=== PATIENT | female | born 1960 | race Caucasian/White ===

== ENCOUNTER 2018-01-19 10:12 | Outpatient (CLI) | payer MEDICAID | END 2018-01-19 10:13 | disposition home or self-care (01) | LOC: RT.S 10:12 | PROVIDERS: ATTEND Nurse Practitioner Family | DX: I10 Essential (primary) hypertension (principal) | CPT/HCPCS: 93005 ==

== ENCOUNTER 2018-01-29 09:15 | Outpatient (CLI) | payer MEDICAID ==
[2018-01-29 18:37] LABS: ALBUMIN 4.4 g/dL (3.2-5.5); ALBUMIN/GLOBULIN RATIO 1.3 (1.0-2.2); ALKALINE PHOSPHATASE 53 IU/L (42-121); ALT ALANINE AMINOTRANSFERASE 13 IU/L (10-60); AST ASPARTATE AMINOTRANSFERASE 21 IU/L (10-42); BILIRUBIN,TOTAL 0.9 mg/dL (0.2-1.0); BUN - BLOOD UREA NITROGEN 26 mg/dL (6-20); CALCIUM 9.9 mg/dL (8.5-10.3); CARBON DIOXIDE - CO2 30 mmol/L (21-32); CHLORIDE 97 mmol/L (101-111); CHOL/HDL RATIO 3.1 (<4.4); CHOLESTEROL 247 mg/dL; CREATININE 0.9 mg/dL (0.4-1.0); GFR - MDRD 64 (>89); GLUCOSE 95 mg/dL (70-100); HDL CHOLESTEROL 79 mg/dL; LDL CHOLESTEROL,CALCULATED 134 mg/dL; LDL/HDL RATIO 1.7 (<4.4); SODIUM 137 mmol/L (135-145); TOTAL PROTEIN 7.7 g/dL (6.7-8.2); VLDL CHOLESTEROL 34 mg/dL
[2018-01-29 19:58] LABS: HB2 TOTAL 14.5 g/dL; HEMOGLOBIN A1C 0.51 g/dL; HEMOGLOBIN A1C % 5.4 % (4.6-6.2)
== END 2018-01-29 09:16 | disposition home or self-care (01) ==
LOC: LAB.S 09:15
PROVIDERS: ATTEND Nurse Practitioner Family
DX: I10 Essential (primary) hypertension (principal); R73.9 Hyperglycemia, unspecified
CPT/HCPCS: 36415; 80053; 80061; 83036; 83721

== ENCOUNTER 2018-02-02 14:49 | Outpatient (CLI) | payer MEDICAID ==
--- NOTE | 2018-02-06 15:12 | Mammography Report ---
DIGITAL SCREENING MAMMOGRAM: 02/02/2018 CLINICAL INDICATION: A 57-year-old for baseline, history of late childbearing. TECHNIQUE: Routine CC and MLO projections were obtained of the breasts. FINDINGS: The breasts demonstrate heterogeneously dense fibroglandular parenchyma bilaterally. Coarse, typically benign calcifications are present. In the right inner central breast, there is a possible obscured nodule. Further evaluation with spot compression views and possible ultrasound is recommended. No mammographically suspicious findings are identified in the left breast. IMPRESSION: INCOMPLETE EXAMINATION. RECOMMENDATION: Additional evaluation of the right breast as above. BI-RADS CATEGORY 0 - INCOMPLETE. STANDARD QUALIFYING STATEMENTS: 1. This examination was reviewed with the aid of Computer-Aided Detection (CAD). 2. A negative or benign imaging report should not delay biopsy if clinically suspicious findings are present. Consider surgical consultation if warranted. More than 5% of cancers are not identified by imaging. 3. Dense breasts may obscure an underlying neoplasm. TD: 02/06/2018 15:01
== END 2018-02-02 14:50 | disposition home or self-care (01) ==
LOC: DI.S 14:49
PROVIDERS: ATTEND Nurse Practitioner Family
DX: Z12.31 Encounter for screening mammogram for malignant neoplasm of breast (principal)
CPT/HCPCS: 77067

== ENCOUNTER 2018-02-26 14:03 | Outpatient (CLI) | payer MEDICAID ==
--- NOTE | 2018-02-26 17:19 | Ultrasound Report ---
RIGHT BREAST ULTRASOUND: 02/26/2018 CLINICAL INDICATION: Abnormal screening, persistent nodule on diagnostic. TECHNIQUE: Real-time scanning was performed with commercial pest control representative static images obtained. FINDINGS: Ultrasound of the right inner breast was performed. At the 2 o'clock position, 4 cm from the nipple, there is a 1.3 x 1.4 x 0.6 cm mixed hypoechoic and anechoic nodule, without internal vascularity. The margins appear mostly circumscribed. This may represent a complicated cyst or complex solid and cystic nodule. As such, fine needle aspiration is recommended, with biopsy of any remaining solid component. IMPRESSION: EITHER A COMPLICATED CYST OR A COMPLEX SOLID AND CYSTIC NODULE CORRELATING WITH THE MAMMOGRAPHIC ABNORMALITY. FINE NEEDLE ASPIRATION AND BIOPSY OF ANY RESIDUAL SOLID LESION IS RECOMMENDED. BIRADS category 4 suspicious abnormality. Results and recommendations discussed with the patient at the time of the examination, and called to the office of EVA Martinez on 02/26/2018 at 1540 hours. Biopsy/FNA is scheduled for 03/09/2018 at 12:30 p.m. TD: 02/26/2018 15:47
--- NOTE | 2018-02-26 17:22 | Mammography Report ---
DIGITAL DIAGNOSTIC RIGHT MAMMOGRAM: 02/26/2018 CLINICAL INDICATION: Possible nodule on baseline examination. TECHNIQUE: Right true lateral and spot compression views. COMPARISON: 02/02/2018 FINDINGS: The right breast again demonstrates heterogeneously dense fibroglandular parenchyma. A partially circumscribed nodule persists in the inner central right breast. No associated calcifications are seen. Please also refer to right breast ultrasound of the same day. IMPRESSION: EITHER A COMPLICATED CYST OR A COMPLEX SOLID AND CYSTIC NODULE IN THE MEDIAL RIGHT BREAST, ACCOUNTING FOR THE MAMMOGRAPHIC ABNORMALITY. RECOMMENDATION: Ultrasound-guided fine needle aspiration, with biopsy of any remaining solid lesion. BIRADS category 4 suspicious abnormality. Results and recommendations discussed with the patient at the time of the examination, and called to the office of Leticia Beckman PA-C on 02/26/2018. Biopsy is scheduled for 03/09/2018 at 12:30 p.m. STANDARD QUALIFYING STATEMENTS 1. This examination was reviewed with the aid of Computed-Aided Detection (CAD). 2. A negative or benign imaging report should not delay biopsy if clinically suspicious findings are present. Consider surgical consultation if warranted. More than 5% of cancers are not identified by imaging. 3. Dense breasts may obscure an underlying neoplasm. TD: 02/26/2018 15:49
== END 2018-02-26 14:04 | disposition home or self-care (01) ==
LOC: DI 14:03
PROVIDERS: ATTEND Nurse Practitioner Family
DX: R92.8 Other abnormal and inconclusive findings on diagnostic imaging of breast (principal)
CPT/HCPCS: 76642

== ENCOUNTER 2018-03-09 12:20 | Outpatient (CLI) | payer MEDICAID ==
[2018-03-09] MEDS: BUPIVACAINE 0.5%-EPI 1:200000 PF 10 ML VIAL SUBQ ONE (16:55)
[2018-03-09] MEDS: BUFFERED LIDOCAINE 10 ML SYRINGE IU ONE (16:57)
--- NOTE | 2018-03-12 08:52 | Ultrasound Report ---
Procedure Date: 03/09/2018 Accession Number: [id number] / [id number] Procedure: US - Biopsy Breast Core CPT Code: FULL RESULT: EXAM: Biopsy Breast Core DATE: 03/09/2018 3:48 PM CLINICAL HISTORY: 1.3 x 1.4 x 0.6 cm mixed echogenicity nodule right breast 2:00 position 4 cm from the nipple for aspiration versus core biopsy. COMPARISON: Mammogram and ultrasound 02/26/2018 FINDINGS: Initial ultrasound by the technologist with saved static images reviewed confirms the presence of a hypoechoic nodule at the 2:00 position 4 cm from the nipple. After discussion of the potential risks and complications with the patient, informed consent is obtained. Using ultrasound guidance the nodule is located and marked. The patient is prepped and draped in the standard fashion and local anesthesia achieved using both 1% lidocaine and Marcaine. An initial aspiration is attempted using a 20-gauge needle. No fluid is obtained. Core biopsy is then performed using a 14-gauge achieve needle. 6 passes are made with confirmation of appropriate needle position by ultrasound. A clip is then placed at the biopsy site under ultrasound. Unfortunately, mammography was not available postprocedure to confirm clip placement. The patient is scheduled as an outpatient for a unilateral right mammogram to confirm clip placement. IMPRESSION: Successful ultrasound-guided right breast core biopsy. Final recommendation pending pathology review.
== END 2018-03-09 12:21 | disposition home or self-care (01) ==
LOC: DI 12:20
PROVIDERS: ATTEND Nurse Practitioner Family
DX: D24.1 Benign neoplasm of right breast (principal)
CPT/HCPCS: 19083

== ENCOUNTER 2018-03-13 15:08 | Outpatient (CLI) | payer MEDICAID ==
--- NOTE | 2018-03-13 15:28 | Mammography Report ---
Procedure Date: 03/13/2018 Accession Number: [id number] / [id number] Procedure: WING - Diagnostic Dig RT CPT Code: FULL RESULT: EXAM: Diagnostic Dig RT DATE: 03/13/2018 3:24 PM CLINICAL HISTORY: Postbiopsy, check clip placement TECHNIQUE: Right CC and ML views COMPARISON: 02/26/2018, 02/02/2018 FINDINGS: The breasts demonstrate heterogeneously dense fibroglandular parenchyma bilaterally. Biopsy marker is centered within the nodule in the right inner breast. Coarse and punctate, typically benign calcifications are present. IMPRESSION: Benign findings RECOMMENDATION: Recommend routine annual Screening mammography unless otherwise clinically indicated, given the pathology results of benign fibroadenoma. BIRADS CATEGORY 2: Benign findings STANDARD QUALIFYING STATEMENTS: 1. This examination was reviewed with the aid of Computer-Aided Detection (CAD). 2. A negative or benign imaging report should not delay biopsy if clinically suspicious findings are present. Consider surgical consultation if warrented. More than 5% of cancers are not identified by imaging. 3. Dense breasts may obscure an underlying neoplasm.
== END 2018-03-13 15:09 | disposition home or self-care (01) ==
LOC: DI 15:08
PROVIDERS: ATTEND Nurse Practitioner Family
DX: R92.8 Other abnormal and inconclusive findings on diagnostic imaging of breast (principal)

== ENCOUNTER 2019-04-24 08:42 | Outpatient (CLI) | payer MEDICAID ==
[2019-04-24 11:00] LABS: HB2 TOTAL 14.3 g/dL; HEMOGLOBIN A1C 0.52 g/dL; HEMOGLOBIN A1C % 5.5 % (4.6-6.2)
[2019-04-24 17:30] LABS: ALBUMIN 4.3 g/dL (3.2-5.5); ALBUMIN/GLOBULIN RATIO 1.2 (1.0-2.2); ALKALINE PHOSPHATASE 63 IU/L (42-121); ALT ALANINE AMINOTRANSFERASE 54 IU/L (10-60); AST ASPARTATE AMINOTRANSFERASE 63 IU/L (10-42); BILIRUBIN,TOTAL 0.8 mg/dL (0.2-1.0); BUN - BLOOD UREA NITROGEN 18 mg/dL (6-20); CALCIUM 9.3 mg/dL (8.5-10.3); CARBON DIOXIDE - CO2 29 mmol/L (21-32); CHLORIDE 94 mmol/L (101-111); CHOL/HDL RATIO 3.9 (<4.4); CHOLESTEROL 289 mg/dL; GFR - MDRD 57 (>89); GLUCOSE 97 mg/dL (70-100); HDL CHOLESTEROL 75 mg/dL; LDL CHOLESTEROL,CALCULATED 163 mg/dL; LDL/HDL RATIO 2.2 (<4.4); SODIUM 136 mmol/L (135-145); TOTAL PROTEIN 7.8 g/dL (6.7-8.2); VLDL CHOLESTEROL 51 mg/dL
== END 2019-04-24 08:43 | disposition home or self-care (01) ==
LOC: LAB.S 08:42
PROVIDERS: ATTEND Internal Medicine
DX: E78.5 Hyperlipidemia, unspecified (principal); R73.02 Impaired glucose tolerance (oral)
CPT/HCPCS: 36415; 80053; 80061; 83036; 83721

== ENCOUNTER 2020-07-10 12:17 | Inpatient (IN) | payer MEDICAID ==
[2020-07-10] MEDS ORDERED: IPRATROPIUM/ALBUTEROL 3 ML NEB INH STA (12:49)
[2020-07-10] MEDS ORDERED: methylPREDNISolone SUCCINATE 125 MG/2 ML VIAL IVP STA (12:49)
--- NOTE | 2020-07-10 13:05 | ED Physician Documentation ---
PD HPI DYSPNEA - Stated complaint Stated Complaint: SOA - Chief complaint Chief Complaint: Resp - History obtained from History obtained from: Patient, Family - History of Present Illness Timing - onset: How many weeks ago (1) Timing - duration: Weeks (1) Timing - details: Gradual onset, Waxing and waning Pain level max: 0 Pain level now: 0 Inciting event(s): No: URI Improved by: Rest Associated symptoms: Wheezing. No: Fever, Cough, Hemoptysis, Palpitations, Diaphoresis, Bilateral edema Recently seen: Not recently seen - Additional information Additional information: 60-year-old female presents to the emergency department stating that she has had dyspnea intermittently for the past week. She states it became worsened today when she was in the shower. Does not have any chest pain. No nausea or vomiting fever. No cough. No chills. Patient does smoke at home. Does not use inhalers. No recent surgery. No immobilization. No calf swelling. No history of blood clots. No history of acute coronary syndrome. Review of Systems Ten Systems: 10 systems reviewed and negative Constitutional: denies: Fever, Chills Throat: denies: Sore throat Cardiac: denies: Chest pain / pressure GI: denies: Vomiting, Diarrhea : denies: Dysuria Skin: denies: Rash Musculoskeletal: denies: Neck pain, Back pain Neurologic: denies: Headache PD PAST MEDICAL HISTORY - Past Medical History Cardiovascular: Hypertension Respiratory: None Endocrine/Autoimmune: None GI: None : None Psych: None Musculoskeletal: None Derm: None - Past Surgical History Past Surgical History: Yes - Present Medications Home Medications: Ambulatory Orders Medication Instructions Recorded Confirmed Atenolol/Chlorthalidone 1 each PO DAILY 04/18/16 04/19/16 [Atenolol-Chlorthalidone 100-25] - Allergies Allergies/Adverse Reactions: Allergies Allergy/AdvReac Type Severity Reaction Status Date / Time No Known Drug Allergies Allergy Verified 08/19/14 20:58 - Social History Does the pt smoke?: Yes Smoking Status: Current every day smoker Does the pt drink ETOH?: Yes ETOH Use: Liquor Does the pt have substance abuse?: No - Immunizations Immunizations are current?: Yes Immunizations: TDAP >10years/unknown PD ED PE NORMAL - Vitals Vital signs reviewed: Yes - General General: Alert and oriented X 3, No acute distress - HEENT HEENT: Moist mucous membranes - Neck Neck: Supple, no meningeal sign - Cardiac Cardiac: RRR - Respiratory Respiratory: No respiratory distress, Other (Diminished breath sounds bilaterally with fine expiratory wheezing throughout) - Abdomen Abdomen: Soft, Non tender, Non distended - Derm Derm: Warm and dry - Extremities Extremities: No edema, No calf tenderness / cord - Neuro Neuro: Alert and oriented X 3 Results - Vitals Vitals: Vital Signs - 24 hr 07/10/20 07/10/20 07/10/20 12:23 12:41 13:19 Temperature 36.7 C Heart Rate 79 79 72 Respiratory 21 19 20 Rate Blood Pressure 151/80 H 149/91 H O2 Saturation 89 L 93 07/10/20 07/10/20 07/10/20 13:36 14:06 14:23 Temperature Heart Rate 82 77 77 Respiratory 20 16 19 Rate Blood Pressure 145/91 H 137/110 H 149/96 H O2 Saturation 97 93 94 07/10/20 07/10/20 07/10/20 15:00 15:30 15:55 Temperature 36.8 C Heart Rate 80 86 89 Respiratory 19 20 26 H Rate Blood Pressure 154/106 H 134/89 H O2 Saturation 94 96 07/10/20 16:50 Temperature Heart Rate 67 Respiratory 16 Rate Blood Pressure 130/83 H O2 Saturation 99 Oxygen O2 Source Nasal cannula - EKG (time done) 1231 Rate: Rate (enter#) (80) Rhythm: NSR [place]: Normal Intervals: Normal [place] QRS: Normal Ischemia: Non specific changes - Labs Labs: Laboratory Tests 07/10/20 07/10/20 07/10/20 13:05 13:30 13:30 WBC 9.0 RBC 4.58 Hgb 15.5 Hct 44.9 MCV 98.0 MCH 33.8 H MCHC 34.5 RDW 12.0 Plt Count 296 MPV 10.4 Neut # (Auto) 6.8 H Lymph # (Auto) 1.0 L [place] # (Auto) 0.7 Eos # (Auto) 0.4 Baso # (Auto) 0.1 Absolute Nucleated RBC 0.00 Nucleated RBC % 0.0 D-Dimer Sodium 127 L Potassium 3.4 L Chloride 85 L Carbon Dioxide 27 Anion Gap 15.0 H BUN 18 Creatinine 1.1 H Estimated GFR (MDRD) 50 L Glucose 137 H Calcium 10.2 Total Bilirubin 0.9 AST 39 ALT 44 Alkaline Phosphatase 68 Troponin I High Sens 6.4 Total Protein 8.3 H Albumin 4.7 Globulin 3.6 Albumin/Globulin Ratio 1.3 Lipase 26 07/10/20 13:30 WBC RBC Hgb Hct MCV MCH MCHC RDW Plt Count MPV Neut # (Auto) Lymph # (Auto) [place] # (Auto) Eos # (Auto) Baso # (Auto) Absolute Nucleated RBC Nucleated RBC % D-Dimer 217.7 Sodium Potassium Chloride Carbon Dioxide Anion Gap BUN Creatinine Estimated GFR (MDRD) Glucose Calcium Total Bilirubin AST ALT Alkaline Phosphatase Troponin I High Sens Total Protein Albumin Globulin Albumin/Globulin Ratio Lipase - Rads (name of study) Chest x-ray Radiology: Prelim report reviewed, EMP read contemporaneously, See rad report (No acute process demonstrated. ) CT PA Radiology: Prelim report reviewed, EMP read contemporaneously, See rad report (no PE, no acute abnormality.) PD MEDICAL DECISION MAKING - ED course Complexity details: reviewed results, re-evaluated patient, considered differential, d/w patient, d/w foreign law consultant ED course: Unclear etiology of the patient's symptoms. She is well-appearing, nontoxic. Afebrile. She become significantly hypoxic, down to the 70s with minimal exertion. She does feel slightly better after multiple breathing treatments. She was also given Solu-Medrol. Likely that this is COPD given her long smoking history. No evidence of acute coronary syndrome, PE. We will admit the patient for further care as she still remains hypoxic with any movement. Discussed the case with Dr. De La Fuente, hospitalist who accepts This document was made in part using voice recognition software. While efforts are made to proofread this document, sound alike and grammatical errors may occur. Departure - Departure Disposition: [facility] DC/Xfer Clinical Impression: Hypoxia Dyspnea Qualifiers: Dyspnea type: unspecified Qualified Code(s): R06.00 - Dyspnea, unspecified Condition: Stable Discharge Date/Time: 07/10/20 17:50
--- NOTE | 2020-07-10 13:17 | XRAY Report ---
PROCEDURE: Chest 1 View X-Ray INDICATIONS: Dyspnea TECHNIQUE: One view of the chest was acquired. COMPARISON: None FINDINGS: Surgical changes and devices: None. Lungs and pleura: No pleural effusions or pneumothorax. Lungs are clear. Mediastinum: Mediastinal contours appear normal. Heart size is normal. Bones and chest wall: No suspicious bony lesions. Overlying soft tissues appear unremarkable. IMPRESSION: No acute process demonstrated. Reviewed by: Jose Barksdale MD on 07/10/2020 1:15 PM PDT Approved by: Jose Barksdale MD on 07/10/2020 1:15 PM PDT Station ID: [id number]
[2020-07-10 13:18] LABS: BASOPHILS # (AUTO) 0.1 10^3/uL (0.0-0.1); EOSINOPHILS # (AUTO) 0.4 10^3/uL (0.0-0.7); EOSINOPHILS % (AUTO) 4.1 %; HGB - HEMOGLOBIN 15.5 g/dL (12.0-16.0); LYMPHOCYTES % (AUTO) 11.1 %; MEAN CORPUSCULAR HEMOGLOBIN 33.8 pg (27.0-31.0); MEAN CORPUSCULAR HGB CONC 34.5 g/dL (32.0-36.0); MEAN PLATELET VOLUME 10.4 fL (7.9-10.8); MONOCYTES # (AUTO) 0.7 10^3/uL (0.0-1.0); MONOCYTES % (AUTO) 8.1 %; NEUTROPHILS # (AUTO) 6.8 10^3/uL (1.5-6.6); NEUTROPHILS % (AUTO) 75.1 %; PLT - PLATELET COUNT 296 10^3/uL (130-450); RED BLOOD COUNT 4.58 10^6/uL (4.20-5.40)
[2020-07-10 13:57] LABS: ALBUMIN 4.7 g/dL (3.2-5.5); ALBUMIN/GLOBULIN RATIO 1.3 (1.0-2.2); BILIRUBIN,TOTAL 0.9 mg/dL (0.2-1.0); CALCIUM 10.2 mg/dL (8.5-10.3); CREATININE 1.1 mg/dL (0.4-1.0); TOTAL PROTEIN 8.3 g/dL (6.7-8.2)
[2020-07-10] MEDS ORDERED: SODIUM CHLORIDE 0.9% 1,000 ML IV STA (14:06)
[2020-07-10] MEDS ORDERED: IOVERSOL 320 100 ML VIAL IVP ONE ×2 (14:44→15:49)
[2020-07-10] MEDS ORDERED: LORazepam 2 MG/ML VIAL IVP STA (14:48)
[2020-07-10] MEDS ORDERED: ALBUTEROL 1 PUFF INH STA (14:48)
--- NOTE | 2020-07-10 16:03 | CT Report ---
PROCEDURE: ANGIO CHEST W/WO INDICATIONS: dyspnea, possible PE CONTRAST: IV CONTRAST: Optiray 320 ml: 100 PO CONTRAST: *NO PO CONTRAST TECHNIQUE: After the administration of intravenous contrast, 2 mm thick sections acquired from the pulmonary api elian to the posterior costophrenic angles. 3-dimensional maximum intensity projection (MIP) coronal a nd sagittal reformats were then acquired through the thorax. For radiation dose reduction, the follow ing was used: automated exposure control, adjustment of mA and/or kV according to patient size. COMPARISON: Chest x-ray 07/10/2020 FINDINGS: Image quality: Motion is present throughout the examination, limiting areas of fine detail evaluation . Pulmonary arteries: Pulmonary arteries are normal in size, and demonstrate no intraluminal filling d efects to suggest central pulmonary embolism. Lungs and pleura: Lungs are clear. No pleural effusions or pneumothorax. Central and peripheral ai rways are patent. Mediastinum: Heart size is normal, without pericardial effusion. No mediastinal or hilar adenopathy . Thoracic aorta is normal in caliber and enhancement. Esophagus is normal in caliber, without hiat al hernia. Bones and chest wall: No suspicious bony lesions. Ribs and thoracic spine appear intact throughout. The thyroid is normal. No axillary or supraclavicular adenopathy. Abdomen: Visualized upper abdominal solid organs appear normal in the early arterial phase of enhanc ement. IMPRESSION: 1. No pulmonary embolism. 2. Lungs are clear. Reviewed by: Orquidea Duran MD on 07/10/2020 4:01 PM PDT Approved by: Orquidea Duran MD on 07/10/2020 4:01 PM PDT Station ID: [id number]
--- NOTE | 2020-07-10 17:10 | HISTORY & PHYSICAL EXAMINATION ---
Chief Complaint - Chief Complaint Chief Complaint: dyspnea History of Present Illness - Admitted From Admitted From:: ER - History Obtained From Records Reviewed: [facility] History obtained from: pt Exam Limitations: no - History of Present Illness HPI Comment/Other: This is a 60-year-old female with Past medical history significant for hypertension, currently cigarette smoker, who presents to the emergency department Complain shortness of breathing and cough. she state that she has been dyspnea intermittently for the past week. She states it became worsened and Almost passed out on today when she had in the shower. Her friend bring her to ER. she denies chest pain, fever, chill, nausea or vomiting or abdominal pain. Patient report she is still smoking at home. She denies use inhalers. In the physical examination, patient show bilaterally expiration with severe wheezy. Chest x-ray and CTA of the chest show unremarkable. Routine laboratory test which show patient had sodium 127, potassium 3.4, creatinine 1.1, Anion gap 15, troponin 6.7. Nurse report pt's Oxygen saturation on exertion will quickly dropped to the 70-80% then quickly come back 80-90% sat on the rest. patient was admitted for COPD exacerbation now. Discussed the care goal with patient, patient requests full code History - Past Medical History Cardiovascular: reports: Hypertension Respiratory: reports: None Endocrine/Autoimmune: reports: None GI: reports: None : reports: None Psych: reports: None Musculoskeletal: reports: None Derm: reports: None MRSA Hx?: No - Family & Social History Family History: Mother: , Father: Family History Comment/Other: Patient report her father of COPD at age 65 with heavy smoker, her mother from uterine cancer at age 78. 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 - Home Medications Home Medications: Ambulatory Orders Medication Instructions Recorded Confirmed Atenolol/Chlorthalidone 1 each PO DAILY 04/18/16 04/19/16 [Atenolol-Chlorthalidone 100-25] - Allergies Allergies/Adverse Reactions: Allergies Allergy/AdvReac Type Severity Reaction Status Date / Time No Known Drug Allergies Allergy Verified 08/19/14 20:58 Review of Systems - Constitutional Constitutional: denies: Fatigue, Fever, Chills, Malaise, Weakness, Poor appetite - Eyes Eyes: denies: Pain, Blurred vision, Field loss, Vision loss - Ears, Nose & Throat Ears, Nose & Throat: denies: Ear pain, Nosebleeds, Nasal congestion, Bleeding gums - Cardiovascular Cariovascular: reports: Exertional dyspnea, Decr. exercise tolerance. denies: Irregular heart rate, Palpitations, Chest pain, Lightheadedness, Syncope - Respiratory Respiratory: reports: Cough, Wheezing, Orthopnea, SOB with exertion. denies: Sputum production, Snoring, Hemoptysis - Gastrointestinal Gastrointestinal: denies: Abdominal pain, Diarrhea, Black stools, Bloody stools, Nausea, Vomiting - Genitourinary Genitourinary: denies: Dysuria, Urgency, Incontinence - Musculoskeletal Musculoskeletal: denies: Limited range of motion, Joint swelling - Integumentary Integumentary: denies: Rash, Lesions - Neurological Neurological: denies: General weakness, Focal weakness, Headache, Dizziness, Numbness, Memory problems, Pre-existing deficit, Abnormal gait, Seizures, Incoordination, Slurred speech - Psychiatric Psychiatric: denies: Depression, Suicidal, Delusions, Hallucinations - Endocrine Endocrine: denies: Polyuria, Polyphagia - Hematologic/Lymphatic Hematologic/Lymphatic: denies: Anemia, Lymphadenopathy, Recurrent infections Exam - Vital Signs Vital Signs: Vital Signs x48h Temp Pulse Resp BP Pulse Ox 07/10/20 16:50 67 16 130/83 H 99 07/10/20 15:55 36.8 C 89 26 H 134/89 H 96 07/10/20 15:30 86 20 07/10/20 15:00 80 19 154/106 H 94 07/10/20 14:23 77 19 149/96 H 94 07/10/20 14:06 77 16 137/110 H 93 07/10/20 13:36 82 20 145/91 H 97 07/10/20 13:19 72 20 07/10/20 12:41 79 19 149/91 H 93 07/10/20 12:23 36.7 C 79 21 151/80 H 89 L - Physical Exam General Appearance: positive: Alert, Mild distress. negative: Lethargic Eyes Bilateral: positive: Normal inspection, PERRL, No lid inflammation ENT: positive: ENT inspection nml, No signs of dehydration. negative: Purulent nasal drainage Neck: positive: Nml inspection, Thyroid nml, Trachea midline. negative: Thyromegaly, Stiff neck, Tracheal deviation Respiratory: positive: Chest non-tender, Wheezes. negative: No respiratory distress, Breath sounds nml, Rales, Rhonchi Cardiovascular: positive: Regular rate & rhythm. negative: No murmur, Tachycardia, Bradycardia, Systolic murmur, Diastolic murmur Peripheral Pulses: positive: 2+ Abdomen: positive: Non-tender, Nml bowel sounds, No distention. negative: Tenderness, Guarding, Rebound Back: positive: Nml inspection Skin: positive: Color nml, No rash, Warm, Dry. negative: Cyanosis, Diaphoresis, Pallor Extremities: positive: Non-tender, Full ROM, Nml appearance. negative: Calf tenderness Neurologic/Psychiatric: positive: Oriented x3, Motor nml, Sensation nml, Mood/affect nml. negative: Weakness, Sensory loss, Facial droop, Slurred/abnml speech, Depressed mood/affect Sepsis Event Note (H) - Evaluation Current Stage of Sepsis: Ruled out Conclusion/Plan - Problem List (1) COPD exacerbation Conclusion/Plan: Patient is current Cigarette smoke, Severe bilaterally expiration wheezy in physical exam, Shortness of breathing on exertion, Oxygen sat dropped quickly on exertion. CTA of the chest and the chest x-ray was unremarkable. COVID-19 is pending solu-metrol IV, albuterol MDI because of Covid 19 pending, singular, Supplement of oxygen as needed. 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 (3) HTN (hypertension) Conclusion/Plan: Patient blood pressure is stable now, we will resume home medication after confirmed (4) Current smoker Conclusion/Plan: Patient is currently smoker, she ask nicotine patch, advised patient quitted smoking, she agreed - Lab Results Fish Bones: 07/10/20 13:05 07/10/20 13:30 Core Measures - Anticipated LOS I expect patient to be DC'd or transferred within 96 hours.: Yes - DVT/VTE - Prophylaxis VTE/DVT Device ordered at admit?: Yes VTE/DVT Prophylaxis med ordered at admit?: Yes - Stroke - Rehab Assessment Rehab services assessment to be ordered?: Yes - AMI - Statin at Admit Aspirin Prescribed on Admit: Yes
[2020-07-10] MEDS ORDERED: ONDANSETRON 4 MG/2 ML VIAL IVP PRN (17:13)
[2020-07-10] MEDS ORDERED: SODIUM CHLORIDE 0.9% 1,000 ML IV SCH (18:00)
[2020-07-10] MEDS: SODIUM CHLORIDE 0.9% 1,000 ML IV SCH (18:30)
[2020-07-10] MEDS: NICOTINE 14 MG PATCH TOP SCH (18:30)
[2020-07-10] MEDS: ALBUTEROL 1 PUFF INH PRN (21:43)
[2020-07-10] MEDS: methylPREDNISolone SUCCINATE 125 MG/2 ML VIAL IVP SCH (21:53)
[2020-07-10] MEDS: FAMOTIDINE 20 MG TABLET PO SCH (21:53)
[2020-07-10] MEDS: MONTELUKAST 10 MG TABLET PO SCH (21:53)
[2020-07-11] MEDS: ACETAMINOPHEN 325 MG TABLET PO PRN ×2 (00:08→06:35)
[2020-07-11] MEDS: SODIUM CHLORIDE FLUSH 0.9% 10 ML SYRINGE IVP SCH ×3 (02:02→17:07)
[2020-07-11] MEDS: ALBUTEROL 1 PUFF INH PRN ×3 (02:25→22:12)
[2020-07-11 05:38] LABS: BASOPHILS % (AUTO) 0.1 %; HGB - HEMOGLOBIN 13.3 g/dL (12.0-16.0); LYMPHOCYTES # (AUTO) 0.4 10^3/uL (1.5-3.5); LYMPHOCYTES % (AUTO) 4.7 %; MEAN CORPUSCULAR HEMOGLOBIN 34.6 pg (27.0-31.0); MEAN CORPUSCULAR HGB CONC 35.2 g/dL (32.0-36.0); MEAN CORPUSCULAR VOLUME 98.4 fL (81.0-99.0); MEAN PLATELET VOLUME 9.9 fL (7.9-10.8); MONOCYTES # (AUTO) 0.1 10^3/uL (0.0-1.0); MONOCYTES % (AUTO) 1.6 %; NEUTROPHILS # (AUTO) 6.9 10^3/uL (1.5-6.6); NEUTROPHILS % (AUTO) 92.8 %; PLT - PLATELET COUNT 241 10^3/uL (130-450); RED BLOOD COUNT 3.84 10^6/uL (4.20-5.40); RED CELL DISTRIBUTION WIDTH 11.6 % (12.0-15.0); WHITE BLOOD COUNT 7.4 x10^3/uL (4.8-10.8)
[2020-07-11 05:58] LABS: CALCIUM 8.8 mg/dL (8.5-10.3); MAGNESIUM 1.4 mg/dL (1.7-2.8); PHOSPHORUS 2.2 mg/dL (2.5-4.6)
[2020-07-11] MEDS: SODIUM CHLORIDE 0.9% 1,000 ML IV SCH (06:18)
[2020-07-11] MEDS: BENZOCAINE/MENTHOL LOZENGE MM PRN ×2 (06:20→21:56)
[2020-07-11] MEDS: methylPREDNISolone SUCCINATE 125 MG/2 ML VIAL IVP SCH ×3 (06:21→21:55)
[2020-07-11] MEDS ORDERED: MAGNESIUM SULFATE 2 GRAM 2 GM/50 ML BAG IV SCH (07:30)
[2020-07-11] MEDS: POTASSIUM CHLORIDE 20 MEQ TABLET PO SCH ×3 (07:56→17:23)
[2020-07-11] MEDS ORDERED: POTASSIUM PHOSPHATE 15 MMOL in SODIUM CHLORIDE 0.9% 250 ML IV SCH (08:30)
[2020-07-11] MEDS: NICOTINE 14 MG PATCH TOP SCH (09:42)
[2020-07-11] MEDS: ENOXAPARIN 40 MG/0.4 ML SYRINGE SUBQ SCH (09:42)
[2020-07-11] MEDS: FAMOTIDINE 20 MG TABLET PO SCH ×2 (10:05→21:57)
--- NOTE | 2020-07-11 13:42 | PROVIDER PROGRESS NOTE ---
Assessment/Plan - Problem List (1) COPD exacerbation Assessment/Plan: She has never been Dx as having COPD. Chest x-ray was normal and CTA showed no pulmonary embolism. The clinical impression is that she has a COPD exacerbation therefore She feels slightly better, but still has a hacking cough and brown, pink-tinged sputum production. She has been started on IV Solu-Medrol, montelukast, and MDI inhalers. We are awaiting Covid test before RT can start nebulizers. She continues to be in respiratory isolation therefore. Continue supplemental oxygen as needed, wean down if possible, keeping sat > 88% . Will add Mucinex. Will obtain a sputum cx, if not yet done. Will give a course of Zithromax for bronchitis which likely caused this exacerbation. (2) Orthopnea Assessment/Plan: Echo has been ordered, to R/O CHF, but today is Monday and we do not have Echo till Monday. She also reports having had all Covid symptoms in August 2019: Cough, fatigue, fever, Anorexia,was in bed for 15 days. Will obtain Covid antibody test. (3) Hyponatremia Assessment/Plan: This is most likely hypovolemic hyponatremia, given the low blood pressure in a patient who normally has hypertension and the fact she is low and other elect rolytes as well. We discussed how she might be dehydrating herself, she is not on diuretics for blood pressure control. She does admit to drinking 2 vodka tonics per night and knows that alcohol causes diuresis. She was started on IV saline at admission. She knows to hydrate better and is drinking out of a jug of water here. Follow sodium in BMP daily. Obtain urine sodium level to assess for a SIADH. Also she did not have a UA at admission, will order U/A. (4) Hypokalemia Assessment/Plan: Suspect poor intake causing this, Since she is not on a diuretic. Replace. Follow labs daily. (5) Hypomagnesemia Assessment/Plan: Suspect poor intake causing this, Since she is not on a diuretic. Replace. Follow labs daily. (6) Hypophosphatemia Assessment/Plan: Suspect poor intake causing this. Replace. Follow labs daily. (7) Current smoker Assessment/Plan: Nicotine patch topically daily has been ordered (8) History of hypertension Assessment/Plan: Patient was on atenolol, losartan and amlodipine at home. Here her blood pressure is "soft" at 103 systolic. This is another indication that she is dehydrated. Will not resume these meds until she is hypertensive. - Current Meds Current Meds: Current Medications Generic Name Dose Route Start Last Admin Trade Name Freq PRN Reason Stop Dose Admin Acetaminophen 650 mg 07/10/20 17:13 07/11/20 06:35 Tylenol PO 650 mg Q4HR PRN Administration Pain 1 to 4 Albuterol 2 puffs 07/10/20 17:19 07/11/20 02:25 Mdi: Albuterol INH 2 puffs Q4H PRN Administration Shortness of Air/Wheezing Enoxaparin Sodium 40 mg 07/11/20 09:00 07/11/20 09:42 Lovenox SUBQ 40 mg DAILY ALLISON Administration Famotidine 20 mg 07/10/20 21:00 07/11/20 10:05 Pepcid PO 20 mg BID ALLISON Administration Sodium Chloride 1,000 mls @ 83.3 mls/hr 07/10/20 18:25 07/11/20 06:18 Normal Saline 0.9% IV 07/11/20 18:25 83.333 mls/hr .Q12H1M ALLISON Administration Methylprednisolone Sodium Succinate 80 mg 07/10/20 22:00 07/11/20 06:21 Solu-Medrol (125mg Vial) IVP 80 mg TID ALLISON Administration Montelukast Sodium 10 mg 07/10/20 21:00 07/10/20 21:53 Singulair PO 10 mg QPM ALLISON Administration Nicotine 1 patch 07/10/20 17:48 07/11/20 09:42 Nicoderm TOP 1 patch DAILY ALLISON Administration Potassium Chloride 40 meq 07/11/20 08:00 07/11/20 12:06 K-Dur PO 07/11/20 17:01 40 meq TIDWM ALLISON Administration Sodium Chloride 10 ml 07/11/20 01:00 07/11/20 09:43 Normal Saline Flush 0.9% IVP 10 ml 0100,0900,1700 ALLISON Administration Throat Lozenges 1 lozenge 07/11/20 02:05 07/11/20 06:20 Cepacol MM 1 lozenge Q2HR PRN Administration Throat pain - Lab Result Fish Bone Diagrams: 07/11/20 05:25 07/11/20 13:32 - Additional Planning My Orders: My Active Orders 07/11/20 13:32 POTASSIUM [CHEM] Timed Subjective - Subjective Patient Reports: Feeling Better, Cough (Cough was so bad several days ago that she had "cough syncope"), Shortness of Breath Objective Vital Signs: Vital Signs - 24 hr 07/10/20 07/10/20 07/10/20 14:06 14:23 15:00 Temperature Heart Rate 77 77 80 Heart Rate [ Radial] Respiratory 16 19 19 Rate Blood Pressure 137/110 H 149/96 H 154/106 H Blood Pressure [Left Brachial artery] O2 Saturation 93 94 94 07/10/20 07/10/20 07/10/20 15:30 15:55 16:50 Temperature 36.8 C Heart Rate 86 89 67 Heart Rate [ Radial] Respiratory 20 26 H 16 Rate Blood Pressure 134/89 H 130/83 H Blood Pressure [Left Brachial artery] O2 Saturation 96 99 07/10/20 07/10/20 07/10/20 17:26 18:13 21:00 Temperature 37 C 36.9 C Heart Rate 78 Heart Rate [ 84 73 Radial] Respiratory 20 18 18 Rate Blood Pressure 129/87 H Blood Pressure 122/100 H 113/79 [Left Brachial artery] O2 Saturation 96 93 92 07/10/20 07/11/20 07/11/20 21:42 00:00 02:25 Temperature 36.5 C Heart Rate 73 77 Heart Rate [ 72 Radial] Respiratory 18 18 18 Rate Blood Pressure Blood Pressure 115/79 [Left Brachial artery] O2 Saturation 97 07/11/20 07/11/20 07/11/20 05:00 08:05 09:00 Temperature 36.6 C 36.5 C Heart Rate 76 Heart Rate [ 70 76 Radial] Respiratory 16 16 16 Rate Blood Pressure Blood Pressure 127/85 H 127/83 H [Left Brachial artery] O2 Saturation 96 97 07/11/20 12:00 Temperature 36.9 C Heart Rate Heart Rate [ 75 Radial] Respiratory 16 Rate Blood Pressure Blood Pressure 103/77 [Left Brachial artery] O2 Saturation 97 Oxygen O2 Source Nasal cannula I&O (Last 24 Hrs): Intake and Output Totals x24h 07/09/20 07/10/20 07/11/20 23:59 23:59 23:59 Intake Total 1000 2010.000 Output Total 975 500 Balance 25 1510.000 General: Alert, Oriented x3 HEENT: Mucous membr. moist/pink Neck: Supple, No JVD Neuro: Alert, Non Focal Cardiovascular: Regular rate, No murmurs Respiratory: No respiratory distress, Wheezes (Scant wheezes, prolonged expiratory phase present) Abdomen: Soft Extremities: No edema - Results Results: Laboratory Results WBC 7.4 x10^3/uL (4.8-10.8) 07/11/20 05:25 RBC 3.84 10^6/uL (4.20-5.40) L 07/11/20 05:25 Hgb 13.3 g/dL (12.0-16.0) 07/11/20 05:25 Hct 37.8 % (37.0-47.0) 07/11/20 05:25 MCV 98.4 fL (81.0-99.0) 07/11/20 05:25 MCH 34.6 pg (27.0-31.0) H 07/11/20 05:25 MCHC 35.2 g/dL (32.0-36.0) 07/11/20 05:25 RDW 11.6 % (12.0-15.0) L 07/11/20 05:25 Plt Count 241 10^3/uL (130-450) 07/11/20 05:25 MPV 9.9 fL (7.9-10.8) 07/11/20 05:25 Neut # (Auto) 6.9 10^3/uL (1.5-6.6) H 07/11/20 05:25 Lymph # (Auto) 0.4 10^3/uL (1.5-3.5) L 07/11/20 05:25 [place] # (Auto) 0.1 10^3/uL (0.0-1.0) 07/11/20 05:25 Eos # (Auto) 0.0 10^3/uL (0.0-0.7) 07/11/20 05:25 Baso # (Auto) 0.0 10^3/uL (0.0-0.1) 07/11/20 05:25 Absolute Nucleated RBC 0.00 x10^3/uL 07/11/20 05:25 Nucleated RBC % 0.0 /100WBC 07/11/20 05:25 D-Dimer 217.7 ng/mL (200.0-255.0) 07/10/20 13:30 Sodium 131 mmol/L (135-145) L 07/11/20 05:25 Potassium 2.9 mmol/L (3.5-5.0) L 07/11/20 05:25 Chloride 97 mmol/L (101-111) L 07/11/20 05:25 Carbon Dioxide 22 mmol/L (21-32) 07/11/20 05:25 Anion Gap 12.0 (6-13) 07/11/20 05:25 BUN 18 mg/dL (6-20) 07/11/20 05:25 Creatinine 1.0 mg/dL (0.4-1.0) 07/11/20 05:25 Estimated GFR (MDRD) 56 (>89) L 07/11/20 05:25 Glucose 168 mg/dL (70-100) H 07/11/20 05:25 Calcium 8.8 mg/dL (8.5-10.3) 07/11/20 05:25 Phosphorus 2.2 mg/dL (2.5-4.6) L 07/11/20 05:25 Magnesium 1.4 mg/dL (1.7-2.8) L 07/11/20 05:25 Total Bilirubin 0.9 mg/dL (0.2-1.0) 07/10/20 13:30 AST 39 IU/L (10-42) 07/10/20 13:30 ALT 44 IU/L (10-60) 07/10/20 13:30 Alkaline Phosphatase 68 IU/L (42-121) 07/10/20 13:30 Troponin I High Sens 6.4 ng/L (2.3-14.8) 07/10/20 13:30 Total Protein 8.3 g/dL (6.7-8.2) H 07/10/20 13:30 Albumin 4.7 g/dL (3.2-5.5) 07/10/20 13:30 Globulin 3.6 g/dL (2.1-4.2) 07/10/20 13:30 Albumin/Globulin Ratio 1.3 (1.0-2.2) 07/10/20 13:30 Lipase 26 U/L (22-51) 07/10/20 13:30 - Procedures Procedures: Procedures INSPECTION OF LOWER INTESTINAL TRACT, ENDO (04/19/16) Sepsis Event Note (H) - Evaluation Current Stage of Sepsis: Ruled out
[2020-07-11] MEDS: MORPHINE 2 MG/ML CARPUJECT IVP PRN ×2 (14:47→21:57)
--- NOTE | 2020-07-11 15:45 | PHARMACY PROGRESS NOTE ---
- Best Possible Medication History Admit Date and Time: 07/10/20 1713 Processed by: Pharmacy Medication History completed: Yes Patient Interview: Completed Secondary Source(s): Physician records, Pharmacy records, Insurance records (PATIENT UNABLE TO BE INTERVIEWED BY PHARMACY. PATIENT INTERVIEWED BY RN. ) As the person ultimately responsible for medication therapy, providers are able to order a medication from an existing home medication list in [facility] via the "Reconcile Routine" prior to Confirmation of that medication by office support clerk. Such practice is discouraged except when the physician, in their clinical judgment, deems that a medical need exists for a medication without regard to previous use.
[2020-07-11] MEDS ORDERED: AZITHROMYCIN 250 MG TABLET PO STA (18:11)
[2020-07-11 19:08] LABS: BILIRUBIN,URINE NEGATIVE (NEGATIVE); GLUCOSE, URINE (UA) NEGATIVE (NEGATIVE); KETONES,URINE (UA) NEGATIVE (NEGATIVE); LEUKOCYTE ESTERASE, URINE NEGATIVE (NEGATIVE); NITRITE,URINE NEGATIVE (NEGATIVE); OCCULT BLOOD,URINE NEGATIVE (NEGATIVE); PH,URINE 6.5 PH (5.0-7.5); PROTEIN,URINE NEGATIVE (NEGATIVE); UROBILINOGEN,URINE 0.2 (NORMAL) E.U./dL (NORMAL)
[2020-07-11 19:19] LABS: BACTERIA,URINE None Seen /HPF (None Seen); CLARITY,URINE CLEAR (CLEAR)
[2020-07-11 19:20] LABS: RBC,URINE None Seen /HPF (0-5); SQUAMOUS EPITHELIAL CELL,UR RARE Squamous (<= Few)
[2020-07-11] MEDS: guaiFENesin 600 MG TABLET PO SCH (21:56)
[2020-07-11] MEDS: LORazepam 0.5 MG TABLET PO PRN (21:56)
[2020-07-11] MEDS: MONTELUKAST 10 MG TABLET PO SCH (21:56)
[2020-07-11] MEDS: SODIUM CHLORIDE FLUSH 0.9% 10 ML SYRINGE IVP PRN (21:57)
[2020-07-12] MEDS: SODIUM CHLORIDE FLUSH 0.9% 10 ML SYRINGE IVP SCH ×3 (00:11→21:18)
[2020-07-12] MEDS: methylPREDNISolone SUCCINATE 125 MG/2 ML VIAL IVP SCH (06:26)
[2020-07-12] MEDS: SODIUM CHLORIDE FLUSH 0.9% 10 ML SYRINGE IVP PRN ×3 (06:38→21:18)
[2020-07-12 06:46] LABS: BASOPHILS % (AUTO) 0.2 %; HGB - HEMOGLOBIN 12.4 g/dL (12.0-16.0); LYMPHOCYTES # (AUTO) 0.4 10^3/uL (1.5-3.5); LYMPHOCYTES % (AUTO) 2.1 %; MEAN CORPUSCULAR HEMOGLOBIN 34.3 pg (27.0-31.0); MEAN CORPUSCULAR HGB CONC 34.3 g/dL (32.0-36.0); MEAN PLATELET VOLUME 10.1 fL (7.9-10.8); MONOCYTES # (AUTO) 0.4 10^3/uL (0.0-1.0); MONOCYTES % (AUTO) 2.6 %; NEUTROPHILS # (AUTO) 15.6 10^3/uL (1.5-6.6); PLT - PLATELET COUNT 243 10^3/uL (130-450); RED BLOOD COUNT 3.61 10^6/uL (4.20-5.40); RED CELL DISTRIBUTION WIDTH 11.9 % (12.0-15.0); WHITE BLOOD COUNT 16.6 x10^3/uL (4.8-10.8)
[2020-07-12 06:59] LABS: CALCIUM 8.5 mg/dL (8.5-10.3); MAGNESIUM 1.9 mg/dL (1.7-2.8); PHOSPHORUS 2.8 mg/dL (2.5-4.6)
[2020-07-12] MEDS: ALBUTEROL 1 PUFF INH PRN (09:20)
[2020-07-12] MEDS: AZITHROMYCIN 250 MG TABLET PO SCH (09:38)
[2020-07-12] MEDS: FAMOTIDINE 20 MG TABLET PO SCH ×2 (09:38→21:17)
[2020-07-12] MEDS: guaiFENesin 600 MG TABLET PO SCH ×2 (09:38→21:17)
[2020-07-12] MEDS: NICOTINE 14 MG PATCH TOP SCH (09:38)
[2020-07-12] MEDS: ENOXAPARIN 40 MG/0.4 ML SYRINGE SUBQ SCH (09:38)
[2020-07-12] MEDS ORDERED: IPRATROPIUM/ALBUTEROL 3 ML NEB INH PRN (10:41)
[2020-07-12] MEDS ORDERED: IPRATROPIUM/ALBUTEROL 3 ML NEB INH SCH (11:00)
[2020-07-12] MEDS: methylPREDNISolone SUCCINATE 40 MG/ML VIAL IVP SCH ×2 (13:50→21:23)
[2020-07-12] MEDS: ACETAMINOPHEN 325 MG TABLET PO PRN ×2 (14:04→19:10)
[2020-07-12] MEDS ORDERED: LEVALBUTEROL 1.25 MG/3 ML NEB INH PRN (16:03)
[2020-07-12] MEDS: LEVALBUTEROL 1.25 MG/3 ML NEB INH SCH ×2 (16:50→19:57)
[2020-07-12] MEDS: BUDESONIDE 0.5 MG/2 ML NEB INH SCH ×2 (18:44→19:57)
[2020-07-12] MEDS: MONTELUKAST 10 MG TABLET PO SCH (21:17)
[2020-07-12] MEDS: LORazepam 0.5 MG TABLET PO PRN (21:17)
[2020-07-12] MEDS ORDERED: METOPROLOL TARTRATE 50 MG TABLET PO STA (22:20)
[2020-07-13] MEDS: SODIUM CHLORIDE FLUSH 0.9% 10 ML SYRINGE IVP SCH ×4 (00:44→23:27)
[2020-07-13] MEDS: LEVALBUTEROL 1.25 MG/3 ML NEB INH SCH ×4 (01:47→21:47)
[2020-07-13 05:24] LABS: BASOPHILS % (AUTO) 0.1 %; EOSINOPHILS % (AUTO) 0.1 %; HGB - HEMOGLOBIN 12.1 g/dL (12.0-16.0); LYMPHOCYTES # (AUTO) 0.4 10^3/uL (1.5-3.5); LYMPHOCYTES % (AUTO) 2.5 %; MEAN CORPUSCULAR HEMOGLOBIN 34.3 pg (27.0-31.0); MEAN CORPUSCULAR HGB CONC 34.2 g/dL (32.0-36.0); MEAN CORPUSCULAR VOLUME 100.3 fL (81.0-99.0); MONOCYTES # (AUTO) 0.5 10^3/uL (0.0-1.0); MONOCYTES % (AUTO) 3.5 %; NEUTROPHILS # (AUTO) 13.2 10^3/uL (1.5-6.6); NEUTROPHILS % (AUTO) 92.5 %; PLT - PLATELET COUNT 230 10^3/uL (130-450); RED BLOOD COUNT 3.53 10^6/uL (4.20-5.40); RED CELL DISTRIBUTION WIDTH 11.9 % (12.0-15.0); WHITE BLOOD COUNT 14.2 x10^3/uL (4.8-10.8)
[2020-07-13 05:33] LABS: CALCIUM 8.5 mg/dL (8.5-10.3)
[2020-07-13] MEDS: methylPREDNISolone SUCCINATE 40 MG/ML VIAL IVP SCH ×3 (06:16→21:05)
[2020-07-13] MEDS ORDERED: POTASSIUM CHLORIDE 20 MEQ TABLET PO ONE (06:44)
[2020-07-13] MEDS: BUDESONIDE 0.5 MG/2 ML NEB INH SCH ×2 (07:39→21:48)
[2020-07-13] MEDS: FAMOTIDINE 20 MG TABLET PO SCH ×2 (08:25→21:04)
[2020-07-13] MEDS: NICOTINE 14 MG PATCH TOP SCH (08:25)
[2020-07-13] MEDS: guaiFENesin 600 MG TABLET PO SCH ×2 (08:26→21:04)
[2020-07-13] MEDS: AZITHROMYCIN 250 MG TABLET PO SCH (08:26)
[2020-07-13] MEDS: ENOXAPARIN 40 MG/0.4 ML SYRINGE SUBQ SCH (08:26)
[2020-07-13] MEDS: ACETAMINOPHEN 325 MG TABLET PO PRN ×2 (13:34→20:00)
[2020-07-13] MEDS: SODIUM CHLORIDE FLUSH 0.9% 10 ML SYRINGE IVP PRN (13:34)
--- NOTE | 2020-07-13 18:04 | PROVIDER PROGRESS NOTE ---
Assessment/Plan - Problem List (1) COPD exacerbation Assessment/Plan: The patient's supplemental O2 need has been weaned down to room air. She still has a cough but no air hunger. She has never been on nebs before, this is her for COPD exacerbation. The nebs are giving her a headache and rib pain (although I feel that the rib pain is probably from coughing). Her IV steroids have been started to be decreased, they are probably the cause for the high white blood count. She is probably ready for discharge tomorrow (2) Orthopnea Assessment/Plan: She remains orthopneic. Echo was done today to rule out LV systolic failure and the Echo shows normal LVEF. Also RV size was not dilated and there is normal RV EF. She does have pulmonary hypertension however, with PAP 44 mmHg, more consistent with her COPD. (3) Hyponatremia Assessment/Plan: This was presumably from volume depletion however concerned about SIADH. We will repeat a chest x-ray before discharge. Will obtain a spot urine sodium. (4) Hypokalemia Assessment/Plan: Presumably this was from volume depletion. Replace. Follow BMP daily (5) Hypomagnesemia Assessment/Plan: Presumably this was from inadequate oral magnesium intake. Replace. Follow magnesium daily (6) Hypophosphatemia Assessment/Plan: Presumably this was from inadequate oral magnesium intake. Replace. Follow PO4 daily (7) Current smoker Assessment/Plan: She admits that she is ready to quit. She says the nicotine patch has helped her a lot. We will plan on discharging her with prescription for nicotine patch. (8) History of hypertension Assessment/Plan: Patient was on atenolol, losartan and amlodipine at home. Here her blood pressure is "soft" at 103-120 systolic. This was another ramila cation that she is dehydrated. Why she was dehydrated however is not clear Will not resume these meds until she is hypertensive. - Current Meds Current Meds: Current Medications Generic Name Dose Route Start Last Admin Trade Name Freq PRN Reason Stop Dose Admin Acetaminophen 650 mg 07/10/20 17:13 07/13/20 13:34 Tylenol PO 650 mg Q4HR PRN Administration Pain 1 to 4 Azithromycin 250 mg 07/12/20 09:00 07/13/20 08:26 Zithromax PO 07/16/20 00:00 250 mg DAILY ALLISON Administration Budesonide 0.5 mg 07/12/20 10:41 07/13/20 07:39 Pulmicort INH 0.5 mg RTBID ALLISON Administration Enoxaparin Sodium 40 mg 07/11/20 09:00 07/13/20 08:26 Lovenox SUBQ 40 mg DAILY ALLISON Administration Famotidine 20 mg 07/10/20 21:00 07/13/20 08:25 Pepcid PO 20 mg BID ALLISON Administration Guaifenesin 600 mg 07/11/20 21:00 07/13/20 08:26 Mucinex PO 600 mg BID LALISON Administration Levalbuterol HCl 1.25 mg 07/12/20 17:00 07/13/20 14:38 Xopenex INH 1.25 mg RTQ6H ALLISON Administration Lorazepam 0.5 mg 07/10/20 17:24 07/12/20 21:17 Ativan PO 0.5 mg Q12H PRN Administration Anxiety Methylprednisolone 40 mg 07/12/20 14:00 07/13/20 13:34 Solu-Medrol (40mg Vial) IVP 40 mg TID ALLISON Administration Montelukast Sodium 10 mg 07/10/20 21:00 07/12/20 21:17 Singulair PO 10 mg QPM ALLISON Administration Nicotine 1 patch 07/10/20 17:48 07/13/20 08:25 Nicoderm TOP 1 patch DAILY ALLISON Administration Sodium Chloride 10 ml 07/10/20 17:13 07/13/20 13:34 Normal Saline Flush 0.9% IVP 10 ml PRN PRN Administration NEEDED PER PROVIDER ORDERS Sodium Chloride 10 ml 07/11/20 01:00 07/13/20 17:04 Normal Saline Flush 0.9% IVP 10 ml 0100,0900,1700 ALLISON Administration Throat Lozenges 1 lozenge 07/11/20 02:05 07/11/20 21:56 Cepacol MM 1 lozenge Q2HR PRN Administration Throat pain - Lab Result Fish Bone Diagrams: 07/13/20 05:10 07/13/20 05:10 - Additional Planning My Orders: My Active Orders 07/13/20 08:00 Echo Transthoracic Complete [ECHO] Routine Objective Vital Signs: Vital Signs - 24 hr 07/12/20 07/12/20 07/12/20 19:55 21:00 22:33 Temperature 37.1 C Heart Rate 103 H Heart Rate [ 113 H Brachial] Respiratory 18 18 Rate Blood Pressure 124/75 Blood Pressure 124/75 [Left Brachial artery] O2 Saturation 95 07/12/20 07/13/20 07/13/20 23:40 01:45 05:05 Temperature 36.8 C 36.9 C Heart Rate 90 Heart Rate [ 79 87 Brachial] Respiratory 16 18 16 Rate Blood Pressure Blood Pressure 117/74 122/76 [Left Brachial artery] O2 Saturation 94 94 07/13/20 07/13/20 07/13/20 07:43 08:00 13:54 Temperature 36.4 C L 37.3 C Heart Rate 88 Heart Rate [ 88 92 Brachial] Respiratory 18 16 18 Rate Blood Pressure Blood Pressure 132/82 H 115/69 [Left Brachial artery] O2 Saturation 95 95 07/13/20 07/13/20 14:39 15:34 Temperature 37.0 C Heart Rate 88 Heart Rate [ 94 Brachial] Respiratory 18 18 Rate Blood Pressure Blood Pressure 123/74 [Left Brachial artery] O2 Saturation 95 Oxygen O2 Source Room air I&O (Last 24 Hrs): Intake and Output Totals x24h 07/11/20 07/12/20 07/13/20 23:59 23:59 23:59 Intake Total 4438.000 1929 1783 Output Total 2100 Balance 2338.000 1929 1783 General: Alert, Oriented x3 HEENT: Mucous membr. moist/pink, Other (Cheeks are flushed) Neck: Supple, No JVD Neuro: Alert, Non Focal Cardiovascular: Regular rate, No murmurs Respiratory: No respiratory distress, Breath sounds nml (Good air movement, no wheezing, slightly prolonged expiratory phase) Abdomen: Soft Extremities: No edema - Results Results: Laboratory Results WBC 14.2 x10^3/uL (4.8-10.8) H 07/13/20 05:10 RBC 3.53 10^6/uL (4.20-5.40) L 07/13/20 05:10 Hgb 12.1 g/dL (12.0-16.0) 07/13/20 05:10 Hct 35.4 % (37.0-47.0) L 07/13/20 05:10 MCV 100.3 fL (81.0-99.0) H 07/13/20 05:10 MCH 34.3 pg (27.0-31.0) H 07/13/20 05:10 MCHC 34.2 g/dL (32.0-36.0) 07/13/20 05:10 RDW 11.9 % (12.0-15.0) L 07/13/20 05:10 Plt Count 230 10^3/uL (130-450) 07/13/20 05:10 MPV 10.0 fL (7.9-10.8) 07/13/20 05:10 Neut # (Auto) 13.2 10^3/uL (1.5-6.6) H 07/13/20 05:10 Lymph # (Auto) 0.4 10^3/uL (1.5-3.5) L 07/13/20 05:10 [place] # (Auto) 0.5 10^3/uL (0.0-1.0) 07/13/20 05:10 Eos # (Auto) 0.0 10^3/uL (0.0-0.7) 07/13/20 05:10 Baso # (Auto) 0.0 10^3/uL (0.0-0.1) 07/13/20 05:10 Absolute Nucleated RBC 0.00 x10^3/uL 07/13/20 05:10 Nucleated RBC % 0.0 /100WBC 07/13/20 05:10 D-Dimer 217.7 ng/mL (200.0-255.0) 07/10/20 13:30 Sodium 132 mmol/L (135-145) L 07/13/20 05:10 Potassium 3.1 mmol/L (3.5-5.0) L 07/13/20 05:10 Chloride 96 mmol/L (101-111) L 07/13/20 05:10 Carbon Dioxide 24 mmol/L (21-32) 07/13/20 05:10 Anion Gap 12.0 (6-13) 07/13/20 05:10 BUN 25 mg/dL (6-20) H 07/13/20 05:10 Creatinine 1.0 mg/dL (0.4-1.0) 07/13/20 05:10 Estimated GFR (MDRD) 56 (>89) L 07/13/20 05:10 Glucose 155 mg/dL (70-100) H 07/13/20 05:10 Calcium 8.5 mg/dL (8.5-10.3) 07/13/20 05:10 Phosphorus 2.8 mg/dL (2.5-4.6) 07/12/20 06:10 Magnesium 1.9 mg/dL (1.7-2.8) 07/12/20 06:10 Total Bilirubin 0.9 mg/dL (0.2-1.0) 07/10/20 13:30 AST 39 IU/L (10-42) 07/10/20 13:30 ALT 44 IU/L (10-60) 07/10/20 13:30 Alkaline Phosphatase 68 IU/L (42-121) 07/10/20 13:30 Troponin I High Sens 6.4 ng/L (2.3-14.8) 07/10/20 13:30 Total Protein 8.3 g/dL (6.7-8.2) H 07/10/20 13:30 Albumin 4.7 g/dL (3.2-5.5) 07/10/20 13:30 Globulin 3.6 g/dL (2.1-4.2) 07/10/20 13:30 Albumin/Globulin Ratio 1.3 (1.0-2.2) 07/10/20 13:30 Lipase 26 U/L (22-51) 07/10/20 13:30 Urine Color LT. YELLOW 07/11/20 19:00 Urine Clarity CLEAR (CLEAR) 07/11/20 19:00 Urine pH 6.5 PH (5.0-7.5) 07/11/20 19:00 Ur Specific [place] 1.015 (1.002-1.030) 07/11/20 19:00 Urine Protein NEGATIVE mg/dL (NEGATIVE) 07/11/20 19:00 Urine Glucose (UA) NEGATIVE mg/dL (NEGATIVE) 07/11/20 19:00 Urine Ketones NEGATIVE mg/dL (NEGATIVE) 07/11/20 19:00 Urine Occult Blood NEGATIVE (NEGATIVE) 07/11/20 19:00 Urine Nitrite NEGATIVE (NEGATIVE) 07/11/20 19:00 Urine Bilirubin NEGATIVE (NEGATIVE) 07/11/20 19:00 Urine Urobilinogen 0.2 (NORMAL) E.U./dL (NORMAL) 07/11/20 19:00 Ur Leukocyte Esterase NEGATIVE (NEGATIVE) 07/11/20 19:00 Urine RBC None Seen /HPF (0-5) 07/11/20 19:00 Urine WBC 0-3 /HPF (0-5) 07/11/20 19:00 Ur Squamous Epith Cells RARE Squamous (<= Few) 07/11/20 19:00 Urine Bacteria None Seen /HPF (None Seen) 07/11/20 19:00 Urine Culture Comments NOT INDICATED 07/11/20 19:00 Urine Sodium 64.0 mmol/L 07/11/20 19:00 Coronavirus (PCR) NEGATIVE 07/10/20 14:00 - Procedures Procedures: Procedures INSPECTION OF LOWER INTESTINAL TRACT, ENDO (04/19/16) Sepsis Event Note (H) - Evaluation Current Stage of Sepsis: Ruled out
[2020-07-13] MEDS: LORazepam 0.5 MG TABLET PO PRN (21:04)
[2020-07-13] MEDS: MONTELUKAST 10 MG TABLET PO SCH (21:04)
[2020-07-14] MEDS: LEVALBUTEROL 1.25 MG/3 ML NEB INH SCH ×2 (04:30→07:20)
[2020-07-14] MEDS: methylPREDNISolone SUCCINATE 40 MG/ML VIAL IVP SCH (05:01)
[2020-07-14] MEDS: ACETAMINOPHEN 325 MG TABLET PO PRN (05:01)
[2020-07-14 05:23] LABS: BASOPHILS % (AUTO) 0.2 %; EOSINOPHILS % (AUTO) 0.1 %; HGB - HEMOGLOBIN 12.7 g/dL (12.0-16.0); LYMPHOCYTES # (AUTO) 0.4 10^3/uL (1.5-3.5); LYMPHOCYTES % (AUTO) 3.1 %; MEAN CORPUSCULAR HEMOGLOBIN 34.4 pg (27.0-31.0); MEAN CORPUSCULAR HGB CONC 33.8 g/dL (32.0-36.0); MEAN CORPUSCULAR VOLUME 101.9 fL (81.0-99.0); MONOCYTES # (AUTO) 0.5 10^3/uL (0.0-1.0); MONOCYTES % (AUTO) 4.4 %; NEUTROPHILS # (AUTO) 11.1 10^3/uL (1.5-6.6); NEUTROPHILS % (AUTO) 90.6 %; PLT - PLATELET COUNT 238 10^3/uL (130-450); RED BLOOD COUNT 3.69 10^6/uL (4.20-5.40); WHITE BLOOD COUNT 12.2 x10^3/uL (4.8-10.8)
[2020-07-14 05:34] LABS: CALCIUM 8.6 mg/dL (8.5-10.3); CREATININE 0.8 mg/dL (0.4-1.0)
[2020-07-14] MEDS: BUDESONIDE 0.5 MG/2 ML NEB INH SCH (07:20)
--- NOTE | 2020-07-14 08:52 | XRAY Report ---
PROCEDURE: Chest 1 View X-Ray INDICATIONS: F/U COPD, still has a cough TECHNIQUE: One view of the chest was acquired. COMPARISON: 07/10/2020 CT angiogram of the chest FINDINGS: Surgical changes and devices: None. Lungs and pleura: No pleural effusions or pneumothorax. Lungs are clear. Mediastinum: Mediastinal contours appear normal. Heart size is normal. Bones and chest wall: No suspicious bony lesions. Overlying soft tissues appear unremarkable. IMPRESSION: Normal chest radiographs. Reviewed by: Jose Barksdale MD on 07/14/2020 8:51 AM PDT Approved by: Jose Barksdale MD on 07/14/2020 8:51 AM PDT Station ID: [id number]
[2020-07-14] MEDS: ENOXAPARIN 40 MG/0.4 ML SYRINGE SUBQ SCH (08:55)
[2020-07-14] MEDS: NICOTINE 14 MG PATCH TOP SCH (08:55)
[2020-07-14] MEDS: guaiFENesin 600 MG TABLET PO SCH (08:55)
[2020-07-14] MEDS: AZITHROMYCIN 250 MG TABLET PO SCH (08:55)
[2020-07-14] MEDS: FAMOTIDINE 20 MG TABLET PO SCH (08:55)
[2020-07-14] MEDS: SODIUM CHLORIDE FLUSH 0.9% 10 ML SYRINGE IVP SCH (08:56)
--- NOTE | 2020-07-14 09:26 | Discharge Plan ---
Discharge Plan Problem Reviewed?: Yes Disposition: Home, Self Care Condition: Stable Prescriptions: Albuterol Sulfate [Albuterol Sulfate Hfa] 8.5 gm IH Q4HR PRN #7 [id number] PRN Reason: Wheezing Tiotropium [place] [Spiriva] 1 puffs INH DAILY 30 Days #14 each Azithromycin [Zithromax] 250 mg PO DAILY #2 tablet Diet: Regular Activity Restrictions: Activity as Tolerated Shower Restrictions: No Driving Restrictions: No Instruction Topics: COPD Health Concerns: You were seen in the hospital because of an exacerbation of your COPD. You are treated with steroids, antibiotics, and inhalers with improvement in your symptoms. You are no longer requiring oxygen. Plan of Treatment: Please take the antibiotics for 2 more days as prescribed with the last day being July 16. I have prescribed you an inhaler called Spiriva. This is to be taken once a day for the COPD. If this is not covered by your insurance and is too expensive for you, please follow-up with your primary care provider as they can obtain a prior authorization for this inhaler. I have also prescribed you albuterol to take every 4 hours as needed if you feel more short of breath. Please stop taking your blood pressure medications except for amlodipine. Your blood pressure has been well controlled during this hospitalization although slightly elevated at times. You can continue the amlodipine 5 mg every day but stop the other blood pressure medications. Please continue to check your blood pressure at home. Care Goals: You should ask your primary care provider for pulmonary function testing. This will help assess the severity of your COPD/ Assessment: The patient expressed understanding of the treatment plan. Additional Instructions or Follow Up instructions: Please follow-up with your primary care provider in 1 week. Follow-Up Care: [facility] No Smoking: If you smoke, Please STOP! Call for help. Follow-up with: Colin Cruz MD [Primary Care Provider] -
--- NOTE | 2020-07-14 10:33 | DISCHARGE SUMMARY ---
"Discharge Summary Admit Date: 07/10/20 Discharge Date: 07/14/20 Discharging Provider: Quinton Schmitt Primary Care Provider: Colin Cruz Code Status: Attempt Resuscitation Condition at Discharge: Stable Discharge Disposition: 01 Home, Self Care - DIAGNOSES Admission Diagnoses: COPD exacerbation Orthopnea Hypertension Current smoker Discharge Diagnoses with Status of Each Condition: COPD exacerbation - improved. Hypertension - stable. Leukocytosis - improved. Hyponatremia - improved. Current smoker - stable. - HPI History of Present Illness: H&P per EVA Mir: This is a 60-year-old female with Past medical history significant for hypertension, currently cigarette smoker, who presents to the emergency department Complain shortness of breathing and cough. she state that she has been dyspnea intermittently for the past week. She states it became worsened and Almost passed out on today when she had in the shower. Her friend bring her to ER. she denies chest pain, fever, chill, nausea or vomiting or abdominal pain. Patient report she is still smoking at home. She denies use inhalers. In the physical examination, patient show bilaterally expiration with severe wheezy. Chest x-ray and CTA of the chest show unremarkable. Routine laboratory test which show patient had sodium 127, potassium 3.4, creatinine 1.1, Anion gap 15, troponin 6.7. Nurse report pt's Oxygen saturation on exertion will quickly dropped to the 70-80% then quickly come back 80-90% sat on the rest. patient was admitted for COPD exacerbation now. Discussed the care goal with patient, patient requests full code - CONSULTS | PROCEDURES Procedures: Echocardiogram obtained July 13 revealed an ejection fraction of 77 5%. Diastolic function is indeterminant. No regional wall motion normalities are seen. The right ventricle is normal in size and function. Mild to moderate increase in the left atrial volume index. No significant valvular disease. RVSP at rest is 44 mmHg. - HOSPITAL COURSE Hospital Course: She was admitted to the floor for exacerbation of her COPD. She had a CT angiogram which was negative for pulmonary embolism did not reveal any obvious infiltrates. She was treated with IV steroids, submental oxygen, breathing treatments [id number]. She was checked for COVID-19 and this was negativ e. Troponin was also within normal limits. An echocardiogram was obtained which revealed a preserved ejection fraction without significant valvular disease. She was started on azithromycin on hospital day 2 for bronchitis. She was also hyponatremic this was felt to likely be secondary to her thiazide use. This improved with IV fluids. Her blood pressure remained stable throughout this hospitalization she did not require her home antihypertensives. On discharge, she was asked to restart the amlodipine 5 mg but to discontinue her other antihypertensives as her blood pressure was stable in the 120s to 130s. She was asked to monitor her blood pressure daily and to follow-up with her [facility] care provider for close monitoring of her blood pressure. She completed 5 days of steroids during his hospitalization and she was not discharged on prednisone. She was discharged on azithromycin for 2 more days to complete 5 days of therapy. Saturating well on room air and has no further wheezing. She was prescribed tiotropium and albuterol to take as needed. It was recommended that she obtain pulmonary function test on an outpatient basis. - ALLERGIES Allergies/Adverse Reactions: Allergies Allergy/AdvReac Type Severity Reaction Status Date / Time No Known Drug Allergies Allergy Verified 08/19/14 20:58 - MEDICATIONS Home Medications: Ambulatory Orders Medication Instructions Recorded Confirmed amLODIPine [Norvasc] 5 mg PO DAILY 07/11/20 07/11/20 Albuterol Sulfate [Albuterol 8.5 gm IH Q4HR PRN #7 [id number] 07/14/20 Sulfate Hfa] Azithromycin [Zithromax] 250 mg PO DAILY #2 tablet 07/14/20 Tiotropium [place] [Spiriva] 1 puffs INH DAILY 30 Days #14 each 07/14/20 - PHYSICAL EXAM AT DISCHARGE General Appearance: positive: No acute distress, Alert Eyes Bilateral: positive: Normal inspection, Conjunctivae nml ENT: positive: ENT inspection nml Neck: positive: Nml inspection Respiratory: positive: No respiratory distress. negative: Wheezes, Rales Cardiovascular: positive: Regular rate & rhythm. negative: Irregularly irregular, Tachycardia, Bradycardia, Systolic murmur Abdomen: positive: Non-tender, No distention. negative: Tenderness, Guarding, Rebound Skin: positive: No rash, Warm, Dry Extremities: positive: Full ROM, No pedal edema Neurologic/Psychiatric: positive: Oriented x3, Motor nml. negative: Disoriented to person, Disoriented to place, Disoriented to time Physical Exam Other/Comments: Vital Signs - 24 hr 07/13/20 07/13/20 07/13/20 20:47 21:50 22:52 Temperature 36.9 C Heart Rate 90 Heart Rate [ 87 Brachial] Respiratory 18 20 Rate Blood Pressure 142/90 H 123/80 [Left Brachial artery] Blood Pressure [Right Brachial artery] O2 Saturation 95 07/13/20 07/14/20 07/14/20 23:54 04:56 07:20 Temperature 37.0 C 36.8 C Heart Rate 78 Heart Rate [ 94 89 Brachial] Respiratory 16 16 18 Rate Blood Pressure [Left Brachial artery] Blood Pressure 120/72 146/87 H [Right Brachial artery] O2 Saturation 98 97 07/14/20 07/14/20 07:50 11:17 Temperature 36.8 C 37.3 C Heart Rate Heart Rate [ 84 87 Brachial] Respiratory 16 16 Rate Blood Pressure [Left Brachial artery] Blood Pressure 129/84 H 144/99 H [Right Brachial artery] O2 Saturation 95 99 Oxygen O2 Source Room air - LABS Result Diagrams: 07/14/20 05:00 07/14/20 05:00 Other Lab Results: Laboratory Results 07/14/20 05:00: Sodium 133 L, Potassium 3.6, Chloride 99 L, Carbon Dioxide 23, Anion Gap 11.0, BUN 24 H, Creatinine 0.8, Estimated GFR (MDRD) 73 L, Glucose 145 H, Calcium 8.6 07/14/20 05:00: WBC 12.2 H, RBC 3.69 L, Hgb 12.7, Hct 37.6, MCV 101.9 H, MCH 34.4 H, MCHC 33.8, RDW 12.0, Plt Count 238, MPV 10.0, Neut # (Auto) 11.1 H, Lymph # (Auto) 0.4 L, [place] # (Auto) 0.5, Eos # (Auto) 0.0, Baso # (Auto) 0.0, Absolute Nucleated RBC 0.00, Nucleated RBC % 0.0 07/13/20 19:55: Urine Sodium 67.0 07/13/20 05:10: Sodium 132 L, Potassium 3.1 L, Chloride 96 L, Carbon Dioxide 24, Anion Gap 12.0, BUN 25 H, Creatinine 1.0, Estimated GFR (MDRD) 56 L, Glucose 155 H, Calcium 8.5 07/13/20 05:10: WBC 14.2 H, RBC 3.53 L, Hgb 12.1, Hct 35.4 L, MCV 100.3 H, MCH 34.3 H, MCHC 34.2, RDW 11.9 L, Plt Count 230, MPV 10.0, Neut # (Auto) 13.2 H, Lymph # (Auto) 0.4 L, [place] # (Auto) 0.5, Eos # (Auto) 0.0, Baso # (Auto) 0.0, Absolute Nucleated RBC 0.00, Nucleated RBC % 0.0 07/12/20 06:10: SARS Serology NEGATIVE - DIAGNOSTIC IMAGING Diagnostic Imaging Results: Final report reviewed - SEPSIS Current Stage of Sepsis: Ruled out - FOLLOW UP Follow Up: He was asked to follow-up with her primary care provider in 1 week. It is recommended that she have outpatient pulmonary function testing performed. If her Spiriva is not approved by insurance, she will need a prior authorization to be completed by her primary care provider. - TIME SPENT Time Spent in Discharge (Minutes): 33"
[2020-07-14] MEDS ORDERED: FLU VACC QS2020-21(6MOS UP)/PF 60 MCG/0.5 ML SYRINGE IM ONE (11:11)
[2020-07-14 11:18] VITALS: BP 144/99
[2020-07-14] MEDS ORDERED: predniSONE 20 MG TABLET PO SCH (12:00)
== END 2020-07-14 12:36 | disposition home or self-care (01) | DRG 191 ==
LOC: ED 12:17 → MS2 17:13 → UNDOADMIN 17:13 → ICU 17:13 → MS2 17:56 → ICU 17:56
PROVIDERS: ADMIT Nurse Practitioner Gerontology; ATTEND Internal Medicine
DX: J44.1 Chronic obstructive pulmonary disease with (acute) exacerbation (principal); E87.1 Hypo-osmolality and hyponatremia; I10 Essential (primary) hypertension; D72.829 Elevated white blood cell count, unspecified; F17.210 Nicotine dependence, cigarettes, uncomplicated; E86.0 Dehydration; J40 Bronchitis, not specified as acute or chronic; E87.6 Hypokalemia; E83.42 Hypomagnesemia; E83.39 Other disorders of phosphorus metabolism; Z20.828 Contact with and (suspected) exposure to other viral communicable diseases; Z79.899 Other long term (current) drug therapy
CPT/HCPCS: 36415; 71045; 71275; 80048; 80053; 81001; 83690; 83735; 84100; 84132; 84300; 84484; 85025; 85379; 86769; 87635; 93005; 93306; 94640; 94664; 96374; 96375; 99284; 99285; A9270; J1650; J2060; J7512; J7626; Q9967; 87086; 90686

== ENCOUNTER 2020-08-01 10:44 | Outpatient (CLI) | payer MEDICAID | END 2020-08-01 10:45 | disposition critical access hospital (66) | LOC: EMS 10:44 | PROVIDERS: ATTEND Surgery | DX: R06.00 Dyspnea, unspecified (principal) | CPT/HCPCS: A0425; A0427; A0999 ==

== ENCOUNTER 2020-08-01 11:08 | Inpatient (IN) | payer MEDICAID ==
[2020-08-01] MEDS ORDERED: ALBUTEROL NEB 2.5 MG/3 ML INH STA ×2 (11:27→12:35)
--- NOTE | 2020-08-01 11:28 | ED Physician Documentation ---
PD HPI DYSPNEA - Stated complaint Stated Complaint: SOA - Chief complaint Chief Complaint: Resp - History obtained from History obtained from: Patient, EMS - History of Present Illness Timing - onset: How many days ago (3) Timing - onset during: Rest (now dyspnea at rest since last night), Light activity Timing - duration: Days (3) Timing - details: Gradual onset, Still present Inciting event(s): No: Out of meds, URI (increased dyspnea without cough/fever/sputum per se.) Improved by: Inhaler/neb, Rest. No: Sitting up Worsened by: Coughing. No: Laying flat Associated symptoms: Wheezing, Chest pain / discomfort (tightness), Bilateral edema (mild). No: Fever, Cough, Hemoptysis Similar symptoms before: Diagnosis (recent new Dx of COPD a month ago and was hopsitalized.) Recently seen: Admitted (a month ago and was better at discharge and doing okay until a bout 3 days ago.) Review of Systems Constitutional: denies: Fever, Chills Nose: reports: Congestion. denies: Rhinorrhea / runny nose Throat: denies: Sore throat Respiratory: reports: Dyspnea, Wheezing. denies: Cough GI: denies: Abdominal Pain, Nausea, Vomiting, Diarrhea Skin: denies: Rash Musculoskeletal: reports: Extremity swelling (mild edema in legs). denies: Neck pain, Back pain PD PAST MEDICAL HISTORY - Past Medical History Cardiovascular: Hypertension Respiratory: COPD Endocrine/Autoimmune: None GI: None : None Psych: None Musculoskeletal: None Derm: None - Past Surgical History Past Surgical History: Yes - Present Medications Home Medications: Ambulatory Orders Medication Instructions Recorded Confirmed amLODIPine [Norvasc] 5 mg PO DAILY 07/11/20 08/01/20 Tiotropium [place] [Spiriva] 1 puffs INH DAILY 30 Days #14 each 07/14/20 08/01/20 Albuterol Sulfate [Albuterol 1 puffs IH Q4HR PRN 08/01/20 08/01/20 Sulfate Hfa] traMADol [Ultram] 50 mg PO QID PRN 08/01/20 08/01/20 - Allergies Allergies/Adverse Reactions: Allergies Allergy/AdvReac Type Severity Reaction Status Date / Time No Known Drug Allergies Allergy Verified 08/19/14 20:58 - Social History Does the pt smoke?: Yes Smoking Status: Current every day smoker Does the pt drink ETOH?: Yes Does the pt have substance abuse?: No - Immunizations Immunizations are current?: Yes Immunizations: TDAP >10years/unknown PD ED PE NORMAL - Vitals Vital signs reviewed: Yes - General General: Alert and oriented X 3, Well developed/nourished, Other (significant work of breathing. Partial sentence dyspnea. ) - HEENT HEENT: Ears normal, Pharynx benign - Neck Neck: Supple, no meningeal sign, No adenopathy - Cardiac Cardiac: No: RRR (regular but very tachycardic. ) - Respiratory Respiratory: No: Clear bilaterally (wheezing and prolonged expiratory phase. ) - Abdomen Abdomen: Soft, Non tender - Back Back: No CVA TTP - Derm Derm: Normal color, Warm and dry - Extremities Extremities: No tenderness to palpate, Normal ROM s pain, No calf tenderness / cord, Other (mild edema around both ankles. ) - Neuro Neuro: Alert and oriented X 3, No motor deficit, Normal speech Results - Vitals Vitals: Vital Signs - 24 hr 08/01/20 08/01/20 08/01/20 11:15 11:20 11:44 Temperature 36.9 C Heart Rate 149 H 139 H 134 H Respiratory 22 24 24 Rate Blood Pressure 148/96 H 169/103 H O2 Saturation 97 94 08/01/20 08/01/20 08/01/20 11:47 12:18 12:30 Temperature Heart Rate 133 H 137 H 137 H Respiratory 19 97 H 18 Rate Blood Pressure 151/95 H 127/104 H 152/93 H O2 Saturation 100 16 L 94 08/01/20 13:00 Temperature Heart Rate 129 H Respiratory 14 Rate Blood Pressure 139/95 H O2 Saturation 96 Oxygen O2 Source Nasal cannula Oxygen Flow Rate 5 - EKG (time done) 11:48 Rate: Rate (enter#) (134) Rhythm: Sinus tachycardia [place]: Normal Intervals: Normal [place] QRS: Normal Ischemia: Normal ST segments. No: ST elevation c/w ischemia, ST depression - Labs Labs: Laboratory Tests 08/01/20 08/01/20 08/01/20 11:50 11:50 11:50 WBC 8.2 RBC 4.14 L Hgb 13.9 Hct 41.1 MCV 99.3 H MCH 33.6 H MCHC 33.8 RDW 12.3 Plt Count 231 MPV 9.8 Neut # (Auto) 5.4 Lymph # (Auto) 1.3 L [place] # (Auto) 0.6 Eos # (Auto) 0.9 H Baso # (Auto) 0.1 Absolute Nucleated RBC 0.00 Nucleated RBC % 0.0 Sodium 138 Potassium 3.2 L Chloride 101 Carbon Dioxide 23 Anion Gap 14.0 H BUN 10 Creatinine 0.9 Estimated GFR (MDRD) 64 L Glucose 145 H Calcium 9.5 Magnesium 1.4 L Total Bilirubin 0.8 AST 41 ALT 38 Alkaline Phosphatase 55 B-Natriuretic Peptide 33 Total Protein 7.9 Albumin 4.4 Globulin 3.5 Albumin/Globulin Ratio 1.3 Nasal Adenovirus (PCR) Nasal B. parapertussis DNA (PCR) Nasal Coronavir 229E PCR Nasal Coronavir HKU1 PCR Nasal Coronavir NL63 PCR Nasal Coronavir OC43 PCR Nasal Enterovir/Rhinovir PCR Nasal Influenza B PCR Nasal Parainfluen 1 PCR Nasal Parainfluen 2 PCR Nasal Parainfluen 3 PCR Nasal Parainfluen 4 PCR Nasal RSV (PCR) Nasal B.pertussis DNA PCR Nasal C.pneumoniae (PCR) [place] Human Metapneumo PCR Nasal M.pneumoniae (PCR) Nasal SARS-CoV-2 (PCR) 08/01/20 12:30 WBC RBC Hgb Hct MCV MCH MCHC RDW Plt Count MPV Neut # (Auto) Lymph # (Auto) [place] # (Auto) Eos # (Auto) Baso # (Auto) Absolute Nucleated RBC Nucleated RBC % Sodium Potassium Chloride Carbon Dioxide Anion Gap BUN Creatinine Estimated GFR (MDRD) Glucose Calcium Magnesium Total Bilirubin AST ALT Alkaline Phosphatase B-Natriuretic Peptide Total Protein Albumin Globulin Albumin/Globulin Ratio Nasal Adenovirus (PCR) NOT DETECTED Nasal B. parapertussis DNA (PCR) NOT DETECTED Nasal Coronavir 229E PCR NOT DETECTED Nasal Coronavir HKU1 PCR NOT DETECTED Nasal Coronavir NL63 PCR NOT DETECTED Nasal Coronavir OC43 PCR NOT DETECTED Nasal Enterovir/Rhinovir PCR NOT DETECTED Nasal Influenza B PCR NOT DETECTED Nasal Parainfluen 1 PCR NOT DETECTED Nasal Parainfluen 2 PCR NOT DETECTED Nasal Parainfluen 3 PCR NOT DETECTED Nasal Parainfluen 4 PCR NOT DETECTED Nasal RSV (PCR) NOT DETECTED Nasal B.pertussis DNA PCR NOT DETECTED Nasal C.pneumoniae (PCR) NOT DETECTED [place] Human Metapneumo PCR NOT DETECTED Nasal M.pneumoniae (PCR) NOT DETECTED Nasal SARS-CoV-2 (PCR) NOT DETECTED - Rads (name of study) chest xray Radiology: Prelim report reviewed (no infiltrates), See rad report PD MEDICAL DECISION MAKING - ED course Complexity details: reviewed results, re-evaluated patient (Significantly improved work of breathing. She is holding her oxygenation well on nasal cannula. She is still tachycardic but is sinus tach. She is able to talk in sentences.), considered differential (seems exac COPD again. some leg edmea but not likely CHF. ), d/w patient ED course: Her breathing improved fairly well with nebs and oxyggen. But stilll on NC to maintain reasonable sats. Still wheezing though much decreased work of breathing. Will need further treatment in the hospital. Departure - Departure Disposition: ED Place in Observation Clinical Impression: Acute exacerbation of COPD with asthma, Hypoxia Dyspnea Qualifiers: Dyspnea type: shortness of breath Qualified Code(s): R06.02 - Shortness of breath Condition: Stable Record reviewed to determine appropriate education?: Yes Discharge Date/Time: 08/01/20 14:12
[2020-08-01] MEDS ORDERED: ALBUTEROL NEB 2.5 MG/3 ML INH ONE (11:35)
[2020-08-01] MEDS ORDERED: MORPHINE 2 MG/ML CARPUJECT IVP STA (11:42)
[2020-08-01] MEDS ORDERED: MAGNESIUM SULFATE 2 GRAM 2 GM/50 ML BAG IV ONE (11:44)
--- NOTE | 2020-08-01 11:46 | XRAY Report ---
PROCEDURE: Chest 1 View X-Ray INDICATIONS: chest pain TECHNIQUE: One view of the chest was acquired. COMPARISON: 07.14.20 FINDINGS: Surgical changes and devices: None. Lungs and pleura: No pleural effusions or pneumothorax. Lungs are clear. Mediastinum: Mediastinal contours appear normal. Heart size is normal. Bones and chest wall: No suspicious bony lesions. Overlying soft tissues appear unremarkable. IMPRESSION: No acute process. Reviewed by: Anita Pedro MD on 08/01/2020 11:45 AM [facility] Approved by: Anita Pedro MD on 08/01/2020 11:45 AM [facility] Station ID: [id number]
[2020-08-01 11:55] LABS: BASOPHILS # (AUTO) 0.1 10^3/uL (0.0-0.1); BASOPHILS % (AUTO) 0.7 %; EOSINOPHILS # (AUTO) 0.9 10^3/uL (0.0-0.7); EOSINOPHILS % (AUTO) 10.5 %; HGB - HEMOGLOBIN 13.9 g/dL (12.0-16.0); LYMPHOCYTES # (AUTO) 1.3 10^3/uL (1.5-3.5); LYMPHOCYTES % (AUTO) 15.5 %; MEAN CORPUSCULAR HEMOGLOBIN 33.6 pg (27.0-31.0); MEAN CORPUSCULAR HGB CONC 33.8 g/dL (32.0-36.0); MEAN CORPUSCULAR VOLUME 99.3 fL (81.0-99.0); MEAN PLATELET VOLUME 9.8 fL (7.9-10.8); MONOCYTES # (AUTO) 0.6 10^3/uL (0.0-1.0); MONOCYTES % (AUTO) 6.7 %; NEUTROPHILS # (AUTO) 5.4 10^3/uL (1.5-6.6); PLT - PLATELET COUNT 231 10^3/uL (130-450); RED BLOOD COUNT 4.14 10^6/uL (4.20-5.40); RED CELL DISTRIBUTION WIDTH 12.3 % (12.0-15.0); WHITE BLOOD COUNT 8.2 x10^3/uL (4.8-10.8)
[2020-08-01 12:09] LABS: ALBUMIN 4.4 g/dL (3.2-5.5); ALBUMIN/GLOBULIN RATIO 1.3 (1.0-2.2); BILIRUBIN,TOTAL 0.8 mg/dL (0.2-1.0); CALCIUM 9.5 mg/dL (8.5-10.3); CREATININE 0.9 mg/dL (0.4-1.0); MAGNESIUM 1.4 mg/dL (1.7-2.8); TOTAL PROTEIN 7.9 g/dL (6.7-8.2)
[2020-08-01] MEDS ORDERED: ONDANSETRON 4 MG/2 ML VIAL IVP PRN (13:07)
[2020-08-01] MEDS ORDERED: ONDANSETRON ODT 4 MG TABLET TL PRN (13:07)
[2020-08-01] MEDS ORDERED: ALBUTEROL NEB 2.5 MG/3 ML INH PRN (13:09)
--- NOTE | 2020-08-01 13:16 | HISTORY & PHYSICAL EXAMINATION ---
Chief Complaint - Chief Complaint Chief Complaint: Cough, shortness of breath History of Present Illness - Admitted From Admitted From:: Home via EMS to ER - History Obtained From Records Reviewed: [facility] History obtained from: Patient and Dr. Guzman Exam Limitations: Shortness of breath - History of Present Illness HPI Comment/Other: This unfortunate female is new COPD diagnosis. She is a cigarette smoker who presented to the emergency room in June 2020 with shortness of breath and coughing. It been going on for a week. At that time she was not using inhalers or oxygen. She was treated as a COPD exacerbation and put on steroids nebulizers and prophylactic antibiotics. At discharge on July 14 her blood pressure medication was changed to that she was only on amlodipine. She completed 5 days of steroids and did not need to go home on any. She was on azithromycin for 2 more days to complete a total of 5 days. She was prescribed tiotropium and albuterol to take as needed. She was asked to follow-up with her primary care provider and get PFTs. She has been unable to do so as of yet. She now returns with a 3-day onset of cough and shortness of breath with exertion. Last night it started happening at rest. She denies fever, chills, phlegm production. There is no hemoptysis. No sore throat, runny nose. She has been noticing that for the last few days her ankles are very swollen at the end of the day. She lays on at night to go to sleep and in the morning they are normal. But the next day it starts all over again. No palpitations, no chest pain, no orthopnea. Her inhaler was not helping and she was so short of breath they called EMS. Her O2 sats were in the mid 80s on room air. EMS has given her nebulizers, Solu-Medrol. In the emergency room she was then evaluated by Dr. Guzman where her heart rate was 149, respirations were 22, blood pressure 148/96, and she was 97% on 5 L. Her chest x-ray does not show pneumonia. He noted a significant work of breathing that improved with the nebulizers. Having sinus tachycardia. Able to talk in sentences now. But she is still wheezing, still requiring high level oxygen and we are placing her in observation to control her COPD exacerbation. 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 Amaya did in his 60s of emphysema. He was a heavy smoker. her mother from uterine cancer at age 78 also had HTN. 1 sister is completely healthy. 2 sons are completely healthy. No one has hypertension, cancer, heart attack, stroke. Living arrangement: At home Living Situation: With spouse/s.o. Social History Notes: Smoker Since the age of 16. Upwards of 2 packs/day. denies alcohol or drug issue, she had 2 children. 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 While she is used to him, and she tolerates him, he is not helpful. When she was last sick, she had syncope. Woke up on the floor. He walked after not sure what he was doing on the floor. She said that she passed out. He said "O okay ", then walked away from her.1 son lives and [place], one lives in [place]. The son who lives in [place] is her designated DURABLE POWER OF ACTUARIAL TRAINEE. She has not filled out paperwork to that effect but once we do know that that is the son that I need to talk to. - Substance History Use: Uses substance without health or social issues: Alcohol Abuse: Recurrent use of substance despite neg consequences: Inhalant (Tobacco.) Abuse Issues: Other (Emphysema exacerbation) Tobacco Details: Cigarettes - POLST Patient has POLST: No POLST Status: Full Code Meds/Allgy - Home Medications Home Medications: Ambulatory Orders Medication Instructions Recorded Confirmed amLODIPine [Norvasc] 5 mg PO DAILY 07/11/20 08/01/20 Tiotropium [place] [Spiriva] 1 puffs INH DAILY 30 Days #14 each 07/14/20 08/01/20 Albuterol Sulfate [Albuterol 1 puffs IH Q4HR PRN 08/01/20 08/01/20 Sulfate Hfa] traMADol [Ultram] 50 mg PO QID PRN 08/01/20 08/01/20 - Allergies Allergies/Adverse Reactions: Allergies Allergy/AdvReac Type Severity Reaction Status Date / Time No Known Drug Allergies Allergy Verified 08/19/14 20:58 Review of Systems - Constitutional Constitutional: reports: Other (Completely negative) - Eyes Eyes: reports: Other (Presbyopia. No glaucoma or cataracts) - Ears, Nose & Throat Ears, Nose & Throat: reports: Hoarseness, Other - Cardiovascular Cariovascular: reports: Edema, Lightheadedness, Exertional dyspnea, Decr. exercise tolerance, Other (All in the last few days. When she was discharged from the hospital she felt great. Is only been the last for 5 days things have gotten worse again.) - Respiratory Respiratory: reports: Cough, Wheezing, SOB at rest, SOB with exertion. denies: Sputum production, Snoring, Hemoptysis, Orthopnea - Gastrointestinal Gastrointestinal: reports: Other (All negative) - Genitourinary Genitourinary: reports: Other (All negative) - Musculoskeletal Musculoskeletal: reports: Other (No complaints) - Integumentary Integumentary: reports: Rash (On face that comes and goes.). denies: Lesions, Dryness - Neurological Neurological: reports: Other (Syncope was when she was coughing so hard the last time she was admitted. In the middle of coughing, trying to drink a glass of water, she found herself on the floor and briefly with loss of consciousness.). denies: Headache, Dizziness, Memory problems Prior Level of Functionality: Independent with activities of daily living. Still employed. Drives a car. Cleans her own house. Pays her own bills. Does her own housekeeping. Exam - Vital Signs Reviewed Vital Signs: Yes Vital Signs: Vital Signs x48h Temp Pulse Resp BP Pulse Ox 08/01/20 13:00 129 H 14 139/95 H 96 08/01/20 12:30 137 H 18 152/93 H 94 08/01/20 12:18 137 H 97 H 127/104 H 16 L 08/01/20 11:47 133 H 19 151/95 H 100 08/01/20 11:44 134 H 24 08/01/20 11:20 139 H 24 169/103 H 94 08/01/20 11:15 36.9 C 149 H 22 148/96 H 97 - Physical Exam General Appearance: positive: No acute distress, Alert, Other (Slender, alert white female who looks her stated age, no respiratory distress, able to have complete sentences and laugh spontaneously.) Eyes Bilateral: positive: PERRL, EOMI ENT: positive: No signs of dehydration, Other (Voice is low and hoarse. She says that she only speaks that way.) Neck: positive: No JVD. negative: Stiff neck Respiratory: positive: No respiratory distress (At rest. She tried to get up to go to the bathroom and was very tachypneic for 3 to 5 minutes after she sat down until she rested.), Wheezes. negative: Rales, Rhonchi Cardiovascular: positive: Regular rate & rhythm, Tachycardia. negative: Systolic murmur, Gallop/S4, Friction rub Peripheral Pulses: positive: 1+ Abdomen: positive: Non-tender, No organomegaly, Nml bowel sounds, No distention Skin: positive: Warm, Dry Extremities: positive: Non-tender, Full ROM, Pedal edema Neurologic/Psychiatric: positive: Oriented x3, CN's nml (2-12), Motor nml, Sensation nml Conclusion/Plan - Problem List (1) Acute exacerbation of COPD with asthma Conclusion/Plan: This is a new diagnosis for her this year. She has not been stabilized on medi cations yet. Has not been able to have pulmonary function studies. When she was discharged from June admission, she did not require oxygen. With this admission white cell count is normal, chest x-ray does not have infiltrate. With last admission CT pulmonary angiogram was done to make sure she did not have PE. I will not repeat that this admission. Plan: Observation status Add long-acting bronchodilator Add long-acting inhaled steroid Continue as needed albuterol Continue fixed dose DuoNeb while she is here Solu-Medrol IV 3 times daily 2-3 doses. Encourage stopping smoking (2) Current smoker Conclusion/Plan: Nicotine patch. She had gotten a prescription from her PCP but has not gotten around to putting them on. She is down to 3 cigarettes a week. So I commended her on her ability to cut down and hope she can stop completely. (3) HTN (hypertension) Conclusion/Plan: Resume her home medication of amlodipine. With her last visit other antihypertensives were discontinued and only continued on amlodipine. Qualifiers: Hypertension type: essential hypertension Qualified Code(s): I10 - Essential (primary) hypertension (4) Edema of both ankles Conclusion/Plan: She says that this is the first time she is done this. She did not even get edema when she was . With the first episode of emphysema she was fine. I do note that she has mild pulmonary hypertension on echo. She may need a low -dose of diuretics. I will also order venous Dopplers. (5) Hypokalemia Conclusion/Plan: supplement PO and check again in am. - Lab Results Lab results reviewed: Yes Fish Bones: 08/01/20 11:50 08/01/20 11:50 - Diagnostic Imaging Results Diagnostic Imaging Results: positive: Final report reviewed Diagnostic Imaging Results Comments: PROCEDURE: Chest 1 View X-Ray INDICATIONS: chest pain TECHNIQUE: One view of the chest was acquired. COMPARISON: 07.14.20 FINDINGS: Surgical changes and devices: None. Lungs and pleura: No pleural effusions or pneumothorax. Lungs are clear. Mediastinum: Mediastinal contours appear normal. Heart size is normal. Bones and chest wall: No suspicious bony lesions. Overlying soft tissues appear unremarkable. IMPRESSION: No acute process. Reviewed by: Anita Pedro MD on 08/01/2020 11:45 AM PST Approved by: Anita Pedro MD on 08/01/2020 11:45 AM PST - EKG Results EKG Interpreted Independently: Yes EKG Comparison: Unchanged from prior EKG Core Measures - Anticipated LOS I expect patient to be DC'd or transferred within 96 hours.: Yes - DVT/VTE - Prophylaxis VTE/DVT Device ordered at admit?: Yes
[2020-08-01 13:20] LABS: C. PNEUMONIAE- RESP PCR PANEL NOT DETECTED
[2020-08-01] MEDS ORDERED: FORMOTEROL FUMARATE NEB 20 MCG/2 ML INH STA (13:22)
[2020-08-01] MEDS ORDERED: LACTATED RINGERS 1,000 ML IV SCH (14:00)
[2020-08-01] MEDS: methylPREDNISolone SUCCINATE 40 MG/ML VIAL IVP SCH ×2 (15:06→22:06)
--- NOTE | 2020-08-01 15:24 | PHARMACY PROGRESS NOTE ---
- Best Possible Medication History Admit Date and Time: 08/01/20 0583 Processed by: Pharmacy Medication History completed: Yes Secondary Source(s): Pharmacy records, Insurance records, Previous admit records As the person ultimately responsible for medication therapy, providers are able to order a medication from an existing home medication list in [facility] via the "Reconcile Routine" prior to Confirmation of that medication by learning support aide. Such practice is discouraged except when the physician, in their clinical judgment, deems that a medical need exists for a medication without regard to previous use.
[2020-08-01] MEDS ORDERED: POTASSIUM CHLORIDE 20 MEQ TABLET PO ONE (15:47)
[2020-08-01] MEDS: SODIUM CHLORIDE FLUSH 0.9% 10 ML SYRINGE IVP SCH (16:31)
[2020-08-01] MEDS: IPRATROPIUM/ALBUTEROL 3 ML NEB INH SCH ×2 (16:36→21:44)
[2020-08-01] MEDS: NICOTINE 14 MG PATCH TOP SCH (19:08)
[2020-08-01] MEDS: BENZONATATE 100 MG CAPSULE PO PRN (20:30)
[2020-08-01] MEDS: guaiFENesin 600 MG TABLET PO SCH (20:30)
[2020-08-01] MEDS: BUDESONIDE 0.5 MG/2 ML NEB INH SCH (21:44)
[2020-08-02] MEDS: SODIUM CHLORIDE FLUSH 0.9% 10 ML SYRINGE IVP SCH ×3 (00:47→16:13)
[2020-08-02] MEDS: oxyCODONE 5 MG TABLET PO PRN ×4 (00:48→20:15)
[2020-08-02] MEDS: BENZONATATE 100 MG CAPSULE PO PRN ×3 (03:19→20:15)
[2020-08-02] MEDS: methylPREDNISolone SUCCINATE 40 MG/ML VIAL IVP SCH ×3 (05:53→21:45)
[2020-08-02] MEDS: IPRATROPIUM/ALBUTEROL 3 ML NEB INH SCH ×4 (06:06→17:49)
[2020-08-02] MEDS: BUDESONIDE 0.5 MG/2 ML NEB INH SCH ×2 (06:06→17:49)
[2020-08-02 06:58] LABS: CALCIUM 8.8 mg/dL (8.5-10.3); CREATININE 0.7 mg/dL (0.4-1.0)
--- NOTE | 2020-08-02 07:15 | Ultrasound Report ---
PROCEDURE: Duplex Ext Veins Bilateral INDICATIONS: Edema and shortness of breath. TECHNIQUE: Real-time imaging, as well as color and pulse Doppler interrogation, were performed of the deep veins of both legs from the inguinal ligament to the popliteal fossa. COMPARISON: None FINDINGS: The deep veins are normally compressible, and free of intraluminal thrombus. Color and pu lse Doppler demonstrate normal phasic intravascular flow. There is normal augmentation response to d istal compression maneuver. IMPRESSION: No deep venous thrombosis in either lower extremity. Mild subcutaneous edema seen in both calves. Reviewed by: Justnie Sanz MD on 08/02/2020 7:14 AM PST Approved by: Justine Sanz MD on 08/02/2020 7:14 AM PST Station ID: [id number]
[2020-08-02] MEDS ORDERED: POTASSIUM CHLORIDE 20 MEQ TABLET PO ONE (07:23)
--- NOTE | 2020-08-02 08:20 | PROVIDER PROGRESS NOTE ---
Subjective - Prog Note Date Prog Note Date: 08/02/20 Prog Note Time: 08:18 - Subjective Pt reports feeling: Improved Subjective: At rest, she is back to normal. When she gets up to sit in a chair she feels good. When she gets up to walk across to the bathroom, that is when she gets short of breath and takes a few minutes to recover. Yesterday tachycardia into the 120s, sometimes a 130s with exertion. This morning tachycardia is down to 105. Respiratory rate is 18. Right now she saturating 96% on 3 L. I am not sure what she is doing on room air. Current Medications - Current Medications Current Medications: Active Medications Generic Name Dose Route Start Last Admin Trade Name Freq PRN Reason Stop Dose Admin Albuterol 2.5 mg 08/01/20 13:09 INH RTQ4H PRN Wheezing Albuterol/Ipratropium 3 ml 08/01/20 15:00 08/02/20 06:06 Duoneb INH 3 ml RTQID ALLISON Administration Amlodipine Besylate 5 mg 08/02/20 09:00 Norvasc PO DAILY ALLISON Benzonatate 100 mg 08/01/20 19:38 08/02/20 03:19 Tessalon PO 100 mg TID PRN Administration Cough Budesonide 0.5 mg 08/01/20 19:00 08/02/20 06:06 Pulmicort INH 0.5 mg RTBID ALLISON Administration Guaifenesin 600 mg 08/01/20 21:00 08/01/20 20:30 Mucinex PO 600 mg BID ALLISON Administration Methylprednisolone 40 mg 08/01/20 14:00 08/02/20 05:53 Solu-Medrol (40mg Vial) IVP 40 mg TID ALLISON Administration Nicotine 1 patch 08/01/20 18:39 08/01/20 19:08 Nicoderm TOP 1 patch DAILY ALLISON Administration Ondansetron HCl 4 mg 08/01/20 13:07 Zofran Odt TL Q6HR PRN Nausea / Vomiting Ondansetron HCl 4 mg 08/01/20 13:07 Zofran Inj IVP Q6HR PRN Nausea / Vomiting Oxycodone HCl 5 mg 08/01/20 13:07 08/02/20 05:53 Roxicodone PO 5 mg Q4HR PRN Administration Pain 5 to 7 Sodium Chloride 10 ml 08/01/20 13:07 Normal Saline Flush 0.9% IVP PRN PRN NEEDED PER PROVIDER ORDERS Sodium Chloride 10 ml 08/01/20 17:00 08/02/20 00:47 Normal Saline Flush 0.9% IVP 10 ml 0100,0900,1700 ALLISON Administration amLODIPine [Norvasc] 5 mg PO DAILY 07/11/20 Albuterol Sulfate [Albuterol Sulfate Hfa] 1 puffs IH Q4HR PRN 08/01/20 traMADol [Ultram] 50 mg PO QID PRN 08/01/20 Objective - Vital Signs/Intake & Output Reviewed Vital Signs: Yes Vital Signs: Vital Signs x48h Temp Pulse Pulse Resp BP Pulse Ox 08/02/20 06:07 105 H 18 08/02/20 05:00 36.6 C 106 H 18 139/94 H 96 08/02/20 03:21 94 Intake & Output: Intake & Output 07/30/20 07/31/20 08/01/20 08/02/20 23:59 23:59 23:59 23:59 Intake Total 1327 1450 Balance 1327 1450 - Lab Results Fish Bones: 08/01/20 11:50 08/02/20 06:42 Other Labs: Lab Results x24hrs 08/02/20 08/02/20 08/01/20 Range/Units 06:42 06:42 12:30 WBC (4.8-10.8) x10^3/uL RBC (4.20-5.40) 10^6/uL Hgb (12.0-16.0) g/dL Hct (37.0-47.0) % MCV (81.0-99.0) fL MCH (27.0-31.0) pg MCHC (32.0-36.0) g/dL RDW (12.0-15.0) % Plt Count (130-450) 10^3/uL MPV (7.9-10.8) fL Neut # (Auto) (1.5-6.6) 10^3/uL Lymph # (Auto) (1.5-3.5) 10^3/uL [place] # (Auto) (0.0-1.0) 10^3/uL Eos # (Auto) (0.0-0.7) 10^3/uL Baso # (Auto) (0.0-0.1) 10^3/uL Absolute Nucleated RBC x10^3/uL Nucleated RBC % /100WBC Sodium 136 (135-145) mmol/L Potassium 3.2 L (3.5-5.0) mmol/L Chloride 101 (101-111) mmol/L Carbon Dioxide 25 (21-32) mmol/L Anion Gap 10.0 (6-13) BUN 13 (6-20) mg/dL Creatinine 0.7 (0.4-1.0) mg/dL Estimated GFR (MDRD) 85 L (>89) Glucose 159 H (70-100) mg/dL Calcium 8.8 (8.5-10.3) mg/dL Magnesium 1.7 (1.7-2.8) mg/dL Total Bilirubin (0.2-1.0) mg/dL AST (10-42) IU/L ALT (10-60) IU/L Alkaline Phosphatase (42-121) IU/L B-Natriuretic Peptide (5-100) pg/mL Total Protein (6.7-8.2) g/dL Albumin (3.2-5.5) g/dL Globulin (2.1-4.2) g/dL Albumin/Globulin Ratio (1.0-2.2) Nasal Adenovirus (PCR) NOT DETECTED Nasal B. parapertussis DNA (PCR) NOT DETECTED Nasal Coronavir 229E PCR NOT DETECTED Nasal Coronavir HKU1 PCR NOT DETECTED Nasal Coronavir NL63 PCR NOT DETECTED Nasal Coronavir OC43 PCR NOT DETECTED Nasal Enterovir/Rhinovir PCR NOT DETECTED Nasal Influenza B PCR NOT DETECTED Nasal Parainfluen 1 PCR NOT DETECTED Nasal Parainfluen 2 PCR NOT DETECTED Nasal Parainfluen 3 PCR NOT DETECTED Nasal Parainfluen 4 PCR NOT DETECTED Nasal RSV (PCR) NOT DETECTED Nasal B.pertussis DNA PCR NOT DETECTED Nasal C.pneumoniae (PCR) NOT DETECTED [place] Human Metapneumo PCR NOT DETECTED Nasal M.pneumoniae (PCR) NOT DETECTED Nasal SARS-CoV-2 (PCR) NOT DETECTED 08/01/20 08/01/20 08/01/20 Range/Units 11:50 11:50 11:50 WBC 8.2 (4.8-10.8) x10^3/uL RBC 4.14 L (4.20-5.40) 10^6/uL Hgb 13.9 (12.0-16.0) g/dL Hct 41.1 (37.0-47.0) % MCV 99.3 H (81.0-99.0) fL MCH 33.6 H (27.0-31.0) pg MCHC 33.8 (32.0-36.0) g/dL RDW 12.3 (12.0-15.0) % Plt Count 231 (130-450) 10^3/uL MPV 9.8 (7.9-10.8) fL Neut # (Auto) 5.4 (1.5-6.6) 10^3/uL Lymph # (Auto) 1.3 L (1.5-3.5) 10^3/uL [place] # (Auto) 0.6 (0.0-1.0) 10^3/uL Eos # (Auto) 0.9 H (0.0-0.7) 10^3/uL Baso # (Auto) 0.1 (0.0-0.1) 10^3/uL Absolute Nucleated RBC 0.00 x10^3/uL Nucleated RBC % 0.0 /100WBC Sodium 138 (135-145) mmol/L Potassium 3.2 L (3.5-5.0) mmol/L Chloride 101 (101-111) mmol/L Carbon Dioxide 23 (21-32) mmol/L Anion Gap 14.0 H (6-13) BUN 10 (6-20) mg/dL Creatinine 0.9 (0.4-1.0) mg/dL Estimated GFR (MDRD) 64 L (>89) Glucose 145 H (70-100) mg/dL Calcium 9.5 (8.5-10.3) mg/dL Magnesium 1.4 L (1.7-2.8) mg/dL Total Bilirubin 0.8 (0.2-1.0) mg/dL AST 41 (10-42) IU/L ALT 38 (10-60) IU/L Alkaline Phosphatase 55 (42-121) IU/L B-Natriuretic Peptide 33 (5-100) pg/mL Total Protein 7.9 (6.7-8.2) g/dL Albumin 4.4 (3.2-5.5) g/dL Globulin 3.5 (2.1-4.2) g/dL Albumin/Globulin Ratio 1.3 (1.0-2.2) Nasal Adenovirus (PCR) Nasal B. parapertussis DNA (PCR) Nasal Coronavir 229E PCR Nasal Coronavir HKU1 PCR Nasal Coronavir NL63 PCR Nasal Coronavir OC43 PCR Nasal Enterovir/Rhinovir PCR Nasal Influenza B PCR Nasal Parainfluen 1 PCR Nasal Parainfluen 2 PCR Nasal Parainfluen 3 PCR Nasal Parainfluen 4 PCR Nasal RSV (PCR) Nasal B.pertussis DNA PCR Nasal C.pneumoniae (PCR) [place] Human Metapneumo PCR Nasal M.pneumoniae (PCR) Nasal SARS-CoV-2 (PCR) ABX Reporting Has patient been on IV antibiotics over the past 48 hours?: No Assessment/Plan - Problem List (1) Acute exacerbation of COPD with asthma Impression: This is a new diagnosis for her this year. She has not been stabilized on medications yet. Has not been able to have pulmonary function studies. When she was discharged from June admission, she did not require oxygen. With this admission white cell count is normal, chest x-ray does not have infiltrate. With last admission CT pulmonary angiogram was done to make sure she did not have PE. I will not repeat that this admission. She is improved. She has less tachycardia, less use of accessory muscles. But still exhausted. Gets tachycardic just getting up to walk to the bathroom. Plan: Observation status to be continued since she is Coordinated Care. Stay 1 more night. Added long-acting bronchodilator Added long-acting inhaled steroid Continue as needed albuterol Continue fixed dose DuoNeb while she is here Solu-Medrol IV 3 times daily 2-3 doses. Encourage stopping smoking (2) Current smoker Conclusion/Plan: Nicotine patch. She had gotten a prescription from her PCP but has not gotten around to putting them on. She is down to 3 cigarettes a week. So I commended her on her ability to cut down and hope she can stop completely. (3) HTN (hypertension) Conclusion/Plan: Resume her home medication of amlodipine. With her last visit other antihypertensives were discontinued and only continued on amlodipine. Qualifiers: Hypertension type: essential hypertension Qualified Code(s): I10 - Essential (primary) hypertension (4) Edema of both ankles Conclusion/Plan: She says that this is the first time she is done this. She did not even get edema when she was . With the first episode of emphysema she was fine. I do note that she has mild pulmonary hypertension on echo. She may need a low-dose of diuretics. Venous duplex showed no DVT and only mild subcu edema in the calves. Consider discharging on low-dose hydrochlorothiazide on days that she needs it. (5) Hypokalemia Conclusion/Plan: 3.2 on admission, supplemented, 3.2 again today. supplement PO and check again in am.
[2020-08-02] MEDS ORDERED: NICOTINE 14 MG PATCH TOP SCH (09:00)
[2020-08-02] MEDS: amLODIPine 5 MG TABLET PO SCH (09:26)
[2020-08-02] MEDS: guaiFENesin 600 MG TABLET PO SCH ×2 (09:26→20:15)
[2020-08-02] MEDS: NICOTINE 14 MG PATCH TOP SCH (09:26)
[2020-08-02] MEDS: SODIUM CHLORIDE FLUSH 0.9% 10 ML SYRINGE IVP PRN ×2 (13:22→21:45)
[2020-08-03] MEDS: SODIUM CHLORIDE FLUSH 0.9% 10 ML SYRINGE IVP SCH ×4 (00:04→23:42)
[2020-08-03] MEDS: oxyCODONE 5 MG TABLET PO PRN ×5 (00:51→23:42)
[2020-08-03 05:37] LABS: BASOPHILS % (AUTO) 0.2 %; HGB - HEMOGLOBIN 11.1 g/dL (12.0-16.0); LYMPHOCYTES % (AUTO) 2.9 %; MEAN CORPUSCULAR HEMOGLOBIN 34.4 pg (27.0-31.0); MEAN CORPUSCULAR HGB CONC 33.7 g/dL (32.0-36.0); MEAN CORPUSCULAR VOLUME 101.9 fL (81.0-99.0); MEAN PLATELET VOLUME 10.5 fL (7.9-10.8); MONOCYTES % (AUTO) 3.6 %; NEUTROPHILS % (AUTO) 90.9 %; PLT - PLATELET COUNT 254 10^3/uL (130-450); RED BLOOD COUNT 3.23 10^6/uL (4.20-5.40); RED CELL DISTRIBUTION WIDTH 12.8 % (12.0-15.0); WHITE BLOOD COUNT 19.5 x10^3/uL (4.8-10.8)
[2020-08-03] MEDS: BENZONATATE 100 MG CAPSULE PO PRN ×3 (05:41→16:40)
[2020-08-03] MEDS: methylPREDNISolone SUCCINATE 40 MG/ML VIAL IVP SCH (05:42)
[2020-08-03] MEDS: SODIUM CHLORIDE FLUSH 0.9% 10 ML SYRINGE IVP PRN ×4 (05:42→21:37)
[2020-08-03 05:57] LABS: ABNORMAL LYMPHS % (MANUAL) 0 %; BAND NEUTROPHILS % (MANUAL) 0 %
[2020-08-03 06:03] LABS: CALCIUM 8.5 mg/dL (8.5-10.3); CREATININE 0.8 mg/dL (0.4-1.0)
[2020-08-03 06:21] LABS: DIFFERENTIAL COMMENT MANUAL DIFFERENTIAL; LYMPHOCYTES # (MANUAL) 0.4 10^3/uL (1.5-3.5); LYMPHOCYTES % (MANUAL) 2 %; MONOCYTES # (MANUAL) 0.6 10^3/uL (0.0-1.0); PLATELET ESTIMATE, MANUAL NORMAL (130-450,000) (NORMAL); PLATELET MORPHOLOGY NORMAL APPEARANCE (NORMAL); RBC MORPHOLOGY (MULTIPLE) NORMAL APPEARANCE (NORMAL)
[2020-08-03] MEDS: NICOTINE 14 MG PATCH TOP SCH (07:05)
[2020-08-03] MEDS: BUDESONIDE 0.5 MG/2 ML NEB INH SCH ×2 (07:14→21:00)
[2020-08-03] MEDS: IPRATROPIUM/ALBUTEROL 3 ML NEB INH SCH ×4 (07:14→20:59)
[2020-08-03] MEDS: guaiFENesin 600 MG TABLET PO SCH ×2 (07:54→21:30)
[2020-08-03] MEDS: amLODIPine 5 MG TABLET PO SCH (07:54)
--- NOTE | 2020-08-03 10:58 | PROVIDER PROGRESS NOTE ---
Subjective - Prog Note Date Prog Note Date: 08/03/20 Prog Note Time: 10:57 - Subjective Subjective: she is worried. She does fine as long she sitting in bed. Sitting in a chair. She can eat just fine. Talk on the phone. But when she gets up to do something simple as walking in the room or walking to the bathroom the tachypnea comes on so fast. Tachycardia comes on. And then she has to sit down for 5 to 10 minutes for it to recover. She has been on steroids, antibiotics, nebs. Current Medications - Current Medications Current Medications: Active Medications Albuterol () 2.5 mg INH RTQ4H PRN PRN Reason: Wheezing Last Admin: 08/03/20 00:22 Dose: 2.5 mg Documented by: Albuterol/Ipratropium (Duoneb) 3 ml INH RTQID [facility] Last Admin: 08/03/20 07:14 Dose: 3 ml Documented by: Amlodipine Besylate (Norvasc) 5 mg PO DAILY [facility] Last Admin: 08/03/20 07:54 Dose: 5 mg Documented by: Benzonatate (Tessalon) 100 mg PO TID PRN PRN Reason: Cough Last Admin: 08/03/20 05:41 Dose: 100 mg Documented by: Budesonide (Pulmicort) 0.5 mg INH RTBID [facility] Last Admin: 08/03/20 07:14 Dose: 0.5 mg Documented by: Guaifenesin (Mucinex) 600 mg PO BID [facility] Last Admin: 08/03/20 07:54 Dose: 600 mg Documented by: Methylprednisolone (Solu-Medrol (40mg Vial)) 40 mg IVP TID [facility] Last Admin: 08/03/20 05:42 Dose: 40 mg Documented by: Nicotine (Nicoderm) 1 patch TOP DAILY [facility] Last Admin: 08/03/20 07:05 Dose: 1 patch Documented by: Ondansetron HCl (Zofran Odt) 4 mg TL Q6HR PRN PRN Reason: Nausea / Vomiting Ondansetron HCl (Zofran Inj) 4 mg IVP Q6HR PRN PRN Reason: Nausea / Vomiting Oxycodone HCl (Roxicodone) 5 mg PO Q4HR PRN PRN Reason: Pain 5 to 7 Last Admin: 08/03/20 07:04 Dose: 5 mg Documented by: Sodium Chloride (Normal Saline Flush 0.9%) 10 ml IVP PRN PRN PRN Reason: NEEDED PER PROVIDER ORDERS Last Admin: 08/03/20 05:42 Dose: 10 ml Documented by: Sodium Chloride (Normal Saline Flush 0.9%) 10 ml IVP 0100,0900,1700 [facility] Last Admin: 08/03/20 07:56 Dose: 10 ml Documented by: amLODIPine [Norvasc] 5 mg PO DAILY 07/11/20 Albuterol Sulfate [Albuterol Sulfate Hfa] 1 puffs IH Q4HR PRN 08/01/20 traMADol [Ultram] 50 mg PO QID PRN 08/01/20 Objective - Vital Signs/Intake & Output Reviewed Vital Signs: Yes Vital Signs: Vital Signs x48h Temp Pulse Pulse Resp BP Pulse Ox 08/03/20 07:52 36.4 C L 106 H 18 140/90 H 93 08/03/20 07:15 100 18 08/03/20 05:00 36.2 C L 101 H 20 134/91 H 92 Intake & Output: Intake & Output 07/31/20 08/01/20 08/02/20 08/03/20 23:59 23:59 23:59 23:59 Intake Total 1327 4182 500 Balance 1327 4182 500 - Objective General Appearance: positive: No acute distress, Alert, Other (Slender middle- aged female looks her stated age, low hoarse voice that is really evident when she laughs) Eyes Bilateral: positive: PERRL, EOMI ENT: positive: Pharynx nml Neck: positive: No JVD. negative: Stiff neck Respiratory: positive: No respiratory distress, Wheezes (Bilateral lower lung barrera, faint. She is at rest and comfortable). negative: Rales, Rhonchi Cardiovascular: positive: Regular rate & rhythm, Tachycardia (Documented when she gets up, or walks. Baseline right now is low 100s.). negative: Systolic murmur, Gallop/S4 Abdomen: positive: Non-tender, No organomegaly, Nml bowel sounds, No distention Skin: positive: Warm, Dry Extremities: positive: Non-tender, No pedal edema (Edema has completely resolved. She is very satisfied with that.) Neurologic/Psychiatric: positive: Oriented x3, CN's nml (2-12), Motor nml - Lab Results Fish Bones: 08/03/20 05:15 08/03/20 05:15 Other Labs: Lab Results x24hrs 08/03/20 08/03/20 Range/Units 05:15 05:15 WBC 19.5 H (4.8-10.8) x10^3/uL RBC 3.23 L (4.20-5.40) 10^6/uL Hgb 11.1 L (12.0-16.0) g/dL Hct 32.9 L (37.0-47.0) % MCV 101.9 H (81.0-99.0) fL MCH 34.4 H (27.0-31.0) pg MCHC 33.7 (32.0-36.0) g/dL RDW 12.8 (12.0-15.0) % Plt Count 254 (130-450) 10^3/uL MPV 10.5 (7.9-10.8) fL Neut # (Auto) Not Reportable Lymph # (Auto) Not Reportable [place] # (Auto) Not Reportable Eos # (Auto) Not Reportable Baso # (Auto) Not Reportable Absolute Nucleated RBC Not Reportable Total Counted 100 Band Neuts % (Manual) 0 (0 - 10) % Abnorm Lymph % (Manual) 0 % Nucleated RBC % Not Reportable Neutrophils # (Manual) 18.5 H (1.5-6.6) 10^3/uL Lymphocytes # (Manual) 0.4 L (1.5-3.5) 10^3/uL Monocytes # (Manual) 0.6 (0.0-1.0) 10^3/uL Eosinophils # (Manual) 0.0 (0-0.7) 10^3/uL Basophils # (Manual) 0.0 (0-0.1) 10^3/uL Differential Comment MANUAL DIFFERENTIAL WBC Morphology NORMAL APPEARANCE (NORMAL) Platelet Estimate NORMAL (130-450,000) (NORMAL) Platelet Morphology NORMAL APPEARANCE (NORMAL) RBC Morph Micro Appear NORMAL APPEARANCE (NORMAL) Sodium 135 (135-145) mmol/L Potassium 3.7 (3.5-5.0) mmol/L Chloride 101 (101-111) mmol/L Carbon Dioxide 24 (21-32) mmol/L Anion Gap 10.0 (6-13) BUN 22 H (6-20) mg/dL Creatinine 0.8 (0.4-1.0) mg/dL Estimated GFR (MDRD) 73 L (>89) Glucose 167 H (70-100) mg/dL Calcium 8.5 (8.5-10.3) mg/dL ABX Reporting Has patient been on IV antibiotics over the past 48 hours?: Yes Assessment/Plan - Problem List (1) Acute exacerbation of COPD with asthma Impression: This is a new diagnosis for her this year. She has not been stabilized on medications yet. Has not been able to have pulmonary function studies. When she was discharged from June admission, she did not require oxygen. With this admission white cell count is normal, chest x-ray does not have infiltrate. With last admission CT pulmonary angiogram was done to make sure she did not have PE. I will not repeat that this admission. Over the course of the last couple of days she has improved. She is no longer short of breath at rest. No longer wheezing at rest. Very comfortable at rest. But getting up is still problematic. She is still observation status. Plan: She is on a long-acting bronchodilator, long-acting inhaled steroid, albuterol prn. On fixed scheduled dose of DuoNeb. Decrease Solu-Medrol to twice daily today and daily tomorrow. She has been encouraged to stop smoking. I will give a dose of Rocephin to see if that helps. She has not been on antibiotics up until now since chest x-ray was normal. (2) Current smoker Conclusion/Plan: Nicotine patch. She had gotten a prescription from her PCP but has not gotten a round to putting them on. She is down to 3 cigarettes a week. So I commended her on her ability to cut down and hope she can stop completely. (3) HTN (hypertension) Conclusion/Plan: Resume her home medication of amlodipine. With her last visit other antihypertensives were discontinued and only continued on amlodipine. Blood pressure is 134-140 systolic. She has edema with this that is been making her unhappy. Plan: Change to lisinopril 10 mg/hydrochlorothiazide 10 mg / 12.5 mg once a day. Qualifiers: Hypertension type: essential hypertension Qualified Code(s): I10 - Essential (primary) hypertension (4) Edema of both ankles Conclusion/Plan: She says that this is the first time she is done this. She did not even get edema when she was . With the first episode of emphysema she was fine. I do note that she has mild pulmonary hypertension on echo. She may need a low- dose of diuretics. Venous duplex showed no DVT and only mild subcu edema in the calves. Will change to the above medication noted in hypertension problem (5) Hypokalemia Conclusion/Plan: 3.2 on admission, supplemented, 3.2 again and supplemented. 3.7 today.
[2020-08-03] MEDS: cefTRIAXone 1 GM in SODIUM CHLORIDE 0.9% MINIBAG 100 ML IV SCH (12:32)
[2020-08-03] MEDS: lisinopriL 5 MG TABLET PO SCH (14:24)
[2020-08-03] MEDS ORDERED: methylPREDNISolone SUCCINATE 40 MG/ML VIAL IVP SCH (21:00)
[2020-08-04 05:47] LABS: BASOPHILS % (AUTO) 0.2 %; EOSINOPHILS % (AUTO) 0.1 %; HGB - HEMOGLOBIN 11.3 g/dL (12.0-16.0); LYMPHOCYTES # (AUTO) 0.7 10^3/uL (1.5-3.5); LYMPHOCYTES % (AUTO) 4.8 %; MEAN CORPUSCULAR HEMOGLOBIN 33.7 pg (27.0-31.0); MEAN CORPUSCULAR HGB CONC 32.8 g/dL (32.0-36.0); MEAN CORPUSCULAR VOLUME 102.7 fL (81.0-99.0); MONOCYTES # (AUTO) 0.5 10^3/uL (0.0-1.0); MONOCYTES % (AUTO) 3.9 %; NEUTROPHILS # (AUTO) 11.9 10^3/uL (1.5-6.6); NEUTROPHILS % (AUTO) 88.2 %; PLT - PLATELET COUNT 267 10^3/uL (130-450); RED BLOOD COUNT 3.35 10^6/uL (4.20-5.40); RED CELL DISTRIBUTION WIDTH 13.1 % (12.0-15.0); WHITE BLOOD COUNT 13.5 x10^3/uL (4.8-10.8)
[2020-08-04 05:55] LABS: CALCIUM 8.5 mg/dL (8.5-10.3); CREATININE 0.7 mg/dL (0.4-1.0)
[2020-08-04] MEDS: IPRATROPIUM/ALBUTEROL 3 ML NEB INH SCH ×4 (07:18→21:04)
[2020-08-04] MEDS: BUDESONIDE 0.5 MG/2 ML NEB INH SCH ×2 (07:18→21:04)
[2020-08-04] MEDS: guaiFENesin 600 MG TABLET PO SCH ×2 (08:51→21:05)
[2020-08-04] MEDS: oxyCODONE 5 MG TABLET PO PRN ×3 (08:53→21:05)
[2020-08-04] MEDS: FUROSEMIDE 20 MG TABLET PO SCH (08:53)
[2020-08-04] MEDS: lisinopriL 5 MG TABLET PO SCH (08:53)
[2020-08-04] MEDS: predniSONE 20 MG TABLET PO SCH (08:53)
[2020-08-04] MEDS: NICOTINE 14 MG PATCH TOP SCH (08:54)
[2020-08-04] MEDS: SODIUM CHLORIDE FLUSH 0.9% 10 ML SYRINGE IVP SCH ×3 (08:54→23:45)
[2020-08-04] MEDS: cefTRIAXone 1 GM in SODIUM CHLORIDE 0.9% MINIBAG 100 ML IV SCH (08:56)
[2020-08-04] MEDS: polyethylene glycoL 3350 17 GM PACKET PO SCH (08:57)
[2020-08-04] MEDS: LOSARTAN 50 MG TABLET PO SCH (11:31)
[2020-08-04 14:25] LABS: HEMOGLOBIN A1c% 5.7 % (4.27-6.07)
--- NOTE | 2020-08-04 15:59 | PROVIDER PROGRESS NOTE ---
Assessment/Plan - Problem List (1) COPD exacerbation Assessment/Plan: Patient has improved here on IV steroids. Solumedrol was tapered down and is off as of today. Steroids have increased her WBC. We will start p.o. Prednisone today and plan a taper over 1 month, not a Medrol Dose pack that tapers over just 5-days. She was started on empiric antibx Ceftriaxone yesterday; this may have helped as well. Continue with nebulizers. The patient states that her inhaler was not helping and she would agree to be on nebulizer treatments now. O2 saturations are adequate at rest, and will assess saturation with activity on the day of discharge (probably ready for discharge tomorrow). We will add Singulair at bedtime and continue this after discharge to give her maximal medical management. We discussed smoking cessation (she is down to 3 cigarettes/week now, previously had been on half a pack a day, at the last hospitalization). She has not yet had PFTs which were planned as an outpatient after the last hospitalization however then she got this exacerbation. She will likely need Pulmonology outpatient follow-up and would benefit from Pulmonary rehab classes at the [facility], after Data Entry Machine Operator kayley. (2) HTN (hypertension) Assessment/Plan: Diastolic blood pressure is still in the 90s at rest today After the last hospitalization, she was sent home on new Amlodipine (and Lisinopril was stopped since it was probably adding to her cough). On this admission she presented with new ankle edema. The Amlodipine has now been stopped, which is known to cause ankle edema. Will order Lasix p.o. x1 today. This will treat both blood pressure today and her edema. We will start Losartan daily for BP control (3) Edema of both ankles Assessment/Plan: This was likely caused by the new amlodipine, and has now been stopped. At the last hospitalization 2 weeks ago she had an Echo that did not show cor pulmonale. We will give 1 dose of p.o. Lasix today. Amlodipine will not be continued going forward (4) Hypokalemia Assessment/Plan: Resolved with replacement. - Current Meds Current Meds: Current Medications Generic Name Dose Route Start Last Admin Trade Name Freq PRN Reason Stop Dose Admin Albuterol 2.5 mg 08/01/20 13:09 08/03/20 00:22 INH 2.5 mg RTQ4H PRN Administration Wheezing Albuterol/Ipratropium 3 ml 08/01/20 15:00 08/04/20 15:38 Duoneb INH 3 ml RTQID [facility] Administration Benzonatate 100 mg 08/01/20 19:38 08/03/20 16:40 Tessalon PO 100 mg TID PRN Administration Cough Budesonide 0.5 mg 08/01/20 19:00 08/04/20 07:18 Pulmicort INH 0.5 mg RTBID [facility] Administration Furosemide 20 mg 08/04/20 09:00 08/04/20 08:53 Lasix PO 20 mg DAILY [facility] Administration Guaifenesin 600 mg 08/01/20 21:00 08/04/20 08:51 Mucinex PO 600 mg BID [facility] Administration Ceftriaxone Sodium 1 gm/ 100 mls @ 200 mls/hr 08/03/20 12:00 08/04/20 09:30 Sodium Chloride IV Infused DAILY [facility] Infusion Losartan Potassium 25 mg 08/04/20 12:00 08/04/20 11:31 Cozaar PO 25 mg DAILY [facility] Administration Nicotine 1 patch 08/01/20 18:39 08/04/20 08:54 Nicoderm TOP 1 patch DAILY [facility] Administration Oxycodone HCl 5 mg 08/01/20 13:07 08/04/20 15:01 Roxicodone PO 5 mg Q4HR PRN Administration Pain 5 to 7 Polyethylene Glycol 17 gm 08/04/20 09:00 08/04/20 08:57 Miralax PO Not Given DAILY [facility] Prednisone 20 mg 08/04/20 09:00 08/04/20 08:53 Deltasone PO 20 mg DAILYWM [facility] Administration Sodium Chloride 10 ml 08/01/20 13:07 08/03/20 21:37 Normal Saline Flush 0.9% IVP 10 ml PRN PRN Administration NEEDED PER PROVIDER ORDERS Sodium Chloride 10 ml 08/01/20 17:00 08/04/20 08:54 Normal Saline Flush 0.9% IVP 10 ml 0100,0900,1700 [facility] Administration - Lab Result Fish Bone Diagrams: 08/04/20 05:30 08/04/20 05:30 - Additional Planning My Orders: My Active Orders 08/04/20 09:00 Furosemide [Lasix] 20 mg PO DAILY predniSONE [Deltasone] 20 mg PO DAILYWM 08/04/20 Lunch DIET [Low Sodium Diet] [DIET] 08/04/20 12:00 Losartan [Cozaar] 25 mg PO DAILY 08/04/20 21:00 Montelukast [Singulair] 10 mg PO QPM Subjective - Subjective Patient Reports: Feeling Better (She feels well only when resting, and today needs slightly less recovery time after walking in her room or to the bathroom. Coughing is decreased, orthopnea has decreased but not resolved yet.) Objective Vital Signs: Vital Signs - 24 hr 08/03/20 08/03/20 08/03/20 15:59 21:00 21:04 Temperature 36.6 C 36.3 C L Heart Rate 108 H Heart Rate [ 107 H 108 H Brachial] Respiratory 18 18 20 Rate Blood Pressure 117/71 139/88 H [Left Brachial artery] O2 Saturation 93 93 08/03/20 08/04/20 08/04/20 23:44 03:53 07:18 Temperature 36.4 C L 36.3 C L Heart Rate 91 Heart Rate [ 100 92 Brachial] Respiratory 18 18 14 Rate Blood Pressure 142/92 H 142/92 H [Left Brachial artery] O2 Saturation 95 93 08/04/20 08/04/20 08/04/20 07:38 11:15 11:28 Temperature 36.4 C L 36.6 C Heart Rate 106 H Heart Rate [ 88 98 Brachial] Respiratory 16 16 16 Rate Blood Pressure 135/92 H 134/95 H [Left Brachial artery] O2 Saturation 96 95 08/04/20 08/04/20 15:38 15:54 Temperature 36.4 C L Heart Rate 100 Heart Rate [ 102 H Brachial] Respiratory 16 18 Rate Blood Pressure 141/98 H [Left Brachial artery] O2 Saturation 98 Oxygen O2 Source Room air Oxygen Flow Rate 5 I&O (Last 24 Hrs): Intake and Output Totals x24h 08/02/20 08/03/20 08/04/20 23:59 23:59 23:59 Intake Total 4182 0 0 Balance [id number] General: Alert, Oriented x3 HEENT: Mucous membr. moist/pink, Other (Face is flushed (just had nebulizer treatment)) Neck: Supple Neuro: Alert, Non Focal Cardiovascular: Regular rate Respiratory: Other (Tight inspiratory, prolonged expiratory phase, no wheezes) Abdomen: Soft Extremities: No edema - Results Results: Laboratory Results WBC 13.5 x10^3/uL (4.8-10.8) H 08/04/20 05:30 RBC 3.35 10^6/uL (4.20-5.40) L 08/04/20 05:30 Hgb 11.3 g/dL (12.0-16.0) L 08/04/20 05:30 Hct 34.4 % (37.0-47.0) L 08/04/20 05:30 MCV 102.7 fL (81.0-99.0) H 08/04/20 05:30 MCH 33.7 pg (27.0-31.0) H 08/04/20 05:30 MCHC 32.8 g/dL (32.0-36.0) 08/04/20 05:30 RDW 13.1 % (12.0-15.0) 08/04/20 05:30 Plt Count 267 10^3/uL (130-450) 08/04/20 05:30 MPV 10.0 fL (7.9-10.8) 08/04/20 05:30 Neut # (Auto) 11.9 10^3/uL (1.5-6.6) H 08/04/20 05:30 Lymph # (Auto) 0.7 10^3/uL (1.5-3.5) L 08/04/20 05:30 [place] # (Auto) 0.5 10^3/uL (0.0-1.0) 08/04/20 05:30 Eos # (Auto) 0.0 10^3/uL (0.0-0.7) 08/04/20 05:30 Baso # (Auto) 0.0 10^3/uL (0.0-0.1) 08/04/20 05:30 Absolute Nucleated RBC 0.00 x10^3/uL 08/04/20 05:30 Total Counted 100 08/03/20 05:15 Band Neuts % (Manual) 0 % (0-10) 08/03/20 05:15 Abnorm Lymph % (Manual) 0 % 08/03/20 05:15 Nucleated RBC % 0.0 /100WBC 08/04/20 05:30 Neutrophils # (Manual) 18.5 10^3/uL (1.5-6.6) H 08/03/20 05:15 Lymphocytes # (Manual) 0.4 10^3/uL (1.5-3.5) L 08/03/20 05:15 Monocytes # (Manual) 0.6 10^3/uL (0.0-1.0) 08/03/20 05:15 Eosinophils # (Manual) 0.0 10^3/uL (0-0.7) 08/03/20 05:15 Basophils # (Manual) 0.0 10^3/uL (0-0.1) 08/03/20 05:15 Differential Comment MANUAL DIFFERENTIAL 08/03/20 05:15 WBC Morphology NORMAL APPEARANCE (NORMAL) 08/03/20 05:15 Platelet Estimate NORMAL (130-450,000) (NORMAL) 08/03/20 05:15 Platelet Morphology NORMAL APPEARANCE (NORMAL) 08/03/20 05:15 RBC Morph Micro Appear NORMAL APPEARANCE (NORMAL) 08/03/20 05:15 Sodium 138 mmol/L (135-145) 08/04/20 05:30 Potassium 4.0 mmol/L (3.5-5.0) 08/04/20 05:30 Chloride 102 mmol/L (101-111) 08/04/20 05:30 Carbon Dioxide 26 mmol/L (21-32) 08/04/20 05:30 Anion Gap 10.0 (6-13) 08/04/20 05:30 BUN 23 mg/dL (6-20) H 08/04/20 05:30 Creatinine 0.7 mg/dL (0.4-1.0) 08/04/20 05:30 Estimated GFR (MDRD) 85 (>89) L 08/04/20 05:30 Glucose 166 mg/dL (70-100) H 08/04/20 05:30 Estimat Average Glucose 117 mg/dL (70-100) H 08/04/20 05:30 Hemoglobin A1c % 5.7 % (4.27-6.07) 08/04/20 05:30 Calcium 8.5 mg/dL (8.5-10.3) 08/04/20 05:30 Magnesium 1.7 mg/dL (1.7-2.8) 08/02/20 06:42 Total Bilirubin 0.8 mg/dL (0.2-1.0) 08/01/20 11:50 AST 41 IU/L (10-42) 08/01/20 11:50 ALT 38 IU/L (10-60) 08/01/20 11:50 Alkaline Phosphatase 55 IU/L (42-121) 08/01/20 11:50 B-Natriuretic Peptide 33 pg/mL (5-100) 08/01/20 11:50 Total Protein 7.9 g/dL (6.7-8.2) 08/01/20 11:50 Albumin 4.4 g/dL (3.2-5.5) 08/01/20 11:50 Globulin 3.5 g/dL (2.1-4.2) 08/01/20 11:50 Albumin/Globulin Ratio 1.3 (1.0-2.2) 08/01/20 11:50 Nasal Adenovirus (PCR) NOT DETECTED 08/01/20 12:30 Nasal B. parapertussis DNA (PCR) NOT DETECTED 08/01/20 12:30 Nasal Coronavir 229E PCR NOT DETECTED 08/01/20 12:30 Nasal Coronavir HKU1 PCR NOT DETECTED 08/01/20 12:30 Nasal Coronavir NL63 PCR NOT DETECTED 08/01/20 12:30 Nasal Coronavir OC43 PCR NOT DETECTED 08/01/20 12:30 Nasal Enterovir/Rhinovir PCR NOT DETECTED 08/01/20 12:30 Nasal Influenza B PCR NOT DETECTED 08/01/20 12:30 Nasal Parainfluen 1 PCR NOT DETECTED 08/01/20 12:30 Nasal Parainfluen 2 PCR NOT DETECTED 08/01/20 12:30 Nasal Parainfluen 3 PCR NOT DETECTED 08/01/20 12:30 Nasal Parainfluen 4 PCR NOT DETECTED 08/01/20 12:30 Nasal RSV (PCR) NOT DETECTED 08/01/20 12:30 Nasal B.pertussis DNA PCR NOT DETECTED 08/01/20 12:30 Nasal C.pneumoniae (PCR) NOT DETECTED 08/01/20 12:30 [place] Human Metapneumo PCR NOT DETECTED 08/01/20 12:30 Nasal M.pneumoniae (PCR) NOT DETECTED 08/01/20 12:30 Nasal SARS-CoV-2 (PCR) NOT DETECTED 08/01/20 12:30 - Procedures Procedures: Procedures INSPECTION OF LOWER INTESTINAL TRACT, ENDO (04/19/16)
[2020-08-04] MEDS ORDERED: MONTELUKAST 10 MG TABLET PO SCH (21:00)
[2020-08-05] MEDS: BENZONATATE 100 MG CAPSULE PO PRN (04:29)
[2020-08-05] MEDS: oxyCODONE 5 MG TABLET PO PRN (04:29)
[2020-08-05 04:33] LABS: BASOPHILS % (AUTO) 0.5 %; EOSINOPHILS % (AUTO) 0.2 %; HGB - HEMOGLOBIN 11.8 g/dL (12.0-16.0); MEAN CORPUSCULAR HEMOGLOBIN 33.8 pg (27.0-31.0); MEAN CORPUSCULAR HGB CONC 33.3 g/dL (32.0-36.0); MEAN CORPUSCULAR VOLUME 101.4 fL (81.0-99.0); MEAN PLATELET VOLUME 10.1 fL (7.9-10.8); MONOCYTES % (AUTO) 11.6 %; NEUTROPHILS % (AUTO) 69.1 %; PLT - PLATELET COUNT 270 10^3/uL (130-450); RED BLOOD COUNT 3.49 10^6/uL (4.20-5.40); RED CELL DISTRIBUTION WIDTH 13.1 % (12.0-15.0); WHITE BLOOD COUNT 11.7 x10^3/uL (4.8-10.8)
[2020-08-05 04:41] LABS: CALCIUM 8.4 mg/dL (8.5-10.3); CREATININE 0.8 mg/dL (0.4-1.0)
[2020-08-05 04:45] LABS: ABNORMAL LYMPHS % (MANUAL) 0 %; BAND NEUTROPHILS % (MANUAL) 0 %
[2020-08-05 05:25] LABS: LYMPHOCYTES # (MANUAL) 1.6 10^3/uL (1.5-3.5); LYMPHOCYTES % (MANUAL) 14 %; METAMYELOCYTES % (MANUAL) 2 %; MONOCYTES # (MANUAL) 0.4 10^3/uL (0.0-1.0); MYELOCYTES % (MANUAL) 2 %; PLATELET ESTIMATE, MANUAL NORMAL (130-450,000) (NORMAL); RBC MORPHOLOGY (MULTIPLE) NORMAL APPEARANCE (NORMAL)
[2020-08-05 05:26] LABS: DIFFERENTIAL COMMENT MANUAL DIFFERENTIAL
[2020-08-05] MEDS: IPRATROPIUM/ALBUTEROL 3 ML NEB INH SCH (07:26)
[2020-08-05] MEDS: BUDESONIDE 0.5 MG/2 ML NEB INH SCH (07:26)
[2020-08-05] MEDS ORDERED: POTASSIUM CHLORIDE 20 MEQ TABLET PO ONE (07:43)
--- NOTE | 2020-08-05 08:13 | DISCHARGE SUMMARY ---
Discharge Summary Admit Date: 08/01/20 Discharge Date: 08/05/20 Discharging Provider: Dr Judith De La Fuente Primary Care Provider: Dr Rodriguez Condition at Discharge: Stable Discharge Disposition: 01 Home, Self Care - HPI History of Present Illness: From the admission H&P of Dr. Kati Andrews: This unfortunate female has a new COPD diagnosis. She is a cigarette smoker who presented to the emergency room in June 2020 with shortness of breath and coughing. It been going on for a week. At that time she was not using inhalers or oxygen. She was treated as a COPD exacerbation and put on steroids nebulizers and prophylactic antibiotics. At discharge on July 14 her blood pressure medication was changed to that she was only on amlodipine. She completed 5 days of steroids and did not need to go home on any. She was on azithromycin for 2 more days to complete a total of 5 days. She was prescribed tiotropium and albuterol to take as needed. She was asked to follow-up with her primary care provider and get PFTs. She has been unable to do so as of yet. She now returns with a 3-day onset of cough and shortness of breath with exertion. Last night it started happening at rest. She denies fever, chills, phlegm production. There is no hemoptysis. No sore throat, runny nose. She has been noticing that for the last few days her ankles are very swollen at the end of the day. She lays on at night to go to sleep and in the morning they are normal. But the next day it starts all over again. No palpitations, no chest pain, no orthopnea. Her inhaler was not helping and she was so short of breath they called EMS. Her O2 sats were in the mid 80s on room air. EMS has given her nebulizers, Solu-Medrol. In the emergency room she was then evaluated by Dr. Guzman where her heart rate was 149, respirations were 22, blood pressure 148/96, and she was 97% on 5 L. Her chest x-ray does not show pneumonia. He noted a significant work of breathing that improved with the nebulizers. Having sinus tachycardia. Able to talk in sentences now. But she is still wheezing, still requiring high level oxygen and we are placing her in Observation to control her COPD exacerbation. - HOSPITAL COURSE Hospital Course: (1) COPD exacerbation She was started on supplemental oxygen, iv Solumedrol, Duoneb and Atrovent nebs, then empiric antibiotic and Singulair at hs were added. The Solumedrol was tapered to off and she was still "tight". She was therefore put on p.o. Prednisone 20 mg dcaily with plan to taper very slowly to off (over 1 month), and not give a Medrol Dose pack that tapers over just 5-days. The patient reported that her home MDI inhaler was not helping and she would agree to be on nebulizer treatments., which were ordered at discharge, along with a new nebulizer machine and supplies. The day of discharge, she underwent an oximetry walk test and had saturations of 90 to 93% at rest and with exercise, and did not need new home oxygen ordered. We discussed smoking cessation (she is down to 3 cigarettes/week now, previously had been on half a pack a day, at the last hospitalization). She has not yet had PFTs, which were planned as an outpatient after the last hospitalization, however then she got this exacerbation. Her PFTs were rescheduled for mid-August. 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 (2) Pulmonary HTN Mild pulmonary HTN and cor pulmonale was reported at the last Echo done at the last recent admission in June 2020. (3) HTN (hypertension) Diastolic blood pressure was in the 90s. After the last hospitalization, she was sent home on new Amlodipine (and Lisinopril was stopped since it was adding to her cough). On this admission she presented with new ankle edema, therefore the Amlodipine was stopped, which is known to cause ankle edema. She got Lasix p.o. x1. She was discharged on Losartan daily for BP control. (4) Edema of both ankles This was likely caused by the new Amlodipine, and was stopped. At the last hospitalization 2 weeks ago she had an Echo that did not show cor pulmonale. (5) Hypokalemia Resolved with replacement. (6) Tobacco use Continued cessation was advised. - ALLERGIES Allergies/Adverse Reactions: Allergies Allergy/AdvReac Type Severity Reaction Status Date / Time lisinopril AdvReac Respiratory Verified 08/04/20 11:07 - MEDICATIONS Home Medications: Ambulatory Orders Medication Instructions Recorded Confirmed Tiotropium [place] [Spiriva] 1 puffs INH DAILY 30 Days #14 each 07/14/20 08/01/20 Albuterol Sulfate [Albuterol 1 puffs IH Q4HR PRN 08/01/20 08/01/20 Sulfate Hfa] traMADol [Ultram] 50 mg PO QID PRN 08/01/20 08/01/20 Losartan [Cozaar] 100 mg PO DAILY 08/04/20 08/04/20 Budesonide [Pulmicort] 0.5 mg INH RTBID #60 neb 08/05/20 Ipratropium/Albuterol [Duoneb] 3 ml INH RTQID #100 neb 08/05/20 Montelukast [Singulair] 10 mg PO QPM #30 tablet 08/05/20 Nebulizer Accessories [Air Filter] 1 each MC DAILY #7 each 08/05/20 Nebulizer Accessories [Pillow Mask] 1 each MC DAILY #7 each 08/05/20 Nebulizer Accessories [Proneb 1 each MC DAILY #7 each 08/05/20 Ultra Filter Set] Nebulizer and Compressor [Easy Air 1 each MC QID #1 each 08/05/20 Compressor Nebulizer] cefUROXime axetiL [Ceftin] 250 mg PO BID #7 tablet 08/05/20 guaiFENesin [Mucinex] 600 mg PO BID #30 tablet 08/05/20 predniSONE [Deltasone] 10 mg PO 0800 #35 tablet 08/05/20 - PHYSICAL EXAM AT DISCHARGE General Appearance: positive: No acute distress, Alert, Other (Face is flushed.) Eyes Bilateral: positive: Normal inspection, EOMI ENT: positive: ENT inspection nml, No signs of dehydration Neck: positive: Nml inspection, No JVD Respiratory: positive: Other (Scattered mild wheezes and prolonged expiratory phase, no rales or rhonchi) Cardiovascular: positive: Regular rate & rhythm, No murmur Abdomen: positive: Non-tender, No distention Skin: positive: Warm, Dry Extremities: positive: Non-tender, No pedal edema Neurologic/Psychiatric: positive: Oriented x3, Motor nml - LABS Result Diagrams: 08/05/20 04:10 08/05/20 04:10 - DIAGNOSTIC IMAGING Diagnostic Imaging Results: Final report reviewed - FOLLOW UP Follow Up: See (new) PCP in this upcoming week. Obtain referral to a Heating And Ventilating Worker was advised. - TIME SPENT Time Spent in Discharge (Minutes): 60
--- NOTE | 2020-08-05 08:23 | Discharge Plan ---
Discharge Plan Problem Reviewed?: Yes Disposition: Home, Self Care Condition: Stable Prescriptions: Nebulizer Accessories [Air Filter] 1 each MC DAILY #7 each cefUROXime axetiL [Ceftin] 250 mg PO BID #7 tablet predniSONE [Deltasone] 10 mg PO 0800 #35 tablet Ipratropium/Albuterol [Duoneb] 3 ml INH RTQID #100 neb Nebulizer and Compressor [Easy Air Compressor Nebulizer] 1 each MC QID #1 each guaiFENesin [Mucinex] 600 mg PO BID #30 tablet Nebulizer Accessories [Pillow Mask] 1 each MC DAILY #7 each Nebulizer Accessories [Proneb Ultra Filter Set] 1 each MC DAILY #7 each Budesonide [Pulmicort] 0.5 mg INH RTBID #60 neb Montelukast [Singulair] 10 mg PO QPM #30 tablet Diet: Low Sodium Activity Restrictions: Activity as Tolerated Shower Restrictions: No Driving Restrictions: No Instruction Topics: Montelukast oral tablets, Albuterol Ipratropium solution for inhalation Health Concerns: You were admitted with another COPD exacerbation. This time you are being discharged with a slower tapering course of steroid (Prednisone), two new nebulizer medications, several more days of antibiotics and new evening [place] ast. You were tested to see if your oxygen level drops and if you need a new prescription for a home oxygen order, and you do not at this time. New prescriptions were electronically sent to your [facility] pharmacy in [place]. Please resume all your other pre-hospital medications. Keep the appointment for the pulmonary function test in 1 month. Please see your PCP for hospital follow-up and for referral to a Employment Representative. Plan of Treatment: As above. Care Goals: Improvement in symptoms and stabilization are the goals. Assessment: The patient understands and is agreeable with the plan. Additional Instructions or Follow Up instructions: If you have new or worsening symptoms, call your PCP for advice or come to the ER. No Smoking: If you smoke, Please STOP! Call for help. Follow-up with: Floyd Rodriguez MD [Credentialed Staff Provider] -
[2020-08-05] MEDS: FUROSEMIDE 20 MG TABLET PO SCH (08:24)
[2020-08-05] MEDS: guaiFENesin 600 MG TABLET PO SCH (08:24)
[2020-08-05] MEDS: predniSONE 20 MG TABLET PO SCH (08:25)
[2020-08-05] MEDS: LOSARTAN 50 MG TABLET PO SCH (08:25)
[2020-08-05] MEDS: NICOTINE 14 MG PATCH TOP SCH (08:26)
[2020-08-05] MEDS: polyethylene glycoL 3350 17 GM PACKET PO SCH (08:32)
[2020-08-05] MEDS: cefTRIAXone 1 GM in SODIUM CHLORIDE 0.9% MINIBAG 100 ML IV SCH (08:32)
[2020-08-05] MEDS: SODIUM CHLORIDE FLUSH 0.9% 10 ML SYRINGE IVP SCH (08:33)
[2020-08-05 10:50] VITALS: BP 148/98
== END 2020-08-05 11:05 | disposition home or self-care (01) | DRG 192 ==
LOC: EDUNIT# → ED 11:08 → MS2 13:07 → OBSVTOIN 08-04 08:33
PROVIDERS: ADMIT Specialist; ATTEND Internal Medicine
DX: J44.1 Chronic obstructive pulmonary disease with (acute) exacerbation (principal); F17.210 Nicotine dependence, cigarettes, uncomplicated; I10 Essential (primary) hypertension; R60.0 Localized edema; E87.6 Hypokalemia; R00.0 Tachycardia, unspecified; Z79.51 Long term (current) use of inhaled steroids; I27.20 Pulmonary hypertension, unspecified
CPT/HCPCS: 0202U; 36415; 71045; 80048; 80053; 83036; 83735; 83880; 85025; 93005; 93970; 94640; 96365; 96367; 96375; 96376; 99284; 99285; A9270; G0378; J7120; J7512; J7626

== ENCOUNTER 2020-09-05 09:21 | Outpatient (CLI) | payer MEDICAID | END 2020-09-05 09:22 | disposition home or self-care (01) | LOC: RT 09:21 | PROVIDERS: ATTEND Family Medicine | DX: J44.9 Chronic obstructive pulmonary disease, unspecified (principal) | CPT/HCPCS: 94060; 94729 ==

== ENCOUNTER 2020-09-12 09:03 | Outpatient (CLI) | payer MEDICAID | END 2020-09-12 09:04 | disposition critical access hospital (66) | LOC: EMS 09:03 | PROVIDERS: ATTEND Surgery | DX: R06.02 Shortness of breath (principal) | CPT/HCPCS: A0425; A0427; A0999 ==

== ENCOUNTER 2020-09-12 09:32 | Observation (INO) | payer MEDICAID ==
[2020-09-12] MEDS ORDERED: DEXAMETHASONE 10 MG/ML VIAL IVP STA (09:41)
[2020-09-12] MEDS ORDERED: methylPREDNISolone SUCCINATE 125 MG/2 ML VIAL IVP STA (09:41)
[2020-09-12] MEDS ORDERED: IPRATROPIUM/ALBUTEROL 3 ML NEB INH STA ×3 (09:41→12:23)
--- NOTE | 2020-09-12 09:45 | ED Physician Documentation ---
History of Present Illness - Stated complaint Stated Complaint: COPD - History obtained from History obtained from: Patient, EMS - Additonal information Additional information: 60-year-old woman with past medical history of COPD, high blood pressure presents with 2 to 3 days of gradual onset progressive shortness of breath, worse with exertion, nonpleuritic associated with intermittently productive cough but no hemoptysis. Denies fever or chills or Covid exposure. She states that she has been able to control her breathing with albuterol but this morning she had persistent shortness of breath after 3 rescue inhaler so called EMS. S he received a DuoNeb en route with some improvement. Denies leg swelling, chest pain back pain or nausea. Review of Systems Ten Systems: 10 systems reviewed and negative Constitutional: denies: Fever, Chills Cardiac: denies: Chest pain / pressure Respiratory: reports: Dyspnea, Cough GI: denies: Nausea PD PAST MEDICAL HISTORY - Past Medical History Cardiovascular: Hypertension Respiratory: COPD Endocrine/Autoimmune: None GI: None TAKE OFF MAN: Other (G2, P2 with 2 C-sections) : None HEENT: Chronic vision loss (She wears readers for presbyopia) Psych: None Musculoskeletal: None Derm: None - Past Surgical History Past Surgical History: Yes General: Other (Breast biopsy February 2018) /TAKE OFF MAN: section - Present Medications Home Medications: Ambulatory Orders Medication Instructions Recorded Confirmed Tiotropium [place] [Spiriva] 1 puffs INH DAILY 30 Days #14 each 07/14/20 08/01/20 Albuterol Sulfate [Albuterol 1 puffs IH Q4HR PRN 08/01/20 08/01/20 Sulfate Hfa] traMADol [Ultram] 50 mg PO QID PRN 08/01/20 08/01/20 Losartan [Cozaar] 100 mg PO DAILY 08/04/20 08/04/20 Budesonide [Pulmicort] 0.5 mg INH RTBID #60 neb 08/05/20 Ipratropium/Albuterol [Duoneb] 3 ml INH RTQID #100 neb 08/05/20 Montelukast [Singulair] 10 mg PO QPM #30 tablet 08/05/20 Nebulizer Accessories [Air Filter] 1 each MC DAILY #7 each 08/05/20 Nebulizer Accessories [Pillow Mask] 1 each MC DAILY #7 each 08/05/20 Nebulizer Accessories [Proneb 1 each MC DAILY #7 each 08/05/20 Ultra Filter Set] Nebulizer and Compressor [Easy Air 1 each MC QID #1 each 08/05/20 Compressor Nebulizer] cefUROXime axetiL [Ceftin] 250 mg PO BID #7 tablet 08/05/20 guaiFENesin [Mucinex] 600 mg PO BID #30 tablet 08/05/20 predniSONE [Deltasone] 10 mg PO 0800 #35 tablet 08/05/20 - Allergies Allergies/Adverse Reactions: Allergies Allergy/AdvReac Type Severity Reaction Status Date / Time lisinopril AdvReac Respiratory Verified 09/12/20 09:45 - Social History Does the pt smoke?: Yes Smoking Status: Current every day smoker Does the pt drink ETOH?: Yes Does the pt have substance abuse?: No - Immunizations Immunizations are current?: Yes Immunizations: TDAP >10years/unknown - POLST Patient has POLST: No POLST Status: Full Code PD ED PE NORMAL - Vitals Vital signs reviewed: Yes - General General: Alert and oriented X 3, No acute distress, Other (Mild increased work of breathing) - HEENT HEENT: Atraumatic, PERRL, EOMI - Neck Neck: Supple, no meningeal sign - Cardiac Cardiac: RRR - Respiratory Respiratory: Other (Mild tachypnea. Bilateral inspiratory and expiratory wheezing) - Abdomen Abdomen: Non tender, Non distended - Female Female : Deferred - Rectal Rectal: Deferred - Back Back: No spinal TTP - Extremities Extremities: No edema - Neuro Neuro: Alert and oriented X 3 - Psych Psych: Normal mood, Normal affect Results - Vitals Vitals: Vital Signs - 24 hr 09/12/20 09/12/20 09/12/20 09:32 10:12 11:44 Temperature 36.2 C L Heart Rate 122 H 120 H 120 H Respiratory 23 18 18 Rate Blood Pressure 183/111 H 169/112 H O2 Saturation 99 92 09/12/20 09/12/20 09/12/20 12:33 13:00 14:32 Temperature 36.3 C L Heart Rate 100 126 H 106 H Respiratory 16 18 18 Rate Blood Pressure 178/106 H 171/113 H O2 Saturation 92 94 12/26/20 12/26/20 16:34 16:46 Temperature 37.1 C Heart Rate 108 H 103 H Respiratory 24 21 Rate Blood Pressure 180/116 H 168/107 H O2 Saturation 100 94 Oxygen O2 Source Room air Oxygen Flow Rate 4 - Labs Labs: Laboratory Tests 09/12/20 09/12/20 09/12/20 10:00 10:10 10:10 WBC 6.8 RBC 3.75 L Hgb 12.8 Hct 37.7 MCV 100.5 H MCH 34.1 H MCHC 34.0 RDW 13.2 Plt Count 202 MPV 10.4 Neut # (Auto) 4.5 Lymph # (Auto) 1.4 L Clare # (Auto) 0.7 Eos # (Auto) 0.3 Baso # (Auto) 0.1 Absolute Nucleated RBC 0.00 Nucleated RBC % 0.0 D-Dimer Bld Gas Analysis Time 1002 Sample Site RIGHT RADIAL ABG pH 7.40 ABG pCO2 37 ABG pO2 119 H ABG HCO3 22.1 ABG Total CO2 23.2 ABG O2 Saturation 98 ABG Base Excess -2.2 L Kin Test POSITIVE O2 Delivery Device NASAL CANNULA O2 Liters/Min 4.00 Sodium 139 Potassium 3.2 L Chloride 100 L Carbon Dioxide 24 Anion Gap 15.0 H BUN 11 Creatinine 0.9 Estimated GFR (MDRD) 64 L Glucose 120 H Calcium 9.6 Total Bilirubin 0.4 AST 29 ALT 23 Alkaline Phosphatase 61 Total Protein 7.3 Albumin 4.2 Globulin 3.1 Albumin/Globulin Ratio 1.4 Lipase 35 09/12/20 14:41 WBC RBC Hgb Hct MCV MCH MCHC RDW Plt Count MPV Neut # (Auto) Lymph # (Auto) Clare # (Auto) Eos # (Auto) Baso # (Auto) Absolute Nucleated RBC Nucleated RBC % D-Dimer 311.3 H Bld Gas Analysis Time Sample Site ABG pH ABG pCO2 ABG pO2 ABG HCO3 ABG Total CO2 ABG O2 Saturation ABG Base Excess Kin Test O2 Delivery Device O2 Liters/Min Sodium Potassium Chloride Carbon Dioxide Anion Gap BUN Creatinine Estimated GFR (MDRD) Glucose Calcium Total Bilirubin AST ALT Alkaline Phosphatase Total Protein Albumin Globulin Albumin/Globulin Ratio Lipase PD MEDICAL DECISION MAKING - ED course ED course: 60-year-old woman presents with apparent COPD exacerbation. Will administer nebulizers, steroids and reassess. Patient with significant improvement in respiratory status. She did get both Decadron and Solu-Medrol and I explained to her that because she got a double dose of steroids she will not need steroids to go home with. She understands the side effects of high-dose steroids and return precautions were discussed. She will follow up with her primary doctor this week. Patient was feeling better and we had completed a discharge but when she was walking out the door she said that she became winded and was scared so return to the ED. We ambulated her and her pulse ox went down to the low 90s during ambulation. Discussed with hospitalist who states that we can observe her overnight. Patient agreeable to staying. Departure - Departure Disposition: ED Place in Observation Clinical Impression: COPD exacerbation, Cough, Shortness of breath Condition: Good Instructions: COPD Dc Comments: You have been seen in the ED for an asthma exacerbation. You were given steroids and nebulizer treatments with improvement. Because you had an increased heart rate we checked you for blood clots in your lungs you did not have any evidence of that. You also do not have pneumonia on CT. Follow-up with your primary doctor. Return to the ED for any new or worsening symptoms. Discharge Date/Time: 09/12/20 17:22
[2020-09-12 10:10] LABS: ABG BASE EXCESS -2.2 mmol/L (-2.0-3.0); ABG HCO3 22.1 mmol/L (22.0-26.0); ABG OXYGEN SATURATION 98 % (94-98); ABG PCO2 37 mmHg (34-45); ABG PO2 119 mmHg (80-100); ABG TCO2 23.2 MMOL/L (21.0-29.0); ALLEN TEST POSITIVE
[2020-09-12 10:46] LABS: BASOPHILS # (AUTO) 0.1 10^3/uL (0.0-0.1); BASOPHILS % (AUTO) 0.9 %; EOSINOPHILS # (AUTO) 0.3 10^3/uL (0.0-0.7); HGB - HEMOGLOBIN 12.8 g/dL (12.0-16.0); LYMPHOCYTES # (AUTO) 1.4 10^3/uL (1.5-3.5); LYMPHOCYTES % (AUTO) 19.9 %; MEAN CORPUSCULAR HEMOGLOBIN 34.1 pg (27.0-31.0); MEAN CORPUSCULAR VOLUME 100.5 fL (81.0-99.0); MEAN PLATELET VOLUME 10.4 fL (7.9-10.8); MONOCYTES # (AUTO) 0.7 10^3/uL (0.0-1.0); MONOCYTES % (AUTO) 9.5 %; NEUTROPHILS # (AUTO) 4.5 10^3/uL (1.5-6.6); NEUTROPHILS % (AUTO) 65.4 %; PLT - PLATELET COUNT 202 10^3/uL (130-450); RED BLOOD COUNT 3.75 10^6/uL (4.20-5.40); RED CELL DISTRIBUTION WIDTH 13.2 % (12.0-15.0); WHITE BLOOD COUNT 6.8 x10^3/uL (4.8-10.8)
[2020-09-12 10:54] LABS: ALBUMIN 4.2 g/dL (3.2-5.5); ALBUMIN/GLOBULIN RATIO 1.4 (1.0-2.2); BILIRUBIN,TOTAL 0.4 mg/dL (0.2-1.0); CALCIUM 9.6 mg/dL (8.5-10.3); CREATININE 0.9 mg/dL (0.4-1.0); TOTAL PROTEIN 7.3 g/dL (6.7-8.2)
--- NOTE | 2020-09-12 11:27 | XRAY Report ---
PROCEDURE: Chest 1 View X-Ray INDICATIONS: Chest Pain TECHNIQUE: One view of the chest was acquired. COMPARISON: 08/01/2020, 07/14/2020, 07/10/2020 FINDINGS: Surgical changes and devices: None. Lungs and pleura: No pleural effusions or pneumothorax. Lungs are clear. Mediastinum: Mediastinal contours appear normal. Heart size is normal. Bones and chest wall: No suspicious bony lesions. Age-appropriate degenerative changes are seen. O verlying soft tissues appear unremarkable. Dense nodular opacities can be seen overlying both sides of the chest, including the left axillary re gion. These cannot be seen on prior recent chest radiographs and are attributed to artifact, potentia lly related to decoration on clothing. IMPRESSION: Clear lungs. Artifactual nodules are seen overlying the chest and the left axillary region. Reviewed by: Michael Klein MD on 09/12/2020 10:26 AM [facility] Approved by: Michael Klein MD on 09/12/2020 10:26 AM [facility] Station ID: [id number]
[2020-09-12] MEDS ORDERED: LACTATED RINGERS 1,000 ML IV STA (12:22)
[2020-09-12] MEDS ORDERED: METOPROLOL TARTRATE 50 MG TABLET PO STA (13:23)
[2020-09-12] MEDS ORDERED: predniSONE 20 MG TABLET PO STA (13:24)
[2020-09-12] MEDS ORDERED: IOVERSOL 320 100 ML VIAL IVP ONE ×2 (15:41→16:33)
[2020-09-12] MEDS ORDERED: LORazepam 2 MG/ML VIAL IVP STA (16:14)
[2020-09-12] MEDS ORDERED: POTASSIUM CHLORIDE 20 MEQ/15 ML UDC PO STA (16:27)
--- NOTE | 2020-09-12 16:50 | CT Report ---
PROCEDURE: ANGIO CHEST W/WO INDICATIONS: r/o PE CONTRAST: IV CONTRAST: Optiray 320 ml: 80 PO CONTRAST: *NO PO CONTRAST TECHNIQUE: After the administration of intravenous contrast, 2 mm thick sections acquired from the pulmonary api elian to the posterior costophrenic angles. 3-dimensional maximum intensity projection (MIP) coronal a nd sagittal reformats were then acquired through the thorax. For radiation dose reduction, the follow ing was used: automated exposure control, adjustment of mA and/or kV according to patient size. COMPARISON: Prior chest CT, 07/10/2020. Correlation is also made with the accompanying chest radiogr aph, 09/12/2020. FINDINGS: Image quality: Excellent. Pulmonary arteries: Pulmonary arteries are normal in size, and demonstrate no intraluminal filling d efects to suggest central pulmonary embolism. Lungs and pleura: Lungs are clear. No pleural effusions or pneumothorax. Central and peripheral ai rways are patent. Mediastinum: Heart size is normal, without pericardial effusion. No mediastinal or hilar adenopathy . Thoracic aorta is normal in caliber and enhancement. Esophagus is normal in caliber, without hiat al hernia. Bones and chest wall: No suspicious bony lesions. Age-appropriate degenerative changes are seen. T here is accentuated thoracic kyphosis. Ribs and thoracic spine appear intact throughout. The thyro id is small in size. No axillary or supraclavicular adenopathy. Abdomen: Visualized upper abdominal solid organs appear normal in the early arterial phase of enhanc ement. IMPRESSION: Negative for pulmonary embolism. Clear lungs. Reviewed by: Michael Kelin MD on 09/12/2020 3:49 PM [facility] Approved by: Michael Klein MD on 09/12/2020 3:49 PM [facility] Station ID: [id number]
[2020-09-12] MEDS ORDERED: ACETAMINOPHEN 325 MG TABLET PO PRN (18:18)
[2020-09-12] MEDS ORDERED: ONDANSETRON ODT 4 MG TABLET TL PRN (18:18)
[2020-09-12] MEDS ORDERED: SODIUM CHLORIDE FLUSH 0.9% 10 ML SYRINGE IVP PRN (18:18)
[2020-09-12] MEDS ORDERED: ALBUTEROL NEB 2.5 MG/3 ML INH PRN (18:20)
--- NOTE | 2020-09-12 19:05 | HISTORY & PHYSICAL EXAMINATION ---
Chief Complaint - Chief Complaint Chief Complaint: dyspnea History of Present Illness - Admitted From Admitted From:: [facility] ED - History Obtained From Records Reviewed: Yes History obtained from: Patient - History of Present Illness HPI Comment/Other: Patient is a 60-year-old female with medical history significant for COPD, hypertension and who is a current smoker. She presented to the ED today with complaint of dyspnea. Her symptoms have been going on for the past 6 days. Initially it improved when she used her rescue inhaler however between yesterday and today she took her inhaler multiple times with no improvement so EMS was ca lled and she was brought to the ED. In the emergency department she received a dose of dexamethasone and a dose of methylprednisolone IV. She was discharged but attempt to ambulate to the parking lot left had significantly dyspneic so she returned to the ED for further treatment. At bedside she denies chest pain, abdominal pain, nausea, vomiting, fever or chills. On auscultation no significant wheezing however she sounds coarse. This is her third admission in 3 months. She denies any new changes to her baseline routines. The rest of her history is unremarkable History - Past Medical History Cardiovascular: reports: Hypertension Respiratory: reports: COPD Endocrine/Autoimmune: reports: None GI: reports: None EPIC KALEIDOSCOPE ANALYST: reports: Other (G2, P2 with 2 C-sections) : reports: None HEENT: reports: Chronic vision loss (She wears readers for presbyopia) Psych: reports: None Musculoskeletal: reports: None Derm: reports: None MRSA Hx?: No - Past Surgical History General: reports: Other (Breast biopsy February 2018) /EPIC KALEIDOSCOPE ANALYST: reports: section - Family & Social History Family History: Mother: , Father: Family History Comment/Other: She never really knew her father. Amaya did in his 60s of emphysema. He was a heavy smoker. her mother from uterine cancer at age 78 also had HTN. 1 sister is completely healthy. 2 sons are completely healthy. No one has hypertension, cancer, heart attack, stroke. Living Situation: With spouse/s.o. Social History Notes: Smoker Since the age of 16. Upwards of 2 packs/day. denies alcohol or drug issue, she had 2 children. 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 While she is used to him, and she tolerates him, he is not helpful. When she was last sick, she had syncope. Woke up on the floor. He walked after not sure what he was doing on the floor. She said that she passed out. He said "O okay ", then walked away from her.1 son lives and [place], one lives in [place]. The son who lives in [place] is her designated DURABLE POWER OF ORIENTATION AND MOBILITY SPECIALIST. She has not filled out paperwork to that effect but once we do know that that is the son that I need to talk to. - Substance History Use: Uses substance without health or social issues: Alcohol - POLST Patient has POLST: No POLST Status: Full Code Meds/Allgy - Home Medications Home Medications: Ambulatory Orders Medication Instructions Recorded Confirmed Tiotropium [place] [Spiriva] 1 puffs INH DAILY 30 Days #14 each 07/14/20 08/01/20 Albuterol Sulfate [Albuterol 1 puffs IH Q4HR PRN 08/01/20 08/01/20 Sulfate Hfa] traMADol [Ultram] 50 mg PO QID PRN 08/01/20 08/01/20 Losartan [Cozaar] 100 mg PO DAILY 08/04/20 08/04/20 Budesonide [Pulmicort] 0.5 mg INH RTBID #60 neb 08/05/20 Ipratropium/Albuterol [Duoneb] 3 ml INH RTQID #100 neb 08/05/20 Montelukast [Singulair] 10 mg PO QPM #30 tablet 08/05/20 Nebulizer Accessories [Air Filter] 1 each MC DAILY #7 each 08/05/20 Nebulizer Accessories [Pillow Mask] 1 each MC DAILY #7 each 08/05/20 Nebulizer Accessories [Proneb 1 each MC DAILY #7 each 08/05/20 Ultra Filter Set] Nebulizer and Compressor [Easy Air 1 each MC QID #1 each 08/05/20 Compressor Nebulizer] cefUROXime axetiL [Ceftin] 250 mg PO BID #7 tablet 08/05/20 guaiFENesin [Mucinex] 600 mg PO BID #30 tablet 08/05/20 predniSONE [Deltasone] 10 mg PO 0800 #35 tablet 08/05/20 - Allergies Allergies/Adverse Reactions: Allergies Allergy/AdvReac Type Severity Reaction Status Date / Time lisinopril AdvReac Respiratory Verified 09/12/20 09:45 Review of Systems - Constitutional Constitutional: denies: Fatigue, Fever, Chills - Eyes Eyes: denies: Pain, Vision loss, Dipolpia - Ears, Nose & Throat Ears, Nose & Throat: denies: Sore throat, Hoarseness - Cardiovascular Cariovascular: denies: Irregular heart rate, Palpitations, Chest pain, Edema, Lightheadedness, Syncope - Respiratory Respiratory: reports: SOB with exertion. denies: Cough, Sputum production, Wheezing, SOB at rest - Gastrointestinal Gastrointestinal: denies: Abdominal pain, Abdominal distention, Constipation, Diarrhea, Nausea, Vomiting - Genitourinary Genitourinary: denies: Dysuria, Frequency, Urgency, Hematuria - Musculoskeletal Musculoskeletal: denies: Muscle pain, Back pain, Muscle aches - Integumentary Integumentary: denies: Rash, Pruritis, Lesions - Neurological Neurological: denies: General weakness, Headache, Dizziness - Psychiatric Psychiatric: denies: Depression, Anxiety - Endocrine Endocrine: denies: Polyuria, Polydypsia - Hematologic/Lymphatic Hematologic/Lymphatic: denies: Anemia, Bruising, Petechiae Prior Level of Functionality: She is independent of activities of daily living Exam - Vital Signs Vital Signs: Vital Signs x48h Temp Pulse Resp BP Pulse Ox 09/12/20 18:53 89 L 09/12/20 18:52 86 L 09/12/20 18:48 107 H 18 160/95 H 88 L 09/12/20 18:37 94 09/12/20 18:34 111 H 20 161/95 H 88 L 09/12/20 16:46 37.1 C 103 H 21 168/107 H 94 09/12/20 16:34 108 H 24 180/116 H 100 09/12/20 14:32 36.3 C L 106 H 18 171/113 H 94 09/12/20 13:00 126 H 18 178/106 H 92 09/12/20 12:33 100 16 09/12/20 11:44 120 H 18 169/112 H 92 - Physical Exam General Appearance: positive: Alert, Mild distress Eyes Bilateral: positive: PERRL, EOMI ENT: positive: No signs of dehydration Neck: positive: No JVD, Trachea midline Respiratory: positive: Chest non-tender, No respiratory distress, Breath sounds nml. negative: Wheezes, Rales, Rhonchi Cardiovascular: positive: Regular rate & rhythm, No murmur Abdomen: positive: Non-tender, No organomegaly, Nml bowel sounds, No distention. negative: Guarding, Rebound Back: positive: Nml inspection Skin: positive: Color nml, Warm, Dry Extremities: positive: Non-tender, Full ROM, Nml appearance, No pedal edema Neurologic/Psychiatric: positive: Oriented x3, Mood/affect nml Conclusion/Plan - Problem List (1) COPD exacerbation Conclusion/Plan: Mild. She was given a dose of dexamethasone 10 mg IV and methylprednisolone 125mg IV in the ED. We will continue with prednisone 40 mg p.o. daily DuoNeb and albuterol have been ordered 4 times daily and as needed respectively. Supplemental oxygen as needed (2) HTN (hypertension) Conclusion/Plan: Patient is on losartan at home. Will continue. (3) Current smoker Conclusion/Plan: Nicotine patch ordered - Lab Results Fish Bones: 09/12/20 10:10 09/12/20 10:10 Core Measures - Anticipated LOS I expect patient to be DC'd or transferred within 96 hours.: Yes - DVT/VTE - Prophylaxis VTE/DVT Device ordered at admit?: Yes VTE/DVT Prophylaxis med ordered at admit?: Yes
[2020-09-12 19:52] LABS: C. PNEUMONIAE- RESP PCR PANEL NOT DETECTED
[2020-09-12] MEDS: oxyCODONE 5 MG TABLET PO PRN (20:33)
[2020-09-12] MEDS: NICOTINE 7 MG PATCH TOP SCH ×2 (20:34→20:35)
[2020-09-12] MEDS: IPRATROPIUM/ALBUTEROL 3 ML NEB INH SCH (20:35)
[2020-09-13] MEDS: SODIUM CHLORIDE FLUSH 0.9% 10 ML SYRINGE IVP SCH ×2 (00:04→08:49)
[2020-09-13] MEDS: oxyCODONE 5 MG TABLET PO PRN ×2 (00:43→08:53)
[2020-09-13] MEDS ORDERED: BENZOCAINE/MENTHOL LOZENGE MM PRN (02:15)
[2020-09-13 05:33] LABS: BASOPHILS % (AUTO) 0.3 %; HGB - HEMOGLOBIN 11.3 g/dL (12.0-16.0); LYMPHOCYTES # (AUTO) 0.7 10^3/uL (1.5-3.5); LYMPHOCYTES % (AUTO) 4.7 %; MEAN CORPUSCULAR HEMOGLOBIN 32.9 pg (27.0-31.0); MEAN CORPUSCULAR HGB CONC 32.5 g/dL (32.0-36.0); MEAN CORPUSCULAR VOLUME 101.5 fL (81.0-99.0); MEAN PLATELET VOLUME 10.6 fL (7.9-10.8); MONOCYTES # (AUTO) 0.5 10^3/uL (0.0-1.0); MONOCYTES % (AUTO) 3.5 %; NEUTROPHILS % (AUTO) 90.3 %; PLT - PLATELET COUNT 190 10^3/uL (130-450); RED BLOOD COUNT 3.43 10^6/uL (4.20-5.40); WHITE BLOOD COUNT 14.4 x10^3/uL (4.8-10.8)
[2020-09-13] MEDS: IPRATROPIUM/ALBUTEROL 3 ML NEB INH SCH ×2 (05:34→11:17)
[2020-09-13 05:40] LABS: CALCIUM 9.3 mg/dL (8.5-10.3)
[2020-09-13] MEDS ORDERED: predniSONE 20 MG TABLET PO SCH (08:00)
[2020-09-13] MEDS ORDERED: ENOXAPARIN 40 MG/0.4 ML SYRINGE SUBQ SCH (09:00)
[2020-09-13] MEDS ORDERED: LOSARTAN 50 MG TABLET PO SCH (09:00)
[2020-09-13 09:15] VITALS: BP 171/107
--- NOTE | 2020-09-13 09:23 | Discharge Plan ---
Discharge Plan Problem Reviewed?: Yes Disposition: Home, Self Care Condition: Good Prescriptions: predniSONE [Deltasone] 40 mg PO DAILYWM #6 tablet Tiotropium Br/Olodaterol HCl [Stiolto Respimat Inhal [place]] 4 gm IH DAILY #14 mist.inhal Diet: Regular Activity Restrictions: Activity as Tolerated Instruction Topics: COPD Dc Health Concerns: You were seen in the hospital because of exacerbation of your COPD. A CT scan of your lungs showed no blood clots in your lungs appeared clear. There was no evidence of pneumonia or fluid. You improved with steroids and breathing treatments. Plan of Treatment: Stop taking the Spiriva as I have sent you a new prescription for a combination inhaler with Spiriva and Olodaterol. Olodaterol is a longer acting inhaler similar to albuterol. Please take this inhaler once daily. Please take the prednisone for 3 more days starting tomorrow. Care Goals: Return to the emergency department if you develop worsening shortness of breath, chest pain. Assessment: Patient expressed understanding of the treatment plan. Additional Instructions or Follow Up instructions: Please follow-up with your primary care provider next week. It is encouraged that you be referred to a release coordinator given your frequent episodes of COPD and dyspnea. No Smoking: If you smoke, Please STOP! Call for help. Follow-up with: Floyd Rodriguez MD [Primary Care Provider] -
--- NOTE | 2020-09-13 10:14 | DISCHARGE SUMMARY ---
Discharge Summary Admit Date: 09/12/20 Discharge Date: 09/13/20 Discharging Provider: Quinton Schmitt Primary Care Provider: Floyd Rodriguez Code Status: Attempt Resuscitation Condition at Discharge: Good Discharge Disposition: 01 Home, Self Care - DIAGNOSES Admission Diagnoses: COPD exacerbation Hypertension Current smoker Discharge Diagnoses with Status of Each Condition: COPD exacerbation - improved. Leukocytosis - ongoing. Hypertension - stable. Current smoker - stable. - HPI History of Present Illness: H&P per Dr. Farah: Patient is a 60-year-old female with medical history significant for COPD, hypertension and who is a current smoker. She presented to the ED today with complaint of dyspnea. Her symptoms have been going on for the past 6 days. Initially it improved when she used her rescue inhaler however between yesterday and today she took her inhaler multiple times with no improvement so EMS was called and she was brought to the ED. In the emergency department she received a dose of dexamethasone and a dose of methylprednisolone IV. She was discharged but attempt to ambulate to the parking lot left had significantly dyspneic so she returned to the ED for further treatment. At bedside she denies chest pain, abdominal pain, nausea, vomiting, fever or chills. On auscultation no significant wheezing however she sounds coarse. This is her third admission in 3 months. She denies any new changes to her baseline routines. The rest of her history is unremarkable - HOSPITAL COURSE Hospital Course: She was placed in observation for COPD exacerbation. She was continued on steroids and duo nebs as well as albuterol as needed. She had a CT angiogram in the emergency department which was negative for pulmonary embolism and her lungs appeared clear. She felt improvement the following day and was stable for discharge. I have asked her to discontinue her Spiriva and I provided her with a new prescription for Stiolto. I told her that this is not covered by insurance then she can continue her Spiriva. I asked her to follow-up with her primary care provider this week and that she should consider a pulmonology referral. She was provided with 3 more days of steroids on discharge. Her white count is elevated the day of discharge but this is likely due to the steroids she received. She has no evidence of infection. - ALLERGIES Allergies/Adverse Reactions: Allergies Allergy/AdvReac Type Severity Reaction Status Date / Time lisinopril AdvReac Respiratory Verified 09/12/20 09:45 - MEDICATIONS Home Medications: Ambulatory Orders Medication Instructions Recorded Confirmed Albuterol Sulfate [Albuterol 1 puffs IH Q4HR PRN 08/01/20 08/01/20 Sulfate Hfa] Losartan Potassium [Cozaar] 100 mg PO DAILY 09/13/20 Tiotropium Br/Olodaterol HCl 4 gm IH DAILY #14 mist.inhal 09/13/20 [Stiolto Respimat Inhal [place]] predniSONE [Deltasone] 40 mg PO DAILYWM #6 tablet 09/13/20 - PHYSICAL EXAM AT DISCHARGE General Appearance: positive: No acute distress, Alert Eyes Bilateral: positive: Normal inspection, Conjunctivae nml ENT: positive: ENT inspection nml Neck: positive: Nml inspection Respiratory: positive: No respiratory distress. negative: Wheezes, Rales Cardiovascular: positive: Regular rate & rhythm, No murmur, Tachycardia. negative: Systolic murmur Abdomen: positive: Non-tender, No distention. negative: Tenderness Skin: positive: No rash, Warm, Dry Extremities: positive: Full ROM, No pedal edema Neurologic/Psychiatric: positive: Oriented x3, Motor nml. negative: Disoriented to person, Disoriented to place - LABS Result Diagrams: 09/13/20 05:16 09/13/20 05:16 Other Lab Results: Vital Signs - 24 hr 09/12/20 09/12/20 09/12/20 11:44 12:33 13:00 Temperature Heart Rate 120 H 100 126 H Heart Rate [ Brachial] Heart Rate [ Monitoring electrodes] Heart Rate [ Radial] Respiratory 18 16 18 Rate Blood Pressure 169/112 H 178/106 H Blood Pressure [Left Brachial artery] O2 Saturation 92 92 09/12/20 09/12/20 09/12/20 14:32 16:34 16:46 Temperature 36.3 C L 37.1 C Heart Rate 106 H 108 H 103 H Heart Rate [ Brachial] Heart Rate [ Monitoring electrodes] Heart Rate [ Radial] Respiratory 18 24 21 Rate Blood Pressure 171/113 H 180/116 H 168/107 H Blood Pressure [Left Brachial artery] O2 Saturation 94 100 94 09/12/20 09/12/20 09/12/20 18:34 18:37 18:48 Temperature Heart Rate 111 H 107 H Heart Rate [ Brachial] Heart Rate [ Monitoring electrodes] Heart Rate [ Radial] Respiratory 20 18 Rate Blood Pressure 161/95 H 160/95 H Blood Pressure [Left Brachial artery] O2 Saturation 88 L 94 88 L 09/12/20 09/12/20 09/12/20 18:52 18:53 19:17 Temperature 37.1 C Heart Rate Heart Rate [ Brachial] Heart Rate [ Monitoring electrodes] Heart Rate [ 106 H Radial] Respiratory 22 Rate Blood Pressure Blood Pressure 164/104 H [Left Brachial artery] O2 Saturation 86 L 89 L 95 09/12/20 09/12/20 09/13/20 20:38 21:11 00:00 Temperature 36.9 C 36.8 C Heart Rate Heart Rate [ Brachial] Heart Rate [ Monitoring electrodes] Heart Rate [ 108 H 112 H Radial] Respiratory 23 22 Rate Blood Pressure Blood Pressure 164/108 H 165/107 H [Left Brachial artery] O2 Saturation 93 94 93 09/13/20 09/13/20 09/13/20 00:10 02:37 05:30 Temperature 36.8 C Heart Rate Heart Rate [ 111 H Brachial] Heart Rate [ 107 H Monitoring electrodes] Heart Rate [ Radial] Respiratory 20 Rate Blood Pressure Blood Pressure 165/104 H 161/108 H 164/110 H [Left Brachial artery] O2 Saturation 96 09/13/20 09/13/20 09/13/20 05:38 06:11 09:00 Temperature 36.8 C 36.7 C Heart Rate 104 H 104 H Heart Rate [ 115 H Brachial] Heart Rate [ Monitoring electrodes] Heart Rate [ Radial] Respiratory 20 20 19 Rate Blood Pressure Blood Pressure 171/107 H [Left Brachial artery] O2 Saturation 1 L 93 09/13/20 11:18 Temperature Heart Rate 114 H Heart Rate [ Brachial] Heart Rate [ Monitoring electrodes] Heart Rate [ Radial] Respiratory 20 Rate Blood Pressure Blood Pressure [Left Brachial artery] O2 Saturation Oxygen O2 Source Room air Oxygen Flow Rate 4 - FOLLOW UP Follow Up: She was asked to follow-up with her primary care provider this week and to seek a pulmonology referral. - TIME SPENT Time Spent in Discharge (Minutes): 32
== END 2020-09-13 11:25 | disposition home or self-care (01) ==
LOC: EDUNIT# → ED 09:32 → MS2 18:18
PROVIDERS: ADMIT Internal Medicine; ATTEND Internal Medicine
DX: J44.1 Chronic obstructive pulmonary disease with (acute) exacerbation (principal); D72.829 Elevated white blood cell count, unspecified; I10 Essential (primary) hypertension; F17.200 Nicotine dependence, unspecified, uncomplicated; H52.4 Presbyopia; Z79.52 Long term (current) use of systemic steroids; Z79.51 Long term (current) use of inhaled steroids; Z79.899 Other long term (current) drug therapy
CPT/HCPCS: 0202U; 36415; 36600; 71045; 71275; 80048; 80053; 82803; 83690; 85025; 85379; 93005; 94640; 96372; 96374; 96375; 99285; A9270; G0378; J1650; J2060; J7120; J7512; Q9967

== ENCOUNTER 2020-10-15 04:33 | Outpatient (CLI) | payer MEDICAID | END 2020-10-15 04:34 | disposition critical access hospital (66) | LOC: EMS 04:33 | PROVIDERS: ATTEND Surgery | DX: R06.02 Shortness of breath (principal) | CPT/HCPCS: A0425; A0427; A0999 ==

== ENCOUNTER 2020-10-15 04:57 | Inpatient (IN) | payer MEDICAID ==
[2020-10-15] MEDS ORDERED: SODIUM CHLORIDE 0.9% 1,000 ML IV STA (05:04)
[2020-10-15] MEDS ORDERED: MAGNESIUM SULFATE 2 GRAM 2 GM/50 ML BAG IV ONE (05:05)
[2020-10-15] MEDS ORDERED: ALBUTEROL NEB 2.5 MG/3 ML INH STA ×2 (05:05→05:36)
--- NOTE | 2020-10-15 05:07 | ED Physician Documentation ---
PD HPI DYSPNEA - Stated complaint Stated Complaint: SOA - History obtained from History obtained from: Patient, EMS (Medic reports sats 88-90% on RA at home. Significant work of breathing and wheezing. 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 Given Solumedrol enroute and oxygen/neb.) - History of Present Illness Timing - onset: How many days ago (2-3) Timing - onset during: Rest (this evening/overnight), Light activity (initially) Timing - duration: Days (2-3) Timing - details: Gradual onset Inciting event(s): No: Out of meds, Immobilization/travel Improved by: Sitting up. No: Inhaler/neb Worsened by: Exertion, Coughing Associated symptoms: Cough, Wheezing. No: Fever, Hemoptysis, Chest pain / discomfort, Palpitations, Bilateral edema Similar symptoms before: Diagnosis (COPD new diagnosis since June last year, with 3 prior hospitalizations for similar symptoms (Jun, Jul, Aug 2020).) Recently seen: Not recently seen Review of Systems Constitutional: reports: Fatigue. denies: Fever, Chills, Myalgias Nose: denies: Rhinorrhea / runny nose, Congestion Throat: denies: Sore throat Cardiac: denies: Chest pain / pressure Respiratory: reports: Dyspnea, Cough (nonproductive), Wheezing GI: denies: Abdominal Pain, Nausea, Vomiting, Diarrhea Neurologic: reports: Generalized weakness. denies: Near syncope, Altered mental status, Headache PD PAST MEDICAL HISTORY - Past Medical History Cardiovascular: Hypertension Respiratory: COPD Endocrine/Autoimmune: None GI: None ADMINISTRATION PHYSICIAN: Other (G2, P2 with 2 C-sections) : None HEENT: Chronic vision loss (She wears readers for presbyopia) Psych: None Musculoskeletal: None Derm: None - Past Surgical History Past Surgical History: Yes General: Other (Breast biopsy February 2018) /ADMINISTRATION PHYSICIAN: section - Present Medications Home Medications: Ambulatory Orders Medication Instructions Recorded Confirmed Albuterol Sulfate [Albuterol 1 puffs IH Q4HR PRN 08/01/20 10/15/20 Sulfate Hfa] Losartan Potassium [Cozaar] 100 mg PO DAILY 09/13/20 10/15/20 Tiotropium Br/Olodaterol HCl 4 gm IH DAILY #14 mist.inhal 09/13/20 10/15/20 [Stiolto Respimat Inhal [place]] Fluticasone Propionate [Flovent 50 mcg IH Q4HR 10/15/20 10/15/20 [place]] diltiaZEM [Cardizem] mg PO ONCE 10/15/20 - Allergies Allergies/Adverse Reactions: Allergies Allergy/AdvReac Type Severity Reaction Status Date / Time lisinopril AdvReac Respiratory Verified 10/15/20 05:11 - Social History Does the pt smoke?: Yes Smoking Status: Current some day smoker Does the pt drink ETOH?: Yes Does the pt have substance abuse?: No - Immunizations Immunizations are current?: Yes Immunizations: TDAP >10years/unknown - POLST Patient has POLST: No POLST Status: Full Code PD ED PE NORMAL - Vitals Vital signs reviewed: Yes - General General: Other (able to talk in near complete sentences. Has some accessory muscle use and is sitting upright for best comfort.) - HEENT HEENT: Pharynx benign - Neck Neck: Supple, no meningeal sign, No adenopathy - Cardiac Cardiac: No murmur. No: RRR (tachycardic but regular) - Respiratory Respiratory: No: Clear bilaterally (diffuse expiratory wheezing. No coarse sounds. Bases are clearer. Sitting up and with some accessoy muscle use. Does not appear tired. ) Results - Vitals Vitals: Vital Signs - 24 hr 10/15/20 10/15/20 10/15/20 05:03 05:24 05:29 Temperature 37.4 C Heart Rate 135 H 124 H 133 H Respiratory 32 H 16 24 Rate Blood Pressure 187/149 H 180/157 H O2 Saturation 100 99 10/15/20 10/15/20 10/15/20 05:45 05:59 06:04 Temperature Heart Rate 122 H 122 H Respiratory 20 21 Rate Blood Pressure 160/98 H O2 Saturation 100 100 Oxygen O2 Source Nasal cannula Oxygen Flow Rate 6 - EKG (time done) 05:11 Rate: Rate (enter#) (131) Rhythm: Sinus tachycardia [place]: Normal Intervals: Normal [place] QRS: Normal Ischemia: Normal ST segments. No: ST elevation c/w ischemia, ST depression Compare to prior EKG: Unchanged from prior EKG - Labs Labs: Laboratory Tests 10/15/20 10/15/20 10/15/20 05:16 05:16 05:16 WBC 7.9 RBC 3.90 L Hgb 13.4 Hct 39.6 MCV 101.5 H MCH 34.4 H MCHC 33.8 RDW 12.7 Plt Count 242 MPV 10.1 Neut # (Auto) 5.0 Lymph # (Auto) 1.5 [place] # (Auto) 0.8 Eos # (Auto) 0.5 Baso # (Auto) 0.1 Absolute Nucleated RBC 0.00 Nucleated RBC % 0.0 Sodium 136 Potassium 3.5 Chloride 100 L Carbon Dioxide 24 Anion Gap 12.0 BUN 11 Creatinine 0.9 Estimated GFR (MDRD) 64 L Glucose 126 H Calcium 9.5 Magnesium 1.6 L Total Bilirubin 0.7 AST 42 ALT 31 Alkaline Phosphatase 67 B-Natriuretic Peptide 25 Total Protein 7.2 Albumin 4.5 Globulin 2.7 Albumin/Globulin Ratio 1.7 Lipase 24 - Rads (name of study) chest xray 1 view Radiology: Prelim report reviewed (no acute infiltrate nor PTX. ), See rad report PD MEDICAL DECISION MAKING - ED course Complexity details: reviewed old records (prior episodes over past 3 months. ), re-evaluated patient (Lessening work of breathing. She is not gripping the rails as tightly. She is still wanting to sit upright. Wheezing is diminished and she is able to talk a little more fully and comfortably. However multiple nebs and meds and still only moderately improved. Anticipate longer time needed.), considered differential, d/w patient Departure - Departure Disposition: ED Place in Observation Clinical Impression: COPD exacerbation Dyspnea Qualifiers: Dyspnea type: shortness of breath Qualified Code(s): R06.02 - Shortness of breath Condition: Stable Record reviewed to determine appropriate education?: Yes
[2020-10-15 05:24] LABS: BASOPHILS # (AUTO) 0.1 10^3/uL (0.0-0.1); BASOPHILS % (AUTO) 0.9 %; EOSINOPHILS # (AUTO) 0.5 10^3/uL (0.0-0.7); EOSINOPHILS % (AUTO) 6.5 %; HGB - HEMOGLOBIN 13.4 g/dL (12.0-16.0); LYMPHOCYTES # (AUTO) 1.5 10^3/uL (1.5-3.5); LYMPHOCYTES % (AUTO) 18.9 %; MEAN CORPUSCULAR HEMOGLOBIN 34.4 pg (27.0-31.0); MEAN CORPUSCULAR HGB CONC 33.8 g/dL (32.0-36.0); MEAN CORPUSCULAR VOLUME 101.5 fL (81.0-99.0); MEAN PLATELET VOLUME 10.1 fL (7.9-10.8); MONOCYTES # (AUTO) 0.8 10^3/uL (0.0-1.0); MONOCYTES % (AUTO) 10.4 %; NEUTROPHILS % (AUTO) 62.9 %; PLT - PLATELET COUNT 242 10^3/uL (130-450); RED CELL DISTRIBUTION WIDTH 12.7 % (12.0-15.0); WHITE BLOOD COUNT 7.9 x10^3/uL (4.8-10.8)
[2020-10-15 05:34] LABS: ALBUMIN 4.5 g/dL (3.2-5.5); ALBUMIN/GLOBULIN RATIO 1.7 (1.0-2.2); BILIRUBIN,TOTAL 0.7 mg/dL (0.2-1.0); CALCIUM 9.5 mg/dL (8.5-10.3); CREATININE 0.9 mg/dL (0.4-1.0); MAGNESIUM 1.6 mg/dL (1.7-2.8); TOTAL PROTEIN 7.2 g/dL (6.7-8.2)
[2020-10-15] MEDS ORDERED: MORPHINE 2 MG/ML CARPUJECT IVP STA (05:36)
[2020-10-15 06:20] LABS: C. PNEUMONIAE- RESP PCR PANEL NOT DETECTED
[2020-10-15] MEDS ORDERED: ACETAMINOPHEN 325 MG TABLET PO PRN (06:30)
[2020-10-15] MEDS ORDERED: ONDANSETRON ODT 4 MG TABLET TL PRN (06:30)
[2020-10-15] MEDS ORDERED: ONDANSETRON 4 MG/2 ML VIAL IVP PRN (06:30)
[2020-10-15] MEDS ORDERED: ALBUTEROL NEB 2.5 MG/3 ML INH PRN (06:33)
[2020-10-15] MEDS ORDERED: methylPREDNISolone SUCCINATE 40 MG/ML VIAL IVP SCH (07:00)
[2020-10-15] MEDS: cefTRIAXone 1 GM in SODIUM CHLORIDE 0.9% MINIBAG 100 ML IV SCH ×2 (07:06→08:52)
--- NOTE | 2020-10-15 07:51 | XRAY Report ---
PROCEDURE: Chest 1 View X-Ray INDICATIONS: Chest Pain TECHNIQUE: One view of the chest was acquired. COMPARISON: 09/12/2020 FINDINGS: Surgical changes and devices: None. Lungs and pleura: No pleural effusions or pneumothorax. Lungs are clear. Mediastinum: Mediastinal contours appear normal. Heart size is normal. Bones and chest wall: No suspicious bony lesions. Overlying soft tissues appear unremarkable. IMPRESSION: Chest without acute cardiopulmonary abnormalities or focal airspace disease. No significant discrepancy with initial interpretation by overnight radiologist. Reviewed by: Flavio Obrien MD on 10/15/2020 7:50 AM PST Approved by: Flavio Obrien MD on 10/15/2020 7:50 AM PST Station ID: [id number]
[2020-10-15] MEDS: INSULIN ASPART 300 UNIT/3 ML PEN SUBQ SCH ×4 (07:59→22:00)
[2020-10-15] MEDS: IPRATROPIUM/ALBUTEROL 3 ML NEB INH SCH ×2 (08:34→13:12)
[2020-10-15] MEDS: ENOXAPARIN 40 MG/0.4 ML SYRINGE SUBQ SCH (08:53)
[2020-10-15] MEDS: SODIUM CHLORIDE FLUSH 0.9% 10 ML SYRINGE IVP SCH ×3 (08:57→23:52)
[2020-10-15] MEDS: NICOTINE 14 MG PATCH TOP SCH (08:58)
[2020-10-15] MEDS ORDERED: AZITHROMYCIN 250 MG TABLET PO SCH (11:00)
[2020-10-15] MEDS: MAGNESIUM OXIDE 400 MG TABLET PO SCH (11:45)
--- NOTE | 2020-10-15 12:09 | HISTORY & PHYSICAL EXAMINATION ---
Chief Complaint - Chief Complaint Chief Complaint: SOB History of Present Illness - Admitted From Admitted From:: ER - History Obtained From Records Reviewed: [facility] History obtained from: pt Exam Limitations: no - History of Present Illness HPI Comment/Other: Patient is a 60-year-old female with medical history significant for COPD, hypertension and current smoker. She presented to the ED today with complaint of dyspnea. Patient report she feels shortness of breathing for 2 days "I cannot catch my breathing." She reported she saw her PCP, her PCP gave her her steroid, then she finished steroid about her 2 weeks ago. She denies fever, Chest pain. Patient was recently admitted in the hospital three times for same problem with COPD exacerbation. Patient reported she still has cigarette smoking but "the amount of cigarette was reduced". Patient made a commitment at this time, she will quit smoking. Chest x-ray show no acute cardiopulmonary abnormality or focal airspace disease. COVID-19 test is negative. Routine laboratory testing in the ER was unremarkable. In the ER, patient was found afebrile, with tachyc ardia, tachypnea and patient needed 6 L oxygen to support Her breathing. Given above medical condition, medical team was Consulted for admission of patient. Discussed the care goal with the patient, patient requests full code History - Past Medical History Cardiovascular: reports: Hypertension Respiratory: reports: COPD Neuro: reports: None Endocrine/Autoimmune: reports: None GI: reports: None EROSION CONTROL SPECIALIST: reports: Other (G2, P2 with 2 C-sections) : reports: None HEENT: reports: Chronic vision loss (She wears readers for presbyopia) Psych: reports: None Musculoskeletal: reports: None Derm: reports: None MRSA Hx?: No - Past Surgical History General: reports: Other /EROSION CONTROL SPECIALIST: reports: section - Family & Social History Family History: Mother: , Father: Family History Comment/Other: She never really knew her father. Amaya did in his 60s of emphysema. He was a heavy smoker. her mother from uterine cancer at age 78 also had HTN. 1 sister is completely healthy. 2 sons are completely healthy. No one has hypertension, cancer, heart attack, stroke. Living Situation: With spouse/s.o. Social History Notes: Smoker Since the age of 16. Upwards of 2 packs/day. denies alcohol or drug issue, she had 2 children. 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 While she is used to him, and she tolerates him, he is not helpful. When she was last sick, she had syncope. Woke up on the floor. He walked after not sure what he was doing on the floor. She said that she passed out. He said "O okay ", then walked away from her.1 son lives and [place], one lives in [place]. The son who lives in [place] is her designated DURABLE POWER OF MACHINE FILLER SERVICER. She has not filled out paperwork to that effect but once we do know that that is the son that I need to talk to. - Substance History Use: Uses substance without health or social issues: Alcohol - POLST Patient has POLST: No POLST Status: Full Code Meds/Allgy - Home Medications Home Medications: Ambulatory Orders Medication Instructions Recorded Confirmed Albuterol Sulfate [Albuterol 1 puffs IH Q4HR PRN 08/01/20 10/15/20 Sulfate Hfa] Losartan Potassium [Cozaar] 100 mg PO DAILY 09/13/20 10/15/20 Tiotropium Br/Olodaterol HCl 4 gm IH DAILY #14 mist.inhal 09/13/20 10/15/20 [Stiolto Respimat Inhal [place]] Fluticasone 110 Mcg [Flovent] 1 puffs INH .QAM AND QPM 10/15/20 10/15/20 Ipratropium/Albuterol [Combivent 1 puffs INH Q4H 10/15/20 10/15/20 Respimat] dilTIAZem HCL [Diltiazem 24Hr ER 120 mg PO DAILY 10/15/20 10/15/20 (Xr)] - Allergies Allergies/Adverse Reactions: Allergies Allergy/AdvReac Type Severity Reaction Status Date / Time lisinopril AdvReac Respiratory Verified 10/15/20 05:11 Review of Systems - Constitutional Constitutional: denies: Fever, Chills, Weakness, Poor appetite, Diaphoresis - Eyes Eyes: denies: Pain, Blurred vision, Field loss, Vision loss, Dipolpia - Ears, Nose & Throat Ears, Nose & Throat: denies: Ear pain, Vertigo, Nosebleeds, Bleeding gums - Cardiovascular Cariovascular: reports: Exertional dyspnea, Decr. exercise tolerance. denies: Irregular heart rate, Palpitations, Chest pain, Lightheadedness, Syncope - Respiratory Respiratory: reports: Wheezing, SOB with exertion. denies: Cough, Sputum production, Snoring, Hemoptysis, Orthopnea, SOB at rest - Gastrointestinal Gastrointestinal: denies: Abdominal pain, Constipation, Diarrhea, Rectal bleeding, Black stools, Bloody stools, Nausea, Vomiting, [place] blood emesis - Genitourinary Genitourinary: denies: Dysuria, Urgency, Incontinence - Musculoskeletal Musculoskeletal: denies: Muscle pain, Muscle aches, Limited range of motion - Integumentary Integumentary: denies: Rash, Lesions, Lumps - Neurological Neurological: denies: General weakness, Focal weakness, Headache, Dizziness, Num bness, Memory problems, Abnormal gait, Seizures, Incoordination, Slurred speech - Psychiatric Psychiatric: denies: Depression, Suicidal, Delusions - Endocrine Endocrine: denies: Polyuria, Polyphagia - Hematologic/Lymphatic Hematologic/Lymphatic: denies: Anemia, Petechiae, Blood clots Prior Level of Functionality: Patient s independent in the home Exam - Vital Signs Vital Signs: Vital Signs x48h Temp Pulse Pulse Resp BP BP Pulse Ox 10/15/20 08:38 36.7 C 122 H 20 96 10/15/20 08:35 122 H 20 10/15/20 07:57 36.7 C 127 H 18 159/98 H 93 10/15/20 07:05 36.4 C L 126 H 177/109 H 98 10/15/20 06:40 37.0 C 10/15/20 06:38 37.0 C 124 H 24 165/106 H 98 10/15/20 06:04 122 H 21 160/98 H 100 10/15/20 05:59 122 H 20 10/15/20 05:45 100 10/15/20 05:29 133 H 24 10/15/20 05:24 124 H 16 180/157 H 99 10/15/20 05:03 37.4 C 135 H 32 H 187/149 H 100 - Physical Exam General Appearance: positive: No acute distress, Alert. negative: Lethargic Eyes Bilateral: positive: Normal inspection, PERRL, No lid inflammation ENT: positive: ENT inspection nml, No signs of dehydration. negative: Purulent nasal drainage Neck: positive: Nml inspection, Thyroid nml. negative: Thyromegaly, Stiff neck, Tracheal deviation Respiratory: positive: Chest non-tender, Wheezes. negative: Breath sounds nml, Rales, Rhonchi Cardiovascular: positive: Regular rate & rhythm, No murmur, Tachycardia. negative: Bradycardia, Systolic murmur, Diastolic murmur Peripheral Pulses: positive: 2+ Abdomen: positive: Non-tender, Nml bowel sounds, No distention. negative: Tenderness, Guarding, Rebound Back: positive: Nml inspection. negative: CVA tenderness (R), CVA tenderness (L) Skin: positive: Color nml, Warm, Dry. negative: Cyanosis, Diaphoresis, Pallor Extremities: positive: Non-tender, Full ROM, Nml appearance, No pedal edema Neurologic/Psychiatric: positive: Oriented x3, Motor nml, Sensation nml, Mood/affect nml. negative: Weakness, Sensory loss, Facial droop, Slurred/abnml speech, Depressed mood/affect Conclusion/Plan - Problem List (1) COPD exacerbation Conclusion/Plan: Patient present shortness of breathing, history of COPD exacerbation, Current cigarette smoker, COVID-19 tested is negative. We will give patient Solu-Medrol, breathing treatment, azithromycin 250mg daily. Encourage patient quit cigarette smoke, Supplemental oxygen as needed (2) Current smoker Conclusion/Plan: Patient stated she will quit cigarette smoking, she asked nicotine patch (3) HTN (hypertension) Conclusion/Plan: Patient present slightly elevated blood pressure, resume home Losantar, Hydralazine intravenous as needed (4) Tachycardia Conclusion/Plan: Patient has history of sinus tachycardia, Patient had home medication Cardizem, Will resume. Continue telemetry, continue treatment for COPD exacerbation, Supplemental oxygen as needed. - Lab Results Fish Bones: 10/15/20 05:16 10/15/20 05:16 Core Measures - Anticipated LOS I expect patient to be DC'd or transferred within 96 hours.: Yes - DVT/VTE - Prophylaxis VTE/DVT Device ordered at admit?: Yes VTE/DVT Prophylaxis med ordered at admit?: Yes
[2020-10-15] MEDS: methylPREDNISolone SUCCINATE 40 MG/ML VIAL IVP SCH ×2 (13:41→22:00)
--- NOTE | 2020-10-15 13:58 | PHARMACY PROGRESS NOTE ---
- Best Possible Medication History Admit Date and Time: 10/15/20 0630 Processed by: Pharmacy Medication History completed: Yes Patient Interview: Completed Secondary Source(s): Insurance records (interview completed by Aundrea 10/14) As the person ultimately responsible for medication therapy, providers are able to order a medication from an existing home medication list in [facility] via the "Reconcile Routine" prior to Confirmation of that medication by program support clerk. Such practice is discouraged except when the physician, in their clinical judgment, deems that a medical need exists for a medication without regard to previous use.
[2020-10-15] MEDS ORDERED: hydrALAZINE INJ 20 MG/ML VIAL IVP PRN (14:20)
[2020-10-15] MEDS ORDERED: FLUTICASONE 110 MCG INH SCH (14:30)
[2020-10-15] MEDS: LOSARTAN 50 MG TABLET PO SCH (16:13)
[2020-10-15] MEDS: diltiaZEM CD 120 MG CAPSULE PO SCH (16:14)
[2020-10-15] MEDS: MORPHINE 2 MG/ML CARPUJECT IVP PRN ×2 (16:14→20:03)
[2020-10-15] MEDS: LEVALBUTEROL 1.25 MG/3 ML NEB INH PRN ×2 (16:35→19:02)
[2020-10-15] MEDS: IPRATROPIUM 0.2 MG/ML NEB INH SCH ×2 (16:35→19:02)
[2020-10-15] MEDS: BUDESONIDE 0.5 MG/2 ML NEB INH SCH (19:02)
[2020-10-15] MEDS: SODIUM CHLORIDE FLUSH 0.9% 10 ML SYRINGE IVP PRN ×2 (20:03→22:03)
[2020-10-16 04:38] LABS: BASOPHILS # (AUTO) 0.1 10^3/uL (0.0-0.1); BASOPHILS % (AUTO) 0.3 %; EOSINOPHILS % (AUTO) 0.1 %; HGB - HEMOGLOBIN 11.8 g/dL (12.0-16.0); LYMPHOCYTES # (AUTO) 0.6 10^3/uL (1.5-3.5); LYMPHOCYTES % (AUTO) 2.9 %; MEAN CORPUSCULAR HEMOGLOBIN 33.6 pg (27.0-31.0); MEAN CORPUSCULAR HGB CONC 32.9 g/dL (32.0-36.0); MEAN CORPUSCULAR VOLUME 102.3 fL (81.0-99.0); MEAN PLATELET VOLUME 10.8 fL (7.9-10.8); MONOCYTES # (AUTO) 0.4 10^3/uL (0.0-1.0); MONOCYTES % (AUTO) 2.2 %; NEUTROPHILS # (AUTO) 17.5 10^3/uL (1.5-6.6); NEUTROPHILS % (AUTO) 93.5 %; PLT - PLATELET COUNT 214 10^3/uL (130-450); RED BLOOD COUNT 3.51 10^6/uL (4.20-5.40); RED CELL DISTRIBUTION WIDTH 12.8 % (12.0-15.0); WHITE BLOOD COUNT 18.8 x10^3/uL (4.8-10.8)
[2020-10-16 04:54] LABS: MAGNESIUM 1.9 mg/dL (1.7-2.8); PHOSPHORUS 2.6 mg/dL (2.5-4.6)
[2020-10-16] MEDS: methylPREDNISolone SUCCINATE 40 MG/ML VIAL IVP SCH ×3 (05:31→21:58)
[2020-10-16] MEDS ORDERED: MAGNESIUM SULFATE 1 GM/2 ML VIAL IVP STA (07:14)
[2020-10-16] MEDS: IPRATROPIUM 0.2 MG/ML NEB INH SCH ×4 (07:30→19:30)
[2020-10-16] MEDS: LEVALBUTEROL 1.25 MG/3 ML NEB INH PRN ×3 (07:30→19:30)
[2020-10-16] MEDS: BUDESONIDE 0.5 MG/2 ML NEB INH SCH ×2 (07:30→19:30)
[2020-10-16] MEDS: MORPHINE 2 MG/ML CARPUJECT IVP PRN (07:39)
[2020-10-16] MEDS: INSULIN ASPART 300 UNIT/3 ML PEN SUBQ SCH ×4 (07:41→21:01)
[2020-10-16] MEDS ORDERED: NEUTRA-PHOS 250 MG TABLET PO SCH (08:00)
[2020-10-16] MEDS ORDERED: MAGNESIUM SULFATE 2 GRAM 2 GM/50 ML BAG IV SCH (08:00)
[2020-10-16] MEDS: LOSARTAN 50 MG TABLET PO SCH (08:18)
[2020-10-16] MEDS: MAGNESIUM OXIDE 400 MG TABLET PO SCH (08:18)
[2020-10-16] MEDS: NICOTINE 14 MG PATCH TOP SCH (08:19)
[2020-10-16] MEDS: diltiaZEM CD 120 MG CAPSULE PO SCH (08:19)
[2020-10-16] MEDS: ENOXAPARIN 40 MG/0.4 ML SYRINGE SUBQ SCH (08:19)
[2020-10-16] MEDS: SODIUM CHLORIDE 0.9% 1,000 ML IV SCH ×2 (08:23→19:51)
[2020-10-16] MEDS: SODIUM CHLORIDE FLUSH 0.9% 10 ML SYRINGE IVP SCH ×2 (10:48→17:03)
[2020-10-16] MEDS: oxyCODONE 5 MG TABLET PO PRN ×3 (11:26→21:58)
--- NOTE | 2020-10-16 16:26 | PROVIDER PROGRESS NOTE ---
Assessment/Plan - Problem List (1) Non-sustained ventricular tachycardia Assessment/Plan: Patient has once non-sustained V-T with 8 beats on last night, troponin is negative for acute VA, electrolytes is in the normal arrange. ECHO reveals unremarkable except slight elevated RVSP 43 mmHG. Unknown etiology now. We will continue supplemental oxygen, Continue residential monitor, Continue treated for COPD exacerbation. (1) COPD exacerbation Conclusion/Plan: 10/16 pt report she still feel some shortness of breath. pt had 93% on room air now, Patient has no tachypnea and tachycardia is under control around 100. continue Solu-Medrol and breathing treatment. Patient present shortness of breathing, history of COPD exacerbation, Current cigarette smoker, COVID-19 tested is negative. We will give patient Solu-Medrol, breathing treatment, azithromycin 250mg daily. Encourage patient quit cigarette smoke, Supplemental oxygen as needed (2) Current smoker Conclusion/Plan: Patient stated she will quit cigarette smoking, she asked nicotine patch (3) HTN (hypertension) Conclusion/Plan: Patient present slightly elevated blood pressure, resume home Losantar, Hydralazine intravenous as needed (4) sinus Tachycardia Conclusion/Plan: 10/16 improved, HR is 100 now, continue home Cardizem, Continue telemetry. expected heart rate will continue trended down after pt's COPD exacerbation is controlled. continue tele Patient has history of sinus tachycardia, Patient had home medication Cardizem, Will resume. Continue telemetry, continue treatment for COPD exacerbation, Supplemental oxygen as needed. - Current Meds Current Meds: Current Medications Generic Name Dose Route Start Last Admin Trade Name Freq PRN Reason Stop Dose Admin Budesonide 0.5 mg 10/15/20 19:00 10/16/20 07:30 Budesonide 0.5 Mg/2 Ml Neb INH 0.5 mg RTBID ALLISON Administration Diltiazem HCl 120 mg 10/15/20 14:45 10/16/20 08:19 Diltiazem Cd 120 Mg Capsule PO 120 mg DAILY ALLISON Administration Enoxaparin Sodium 40 mg 10/15/20 09:00 10/16/20 08:19 Enoxaparin 40 Mg/0.4 Ml Syringe SUBQ 40 mg DAILY ALLISON Administration Hydralazine HCl 10 mg 10/15/20 14:20 10/15/20 14:48 Hydralazine Inj 20 Mg/Ml Vial IVP 10 mg Q4H PRN Administration Hypertensive Emergency Sodium Chloride 1,000 mls @ 100 mls/hr 10/16/20 09:00 10/16/20 12:03 Normal Saline 0.9% IV 10/17/20 04:59 100 mls/hr .Q10H ALLISON Infusion Insulin Aspart 2 - 10 unit 10/15/20 21:00 10/16/20 12:08 Insulin Aspart 300 Unit/3 Ml Pen SUBQ 4 unit 0800,1200,1700,2100 ALLISON Administration Protocol Ipratropium [place] 0.5 mg 10/15/20 15:00 10/16/20 15:08 Ipratropium 0.2 Mg/Ml Neb INH 0.5 mg RTQ4H ALLISON Administration Levalbuterol HCl 1.25 mg 10/15/20 14:18 10/16/20 11:34 Levalbuterol 1.25 Mg/3 Ml Neb INH 1.25 mg Q4H PRN Administration Shortness of Air/Wheezing Losartan Potassium 100 mg 10/15/20 14:45 10/16/20 08:18 Losartan 50 Mg Tablet PO 100 mg DAILY ALLISON Administration Magnesium Oxide 400 mg 10/15/20 11:00 10/16/20 08:18 Magnesium Oxide 400 Mg Tablet PO 400 mg DAILYWM ALLISON Administration Methylprednisolone 40 mg 10/16/20 14:00 10/16/20 14:03 Methylprednisolone Succinate 40 Mg/Ml Vial IVP 40 mg TID ALLISON Administration Morphine Sulfate 2 mg 10/15/20 14:17 10/16/20 07:39 Morphine 2 Mg/Ml Carpuject IVP 2 mg Q2HR PRN Administration PAIN Nicotine 1 patch 10/15/20 09:00 10/16/20 08:19 Nicotine 14 Mg Patch TOP 1 patch DAILY ALLISON Administration Oxycodone HCl 5 mg 10/16/20 10:59 10/16/20 11:26 Oxycodone 5 Mg Tablet PO 5 mg Q4HR PRN Administration PAIN Sodium Chloride 10 ml 10/15/20 06:30 10/15/20 22:03 Sodium Chloride Flush 0.9% 10 Ml Syringe IVP 10 ml PRN PRN Administration NEEDED PER PROVIDER ORDERS Sodium Chloride 10 ml 10/15/20 09:00 10/16/20 10:48 Sodium Chloride Flush 0.9% 10 Ml Syringe IVP 10 ml 0100,0900,1700 ALLISON Administration - Lab Result Fish Bone Diagrams: 10/16/20 04:20 10/16/20 04:20 - Additional Planning My Orders: My Active Orders 10/15/20 19:00 Budesonide [Pulmicort] 0.5 mg INH RTBID 10/16/20 09:00 Sodium Chloride 0.9% [Normal Saline 0.9%] 1,000 ml IV 100 mls/hr 10/16/20 10:57 Telemetry- [RC] Q4HR 10/16/20 10:59 oxyCODONE [Roxicodone] 5 mg PO Q4HR PRN 10/16/20 14:00 methylPREDNISolone SUCCINATE [SOLU-Medrol (40MG VIAL)] 40 mg IVP TID 10/16/20 14:01 Echo Transthoracic Complete [ECHO] Routine Subjective - Subjective Patient Reports: Feeling Better Objective Vital Signs: Vital Signs - 24 hr 10/15/20 10/15/20 10/15/20 16:38 19:04 20:20 Temperature 36.4 C L Heart Rate 126 H 128 H Heart Rate [ 126 H Brachial] Respiratory 20 24 18 Rate Blood Pressure 145/95 H [Right Brachial artery] O2 Saturation 94 10/15/20 10/16/20 10/16/20 23:44 04:31 06:34 Temperature 36.7 C 36.5 C Heart Rate Heart Rate [ 113 H 109 H Brachial] Respiratory 20 18 Rate Blood Pressure 140/94 H 148/100 H 138/91 H [Right Brachial artery] O2 Saturation 95 94 10/16/20 10/16/20 10/16/20 07:32 08:20 11:36 Temperature 36.5 C Heart Rate 98 98 Heart Rate [ 102 H Brachial] Respiratory 18 18 18 Rate Blood Pressure 141/94 H [Right Brachial artery] O2 Saturation 98 10/16/20 10/16/20 11:49 15:10 Temperature 36.8 C Heart Rate 100 Heart Rate [ 100 Brachial] Respiratory 20 16 Rate Blood Pressure 139/99 H [Right Brachial artery] O2 Saturation 93 Oxygen O2 Source Room air Oxygen Flow Rate 6 I&O (Last 24 Hrs): Intake and Output Totals x24h 10/14/20 10/15/20 10/16/20 23:59 23:59 23:59 Intake Total 4158.333 1546.667 Balance 2538.333 1546.667 General: Alert, Oriented x3, Cooperative, No acute distress HEENT: Atraumatic Neck: Supple Lymphatic: no adenopathy Neuro: Alert, Non Focal, Oriented Times 3 Cardiovascular: Regular rate, Normal S1, Normal S2 Respiratory: Chest non-tender, No respiratory distress, Wheezes Abdomen: Normal bowel sounds, Soft, No tenderness Extremities: Normal pulses - Results Results: Laboratory Results WBC 18.8 x10^3/uL (4.8-10.8) H 10/16/20 04:20 RBC 3.51 10^6/uL (4.20-5.40) L 10/16/20 04:20 Hgb 11.8 g/dL (12.0-16.0) L 10/16/20 04:20 Hct 35.9 % (37.0-47.0) L 10/16/20 04:20 MCV 102.3 fL (81.0-99.0) H 10/16/20 04:20 MCH 33.6 pg (27.0-31.0) H 10/16/20 04:20 MCHC 32.9 g/dL (32.0-36.0) 10/16/20 04:20 RDW 12.8 % (12.0-15.0) 10/16/20 04:20 Plt Count 214 10^3/uL (130-450) 10/16/20 04:20 MPV 10.8 fL (7.9-10.8) 10/16/20 04:20 Neut # (Auto) 17.5 10^3/uL (1.5-6.6) H 10/16/20 04:20 Lymph # (Auto) 0.6 10^3/uL (1.5-3.5) L 10/16/20 04:20 [place] # (Auto) 0.4 10^3/uL (0.0-1.0) 10/16/20 04:20 Eos # (Auto) 0.0 10^3/uL (0.0-0.7) 10/16/20 04:20 Baso # (Auto) 0.1 10^3/uL (0.0-0.1) 10/16/20 04:20 Absolute Nucleated RBC 0.00 x10^3/uL 10/16/20 04:20 Nucleated RBC % 0.0 /100WBC 10/16/20 04:20 Sodium 138 mmol/L (135-145) 10/16/20 04:20 Potassium 3.7 mmol/L (3.5-5.0) 10/16/20 04:20 Chloride 104 mmol/L (101-111) 10/16/20 04:20 Carbon Dioxide 22 mmol/L (21-32) 10/16/20 04:20 Anion Gap 12.0 (6-13) 10/16/20 04:20 BUN 22 mg/dL (6-20) H 10/16/20 04:20 Creatinine 1.0 mg/dL (0.4-1.0) 10/16/20 04:20 Estimated GFR (MDRD) 56 (>89) L 10/16/20 04:20 Glucose 178 mg/dL (70-100) H 10/16/20 04:20 Calcium 9.0 mg/dL (8.5-10.3) 10/16/20 04:20 Phosphorus 2.6 mg/dL (2.5-4.6) 10/16/20 04:20 Magnesium 1.9 mg/dL (1.7-2.8) 10/16/20 04:20 Total Bilirubin 0.7 mg/dL (0.2-1.0) 10/15/20 05:16 AST 42 IU/L (10-42) 10/15/20 05:16 ALT 31 IU/L (10-60) 10/15/20 05:16 Alkaline Phosphatase 67 IU/L (42-121) 10/15/20 05:16 Troponin I High Sens 13.2 ng/L (2.3-14.8) 10/16/20 04:20 B-Natriuretic Peptide 25 pg/mL (5-100) 10/15/20 05:16 Total Protein 7.2 g/dL (6.7-8.2) 10/15/20 05:16 Albumin 4.5 g/dL (3.2-5.5) 10/15/20 05:16 Globulin 2.7 g/dL (2.1-4.2) 10/15/20 05:16 Albumin/Globulin Ratio 1.7 (1.0-2.2) 10/15/20 05:16 Lipase 24 U/L (22-51) 10/15/20 05:16 Nasal Adenovirus (PCR) NOT DETECTED 10/15/20 05:17 Nasal B. parapertussis DNA (PCR) NOT DETECTED 10/15/20 05:17 Nasal Coronavir 229E PCR NOT DETECTED 10/15/20 05:17 Nasal Coronavir HKU1 PCR NOT DETECTED 10/15/20 05:17 Nasal Coronavir NL63 PCR NOT DETECTED 10/15/20 05:17 Nasal Coronavir OC43 PCR NOT DETECTED 10/15/20 05:17 Nasal Enterovir/Rhinovir PCR NOT DETECTED 10/15/20 05:17 Nasal Influenza B PCR NOT DETECTED 10/15/20 05:17 Nasal Influenza A PCR NOT DETECTED 10/15/20 05:17 Nasal Parainfluen 1 PCR NOT DETECTED 10/15/20 05:17 Nasal Parainfluen 2 PCR NOT DETECTED 10/15/20 05:17 Nasal Parainfluen 3 PCR NOT DETECTED 10/15/20 05:17 Nasal Parainfluen 4 PCR NOT DETECTED 10/15/20 05:17 Nasal RSV (PCR) NOT DETECTED 10/15/20 05:17 Nasal B.pertussis DNA PCR NOT DETECTED 10/15/20 05:17 Nasal C.pneumoniae (PCR) NOT DETECTED 10/15/20 05:17 [place] Human Metapneumo PCR NOT DETECTED 10/15/20 05:17 Nasal M.pneumoniae (PCR) NOT DETECTED 10/15/20 05:17 Nasal SARS-CoV-2 (PCR) NOT DETECTED 10/15/20 05:17 - Procedures Procedures: Procedures INSPECTION OF LOWER INTESTINAL TRACT, ENDO (04/19/16) ABX Reporting Has patient been on IV antibiotics over the past 48 hours?: No Current Medications - Current Medications Current Medications: Active Medications Acetaminophen (Acetaminophen 325 Mg Tablet) 650 mg PO Q4HR PRN PRN Reason: Pain 1 to 4 Budesonide (Budesonide 0.5 Mg/2 Ml Neb) 0.5 mg INH RTBID [facility] Last Admin: 10/16/20 07:30 Dose: 0.5 mg Documented by: Diltiazem HCl (Diltiazem Cd 120 Mg Capsule) 120 mg PO DAILY [facility] Last Admin: 10/16/20 08:19 Dose: 120 mg Documented by: Enoxaparin Sodium (Enoxaparin 40 Mg/0.4 Ml Syringe) 40 mg SUBQ DAILY [facility] Last Admin: 10/16/20 08:19 Dose: 40 mg Documented by: Hydralazine HCl (Hydralazine Inj 20 Mg/Ml Vial) 10 mg IVP Q4H PRN PRN Reason: Hypertensive Emergency Last Admin: 10/15/20 14:48 Dose: 10 mg Documented by: Sodium Chloride (Normal Saline 0.9%) 1,000 mls @ 100 mls/hr IV .Q10H [facility] Stop: 10/17/20 04:59 Last Infusion: 10/16/20 12:03 Dose: 100 mls/hr Documented by: Insulin Aspart (Insulin Aspart 300 Unit/3 Ml Pen) 2 - 10 unit SUBQ 0800,1200,1700,2100 [facility]; Protocol Last Admin: 10/16/20 12:08 Dose: 4 unit Documented by: Ipratropium [place] (Ipratropium 0.2 Mg/Ml Neb) 0.5 mg INH RTQ4H [facility] Last Admin: 10/16/20 15:08 Dose: 0.5 mg Documented by: Levalbuterol HCl (Levalbuterol 1.25 Mg/3 Ml Neb) 1.25 mg INH Q4H PRN PRN Reason: Shortness of Air/Wheezing Last Admin: 10/16/20 11:34 Dose: 1.25 mg Documented by: Losartan Potassium (Losartan 50 Mg Tablet) 100 mg PO DAILY [facility] Last Admin: 10/16/20 08:18 Dose: 100 mg Documented by: Magnesium Oxide (Magnesium Oxide 400 Mg Tablet) 400 mg PO DAILYWM [facility] Last Admin: 10/16/20 08:18 Dose: 400 mg Documented by: Methylprednisolone (Methylprednisolone Succinate 40 Mg/Ml Vial) 40 mg IVP TID [facility] Last Admin: 10/16/20 14:03 Dose: 40 mg Documented by: Morphine Sulfate (Morphine 2 Mg/Ml Carpuject) 2 mg IVP Q2HR PRN PRN Reason: PAIN Last Admin: 10/16/20 07:39 Dose: 2 mg Documented by: Nicotine (Nicotine 14 Mg Patch) 1 patch TOP DAILY [facility] Last Admin: 10/16/20 08:19 Dose: 1 patch Documented by: Ondansetron HCl (Ondansetron Odt 4 Mg Tablet) 4 mg TL Q6HR PRN PRN Reason: Nausea / Vomiting Ondansetron HCl (Ondansetron 4 Mg/2 Ml Vial) 4 mg IVP Q6HR PRN PRN Reason: Nausea / Vomiting Oxycodone HCl (Oxycodone 5 Mg Tablet) 5 mg PO Q4HR PRN PRN Reason: PAIN Last Admin: 10/16/20 11:26 Dose: 5 mg Documented by: Sodium Chloride (Sodium Chloride Flush 0.9% 10 Ml Syringe) 10 ml IVP PRN PRN PRN Reason: NEEDED PER PROVIDER ORDERS Last Admin: 10/15/20 22:03 Dose: 10 ml Documented by: Sodium Chloride (Sodium Chloride Flush 0.9% 10 Ml Syringe) 10 ml IVP 01 00,0900,1700 ALLISON Last Admin: 10/16/20 10:48 Dose: 10 ml Documented by: Albuterol Sulfate [Albuterol Sulfate Hfa] 1 puffs IH Q4HR PRN 08/01/20 Losartan Potassium [Cozaar] 100 mg PO DAILY 09/13/20 Fluticasone 110 Mcg [Flovent] 1 puffs INH .QAM AND QPM 10/15/20 Ipratropium/Albuterol [Combivent Respimat] 1 puffs INH Q4H 10/15/20 dilTIAZem HCL [Diltiazem 24Hr ER (Xr)] 120 mg PO DAILY 10/15/20
[2020-10-17] MEDS: SODIUM CHLORIDE FLUSH 0.9% 10 ML SYRINGE IVP SCH ×3 (00:52→16:39)
[2020-10-17 05:23] LABS: BASOPHILS % (AUTO) 0.2 %; HGB - HEMOGLOBIN 10.8 g/dL (12.0-16.0); LYMPHOCYTES # (AUTO) 0.5 10^3/uL (1.5-3.5); LYMPHOCYTES % (AUTO) 2.9 %; MEAN CORPUSCULAR HEMOGLOBIN 33.6 pg (27.0-31.0); MEAN CORPUSCULAR HGB CONC 32.1 g/dL (32.0-36.0); MEAN CORPUSCULAR VOLUME 104.7 fL (81.0-99.0); MONOCYTES # (AUTO) 0.4 10^3/uL (0.0-1.0); MONOCYTES % (AUTO) 2.5 %; NEUTROPHILS # (AUTO) 16.5 10^3/uL (1.5-6.6); NEUTROPHILS % (AUTO) 92.7 %; PLT - PLATELET COUNT 189 10^3/uL (130-450); RED BLOOD COUNT 3.21 10^6/uL (4.20-5.40); RED CELL DISTRIBUTION WIDTH 12.9 % (12.0-15.0); WHITE BLOOD COUNT 17.8 x10^3/uL (4.8-10.8)
[2020-10-17] MEDS: methylPREDNISolone SUCCINATE 40 MG/ML VIAL IVP SCH ×3 (05:37→21:06)
[2020-10-17 05:41] LABS: CALCIUM 7.7 mg/dL (8.5-10.3); CREATININE 0.8 mg/dL (0.4-1.0); MAGNESIUM 2.2 mg/dL (1.7-2.8)
[2020-10-17] MEDS: oxyCODONE 5 MG TABLET PO PRN ×4 (05:43→20:20)
[2020-10-17] MEDS: BUDESONIDE 0.5 MG/2 ML NEB INH SCH ×2 (06:01→19:20)
[2020-10-17] MEDS: LEVALBUTEROL 1.25 MG/3 ML NEB INH PRN (06:01)
[2020-10-17] MEDS: IPRATROPIUM 0.2 MG/ML NEB INH SCH (06:01)
[2020-10-17] MEDS: INSULIN ASPART 300 UNIT/3 ML PEN SUBQ SCH ×4 (07:22→20:17)
[2020-10-17] MEDS: MAGNESIUM OXIDE 400 MG TABLET PO SCH (07:24)
[2020-10-17] MEDS: ENOXAPARIN 40 MG/0.4 ML SYRINGE SUBQ SCH (07:24)
[2020-10-17] MEDS: diltiaZEM CD 120 MG CAPSULE PO SCH (07:24)
[2020-10-17] MEDS: LOSARTAN 50 MG TABLET PO SCH (07:24)
[2020-10-17] MEDS: NICOTINE 14 MG PATCH TOP SCH (07:25)
[2020-10-17] MEDS: IPRATROPIUM/ALBUTEROL 3 ML NEB INH PRN ×2 (10:56→16:13)
--- NOTE | 2020-10-17 14:40 | PROVIDER PROGRESS NOTE ---
Assessment/Plan - Problem List (1) Acute respiratory failure with hypoxia Assessment/Plan: The patient still feels dyspneic, when walking especially. We tried putting her on room air and saturation dropped to 87% with audible wheezing. Will admit patient to inpatient status. Continue with treatment for COPD exacerbation, continue supplemental oxygen (2) COPD exacerbation Assessment/Plan: An echo was done yesterday (to evaluate LV and RV function because of V. tach). This showed mild primary hypertension with PA pressure 43 mmHg. Normal RV function. Continue with nebs, steroids, empiric antibiotics. Smoking cessation would help, this was discussed (3) Anemia Assessment/Plan: Admission hemoglobin was 13, dropped to 11 yesterday and is 10 today. She is 2+ liters positive in fluid status, her IV fluids have now been stopped. Follow CBC daily. We will check B12, folate levels and iron stores and replace if low. (4) Non-sustained ventricular tachycardia Assessment/Plan: Patient has one episode of non-sustained V-T with 8 beats 2 nights ago, non further, troponin was negative for acute MO, electrolytes in the normal arrange. Echo revealed normal LV contractility, normal RV size and contractility and there is elevated RVSP of 43 mmHG, mild pulm HTN. 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 (5) Current smoker Assessment/Plan: Patient stated she will quit cigarette smoking, she asked for nicotine patch (6) HTN (hypertension) Assessment/Plan: Patient present slightly elevated blood pressure. We resumed her Cardizem and Losartan, will use Hydralazine intravenous as needed - Current Meds Current Meds: Current Medications Generic Name Dose Route Start Last Admin Trade Name Freq PRN Reason Stop Dose Admin Albuterol/Ipratropium 3 ml 10/17/20 09:14 10/17/20 10:56 Ipratropium/Albuterol 3 Ml Neb INH 3 ml RTQ4H PRN Administration Wheezing Budesonide 0.5 mg 10/15/20 19:00 10/17/20 06:01 Budesonide 0.5 Mg/2 Ml Neb INH 0.5 mg RTBID ALLISON Administration Diltiazem HCl 120 mg 10/15/20 14:45 10/17/20 07:24 Diltiazem Cd 120 Mg Capsule PO 120 mg DAILY ALLISON Administration Enoxaparin Sodium 40 mg 10/15/20 09:00 10/17/20 07:24 Enoxaparin 40 Mg/0.4 Ml Syringe SUBQ 40 mg DAILY ALLISON Administration Hydralazine HCl 10 mg 10/15/20 14:20 10/15/20 14:48 Hydralazine Inj 20 Mg/Ml Vial IVP 10 mg Q4H PRN Administration Hypertensive Emergency Insulin Aspart 2 - 10 unit 10/15/20 21:00 10/17/20 12:03 Insulin Aspart 300 Unit/3 Ml Pen SUBQ 2 unit 0800,1200,1700,2100 ALLISON Administration Protocol Levalbuterol HCl 1.25 mg 10/15/20 14:18 10/17/20 06:01 Levalbuterol 1.25 Mg/3 Ml Neb INH 1.25 mg Q4H PRN Administration Shortness of Air/Wheezing Losartan Potassium 100 mg 10/15/20 14:45 10/17/20 07:24 Losartan 50 Mg Tablet PO 100 mg DAILY ALLISON Administration Magnesium Oxide 400 mg 10/15/20 11:00 10/17/20 07:24 Magnesium Oxide 400 Mg Tablet PO 400 mg DAILYWM ALLISON Administration Methylprednisolone 40 mg 10/16/20 14:00 10/17/20 13:30 Methylprednisolone Succinate 40 Mg/Ml Vial IVP 40 mg TID ALLISON Administration Morphine Sulfate 2 mg 10/15/20 14:17 10/16/20 07:39 Morphine 2 Mg/Ml Carpuject IVP 2 mg Q2HR PRN Administration PAIN Nicotine 1 patch 10/15/20 09:00 10/17/20 07:25 Nicotine 14 Mg Patch TOP 1 patch DAILY ALLISON Administration Oxycodone HCl 5 mg 10/16/20 10:59 10/17/20 11:30 Oxycodone 5 Mg Tablet PO 5 mg Q4HR PRN Administration PAIN Sodium Chloride 10 ml 10/15/20 06:30 10/15/20 22:03 Sodium Chloride Flush 0.9% 10 Ml Syringe IVP 10 ml PRN PRN Administration NEEDED PER PROVIDER ORDERS Sodium Chloride 10 ml 10/15/20 09:00 10/17/20 11:29 Sodium Chloride Flush 0.9% 10 Ml Syringe IVP Not Given 0100,0900,1700 ALLISON - Lab Result Fish Bone Diagrams: 10/17/20 04:26 10/17/20 04:26 - Additional Planning My Orders: My Active Orders 10/17/20 09:14 Nebulizer/MDI Tx. [RC] .qid Resp Teach Nebulizer/MDI [RC] .ONCE Ipratropium/Albuterol [Duoneb] 3 ml INH RTQ4H PRN 10/17/20 10:44 Oxygen Desat. Study w/Exercise [RC] .ONCE Subjective - Subjective Patient Reports: Shortness of Breath, Other (Feels "tight" like she can't expand her lungs.) Objective Vital Signs: Vital Signs - 24 hr 10/16/20 10/16/20 10/16/20 15:10 16:30 19:30 Temperature 36.7 C Heart Rate 100 89 Heart Rate [ 96 Brachial] Respiratory 16 20 18 Rate Blood Pressure 131/92 H [Right Brachial artery] O2 Saturation 93 10/16/20 10/17/20 10/17/20 20:30 00:03 05:32 Temperature 36.7 C 36.3 C L 36.4 C L Heart Rate Heart Rate [ 100 92 95 Brachial] Respiratory 20 18 18 Rate Blood Pressure 144/92 H 148/95 H 150/86 H [Right Brachial artery] O2 Saturation 92 93 92 10/17/20 10/17/20 10/17/20 06:00 07:13 11:00 Temperature 36.4 C L Heart Rate 78 93 Heart Rate [ 88 Brachial] Respiratory 18 18 18 Rate Blood Pressure 144/92 H [Right Brachial artery] O2 Saturation 93 10/17/20 13:00 Temperature 36.7 C Heart Rate Heart Rate [ 95 Brachial] Respiratory 18 Rate Blood Pressure 144/97 H [Right Brachial artery] O2 Saturation 94 Oxygen O2 Source Room air Oxygen Flow Rate 6 I&O (Last 24 Hrs): Intake and Output Totals x24h 10/15/20 10/16/20 10/17/20 23:59 23:59 23:59 Intake Total 2538.333 3570.000 3060 Balance 2538.333 3570.000 3060 General: Alert, Other (Flushed) HEENT: Mucous membr. moist/pink, Other (Face and forehead are very flushed) Neck: Supple, No JVD Neuro: Alert, Non Focal Cardiovascular: Regular rate, No murmurs Respiratory: Other (Very poor air movement, no wheezes or rhonchi) Abdomen: Soft Extremities: No edema, No tenderness/swelling - Results Results: Laboratory Results WBC 17.8 x10^3/uL (4.8-10.8) H 10/17/20 04:26 RBC 3.21 10^6/uL (4.20-5.40) L 10/17/20 04:26 Hgb 10.8 g/dL (12.0-16.0) L 10/17/20 04:26 Hct 33.6 % (37.0-47.0) L 10/17/20 04:26 MCV 104.7 fL (81.0-99.0) H 10/17/20 04:26 MCH 33.6 pg (27.0-31.0) H 10/17/20 04:26 MCHC 32.1 g/dL (32.0-36.0) 10/17/20 04:26 RDW 12.9 % (12.0-15.0) 10/17/20 04:26 Plt Count 189 10^3/uL (130-450) 10/17/20 04:26 MPV 11.0 fL (7.9-10.8) H 10/17/20 04:26 Neut # (Auto) 16.5 10^3/uL (1.5-6.6) H 10/17/20 04:26 Lymph # (Auto) 0.5 10^3/uL (1.5-3.5) L 10/17/20 04:26 [place] # (Auto) 0.4 10^3/uL (0.0-1.0) 10/17/20 04:26 Eos # (Auto) 0.0 10^3/uL (0.0-0.7) 10/17/20 04:26 Baso # (Auto) 0.0 10^3/uL (0.0-0.1) 10/17/20 04:26 Absolute Nucleated RBC 0.00 x10^3/uL 10/17/20 04:26 Nucleated RBC % 0.0 /100WBC 10/17/20 04:26 Sodium 135 mmol/L (135-145) 10/17/20 04:26 Potassium 3.8 mmol/L (3.5-5.0) 10/17/20 04:26 Chloride 104 mmol/L (101-111) 10/17/20 04:26 Carbon Dioxide 21 mmol/L (21-32) 10/17/20 04:26 Anion Gap 10.0 (6-13) 10/17/20 04:26 BUN 26 mg/dL (6-20) H 10/17/20 04:26 Creatinine 0.8 mg/dL (0.4-1.0) 10/17/20 04:26 Estimated GFR (MDRD) 73 (>89) L 10/17/20 04:26 Glucose 166 mg/dL (70-100) H 10/17/20 04:26 Calcium 7.7 mg/dL (8.5-10.3) L 10/17/20 04:26 Phosphorus 2.0 mg/dL (2.5-4.6) L 10/17/20 04:26 Magnesium 2.2 mg/dL (1.7-2.8) 10/17/20 04:26 Total Bilirubin 0.7 mg/dL (0.2-1.0) 10/15/20 05:16 AST 42 IU/L (10-42) 10/15/20 05:16 ALT 31 IU/L (10-60) 10/15/20 05:16 Alkaline Phosphatase 67 IU/L (42-121) 10/15/20 05:16 Troponin I High Sens 13.2 ng/L (2.3-14.8) 10/16/20 04:20 B-Natriuretic Peptide 25 pg/mL (5-100) 10/15/20 05:16 Total Protein 7.2 g/dL (6.7-8.2) 10/15/20 05:16 Albumin 4.5 g/dL (3.2-5.5) 10/15/20 05:16 Globulin 2.7 g/dL (2.1-4.2) 10/15/20 05:16 Albumin/Globulin Ratio 1.7 (1.0-2.2) 10/15/20 05:16 Lipase 24 U/L (22-51) 10/15/20 05:16 Nasal Adenovirus (PCR) NOT DETECTED 10/15/20 05:17 Nasal B. parapertussis DNA (PCR) NOT DETECTED 10/15/20 05:17 Nasal Coronavir 229E PCR NOT DETECTED 10/15/20 05:17 Nasal Coronavir HKU1 PCR NOT DETECTED 10/15/20 05:17 Nasal Coronavir NL63 PCR NOT DETECTED 10/15/20 05:17 Nasal Coronavir OC43 PCR NOT DETECTED 10/15/20 05:17 Nasal Enterovir/Rhinovir PCR NOT DETECTED 10/15/20 05:17 Nasal Influenza B PCR NOT DETECTED 10/15/20 05:17 Nasal Influenza A PCR NOT DETECTED 10/15/20 05:17 Nasal Parainfluen 1 PCR NOT DETECTED 10/15/20 05:17 Nasal Parainfluen 2 PCR NOT DETECTED 10/15/20 05:17 Nasal Parainfluen 3 PCR NOT DETECTED 10/15/20 05:17 Nasal Parainfluen 4 PCR NOT DETECTED 10/15/20 05:17 Nasal RSV (PCR) NOT DETECTED 10/15/20 05:17 Nasal B.pertussis DNA PCR NOT DETECTED 10/15/20 05:17 Nasal C.pneumoniae (PCR) NOT DETECTED 10/15/20 05:17 [place] Human Metapneumo PCR NOT DETECTED 10/15/20 05:17 Nasal M.pneumoniae (PCR) NOT DETECTED 10/15/20 05:17 Nasal SARS-CoV-2 (PCR) NOT DETECTED 10/15/20 05:17 - Procedures Procedures: Procedures INSPECTION OF LOWER INTESTINAL TRACT, ENDO (04/19/16)
[2020-10-17] MEDS: IPRATROPIUM/ALBUTEROL 3 ML NEB INH SCH (19:20)
[2020-10-18] MEDS: oxyCODONE 5 MG TABLET PO PRN ×6 (00:29→20:55)
[2020-10-18] MEDS: SODIUM CHLORIDE FLUSH 0.9% 10 ML SYRINGE IVP SCH ×3 (00:30→16:51)
[2020-10-18 05:07] LABS: BASOPHILS % (AUTO) 0.4 %; LYMPHOCYTES % (AUTO) 3.8 %; MEAN CORPUSCULAR HEMOGLOBIN 33.5 pg (27.0-31.0); MEAN CORPUSCULAR HGB CONC 32.6 g/dL (32.0-36.0); MEAN CORPUSCULAR VOLUME 102.7 fL (81.0-99.0); MEAN PLATELET VOLUME 10.9 fL (7.9-10.8); MONOCYTES % (AUTO) 4.1 %; NEUTROPHILS % (AUTO) 86.8 %; PLT - PLATELET COUNT 195 10^3/uL (130-450); RED BLOOD COUNT 3.28 10^6/uL (4.20-5.40); RED CELL DISTRIBUTION WIDTH 12.7 % (12.0-15.0); WHITE BLOOD COUNT 16.1 x10^3/uL (4.8-10.8)
[2020-10-18 05:21] LABS: CALCIUM 7.9 mg/dL (8.5-10.3); CREATININE 0.9 mg/dL (0.4-1.0); PHOSPHORUS 2.4 mg/dL (2.5-4.6)
[2020-10-18 05:27] LABS: ABNORMAL LYMPHS % (MANUAL) 0 %; BAND NEUTROPHILS % (MANUAL) 0 %
[2020-10-18 05:50] LABS: LYMPHOCYTES # (MANUAL) 0.8 10^3/uL (1.5-3.5); LYMPHOCYTES % (MANUAL) 5 %; MONOCYTES # (MANUAL) 0.8 10^3/uL (0.0-1.0)
[2020-10-18 05:51] LABS: DIFFERENTIAL COMMENT MANUAL DIFFERENTIAL; PLATELET ESTIMATE, MANUAL NORMAL (130-450,000) (NORMAL); PLATELET MORPHOLOGY NORMAL APPEARANCE (NORMAL); RBC MORPHOLOGY (MULTIPLE) NORMAL APPEARANCE (NORMAL)
[2020-10-18] MEDS: methylPREDNISolone SUCCINATE 40 MG/ML VIAL IVP SCH ×3 (06:14→20:56)
[2020-10-18] MEDS: SODIUM CHLORIDE FLUSH 0.9% 10 ML SYRINGE IVP PRN ×2 (06:14→20:57)
[2020-10-18] MEDS: BUDESONIDE 0.5 MG/2 ML NEB INH SCH ×2 (07:29→19:40)
[2020-10-18] MEDS: IPRATROPIUM/ALBUTEROL 3 ML NEB INH SCH ×4 (07:29→19:40)
[2020-10-18] MEDS: INSULIN ASPART 300 UNIT/3 ML PEN SUBQ SCH ×4 (08:00→20:55)
[2020-10-18] MEDS: MAGNESIUM OXIDE 400 MG TABLET PO SCH (08:02)
[2020-10-18] MEDS: diltiaZEM CD 120 MG CAPSULE PO SCH (08:02)
[2020-10-18] MEDS: LOSARTAN 50 MG TABLET PO SCH (08:02)
[2020-10-18] MEDS: NICOTINE 14 MG PATCH TOP SCH (08:03)
[2020-10-18] MEDS: ENOXAPARIN 40 MG/0.4 ML SYRINGE SUBQ SCH (08:06)
--- NOTE | 2020-10-18 12:56 | PROVIDER PROGRESS NOTE ---
Assessment/Plan - Problem List (1) Acute respiratory failure with hypoxia Assessment/Plan: Oxygen need is being weaned down. After walking she still desaturates to below 88% on room air. (2) COPD exacerbation Assessment/Plan: Is slightly better air movement that yesterday but still has scattered wheezes and still gets short of breath very easily with activity Continue with nebs, IV steroids, Supplemental oxygen (3) Headache Assessment/Plan: She gets a headache after her beta agonist treatment. Perhaps she is getting va soactive headaches therefore. Continue with symptomatic treatment with pain meds (4) Anemia Assessment/Plan: This is low for a person that should have high hemoglobin related to hypoxic stimulation of the bone marrow. We will check B12, folate levels and iron stores and replace if low (5) Current smoker Assessment/Plan: Teen patches on. Smoking cessation would be very important for her (6) HTN (hypertension) Assessment/Plan: Resuming her home blood pressure meds (7) Non-sustained ventricular tachycardia Assessment/Plan: None further has been seen. Troponins were normal, possibly due to hypoxia - Current Meds Current Meds: Current Medications Generic Name Dose Route Start Last Admin Trade Name Freq PRN Reason Stop Dose Admin Albuterol/Ipratropium 3 ml 10/17/20 09:14 10/17/20 16:13 Ipratropium/Albuterol 3 Ml Neb INH 3 ml RTQ4H PRN Administration Wheezing Albuterol/Ipratropium 3 ml 10/17/20 19:00 10/18/20 11:48 Ipratropium/Albuterol 3 Ml Neb INH 3 ml RTQID ALLISON Administration Budesonide 0.5 mg 10/15/20 19:00 10/18/20 07:29 Budesonide 0.5 Mg/2 Ml Neb INH 0.5 mg RTBID ALLISON Administration Diltiazem HCl 120 mg 10/15/20 14:45 10/18/20 08:02 Diltiazem Cd 120 Mg Capsule PO 120 mg DAILY ALLISON Administration Enoxaparin Sodium 40 mg 10/15/20 09:00 10/18/20 08:06 Enoxaparin 40 Mg/0.4 Ml Syringe SUBQ Not Given DAILY ALLISON Hydralazine HCl 10 mg 10/15/20 14:20 10/15/20 14:48 Hydralazine Inj 20 Mg/Ml Vial IVP 10 mg Q4H PRN Administration Hypertensive Emergency Insulin Aspart 2 - 10 unit 10/15/20 21:00 10/18/20 12:02 Insulin Aspart 300 Unit/3 Ml Pen SUBQ 4 unit 0800,1200,1700,2100 ALLISON Administration Protocol Levalbuterol HCl 1.25 mg 10/15/20 14:18 10/17/20 06:01 Levalbuterol 1.25 Mg/3 Ml Neb INH 1.25 mg Q4H PRN Administration Shortness of Air/Wheezing Losartan Potassium 100 mg 10/15/20 14:45 10/18/20 08:02 Losartan 50 Mg Tablet PO 100 mg DAILY ALLISON Administration Magnesium Oxide 400 mg 10/15/20 11:00 10/18/20 08:02 Magnesium Oxide 400 Mg Tablet PO 400 mg DAILYWM ALLISON Administration Methylprednisolone 40 mg 10/16/20 14:00 10/18/20 06:14 Methylprednisolone Succinate 40 Mg/Ml Vial IVP 40 mg TID ALLISON Administration Morphine Sulfate 2 mg 10/15/20 14:17 10/16/20 07:39 Morphine 2 Mg/Ml Carpuject IVP 2 mg Q2HR PRN Administration PAIN Nicotine 1 patch 10/15/20 09:00 10/18/20 08:03 Nicotine 14 Mg Patch TOP 1 patch DAILY ALLISON Administration Oxycodone HCl 5 mg 10/16/20 10:59 10/18/20 12:01 Oxycodone 5 Mg Tablet PO 5 mg Q4HR PRN Administration PAIN Sodium Chloride 10 ml 10/15/20 06:30 10/18/20 06:14 Sodium Chloride Flush 0.9% 10 Ml Syringe IVP 10 ml PRN PRN Administration NEEDED PER PROVIDER ORDERS Sodium Chloride 10 ml 10/15/20 09:00 10/18/20 08:07 Sodium Chloride Flush 0.9% 10 Ml Syringe IVP Not Given 0100,0900,1700 ALLISON - Lab Result Fish Bone Diagrams: 10/18/20 04:27 10/18/20 04:27 - Additional Planning My Orders: My Active Orders 10/17/20 19:00 Ipratropium/Albuterol [Duoneb] 3 ml INH RTQID Subjective - Subjective Patient Reports: Headache (She gets a headache after every nebulizer treatment (this has happened during all her other admissions as well). She is asking for hydrocodone for this), Shortness of Breath (She is still extremely short of breath just walking in her room) Objective Vital Signs: Vital Signs - 24 hr 10/17/20 10/17/20 10/17/20 13:00 16:31 19:20 Temperature 36.7 C 36.6 C Heart Rate 93 90 Heart Rate [ 95 93 Brachial] Respiratory 18 18 18 Rate Blood Pressure 144/97 H 150/94 H [Right Brachial artery] O2 Saturation 94 95 10/17/20 10/18/20 10/18/20 19:43 00:05 04:30 Temperature 36.8 C 36.4 C L 36.4 C L Heart Rate Heart Rate [ 93 102 H 102 H Brachial] Respiratory 20 20 17 Rate Blood Pressure 151/93 H 153/99 H [Right Brachial artery] O2 Saturation 93 91 L 93 10/18/20 10/18/20 10/18/20 07:33 08:10 11:48 Temperature 36.3 C L Heart Rate 88 99 Heart Rate [ 87 Brachial] Respiratory 16 16 16 Rate Blood Pressure 163/102 H [Right Brachial artery] O2 Saturation 94 Oxygen O2 Source Room air Oxygen Flow Rate 6 I&O (Last 24 Hrs): Intake and Output Totals x24h 10/16/20 10/17/20 10/18/20 23:59 23:59 23:59 Intake Total 3570.000 3300 760 Balance 3570.000 3300 760 General: Alert HEENT: Mucous membr. moist/pink, Other (Face is very flushed.) Neck: Supple, No JVD Cardiovascular: Regular rate, No murmurs Respiratory: Other - Results Results: Laboratory Results WBC 16.1 x10^3/uL (4.8-10.8) H 10/18/20 04:27 RBC 3.28 10^6/uL (4.20-5.40) L 10/18/20 04:27 Hgb 11.0 g/dL (12.0-16.0) L 10/18/20 04:27 Hct 33.7 % (37.0-47.0) L 10/18/20 04:27 MCV 102.7 fL (81.0-99.0) H 10/18/20 04:27 MCH 33.5 pg (27.0-31.0) H 10/18/20 04:27 MCHC 32.6 g/dL (32.0-36.0) 10/18/20 04:27 RDW 12.7 % (12.0-15.0) 10/18/20 04:27 Plt Count 195 10^3/uL (130-450) 10/18/20 04:27 MPV 10.9 fL (7.9-10.8) H 10/18/20 04:27 Neut # (Auto) Not Reportable 10/18/20 04:27 Lymph # (Auto) Not Reportable 10/18/20 04:27 [place] # (Auto) Not Reportable 10/18/20 04:27 Eos # (Auto) Not Reportable 10/18/20 04:27 Baso # (Auto) Not Reportable 10/18/20 04:27 Absolute Nucleated RBC Not Reportable 10/18/20 04:27 Total Counted 100 10/18/20 04:27 Band Neuts % (Manual) 0 % (0-10) 10/18/20 04:27 Abnorm Lymph % (Manual) 0 % 10/18/20 04:27 Nucleated RBC % Not Reportable 10/18/20 04:27 Neutrophils # (Manual) 14.5 10^3/uL (1.5-6.6) H 10/18/20 04:27 Lymphocytes # (Manual) 0.8 10^3/uL (1.5-3.5) L 10/18/20 04:27 Monocytes # (Manual) 0.8 10^3/uL (0.0-1.0) 10/18/20 04:27 Eosinophils # (Manual) 0.0 10^3/uL (0-0.7) 10/18/20 04:27 Basophils # (Manual) 0.0 10^3/uL (0-0.1) 10/18/20 04:27 Differential Comment MANUAL DIFFERENTIAL 10/18/20 04:27 WBC Morphology NORMAL APPEARANCE (NORMAL) 10/18/20 04:27 Platelet Estimate NORMAL (130-450,000) (NORMAL) 10/18/20 04:27 Platelet Morphology NORMAL APPEARANCE (NORMAL) 10/18/20 04:27 RBC Morph Micro Appear NORMAL APPEARANCE (NORMAL) 10/18/20 04:27 Sodium 135 mmol/L (135-145) 10/18/20 04:27 Potassium 3.7 mmol/L (3.5-5.0) 10/18/20 04:27 Chloride 103 mmol/L (101-111) 10/18/20 04:27 Carbon Dioxide 22 mmol/L (21-32) 10/18/20 04:27 Anion Gap 10.0 (6-13) 10/18/20 04:27 BUN 25 mg/dL (6-20) H 10/18/20 04:27 Creatinine 0.9 mg/dL (0.4-1.0) 10/18/20 04:27 Estimated GFR (MDRD) 64 (>89) L 10/18/20 04:27 Glucose 167 mg/dL (70-100) H 10/18/20 04:27 Calcium 7.9 mg/dL (8.5-10.3) L 10/18/20 04:27 Phosphorus 2.4 mg/dL (2.5-4.6) L 10/18/20 04:27 Magnesium 2.0 mg/dL (1.7-2.8) 10/18/20 04:27 Total Bilirubin 0.7 mg/dL (0.2-1.0) 10/15/20 05:16 AST 42 IU/L (10-42) 10/15/20 05:16 ALT 31 IU/L (10-60) 10/15/20 05:16 Alkaline Phosphatase 67 IU/L (42-121) 10/15/20 05:16 Troponin I High Sens 13.2 ng/L (2.3-14.8) 10/16/20 04:20 B-Natriuretic Peptide 25 pg/mL (5-100) 10/15/20 05:16 Total Protein 7.2 g/dL (6.7-8.2) 10/15/20 05:16 Albumin 4.5 g/dL (3.2-5.5) 10/15/20 05:16 Globulin 2.7 g/dL (2.1-4.2) 10/15/20 05:16 Albumin/Globulin Ratio 1.7 (1.0-2.2) 10/15/20 05:16 Lipase 24 U/L (22-51) 10/15/20 05:16 Vitamin B12 258 pg/mL (180-914) 10/18/20 04:27 Nasal Adenovirus (PCR) NOT DETECTED 10/15/20 05:17 Nasal B. parapertussis DNA (PCR) NOT DETECTED 10/15/20 05:17 Nasal Coronavir 229E PCR NOT DETECTED 10/15/20 05:17 Nasal Coronavir HKU1 PCR NOT DETECTED 10/15/20 05:17 Nasal Coronavir NL63 PCR NOT DETECTED 10/15/20 05:17 Nasal Coronavir OC43 PCR NOT DETECTED 10/15/20 05:17 Nasal Enterovir/Rhinovir PCR NOT DETECTED 10/15/20 05:17 Nasal Influenza B PCR NOT DETECTED 10/15/20 05:17 Nasal Influenza A PCR NOT DETECTED 10/15/20 05:17 Nasal Parainfluen 1 PCR NOT DETECTED 10/15/20 05:17 Nasal Parainfluen 2 PCR NOT DETECTED 10/15/20 05:17 Nasal Parainfluen 3 PCR NOT DETECTED 10/15/20 05:17 Nasal Parainfluen 4 PCR NOT DETECTED 10/15/20 05:17 Nasal RSV (PCR) NOT DETECTED 10/15/20 05:17 Nasal B.pertussis DNA PCR NOT DETECTED 10/15/20 05:17 Nasal C.pneumoniae (PCR) NOT DETECTED 10/15/20 05:17 [place] Human Metapneumo PCR NOT DETECTED 10/15/20 05:17 Nasal M.pneumoniae (PCR) NOT DETECTED 10/15/20 05:17 Nasal SARS-CoV-2 (PCR) NOT DETECTED 10/15/20 05:17 - Procedures Procedures: Procedures INSPECTION OF LOWER INTESTINAL TRACT, ENDO (04/19/16)
[2020-10-19] MEDS: SODIUM CHLORIDE FLUSH 0.9% 10 ML SYRINGE IVP SCH ×3 (00:38→16:47)
[2020-10-19] MEDS: oxyCODONE 5 MG TABLET PO PRN ×5 (01:06→20:16)
[2020-10-19 04:58] LABS: BASOPHILS # (AUTO) 0.1 10^3/uL (0.0-0.1); BASOPHILS % (AUTO) 0.6 %; HGB - HEMOGLOBIN 11.5 g/dL (12.0-16.0); LYMPHOCYTES # (AUTO) 0.7 10^3/uL (1.5-3.5); LYMPHOCYTES % (AUTO) 4.3 %; MEAN CORPUSCULAR HEMOGLOBIN 34.7 pg (27.0-31.0); MEAN CORPUSCULAR HGB CONC 33.8 g/dL (32.0-36.0); MEAN CORPUSCULAR VOLUME 102.7 fL (81.0-99.0); MEAN PLATELET VOLUME 10.6 fL (7.9-10.8); MONOCYTES % (AUTO) 6.1 %; NEUTROPHILS # (AUTO) 12.4 10^3/uL (1.5-6.6); NEUTROPHILS % (AUTO) 79.2 %; PLT - PLATELET COUNT 193 10^3/uL (130-450); RED BLOOD COUNT 3.31 10^6/uL (4.20-5.40); RED CELL DISTRIBUTION WIDTH 12.7 % (12.0-15.0); WHITE BLOOD COUNT 15.6 x10^3/uL (4.8-10.8)
[2020-10-19 05:12] LABS: CALCIUM 7.9 mg/dL (8.5-10.3); CREATININE 1.1 mg/dL (0.4-1.0); PHOSPHORUS 2.5 mg/dL (2.5-4.6)
[2020-10-19 05:16] LABS: PLATELET ESTIMATE, MANUAL NORMAL (130-450,000) (NORMAL); PLATELET MORPHOLOGY NORMAL APPEARANCE (NORMAL); RBC MORPHOLOGY (MULTIPLE) NORMAL APPEARANCE (NORMAL)
[2020-10-19] MEDS: IPRATROPIUM/ALBUTEROL 3 ML NEB INH SCH ×3 (05:48→11:36)
[2020-10-19] MEDS: BUDESONIDE 0.5 MG/2 ML NEB INH SCH ×2 (05:49→18:07)
[2020-10-19] MEDS: SODIUM CHLORIDE FLUSH 0.9% 10 ML SYRINGE IVP PRN ×2 (06:10→21:44)
[2020-10-19] MEDS: methylPREDNISolone SUCCINATE 40 MG/ML VIAL IVP SCH ×3 (06:10→21:44)
[2020-10-19] MEDS: INSULIN ASPART 300 UNIT/3 ML PEN SUBQ SCH ×4 (08:04→20:26)
[2020-10-19] MEDS: MAGNESIUM OXIDE 400 MG TABLET PO SCH (08:05)
[2020-10-19] MEDS: diltiaZEM CD 120 MG CAPSULE PO SCH (09:26)
[2020-10-19] MEDS: LOSARTAN 50 MG TABLET PO SCH (09:26)
[2020-10-19] MEDS: NICOTINE 14 MG PATCH TOP SCH (09:27)
[2020-10-19] MEDS: ENOXAPARIN 40 MG/0.4 ML SYRINGE SUBQ SCH (09:28)
[2020-10-19] MEDS ORDERED: hydrALAZINE 25 MG TABLET PO ONE (10:55)
[2020-10-19] MEDS ORDERED: SODIUM CHLORIDE 0.45% 1,000 ML IV SCH (11:00)
[2020-10-19] MEDS ORDERED: LORazepam 2 MG/ML VIAL IVP ONE (13:16)
--- NOTE | 2020-10-19 13:28 | PROVIDER PROGRESS NOTE ---
Assessment/Plan - Problem List (1) New onset a-fib Assessment/Plan: One hour after getting her neb (beta agonist albuterol), she went into new onset of A. fib with RVR, rate 180. Blood pressure with this was stable. She could only feel the "palpitations" when she focused on her chest. Otherwise did not realize when it started. We will cancel her discharge home today. EKG was done that showed A. fib with new ST-T abnormalities inferolaterally and new early R/S transition consistent with cor pulmonale. Will obtain a stat CTA to rule out pulmonary embolism. Will check troponins. We will check thyroid tests for possible hyperthyroidism. The Echo was already done just 3 days ago when she had the V. tach and it showed normal LV and RV systolic function and mild pulmonary pretension only. (2) Atrial fibrillation with RVR Assessment/Plan: The patient was already getting Diltiazem CD for blood pressure control in a patient who normally runs slightly tachycardic. We will give a dose of IV diltiazem for rate control. We will increase her p.o. dose of diltiazem going forward which will also help hypertension. Will stop the albuterol, only use Xopenex. Her CHADS2 score is 1 (hypertension), therefore 1 aspirin daily will be started as of today. I discussed this plan with her. Discharge for today is canceled. (3) COPD exacerbation Assessment/Plan: Improving slowly daily. She is no longer requiring supplemental oxygen. Because of the tachy-arrhythmia, will stop the beta agonist albuterol and combination nebs. Continue only Xopenex. Continue with IV steroids. At discharge she will need a Medrol Dosepak w/ taper (4) Prerenal azotemia Assessment/Plan: Despite her drinking about 3 L of the water in her pitcher per day, today her labs show higher BUN and higher creatinine. Intravascular volume depletion is probably also adding to her high heart rate. Will give 1 L of 0.45 NS for rehydration. Follow BMP daily (5) HTN (hypertension) Assessment/Plan: P is elevated today, presumably this was from the pain of her headaches. IV hydralazine as needed is ordered. Because of the new A. fib, she will also be getting higher diltiazem which will help the blood pressure. (6) Headache Assessment/Plan: This is happened with each admission when she gets beta agonist. I suspect this is a vasoactive, migraine-like headache. Responds to Tylenol with codeine. (7) Anemia Assessment/Plan: This is low for a person that should have high hemoglobin related to hypoxic stimulation of the bone marrow. We will check B12, folate levels and iron stores and replace if low (8) Current smoker Assessment/Plan: She is on a nicotine patch while here (9) Non-sustained ventricular tachycardia Assessment/Plan: Early in admission she had an 8 beat run of wide-complex tachycardia. Her troponin was normal. An echo has already been done that shows normal LV and RV contractility and mild pulmonary hypertension with PA pressure 43 mmHg. Telemetry continued and there were no further V. tach episodes. Today's new onset of A. fib, suggests she may have had SVT with aberrancy then, and not real VT. (10) Acute respiratory failure with hypoxia Assessment/Plan: Resolved. She was tested on room air with a walking oximetry test in maintain saturations over 94%. - Current Meds Current Meds: Current Medications Generic Name Dose Route Start Last Admin Trade Name Freq PRN Reason Stop Dose Admin Budesonide 0.5 mg 10/15/20 19:00 10/19/20 05:49 Budesonide 0.5 Mg/2 Ml Neb INH 0.5 mg RTBID ALLISON Administration Diltiazem HCl 120 mg 10/15/20 14:45 10/19/20 09:26 Diltiazem Cd 120 Mg Capsule PO 120 mg DAILY ALLISON Administration Enoxaparin Sodium 40 mg 10/15/20 09:00 10/19/20 09:28 Enoxaparin 40 Mg/0.4 Ml Syringe SUBQ Not Given DAILY ALLISON Hydralazine HCl 10 mg 10/15/20 14:20 10/15/20 14:48 Hydralazine Inj 20 Mg/Ml Vial IVP 10 mg Q4H PRN Administration Hypertensive Emergency Sodium Chloride 1,000 mls @ 125 mls/hr 10/19/20 11:00 10/19/20 11:22 Normal Saline 0.45% IV 10/19/20 18:59 125 mls/hr .Q8H ALLISON Administration Insulin Aspart 3 - 11 unit 10/19/20 12:00 10/19/20 11:44 Insulin Aspart 300 Unit/3 Ml Pen SUBQ 5 unit 0800,1200,1700,2100 ALLISON Administration Protocol Levalbuterol HCl 1.25 mg 10/15/20 14:18 10/17/20 06:01 Levalbuterol 1.25 Mg/3 Ml Neb INH 1.25 mg Q4H PRN Administration Shortness of Air/Wheezing Losartan Potassium 100 mg 10/15/20 14:45 10/19/20 09:26 Losartan 50 Mg Tablet PO 100 mg DAILY ALLISON Administration Magnesium Oxide 400 mg 10/15/20 11:00 10/19/20 08:05 Magnesium Oxide 400 Mg Tablet PO 400 mg DAILYWM ALLISON Administration Methylprednisolone 40 mg 10/16/20 14:00 10/19/20 06:10 Methylprednisolone Succinate 40 Mg/Ml Vial IVP 40 mg TID ALLISON Administration Morphine Sulfate 2 mg 10/15/20 14:17 10/16/20 07:39 Morphine 2 Mg/Ml Carpuject IVP 2 mg Q2HR PRN Administration PAIN Nicotine 1 patch 10/15/20 09:00 10/19/20 09:27 Nicotine 14 Mg Patch TOP 1 patch DAILY ALLISON Administration Oxycodone HCl 5 mg 10/16/20 10:59 10/19/20 11:44 Oxycodone 5 Mg Tablet PO 5 mg Q4HR PRN Administration PAIN Sodium Chloride 10 ml 10/15/20 06:30 10/19/20 06:10 Sodium Chloride Flush 0.9% 10 Ml Syringe IVP 10 ml PRN PRN Administration NEEDED PER PROVIDER ORDERS Sodium Chloride 10 ml 10/15/20 09:00 10/19/20 09:26 Sodium Chloride Flush 0.9% 10 Ml Syringe IVP 10 ml 0100,0900,1700 ALLISON Administration - Lab Result Fish Bone Diagrams: 10/19/20 04:35 10/19/20 04:35 - EKG Results EKG Interpreted Independently: Yes EKG Comparison: Changed from prior EKG EKG Findings: Atrial fibrillation with RVR, ventricular rate 141, LVH voltage, diffuse [address] depressions in leads II, III, aVF and V3 through V6, early R/S transition. Since EKG from 10/15/2020, A. fib and early R/S transition are new. - Additional Planning My Orders: My Active Orders 10/19/20 TSH [THYROID STIMULATING HORMONE] [IAI] Urgent 10/19/20 10:53 Oxygen Desat. Study w/Exercise [RC] .ONCE 10/19/20 11:00 Sodium Chloride 0.45% [Normal Saline 0.45%] 1,000 ml IV 125 mls/hr 10/19/20 12:00 Insulin Aspart [NovoLOG] 3 - 11 unit SUBQ 0800,1200,1700,2100 10/19/20 13:14 ANGIO CHEST W/WO [CT] Stat diltiaZEM INJ [Cardizem Inj] 10 mg IVP ONCE ONE 10/19/20 13:18 TROPONIN I HIGH SENSITIVITY [IAI] Stat 10/19/20 16:30 TROPONIN I HIGH SENSITIVITY [IAI] Timed Subjective - Subjective Patient Reports: Feeling Better, Other (Less short of breath with activity, not short of breath at rest, still has hoarseness of her voice but no more cough. She feels nervous and anxious today.) Objective Vital Signs: Vital Signs - 24 hr 10/18/20 10/18/20 10/18/20 15:28 16:13 19:38 Temperature 36.5 C 36.6 C Heart Rate 99 Heart Rate [ 104 H 93 Brachial] Respiratory 18 20 18 Rate Blood Pressure [Left Brachial artery] Blood Pressure 150/95 H 153/100 H [Right Brachial artery] O2 Saturation 93 96 10/18/20 10/18/20 10/19/20 19:40 23:36 05:00 Temperature 36.6 C 36.3 C L Heart Rate 90 Heart Rate [ 95 105 H Brachial] Respiratory 20 20 20 Rate Blood Pressure [Left Brachial artery] Blood Pressure 152/100 H 174/104 H [Right Brachial artery] O2 Saturation 96 92 10/19/20 10/19/20 10/19/20 05:45 09:00 10:31 Temperature 36.4 C L Heart Rate 92 95 Heart Rate [ 92 Brachial] Respiratory 18 20 Rate Blood Pressure [Left Brachial artery] Blood Pressure 163/88 H [Right Brachial artery] O2 Saturation 92 10/19/20 10/19/20 10/19/20 11:37 12:13 12:40 Temperature Heart Rate 90 Heart Rate [ 95 68 Brachial] Respiratory 18 20 Rate Blood Pressure 175/104 H 166/86 H [Left Brachial artery] Blood Pressure [Right Brachial artery] O2 Saturation 95 10/19/20 12:41 Temperature Heart Rate Heart Rate [ Brachial] Respiratory Rate Blood Pressure 165/110 H [Left Brachial artery] Blood Pressure [Right Brachial artery] O2 Saturation Oxygen O2 Source Room air Oxygen Flow Rate 6 I&O (Last 24 Hrs): Intake and Output Totals x24h 10/17/20 10/18/20 10/19/20 23:59 23:59 23:59 Intake Total 3300 1900 880 Balance 3300 1900 880 General: Alert, Oriented x3 HEENT: Mucous membr. moist/pink, Other (Face flushed, skin warm & dry) Neck: Supple, No JVD Neuro: Alert, Non Focal Cardiovascular: Other (Irreg irreg, tachycardic) Respiratory: No respiratory distress, Wheezes (L base only. Better airmovement elsewhere and clear.) Abdomen: Soft Extremities: No edema, No tenderness/swelling - Results Results: Laboratory Results WBC 15.6 x10^3/uL (4.8-10.8) H 10/19/20 04:35 RBC 3.31 10^6/uL (4.20-5.40) L 10/19/20 04:35 Hgb 11.5 g/dL (12.0-16.0) L 10/19/20 04:35 Hct 34.0 % (37.0-47.0) L 10/19/20 04:35 MCV 102.7 fL (81.0-99.0) H 10/19/20 04:35 MCH 34.7 pg (27.0-31.0) H 10/19/20 04:35 MCHC 33.8 g/dL (32.0-36.0) 10/19/20 04:35 RDW 12.7 % (12.0-15.0) 10/19/20 04:35 Plt Count 193 10^3/uL (130-450) 10/19/20 04:35 MPV 10.6 fL (7.9-10.8) 10/19/20 04:35 Neut # (Auto) 12.4 10^3/uL (1.5-6.6) H 10/19/20 04:35 Lymph # (Auto) 0.7 10^3/uL (1.5-3.5) L 10/19/20 04:35 [place] # (Auto) 1.0 10^3/uL (0.0-1.0) 10/19/20 04:35 Eos # (Auto) 0.0 10^3/uL (0.0-0.7) 10/19/20 04:35 Baso # (Auto) 0.1 10^3/uL (0.0-0.1) 10/19/20 04:35 Absolute Nucleated RBC 0.02 x10^3/uL 10/19/20 04:35 Total Counted 100 10/18/20 04:27 Band Neuts % (Manual) 0 % (0-10) 10/18/20 04:27 Abnorm Lymph % (Manual) 0 % 10/18/20 04:27 Nucleated RBC % 0.1 /100WBC 10/19/20 04:35 Neutrophils # (Manual) 14.5 10^3/uL (1.5-6.6) H 10/18/20 04:27 Lymphocytes # (Manual) 0.8 10^3/uL (1.5-3.5) L 10/18/20 04:27 Monocytes # (Manual) 0.8 10^3/uL (0.0-1.0) 10/18/20 04:27 Eosinophils # (Manual) 0.0 10^3/uL (0-0.7) 10/18/20 04:27 Basophils # (Manual) 0.0 10^3/uL (0-0.1) 10/18/20 04:27 Differential Comment MANUAL DIFFERENTIAL 10/18/20 04:27 Manual Slide Review Indicated 10/19/20 04:35 WBC Morphology NORMAL APPEARANCE (NORMAL) 10/19/20 04:35 Platelet Estimate NORMAL (130-450,000) (NORMAL) 10/19/20 04:35 Platelet Morphology NORMAL APPEARANCE (NORMAL) 10/19/20 04:35 RBC Morph Micro Appear NORMAL APPEARANCE (NORMAL) 10/19/20 04:35 Sodium 135 mmol/L (135-145) 10/19/20 04:35 Potassium 3.5 mmol/L (3.5-5.0) 10/19/20 04:35 Chloride 104 mmol/L (101-111) 10/19/20 04:35 Carbon Dioxide 24 mmol/L (21-32) 10/19/20 04:35 Anion Gap 7.0 (6-13) 10/19/20 04:35 BUN 27 mg/dL (6-20) H 10/19/20 04:35 Creatinine 1.1 mg/dL (0.4-1.0) H 10/19/20 04:35 Estimated GFR (MDRD) 50 (>89) L 10/19/20 04:35 Glucose 166 mg/dL (70-100) H 10/19/20 04:35 Calcium 7.9 mg/dL (8.5-10.3) L 10/19/20 04:35 Phosphorus 2.5 mg/dL (2.5-4.6) 10/19/20 04:35 Magnesium 2.0 mg/dL (1.7-2.8) 10/19/20 04:35 Total Bilirubin 0.7 mg/dL (0.2-1.0) 10/15/20 05:16 AST 42 IU/L (10-42) 10/15/20 05:16 ALT 31 IU/L (10-60) 10/15/20 05:16 Alkaline Phosphatase 67 IU/L (42-121) 10/15/20 05:16 Troponin I High Sens 13.2 ng/L (2.3-14.8) 10/16/20 04:20 B-Natriuretic Peptide 25 pg/mL (5-100) 10/15/20 05:16 Total Protein 7.2 g/dL (6.7-8.2) 10/15/20 05:16 Albumin 4.5 g/dL (3.2-5.5) 10/15/20 05:16 Globulin 2.7 g/dL (2.1-4.2) 10/15/20 05:16 Albumin/Globulin Ratio 1.7 (1.0-2.2) 10/15/20 05:16 Lipase 24 U/L (22-51) 10/15/20 05:16 Vitamin B12 258 pg/mL (180-914) 10/18/20 04:27 Nasal Adenovirus (PCR) NOT DETECTED 10/15/20 05:17 Nasal B. parapertussis DNA (PCR) NOT DETECTED 10/15/20 05:17 Nasal Coronavir 229E PCR NOT DETECTED 10/15/20 05:17 Nasal Coronavir HKU1 PCR NOT DETECTED 10/15/20 05:17 Nasal Coronavir NL63 PCR NOT DETECTED 10/15/20 05:17 Nasal Coronavir OC43 PCR NOT DETECTED 10/15/20 05:17 Nasal Enterovir/Rhinovir PCR NOT DETECTED 10/15/20 05:17 Nasal Influenza B PCR NOT DETECTED 10/15/20 05:17 Nasal Influenza A PCR NOT DETECTED 10/15/20 05:17 Nasal Parainfluen 1 PCR NOT DETECTED 10/15/20 05:17 Nasal Parainfluen 2 PCR NOT DETECTED 10/15/20 05:17 Nasal Parainfluen 3 PCR NOT DETECTED 10/15/20 05:17 Nasal Parainfluen 4 PCR NOT DETECTED 10/15/20 05:17 Nasal RSV (PCR) NOT DETECTED 10/15/20 05:17 Nasal B.pertussis DNA PCR NOT DETECTED 10/15/20 05:17 Nasal C.pneumoniae (PCR) NOT DETECTED 10/15/20 05:17 [place] Human Metapneumo PCR NOT DETECTED 10/15/20 05:17 Nasal M.pneumoniae (PCR) NOT DETECTED 10/15/20 05:17 Nasal SARS-CoV-2 (PCR) NOT DETECTED 10/15/20 05:17 - Procedures Procedures: Procedures INSPECTION OF LOWER INTESTINAL TRACT, ENDO (04/19/16)
[2020-10-19] MEDS ORDERED: diltiaZEM INJ 5 MG/ML VIAL IVP ONE (13:30)
[2020-10-19] MEDS ORDERED: IOVERSOL 320 100 ML VIAL IVP ONE ×2 (13:32→14:43)
--- NOTE | 2020-10-19 14:47 | CT Report ---
PROCEDURE: ANGIO CHEST W INDICATIONS: New Afib CONTRAST: IV CONTRAST: Optiray 320 ml: 100 PO CONTRAST: *NO PO CONTRAST TECHNIQUE: After the administration of intravenous contrast, 2 mm thick sections acquired from the pulmonary api elian to the posterior costophrenic angles. 3-dimensional maximum intensity projection (MIP) coronal a nd sagittal reformats were then acquired through the thorax. For radiation dose reduction, the follow ing was used: automated exposure control, adjustment of mA and/or kV according to patient size. COMPARISON: CT chest angiogram 09/12/20, 07/10/2020 FINDINGS: Image quality: There is streak artifact from patient's injected contrast limiting evaluation. Pulmonary arteries: Pulmonary arteries are normal in size, and demonstrate no definite intraluminal filling defects to suggest central pulmonary embolism. There is streak artifact within the medial rig ht upper lobe pulmonary arteries likely secondary to contrast within the superior vena cava. Lungs and pleura: There is scarring in the lung apices. Mild dependent atelectasis is demonstrated b ilaterally. Within the right lower lobe, there is a small subpleural nodule measuring approximately 4 mm on series 6 image 223 which is new compared to the prior studies and may represent a focus of ate lectasis. Probable mild focal atelectasis is also demonstrated in the left lower lobe on image 264. N o pleural effusions or pneumothorax. The trachea and central airways appear patent. Mediastinum: Heart size is normal, without pericardial effusion. There is mild coronary arterial vas cular calcification. No mediastinal or hilar adenopathy by size criteria. Thoracic aorta is normal i n caliber. Esophagus is normal in caliber, without hiatal hernia. Bones and chest wall: No suspicious bony lesions. Ribs and thoracic spine appear intact throughout. No axillary or supraclavicular adenopathy. Abdomen: Visualized upper abdominal solid organs appear normal in the early arterial phase of enhanc ement. IMPRESSION: 1. No definite evidence of central pulmonary embolism. 2. No acute consolidation the lungs. Small subpleural nodular opacities in the lung bases are new com pared to the prior studies but are suggestive of focal atelectasis. Reviewed by: Adriel Little MD on 10/19/2020 2:45 PM PST Approved by: Adriel Little MD on 10/19/2020 2:45 PM PST Station ID: [id number]
[2020-10-19] MEDS: LEVALBUTEROL 1.25 MG/3 ML NEB INH PRN ×2 (14:57→18:07)
[2020-10-19 17:12] LABS: FREE T3 2.35 pg/mL (2.5-3.9)
[2020-10-19 17:14] LABS: FREE T4 (FREE THYROXINE) 0.77 ng/dL (0.58-1.64)
[2020-10-19] MEDS: ASPIRIN EC 81 MG TABLET PO SCH (18:36)
[2020-10-19] MEDS: CALCIUM CARBONATE CHEW 500 MG TABLET PO SCH (20:12)
[2020-10-20] MEDS: SODIUM CHLORIDE FLUSH 0.9% 10 ML SYRINGE IVP SCH ×2 (00:32→08:27)
[2020-10-20] MEDS: oxyCODONE 5 MG TABLET PO PRN ×3 (00:35→11:38)
[2020-10-20] MEDS: LEVALBUTEROL 1.25 MG/3 ML NEB INH PRN ×3 (03:15→11:40)
[2020-10-20] MEDS: methylPREDNISolone SUCCINATE 40 MG/ML VIAL IVP SCH (05:33)
[2020-10-20] MEDS: SODIUM CHLORIDE FLUSH 0.9% 10 ML SYRINGE IVP PRN (05:34)
[2020-10-20 05:39] LABS: BASOPHILS % (AUTO) 0.2 %; EOSINOPHILS % (AUTO) 0.1 %; HGB - HEMOGLOBIN 11.8 g/dL (12.0-16.0); LYMPHOCYTES % (AUTO) 3.9 %; MEAN CORPUSCULAR HEMOGLOBIN 34.1 pg (27.0-31.0); MEAN CORPUSCULAR HGB CONC 33.7 g/dL (32.0-36.0); MEAN CORPUSCULAR VOLUME 101.2 fL (81.0-99.0); MEAN PLATELET VOLUME 10.7 fL (7.9-10.8); MONOCYTES % (AUTO) 6.4 %; NEUTROPHILS % (AUTO) 78.9 %; PLT - PLATELET COUNT 194 10^3/uL (130-450); RED BLOOD COUNT 3.46 10^6/uL (4.20-5.40); RED CELL DISTRIBUTION WIDTH 12.7 % (12.0-15.0); WHITE BLOOD COUNT 16.7 x10^3/uL (4.8-10.8)
[2020-10-20 05:49] LABS: ABNORMAL LYMPHS % (MANUAL) 0 %; BAND NEUTROPHILS % (MANUAL) 0 %
[2020-10-20 06:03] LABS: CREATININE 0.9 mg/dL (0.4-1.0); LYMPHOCYTES # (MANUAL) 0.7 10^3/uL (1.5-3.5); LYMPHOCYTES % (MANUAL) 4 %; MAGNESIUM 1.7 mg/dL (1.7-2.8); MONOCYTES # (MANUAL) 1.2 10^3/uL (0.0-1.0); MYELOCYTES % (MANUAL) 5 %; PLATELET ESTIMATE, MANUAL NORMAL (130-450,000) (NORMAL); PLATELET MORPHOLOGY NORMAL APPEARANCE (NORMAL); RBC MORPHOLOGY (MULTIPLE) NORMAL APPEARANCE (NORMAL)
[2020-10-20 06:04] LABS: DIFFERENTIAL COMMENT MANUAL DIFFERENTIAL
[2020-10-20] MEDS: BUDESONIDE 0.5 MG/2 ML NEB INH SCH (07:40)
[2020-10-20] MEDS ORDERED: POTASSIUM CHLORIDE 20 MEQ TABLET PO ONE (07:49)
[2020-10-20] MEDS: LOSARTAN 50 MG TABLET PO SCH (08:26)
[2020-10-20] MEDS: CALCIUM CARBONATE CHEW 500 MG TABLET PO SCH (08:26)
[2020-10-20] MEDS: MAGNESIUM OXIDE 400 MG TABLET PO SCH (08:26)
[2020-10-20] MEDS: ENOXAPARIN 40 MG/0.4 ML SYRINGE SUBQ SCH (08:26)
[2020-10-20] MEDS: ASPIRIN EC 81 MG TABLET PO SCH (08:26)
[2020-10-20] MEDS: INSULIN ASPART 300 UNIT/3 ML PEN SUBQ SCH ×2 (08:27→11:38)
[2020-10-20] MEDS ORDERED: NICOTINE 7 MG PATCH TOP SCH (09:00)
[2020-10-20] MEDS ORDERED: diltiaZEM CD 180 MG CAPSULE PO SCH (09:00)
[2020-10-20] MEDS ORDERED: FOLIC ACID 1 MG TABLET PO SCH (09:00)
[2020-10-20 11:28] VITALS: BP 157/88
[2020-10-20 11:49] LABS: HEMOGLOBIN A1c% 5.4 % (4.27-6.07)
--- NOTE | 2020-10-20 12:39 | Discharge Plan ---
Discharge Plan Problem Reviewed?: Yes Disposition: Home, Self Care Condition: Stable Prescriptions: diltiaZEM CD [Cardizem Cd] 180 mg PO DAILY #30 capsule predniSONE [Deltasone] 10 mg PO [id number] #16 tab Aspirin EC [Ecotrin] 81 mg PO DAILY #30 tablet Folic Acid 1 mg PO DAILY #30 tablet Diet: Regular Activity Restrictions: Activity as Tolerated Shower Restrictions: No (fall precaution) Instruction Topics: COPD, ED Smoking Cessation, Quit Smoking Plan, AFL/Afib, Atrial Fibrillation Dc, Diltiazem tablets, Prednisone tablets, Aspirin ASA chewable tablets, Supplements Folic Acid Folate Health Concerns: COPD, afib Plan of Treatment: strongly advise you quit cigarette smoking. you are prescribed short term of steroid Prednisone for treatment of your COPD exacerbation course. continue your home breathing treatment as the schedule. you are found to have a fib in hospital, your home Cardizem dosage 120mg daily increase to 180 mg daily now, and your afib is converted to normal SR, you are prescribed baby aspirin as well. continue followup with your PCP to mange your this medical condition, and followup with irrigationist designer as clinic indication. Care Goals: stabilization and improvement of your medical conditiona Assessment: discussed the care plan with you, answered your questions and you understood. Additional Instructions or Follow Up instructions: You may followup with your PCP in one week, should your symptoms return or worsen, you may present ER or call 911 for help. Follow-Up Care: [facility] No Smoking: If you smoke, Please STOP! Call for help. Follow-up with: Floyd Rodriguez MD [Primary Care Provider] -
--- NOTE | 2020-10-20 12:50 | DISCHARGE SUMMARY ---
Discharge Summary Admit Date: 10/15/20 Discharge Date: 10/20/20 Discharging Provider: Elliott Olivares Primary Care Provider: Dr. Rodriguez Condition at Discharge: Stable Discharge Disposition: 01 Home, Self Care Discharge Facility Name: home - DIAGNOSES Discharge Diagnoses with Status of Each Condition: (1) New onset a-fib Patient new onset atrial fibrillation is already converted to normal sinus rhythm After the patient was treated in hospital and Cardizem dosage increased to 180mg daily. Patient has no chest pain, no shortness of breathing, no palpitation, no dizziness. pt is Hemodynamic stable. CTA rule out pulmonary embolism. The Echo was already done just 3 days ago when she had the V. tach and it showed normal LV and RV systolic function and mild pulmonary pretension only. TSH is slight low but pt has normal Free T4 and slight lower T3, followup with PCP to manage. pt also is prescribed aspirin. (2) Atrial fibrillation with RVR resolved. HR is 88 and stable. (3) COPD exacerbation COPD exacerbation is resolved, patient has no respiratory distress, patient has 93-94% sats on room air, Patient is prescribed a short term of prednisone (4) Prerenal azotemia resolved. keep Hydration at home (5) HTN (hypertension) stable (6) Headache resolved, pt has no complaint (7) Current smoker Patient state she she will quit cigarette smoke (8) Non-sustained ventricular tachycardia resolved. Telemetry continued and there were no further V. tach episodes. troponin and ECHO are unremarkable. pt had new onset of A. fib, suggests she may have had SVT with aberrancy then distressed by pt's COPD exacerbation, and not real VT. - HPI History of Present Illness: Patient is a 60-year-old female with medical history significant for COPD, hypertension and current smoker. She presented to the ED today with complaint of dyspnea. Patient report she feels shortness of breathing for 2 days "I cannot catch my breathing." She reported she saw her PCP, her PCP gave her her steroid, then she finished steroid about her 2 weeks ago. She denies fever, Chest pain. Patient was recently admitted in the hospital three times for same problem with COPD exacerbation. Patient reported she still has cigarette smoking but "the amount of cigarette was reduced". Patient made a commitment at this time, she will quit smoking. Chest x-ray show no acute cardiopulmonary abnormality or focal airspace disease. COVID-19 test is negative. Routine laboratory testing in the ER was unremarkable. In the ER, patient was found afebrile, with tachycardia, tachypnea and patient needed 6 L oxygen to support Her breathing. Given above medical condition, medical team was Consulted for admission of patient. Discussed the care goal with the patient, patient requests full code - HOSPITAL COURSE Hospital Course: Patient was admitted for COPD exacerbation with hypoxia. Patient's COVID-19 t esting is negative. Patient was treated with intravenous Solu-Medrol, breathing treatment, supplemental oxygen as needed. Patient also develop nonsustained V. tach once at hospital, continue tele reveal pt has no more V.T. Patient also develop new atrial fibrillation. After the patient was treated with Cardizem, Patient atrial fibrillation was converted to normal sinus rhythm. Patient had mildly elevated glucose level, it is likely caused by intravenous steroid. Patient's A1c is 5.2. Patient was discharged with hemodynamic status. - ALLERGIES Allergies/Adverse Reactions: Allergies Allergy/AdvReac Type Severity Reaction Status Date / Time lisinopril AdvReac Respiratory Verified 10/15/20 05:11 - MEDICATIONS Home Medications: Ambulatory Orders Medication Instructions Recorded Confirmed Albuterol Sulfate [Albuterol 1 puffs IH Q4HR PRN 08/01/20 10/15/20 Sulfate Hfa] Losartan Potassium [Cozaar] 100 mg PO DAILY 09/13/20 10/15/20 Tiotropium Br/Olodaterol HCl 4 gm IH DAILY #14 mist.inhal 09/13/20 10/15/20 [Stiolto Respimat Inhal [place]] Fluticasone 110 Mcg [Flovent] 1 puffs INH .QAM AND QPM 10/15/20 10/15/20 Ipratropium/Albuterol [Combivent 1 puffs INH Q4H 10/15/20 10/15/20 Respimat] Aspirin EC [Ecotrin] 81 mg PO DAILY #30 tablet 10/20/20 Folic Acid 1 mg PO DAILY #30 tablet 10/20/20 diltiaZEM CD [Cardizem Cd] 180 mg PO DAILY #30 capsule 10/20/20 predniSONE [Deltasone] 10 mg PO [id number] #16 tab 10/20/20 - PHYSICAL EXAM AT DISCHARGE General Appearance: positive: No acute distress, Alert. negative: Lethargic Eyes Bilateral: positive: Normal inspection, PERRL, No lid inflammation ENT: positive: ENT inspection nml, No signs of dehydration. negative: Dry muc ous membranes Neck: positive: Nml inspection, Trachea midline. negative: Thyromegaly, Tracheal deviation Respiratory: positive: Chest non-tender, No respiratory distress. negative: Wheezes, Rales, Rhonchi Cardiovascular: positive: Regular rate & rhythm, No murmur. negative: Tachycardia, Bradycardia, Systolic murmur, Diastolic murmur Peripheral Pulses: positive: 2+ Abdomen: positive: Non-tender, Nml bowel sounds, No distention. negative: Tenderness, Guarding, Rebound Skin: positive: Color nml, Warm, Dry. negative: Cyanosis, Diaphoresis, Pallor Extremities: positive: Non-tender, Full ROM, Nml appearance. negative: Calf tenderness Neurologic/Psychiatric: positive: Oriented x3, Motor nml, Sensation nml, Mood/affect nml. negative: Weakness, Sensory loss, Facial droop, Slurred/abnml speech, Depressed mood/affect - LABS Result Diagrams: 10/20/20 05:30 10/20/20 05:30 - FOLLOW UP Follow Up: strongly advise you quit cigarette smoking. you are prescribed short term of steroid Prednisone for treatment of your COPD exacerbation course. continue your home breathing treatment as the schedule. you are found to have a fib in hospital, your home Cardizem dosage 120mg daily increase to 180 mg daily now, and your afib is converted to normal SR, you are prescribed baby aspirin as well. continue followup with your PCP to mange your this medical condition, and followup with occupational health and safety officer as clinic indication. pt's TSH is slight low but she has normal Free T4, followup with her PCP for further management as clinic needed - TIME SPENT Time Spent in Discharge (Minutes): 30
[2020-10-20] MEDS ORDERED: methylPREDNISolone SUCCINATE 40 MG/ML VIAL IVP SCH (14:00)
== END 2020-10-20 13:44 | disposition home or self-care (01) | DRG 189 ==
LOC: EDUNIT# → ED 04:57 → MS3 06:30 → OBSVTOIN 10-17 11:15
PROVIDERS: ADMIT Internal Medicine; ATTEND Nurse Practitioner Gerontology
DX: J96.01 Acute respiratory failure with hypoxia (principal); J44.1 Chronic obstructive pulmonary disease with (acute) exacerbation; I47.2 Ventricular tachycardia; F17.210 Nicotine dependence, cigarettes, uncomplicated; D64.9 Anemia, unspecified; I48.91 Unspecified atrial fibrillation; R79.89 Other specified abnormal findings of blood chemistry; R51.9 Headache, unspecified; Z20.822 Contact with and (suspected) exposure to COVID-19; I10 Essential (primary) hypertension
CPT/HCPCS: 0202U; 36415; 71045; 71275; 80048; 80053; 82607; 82746; 83036; 83540; 83690; 83735; 83880; 84100; 84439; 84443; 84466; 84481; 84484; 85025; 93005; 93306; 94640; 94761; 96365; 96366; 96367; 96372; 96375; 96376; 99284; 99285; A9270; G0378; J1650; J2060; J7626; Q9967

== ENCOUNTER 2021-03-04 13:06 | Outpatient (CLI) | payer MEDICAID ==
[2021-03-04 19:55] LABS: BASOPHILS # (AUTO) 0.1 10^3/uL (0.0-0.1); BASOPHILS % (AUTO) 0.5 %; EOSINOPHILS # (AUTO) 0.1 10^3/uL (0.0-0.7); EOSINOPHILS % (AUTO) 0.9 %; HCT - HEMATOCRIT 39.4 % (37.0-47.0); HGB - HEMOGLOBIN 12.6 g/dL (12.0-16.0); LYMPHOCYTES # (AUTO) 1.4 10^3/uL (1.5-3.5); LYMPHOCYTES % (AUTO) 13.9 %; MEAN CORPUSCULAR HEMOGLOBIN 32.6 pg (27.0-31.0); MEAN CORPUSCULAR VOLUME 101.8 fL (81.0-99.0); MONOCYTES # (AUTO) 0.8 10^3/uL (0.0-1.0); NEUTROPHILS # (AUTO) 7.5 10^3/uL (1.5-6.6); NEUTROPHILS % (AUTO) 76.2 %; PLT - PLATELET COUNT 228 10^3/uL (130-450); RED BLOOD COUNT 3.87 10^6/uL (4.20-5.40); WHITE BLOOD COUNT 9.8 x10^3/uL (4.8-10.8)
[2021-03-04 20:07] LABS: ALBUMIN 4.5 g/dL (3.2-5.5); ALBUMIN/GLOBULIN RATIO 1.7 (1.0-2.2); BILIRUBIN,TOTAL 0.4 mg/dL (0.2-1.0); CALCIUM 9.5 mg/dL (8.5-10.3); TOTAL PROTEIN 7.2 g/dL (6.7-8.2)
[2021-03-04 20:26] LABS: THYROID STIMULATING HORMONE 1.49 uIU/mL (0.34-5.60)
== END 2021-03-04 13:07 | disposition home or self-care (01) ==
LOC: LAB.S 13:06
PROVIDERS: ATTEND Internal Medicine
DX: I10 Essential (primary) hypertension (principal); E23.0 Hypopituitarism
CPT/HCPCS: 36415; 80050

== ENCOUNTER 2021-09-22 08:29 | Outpatient (CLI) | payer MEDICAID ==
[2021-09-22 15:10] LABS: BASOPHILS % (AUTO) 0.7 %; EOSINOPHILS # (AUTO) 0.2 10^3/uL (0.0-0.7); EOSINOPHILS % (AUTO) 3.1 %; HCT - HEMATOCRIT 39.1 % (37.0-47.0); HGB - HEMOGLOBIN 13.2 g/dL (12.0-16.0); LYMPHOCYTES # (AUTO) 1.7 10^3/uL (1.5-3.5); LYMPHOCYTES % (AUTO) 28.6 %; MEAN CORPUSCULAR HEMOGLOBIN 34.8 pg (27.0-31.0); MEAN CORPUSCULAR HGB CONC 33.8 g/dL (32.0-36.0); MEAN CORPUSCULAR VOLUME 103.2 fL (81.0-99.0); MEAN PLATELET VOLUME 10.4 fL (7.9-10.8); MONOCYTES # (AUTO) 0.6 10^3/uL (0.0-1.0); MONOCYTES % (AUTO) 10.5 %; NEUTROPHILS # (AUTO) 3.3 10^3/uL (1.5-6.6); NEUTROPHILS % (AUTO) 56.6 %; PLT - PLATELET COUNT 234 10^3/uL (130-450); RED BLOOD COUNT 3.79 10^6/uL (4.20-5.40); RED CELL DISTRIBUTION WIDTH 12.4 % (12.0-15.0); WHITE BLOOD COUNT 5.8 x10^3/uL (4.8-10.8)
[2021-09-22 15:35] LABS: ALBUMIN 3.9 g/dL (3.2-5.5); ALBUMIN/GLOBULIN RATIO 1.1 (1.0-2.2); ALKALINE PHOSPHATASE 80 IU/L (42-121); ALT ALANINE AMINOTRANSFERASE 48 IU/L (10-60); AST ASPARTATE AMINOTRANSFERASE 53 IU/L (10-42); BILIRUBIN,TOTAL 0.6 mg/dL (0.2-1.0); BUN - BLOOD UREA NITROGEN 21 mg/dL (6-20); CALCIUM 9.5 mg/dL (8.5-10.3); CARBON DIOXIDE - CO2 24 mmol/L (21-32); CHLORIDE 105 mmol/L (101-111); CHOL/HDL RATIO 2.7 (<4.4); CHOLESTEROL 241 mg/dL; CREATININE 0.9 mg/dL (0.4-1.0); GFR - MDRD 63 (>89); GLUCOSE 98 mg/dL (70-100); HDL CHOLESTEROL 90 mg/dL; LDL CHOLESTEROL,CALCULATED 107 mg/dL; LDL/HDL RATIO 1.2 (<4.4); POTASSIUM 3.8 mmol/L (3.5-5.0); SODIUM 140 mmol/L (135-145); TOTAL PROTEIN 7.3 g/dL (6.7-8.2); TRIGLYCERIDES 220 mg/dL; VLDL CHOLESTEROL 44 mg/dL
== END 2021-09-22 08:30 | disposition home or self-care (01) ==
LOC: LAB.S 08:29
PROVIDERS: ATTEND Internal Medicine
DX: I10 Essential (primary) hypertension (principal); E78.5 Hyperlipidemia, unspecified; R94.6 Abnormal results of thyroid function studies
CPT/HCPCS: 36415; 80053; 80061; 83721; 85025

== ENCOUNTER 2021-10-15 13:31 | Outpatient (CLI) | payer MEDICAID ==
--- NOTE | 2021-10-15 15:44 | CT Report ---
PROCEDURE: Low Dose Lung Cancer Screen, CT chest INDICATIONS: CURRENT SMOKER TECHNIQUE: Noncontrast low-dose images were acquired from the pulmonary apices to the posterior costophrenic ang les. Multiplanar MIP reformats were then acquired. For radiation dose reduction, the following was used: automated exposure control, adjustment of mA and/or kV according to patient size. COMPARISON: CT chest angiogram 10/19/2020 FINDINGS: Image quality: Excellent. Lungs and pleura: Previous described nodule in the right lower lobe has resolved in the interval. No new or suspicious nodules present. Trace some pleural right upper lobe atelectasis noted. No focal i nfiltrate. Mediastinum: Heart size is normal. No pericardial effusion. No mediastinal adenopathy by size crit eria. Thoracic aorta and central pulmonary arteries are normal in size. Esophagus is normal in obinna huseyin. No hiatal hernia. Bones and chest wall: No suspicious bony lesions. No vertebral body compression fractures. No axil meli or supraclavicular adenopathy by size criteria. The thyroid is normal in size and there are no incidental findings. Abdomen: Visualized upper abdomen solid organs and bowel loops appear normal in the absence of contr ast. Mild atherosclerotic aortic vascular calcification noted without aneurysm renal IMPRESSION: 1. Trace nonspecific subpleural atelectasis. Otherwise unremarkable CT of the chest. 2. Previous described right lower lobe nodule has resolved in the interval Reviewed by: Maynor Avendaño MD on 10/15/2021 2:43 PM AKST Approved by: Maynor Avendaño MD on 10/15/2021 2:43 PM AKST Station ID: [id number]
== END 2021-10-15 13:32 | disposition home or self-care (01) ==
LOC: DI 13:31
PROVIDERS: ATTEND Registered Nurse
DX: Z12.2 Encounter for screening for malignant neoplasm of respiratory organs (principal); F17.210 Nicotine dependence, cigarettes, uncomplicated; J98.11 Atelectasis

== ENCOUNTER 2021-10-15 13:33 | Outpatient (CLI) | payer MEDICAID ==
--- NOTE | 2021-10-17 21:28 | DEXA Report ---
PROCEDURE: Dexa Spine and/or Hip INDICATIONS: POST MENOPAUSAL TECHNIQUE: Dual energy x-ray absorptiometry (DXA) was performed on a Stabilite[employer] System. Regions measur ed are the AP Spine, femoral neck, and if needed forearm. COMPARISON: None. FINDINGS: Lumbar Spine: Bone Mineral Density 0.995 g/cm/cm,T score -1.5, mild osteopenia Left Hip: Bone Mineral Density 0.832 g/cm/cm,T score -1.4, mild osteopenia Left Femoral Neck: Bone Mineral Density 0.843 g/cm/cm, T score -1.4, mild osteopenia (T score greater or equal to -1.0: NORMAL) (T score from -1.1 to -2.4: OSTEOPENIA) (T score less than or equal to -2.5 to: OSTEOPOROSIS) Impression: Mild osteopenia within the lumbar spine, left hip and femoral neck. Patients with diagnosis of osteoporosis or osteopenia should have regular bone mineral density assess ment. For those eligible for Medicare, routine testing is allowed once every 2 years. Testing frequ ency can be increased for patients who have rapidly progressing disease or for those who are receivin g medical therapy to restore bone mass. Reviewed by: Orquidea Duran MD on 10/17/2021 9:26 PM PST Approved by: Orquidea Duran MD on 10/17/2021 9:26 PM PST Station ID: [id number]
== END 2021-10-15 13:34 | disposition home or self-care (01) ==
LOC: DI 13:33
PROVIDERS: ATTEND Internal Medicine
DX: Z78.0 Asymptomatic menopausal state (principal); M85.89 Other specified disorders of bone density and structure, multiple sites

== ENCOUNTER 2021-11-09 12:54 | Outpatient (CLI) | payer MEDICAID ==
--- NOTE | 2021-11-10 07:04 | Mammography Report ---
BILATERAL DIGITAL SCREENING MAMMOGRAM 3D/2D: 11/09/2021 CLINICAL: Routine screening. Comparison is made to exams dated: 03/13/2018 mammogram, 02/26/2018 mammogram, and 02/02/2018 mammogram - [facility]. The tissue of both breasts is predominantly fatty. There is a stable benign focal asymmetry in the right breast. There also is a biopsy clip in the rig ht breast. No significant masses, calcifications, or other findings are seen in either breast. There has been no significant interval change. IMPRESSION: BENIGN There is no mammographic evidence of malignancy. A 1 year screening mammogram is recommended. This exam was interpreted at Station ID: [id number]. NOTE: For mammograms, a report in lay terms will be sent to the patient. Approximately 15% of breast malignancies will not be visualized mammographically. In the management of a palpable breast mass, a negative mammogram must not discourage biopsy of a clinically suspicious lesion. Electronically Signed By: Peter Garza acr/penrad:11/09/2021 14:19:27 ACR BI-RADS Category 2: Benign Finding(s) 3342F PARENCHYMAL PATTERN: (F) - The breast(s) demonstrate(s) diffuse fatty replacement. BI-RADS CATEGORY: (2) - 2 RECOMMENDATION: (ANNUAL) - Recommend routine annual screening mammography. [id number] 1 year screening LATERALITY: (B)
== END 2021-11-09 12:55 | disposition home or self-care (01) ==
LOC: DI.S 12:54
PROVIDERS: ATTEND Internal Medicine
DX: Z12.31 Encounter for screening mammogram for malignant neoplasm of breast (principal)

== ENCOUNTER 2022-01-13 08:00 | Outpatient (CLI) | payer MEDICAID ==
--- NOTE | 2022-01-13 13:36 | XRAY Report ---
PROCEDURE: Tib/Fib LT INDICATIONS: LEFT KNEE CONTUSION TECHNIQUE: 2 views of the tibia and fibula were acquired. COMPARISON: None. FINDINGS: Bones: Postsurgical changes are seen in proximal tibia with surgical screw in place. No gross hardwar e loosening or failure. Alignment of lower leg is anatomic. No acute fractures or dislocations. No s uspicious bony lesions. Soft tissues: No suspicious soft tissue calcifications or masses. IMPRESSION: No lower leg fracture or dislocation. Surgical changes in proximal tibia. No gross hardware complicat ion. Reviewed by: Tadeo Holley MD on 01/13/2022 1:35 PM PDT Approved by: Tadeo Holley MD on 01/13/2022 1:35 PM PDT Station ID: [id number]
--- NOTE | 2022-01-13 13:37 | XRAY Report ---
PROCEDURE: Knee 2 View LT INDICATIONS: LEFT KNEE CONTUSION/FALL TECHNIQUE: 2 views of the left knee(s) were acquired. COMPARISON: None. FINDINGS: Bones: Postsurgical changes are seen in anterior aspect of proximal tibia with surgical screw in anabelle ce. No gross hardware loosening or failure. No fractures or dislocations. Mild to moderate tricompart mental osteoarthritis is seen more prominent in medial femoral tibial compartment. No suspicious bony lesions. Soft tissues: Moderate to large joint effusion is seen. Thickened distal patellar tendon at its anter ior tibial insertion is noted. No suspicious soft tissue calcifications. IMPRESSION: Moderate to large joint effusion. No gross acute left knee fracture or dislocation. Surg ical changes in proximal tibia. No gross hardware complication. Thickened distal patella is suggestiv e of postsurgical changes versus patellar tendinitis. Reviewed by: Tadeo Holley MD on 01/13/2022 1:36 PM PDT Approved by: Tadeo Holley MD on 01/13/2022 1:36 PM PDT Station ID: [id number]
== END 2022-01-13 23:59 | disposition home or self-care (01) ==
LOC: DI.S 08:00
PROVIDERS: ATTEND Emergency Medicine
DX: S80.02XA Contusion of left knee, initial encounter (principal); Z96.698 Presence of other orthopedic joint implants; M25.462 Effusion, left knee

== ENCOUNTER 2022-02-15 06:00 | Outpatient (CLI) | payer MEDICAID ==
--- NOTE | 2022-02-15 16:52 | XRAY Report ---
PROCEDURE: Knee 4 View LT INDICATIONS: KNEE PAIN TECHNIQUE: 3 views of the left knee(s) were acquired. COMPARISON: 01/05/2022 FINDINGS: Bones: No acute fractures or dislocations. No suspicious bony lesions. Stable appearance of postsur gical changes of the proximal tibia bilaterally. No evidence for hardware complication. There are deg enerative changes noted in the medial and lateral femorotibial compartments of the right knee. Soft tissues: Small joint effusion. No suspicious soft tissue calcifications. IMPRESSION: Small knee joint effusion. No acute fracture or dislocation the left knee. Stable postsurgical change s of the proximal tibia. No hardware consultation seen. If there is continued clinical concern for i nternal soft tissue derangement, consider further evaluation with MRI. Reviewed by: Flavio Obrien MD on 02/15/2022 4:51 PM PDT Approved by: Flavio Obrien MD on 02/15/2022 4:51 PM PDT Station ID: [id number]
== END 2022-02-15 23:59 | disposition home or self-care (01) ==
LOC: DI.WOS 06:00
PROVIDERS: ATTEND Physician Assistant Surgical
DX: M25.462 Effusion, left knee (principal); Z98.890 Other specified postprocedural states

== ENCOUNTER 2022-03-23 06:25 | Day surgery (SDC) | payer MEDICAID ==
[~2022-03-23 06:25] MED LIST: ACETAMINOPHEN 500 MG TABLET PO ONE; CELECOXIB 100 MG CAPSULE PO ONE
[2022-03-23] MEDS ORDERED: LACTATED RINGERS 1,000 ML IV ONE ×2 (06:27→07:46)
--- NOTE | 2022-03-23 07:14 | ANESTHESIA ---
Pre-Anesthesia VS, & Labs Height: 5 ft 4 in Weight (kg): 59.6 kg Body Mass Index: 22.5 BMI Classification: Healthy weight - NPO >8 hours - Is Patient ?: No <Cristina Cosme - Last Filed: 03/23/22 07:11> - Diagnosis LEFT KNEE ARTHROFIBROSIS (Cristina Cosme) - Procedure MANIPULATION OF LEFT KNEE UNDER ANESTHESIA (Cristina Cosme) Vital Signs: Temp Pulse Resp BP Pulse Ox 37.5 C 76 15 138/99 H 100 03/23/22 07:46 03/23/22 07:54 03/23/22 07:54 03/23/22 07:54 03/23/22 07:54 Home Medications and Allergies <Cristina Cosme - Last Filed: 03/23/22 07:11> <Staci Geller - Last Filed: 03/23/22 07:59> Home Medications: Ambulatory Orders Apixaban [Eliquis] 5 mg PO BID 03/17/22 Atorvastatin [Lipitor] 10 mg PO DAILY 03/17/22 Budesonide [Pulmicort] 0.5 mg IH BID PRN 03/17/22 Budesonide/Formoterol Fumarate [Symbicort 160-4.5 Mcg Inhaler] 2 puffs INH BID PRN 03/17/22 Tiotropium [place] [Spiriva] 1 cap INH DAILY 03/17/22 cloNIDine [Catapres] 0.1 mg PO DAILY 03/17/22 diltiaZEM CD [Cardizem Cd] 240 mg PO DAILY 03/17/22 Active Medications Ondansetron HCl (Ondansetron 4 Mg/2 Ml Vial) 4 mg IVP .ONCE ALLISON Oxycodone HCl (Oxycodone 5 Mg Tablet) 5 mg PO Q6HR PRN PRN Reason: PAIN Albuterol Sulfate [Albuterol Sulfate Hfa] 1 puffs IH Q4HR PRN 08/01/20 Losartan Potassium [Cozaar] 100 mg PO DAILY 09/13/20 Ipratropium/Albuterol [Combivent Respimat] 1 puffs INH QID PRN 10/15/20 Apixaban [Eliquis] 5 mg PO BID 03/17/22 Atorvastatin [Lipitor] 10 mg PO DAILY 03/17/22 Budesonide [Pulmicort] 0.5 mg IH BID PRN 03/17/22 Budesonide/Formoterol Fumarate [Symbicort 160-4.5 Mcg Inhaler] 2 puffs INH BID PRN 03/17/22 Tiotropium [place] [Spiriva] 1 cap INH DAILY 03/17/22 cloNIDine [Catapres] 0.1 mg PO DAILY 03/17/22 diltiaZEM CD [Cardizem Cd] 240 mg PO DAILY 03/17/22 Allergies/Adverse Reactions: Allergies Allergy/AdvReac Type Severity Reaction Status Date / Time No Known Drug Allergies Allergy Verified 03/17/22 11:04 Anes History & Medical History - Medical History Cardiovascular: reports: Hypertension, High cholesterol, Atrial fibrillation Pulmonary: reports: COPD Gastrointestinal: reports: None Urinary: reports: None Neuro: reports: None Musculoskeletal: reports: Osteoarthritis Endocrine/Autoimmune: reports: None Blood Disorders: reports: None Skin: reports: None Smoking Status: Former smoker Psychosocial: reports: Alcohol History of Cancer?: No - Surgical History General: reports: Colonoscopy, Other Gynecologic: reports: section Orthopedic: reports: Other (RIGHT ANKLE HARDWARE PLACEMENT) <Cristina Cosme - Last Filed: 03/23/22 07:11> Exam General: Alert, Oriented x3, Cooperative, No acute distress Dental: WNL, Poor dentition Mouth Openin Fingerbreadth Neck Mobility: Normal Mallampati classification: II Thyromental Distance: 4-6 cm Respiratory: Lungs clear, Normal breath sounds, No respiratory distress, No accessory muscle use Cardiovascular: Other (afib) Mental/Cognitive Status: Alert/Oriented X3, Normal for patient Cognitive Status: Within normal limits <Cristina Cosme - Last Filed: 03/23/22 07:11> Plan Anesthesia Type: MAC, Total IV Consent for Procedure(s) Verified and Reviewed: Yes Code Status: Attempt Resuscitation ASA classification: 2-Mild systemic disease Is this case an emergency?: No <Cristina Cosme - Last Filed: 03/23/22 07:11> Anesthesia Type: Adductor Block Consent for Procedure(s) Verified and Reviewed: Yes Code Status: Attempt Resuscitation ASA classification: 2-Mild systemic disease Is this case an emergency?: No <Staci Geller - Last Filed: 03/23/22 07:59>
[2022-03-23] MEDS ORDERED: PROPOFOL 200 MG/20 ML VIAL IVP ONE (07:36)
[2022-03-23] MEDS ORDERED: LIDOCAINE-MPF 2% 5 ML VIAL ONE (07:36)
[2022-03-23] MEDS ORDERED: ROPIVACAINE 0.5% PF 20 ML AMPULE ONE (07:36)
[2022-03-23] MEDS ORDERED: DEXAMETHASONE 4 MG/ML VIAL ONE (07:37)
[2022-03-23] MEDS ORDERED: MIDAZOLAM 2 MG/2 ML VIAL ONE (07:37)
[2022-03-23] MEDS ORDERED: fentaNYL 100 MCG/2 ML VIAL ONE (07:38)
[2022-03-23] MEDS ORDERED: oxyCODONE 5 MG TABLET PO PRN (07:51)
[2022-03-23] MEDS ORDERED: ONDANSETRON 4 MG/2 ML VIAL IVP SCH (08:00)
[2022-03-23] MEDS ORDERED: ePHEDrine 50 MG/ML VIAL IVP PRN (08:00)
[2022-03-23] MEDS ORDERED: NALOXONE 0.4 MG/ML VIAL IVP PRN (08:00)
[2022-03-23] MEDS ORDERED: MORPHINE 2 MG/ML CARPUJECT IVP PRN (08:00)
[2022-03-23] MEDS ORDERED: METOCLOPRAMIDE 10 MG/2 ML VIAL IVP PRN (08:00)
[2022-03-23] MEDS ORDERED: ATROPINE ABBOJECT 1 MG/10 ML SYRINGE IVP PRN (08:00)
[2022-03-23] MEDS ORDERED: LACTATED RINGERS 1,000 ML IV SCH (08:00)
[2022-03-23] MEDS ORDERED: fentaNYL 100 MCG/2 ML VIAL IVP PRN (08:00)
[2022-03-23] MEDS ORDERED: HYDROmorphone 0.5 MG/0.5 ML SYRINGE IVP PRN (08:00)
[2022-03-23] MEDS ORDERED: ONDANSETRON 4 MG/2 ML VIAL IVP PRN (08:00)
[2022-03-23] MEDS ORDERED: HYDROmorphone 0.5 MG/0.5 ML SYRINGE ONE (08:09)
--- NOTE | 2022-03-23 08:10 | OPERATIVE REPORT ---
Operative Report - General Procedure Date: 03/23/22 Planned Procedure: Manipulation left knee under general anesthesia Pre-Op Diagnosis: Arthrofibrosis left knee Procedure Performed: Manipulation left knee under general anesthesia Post Op Diagnosis: Same as preoperative diagnosis - Procedure Note Primary Surgeon: Francisco Avalos MD Anesthesia Provider: Staci Geller CRNA Anesthesia Technique: General mask Estimated Blood Loss (mL): 0 Indications: This is a 61-year-old woman with a history of fall, left knee hemarthrosis associated with injury and chronic anticoagulation. She has been going to physical therapy but still has stiffness to the left knee and has reached a p lateau in her progress. Her routine radiographs are negative for fracture or dislocation. Her range of motion actively in the clinic was -20 to 70 degrees and passively approximately the same. Findings: She had restrictive passive motion under anesthesia left knee Complications: None - Other Other Information/Narrative: The patient was seen in the recovery room. After satisfactory anesthesia was achieved, a timeout procedure was performed by the entire operating room team and all were in agreement. The patient was placed in a supine position. The hip was flexed maximally on the left side and gentle pressure was placed on the anterior tibia. Audible crepitus over the knee was achieved as increased flexion improved. She achieved full intraoperative flexion of her left knee and full extension of her left knee. There is no overt swelling. The knee was stable. There is no clinical deformity. She tolerated the procedure well. She has been instructed in postoperative home exercises and formal physical therapy starting tomorrow. She will be rechecked at her office early next week.
--- NOTE | 2022-03-23 08:57 | ANESTHESIA POST OP EVALUATION ---
Anesthesia Post Eval - Post Anesthesia Eval Vitals: Last Vital Signs Temp 37.6 C 03/23/22 08:27 Pulse 71 03/23/22 08:56 Resp 18 03/23/22 08:56 BP 164/94 H 03/23/22 08:56 Pulse Ox 97 03/23/22 08:56 CV Function Including HR & BP: Stable Pain Control: Satisfactory Nausea & Vomiting: Negative Mental Status: Baseline Respiratory Status: Airway Patent Hydration Status: Satisfactory Anesthesia Complications: None
[2022-03-23 10:34] VITALS: BP 151/99
== END 2022-03-23 06:26 | disposition home or self-care (01) ==
LOC: SDS 06:25
PROVIDERS: ATTEND Orthopaedic Surgery
DX: M24.662 Ankylosis, left knee (principal); M17.12 Unilateral primary osteoarthritis, left knee; J44.9 Chronic obstructive pulmonary disease, unspecified; Z79.01 Long term (current) use of anticoagulants; Z87.891 Personal history of nicotine dependence; Z98.890 Other specified postprocedural states
CPT/HCPCS: 27570; A9270; J1170; J7120

== ENCOUNTER 2022-10-25 08:46 | Outpatient (CLI) | payer MEDICAID ==
--- NOTE | 2022-10-25 10:03 | CT Report ---
PROCEDURE: Low Dose Lung Cancer Screen INDICATIONS: NICOTINE DEPENDENCE TECHNIQUE: Noncontrast low-dose axial images were acquired from the pulmonary apices to the posterior costophren ic angles. Multiplanar MIP reformats were then reconstructed. For radiation dose reduction, the follo wing was used: automated exposure control, adjustment of mA and/or kV according to patient size. COMPARISON: 10/15/2021. FINDINGS: Image quality: Excellent. Lungs and pleura: Unremarkable. No pulmonary nodules. Mediastinum: Heart size is normal. No pericardial effusion. Mild coronary artery calcifications. No mediastinal adenopathy by size criteria. Thoracic aorta and central pulmonary arteries are normal i n size. Esophagus is normal in caliber. No hiatal hernia. Bones and chest wall: No suspicious bony lesions. No vertebral body compression fractures. No axil meli or supraclavicular adenopathy by size criteria. Visualized thyroid is grossly unremarkable. Abdomen: Visualized upper abdomen solid organs and bowel loops appear normal in the absence of contr ast. IMPRESSION: No pulmonary nodules. No evidence of acute pulmonary process. Lung RAD: 1 - Negative. No nodules and definitely benign nodules. Recommendation: 1 - Continue annual screening with LDCT in 12 months. CLINICAL RECOMMENDATION STATEMENTS: In patients <35 years with an ITN detected on CT, MRI, or extrathyroidal ultrasound, the Committee re commends further evaluation with dedicated thyroid ultrasound if the nodule is "e1 cm and has no susp icious imaging features, and if the patient has normal life expectancy. In patients "e35 years with an ITN detected on CT, MRI, or extrathyroidal ultrasound, the Committee r ecommends further evaluation with dedicated thyroid ultrasound if the nodule is "e1.5 cm and has no s uspicious imaging features, and if the patient has normal life expectancy. (ACR, 2014) Reviewed by: Matias Srivastava MD on 10/25/2022 10:02 AM PST Approved by: Matias Srivastava MD on 10/25/2022 10:02 AM PST Station ID: [id number] Lung-Rad Lung-Recommendation
== END 2022-10-25 08:47 | disposition home or self-care (01) ==
LOC: DI 08:46
PROVIDERS: ATTEND Internal Medicine Sleep Medicine
DX: Z12.2 Encounter for screening for malignant neoplasm of respiratory organs (principal); F17.211 Nicotine dependence, cigarettes, in remission

== ENCOUNTER 2023-06-07 13:31 | Outpatient (CLI) | payer MEDICAID ==
--- NOTE | 2023-06-08 12:32 | Mammography Report ---
BILATERAL DIGITAL SCREENING MAMMOGRAM 3D/2D: 06/07/2023 CLINICAL: Routine screening. Comparison is made to exams dated: 11/09/2021 mammogram, 03/13/2018 mammogram, 02/26/2018 mammogram, an d 02/02/2018 mammogram - [facility]. Both breasts are heterogeneously dense, which may obscure small masses (category c / 51-75% glandular tissue). There is a biopsy clip in the right breast. No significant masses, calcifications, or other findings are seen in either breast. There has been no significant interval change. IMPRESSION: NEGATIVE There is no mammographic evidence of malignancy. A 1 year screening mammogram is recommended. Based on the Tyrer Cuzick model (a risk assessment model) the patients lifetime risk is 9.1% and her 10 year risk is 4.2%. According to the ACR, ACS, and NCCN guidelines, an annual breast MRI exam rosaline g with mammogram is recommended if the patients lifetime risk is 20% or greater. This exam was interpreted at Station ID: [id number]. NOTE: For mammograms, a report in lay terms will be sent to the patient. Approximately 15% of breast malignancies will not be visualized mammographically. In the management of a palpable breast mass, a negative mammogram must not discourage biopsy of a clinically suspicious lesion. Electronically Signed By: Gustabo delvalle/jada:06/07/2023 17:39:29 letter sent: No_Letter ACR BI-RADS Category 1: Negative 3341F PARENCHYMAL PATTERN: (D) - The breast(s) demonstrate(s) heterogeneously dense fibroglandular aden gunn. BI-RADS CATEGORY: (1) - 1 Mammogram [id number] 1 year screening LATERALITY: (B)
== END 2023-06-07 13:32 | disposition home or self-care (01) ==
LOC: DI 13:31
PROVIDERS: ATTEND Nurse Practitioner Acute Care
DX: Z12.31 Encounter for screening mammogram for malignant neoplasm of breast (principal)

== ENCOUNTER 2023-10-27 10:10 | Outpatient (CLI) | payer MEDICAID | END 2023-10-27 23:59 | disposition critical access hospital (66) | LOC: EMS 10:10 | DX: R06.02 Shortness of breath (principal); R06.2 Wheezing | CPT/HCPCS: A0425; A0427; A0999 ==

== ENCOUNTER 2023-10-27 10:36 | Inpatient (IN) | payer MEDICAID ==
[2023-10-27] MEDS: IPRATROPIUM/ALBUTEROL 3 ML NEB INH STA (11:38)
[2023-10-27 11:41] LABS: BASOPHILS # (AUTO) 0.1 10^3/uL (0.0-0.1); EOSINOPHILS # (AUTO) 0.4 10^3/uL (0.0-0.7); EOSINOPHILS % (AUTO) 4.5 %; HCT - HEMATOCRIT 39.4 % (37.0-47.0); HGB - HEMOGLOBIN 13.2 g/dL (12.0-16.0); LYMPHOCYTES # (AUTO) 0.9 10^3/uL (1.5-3.5); MEAN CORPUSCULAR HEMOGLOBIN 33.8 pg (27.0-31.0); MEAN CORPUSCULAR HGB CONC 33.5 g/dL (32.0-36.0); MEAN CORPUSCULAR VOLUME 100.8 fL (81.0-99.0); MEAN PLATELET VOLUME 10.1 fL (7.9-10.8); MONOCYTES # (AUTO) 0.4 10^3/uL (0.0-1.0); MONOCYTES % (AUTO) 4.7 %; NEUTROPHILS # (AUTO) 6.3 10^3/uL (1.5-6.6); NEUTROPHILS % (AUTO) 78.2 %; PLT - PLATELET COUNT 228 10^3/uL (130-450); RED BLOOD COUNT 3.91 10^6/uL (4.20-5.40); RED CELL DISTRIBUTION WIDTH 12.6 % (12.0-15.0); WHITE BLOOD COUNT 8.1 x10^3/uL (4.8-10.8)
--- NOTE | 2023-10-27 11:48 | XRAY Report ---
PROCEDURE: Chest 1V INDICATIONS: SOA TECHNIQUE: One view of the chest was acquired. COMPARISON: CT chest 10/07/2021 FINDINGS: Surgical changes and devices: None. Lungs and pleura: No pleural effusions or pneumothorax. Lungs are clear. Mediastinum: Mediastinal contours appear normal. Heart size is normal. Bones and chest wall: No suspicious bony lesions. Overlying soft tissues appear unremarkable. IMPRESSION: No acute cardiopulmonary process. Reviewed by: Orquidea Duran MD on 10/27/2023 11:47 AM [facility] Approved by: Orquidea Duran MD on 10/27/2023 11:47 AM [facility] Station ID: [id number]
[2023-10-27 11:58] LABS: ALBUMIN 4.3 g/dL (3.2-5.5); ALBUMIN/GLOBULIN RATIO 1.5 (1.0-2.2); BILIRUBIN,TOTAL 0.9 mg/dL (0.2-1.0); CALCIUM 9.8 mg/dL (8.5-10.3); POTASSIUM 3.5 mmol/L (3.5-4.5); TOTAL PROTEIN 7.1 g/dL (6.4-8.9)
--- NOTE | 2023-10-27 12:58 | ED Physician Documentation ---
PD HPI DYSPNEA - Stated complaint Stated Complaint: SOA - Chief complaint Chief Complaint: Resp - History obtained from History obtained from: Patient - Additional information Additional information: Patient is a 63-year-old female with a history of COPD presenting for evaluation of shortness of air for the past 3 to 4 days. Patient states that she has been needing to use her albuterol inhaler more frequently since Monday. She continues to have a cough which she states is unchanged for her of clear sputum. No fever, congestion. Does not feel chest pain. Does have a history of A-fib and is on Eliquis and has been compliant. She continues to smoke 3 to 4 cigarettes/day. Has required hospitalizations in the past for COPD. Does not use home oxygen. No leg swelling or pain. Patient tried her inhaler at home this morning without any improvement. EMS administered a DuoNeb treatment along with 125 mg of Solu-Medrol. Review of Systems Constitutional: denies: Fever Cardiac: denies: Chest pain / pressure Respiratory: reports: Dyspnea, Cough GI: denies: Abdominal Pain Musculoskeletal: denies: Extremity swelling PD PAST MEDICAL HISTORY - Past Medical History Cardiovascular: Hypertension, High cholesterol, Atrial fibrillation Respiratory: COPD Neuro: None Endocrine/Autoimmune: None GI: None MEDICAL STAFF COORDINATOR: Other : None HEENT: None Psych: None Musculoskeletal: Osteoarthritis Derm: None - Past Surgical History Past Surgical History: Yes General: Colonoscopy, Other Ortho: Other /MEDICAL STAFF COORDINATOR: section - Present Medications Home Medications: Ambulatory Orders Medication Instructions Recorded Confirmed Albuterol Sulfate [Albuterol 1 puffs IH Q4HR PRN 08/01/20 03/23/22 Sulfate Hfa] Losartan Potassium [Cozaar] 100 mg PO DAILY 09/13/20 03/23/22 Ipratropium/Albuterol [Combivent 1 puffs INH QID PRN 10/15/20 03/23/22 Respimat] Apixaban [Eliquis] 5 mg PO BID 03/17/22 03/23/22 Atorvastatin [Lipitor] 10 mg PO DAILY 03/17/22 03/23/22 Budesonide [Pulmicort] 0.5 mg IH BID PRN 03/17/22 03/23/22 Budesonide/Formoterol Fumarate 2 puffs INH BID PRN 03/17/22 03/23/22 [Symbicort 160-4.5 Mcg Inhaler] Tiotropium [place] [Spiriva] 1 cap INH DAILY 03/17/22 03/23/22 cloNIDine [Catapres] 0.1 mg PO DAILY 03/17/22 03/23/22 diltiaZEM CD [Cardizem Cd] 240 mg PO DAILY 03/17/22 03/23/22 oxyCODONE [Roxicodone] 5 mg PO Q4-6H PRN #15 tablet 03/23/22 - Allergies Allergies/Adverse Reactions: Allergies Allergy/AdvReac Type Severity Reaction Status Date / Time No Known Drug Allergies Allergy Verified 10/27/23 10:46 - Social History Does the pt smoke?: Yes Smoking Status: Current every day smoker Does the pt drink ETOH?: Yes Does the pt have substance abuse?: No - Immunizations Immunizations are current?: Yes Immunizations: TDAP >10years/unknown - POLST Patient has POLST: No POLST Status: Full Code PD ED PE NORMAL - General General: Alert and oriented X 3, No acute distress, Well developed/nourished - HEENT HEENT: Atraumatic, Moist mucous membranes, Pharynx benign - Neck Neck: Supple, no meningeal sign - Cardiac Cardiac: RRR - Respiratory Respiratory: No respiratory distress, Other (Diffuse wheezing bilaterally) - Abdomen Abdomen: Soft, Non tender, Non distended - Derm Derm: Warm and dry - Extremities Extremities: No edema, No calf tenderness / cord - Neuro Neuro: Normal speech Results - Vitals Vitals: Vital Signs - 24 hr 10/27/23 10/27/23 10/27/23 10:42 10:56 11:42 Temperature 98.0 C H Heart Rate 112 H 98 Respiratory 24 18 Rate Blood Pressure 178/107 H O2 Saturation 100 94 If not protocol : Oxygen Flow, liters/minute 10/27/23 10/27/23 10/27/23 12:02 12:03 12:04 Temperature Heart Rate 98 Respiratory 18 Rate Blood Pressure 154/98 H O2 Saturation 87 L 92 92 If not protocol 2 2 : Oxygen Flow, liters/minute 10/27/23 10/27/23 13:11 14:00 Temperature Heart Rate 100 104 H Respiratory 20 22 Rate Blood Pressure 150/98 H O2 Saturation 96 If not protocol 2 : Oxygen Flow, liters/minute Oxygen O2 Source Nasal cannula - Labs Labs: Laboratory Tests 10/27/23 10/27/23 10/27/23 11:36 11:36 12:48 WBC 8.1 RBC 3.91 L Hgb 13.2 Hct 39.4 MCV 100.8 H MCH 33.8 H MCHC 33.5 RDW 12.6 Plt Count 228 MPV 10.1 Neut # (Auto) 6.3 Lymph # (Auto) 0.9 L Starr # (Auto) 0.4 Eos # (Auto) 0.4 Baso # (Auto) 0.1 Absolute Nucleated RBC 0.00 Nucleated RBC % 0.0 Sodium 135 Potassium 3.5 Chloride 99 L Carbon Dioxide 25 Anion Gap 11.0 BUN 14 Creatinine 1.0 Estimated GFR (MDRD) 56 L Glucose 144 H Calcium 9.8 Total Bilirubin 0.9 AST 61 H ALT 48 Alkaline Phosphatase 88 Total Protein 7.1 Albumin 4.3 Globulin 2.8 Albumin/Globulin Ratio 1.5 Nasal Adenovirus (PCR) NOT DETECTED Nasal B. parapertussis DNA (PCR) NOT DETECTED Nasal Coronavir 229E PCR NOT DETECTED Nasal Coronavir HKU1 PCR NOT DETECTED Nasal Coronavir NL63 PCR NOT DETECTED Nasal Coronavir OC43 PCR NOT DETECTED Nasal Enterovir/Rhinovir PCR NOT DETECTED Nasal Influenza B PCR NOT DETECTED Nasal Influenza A PCR NOT DETECTED Nasal Parainfluen 1 PCR NOT DETECTED Nasal Parainfluen 2 PCR NOT DETECTED Nasal Parainfluen 3 PCR NOT DETECTED Nasal Parainfluen 4 PCR NOT DETECTED Nasal RSV (PCR) NOT DETECTED Nasal B.pertussis DNA PCR NOT DETECTED Nasal C.pneumoniae (PCR) NOT DETECTED [place] Human Metapneumo PCR NOT DETECTED Nasal M.pneumoniae (PCR) NOT DETECTED Nasal SARS-CoV-2 (PCR) NOT DETECTED PD Medical Decision Making - ED course Complexity details: reviewed results, d/w patient ED course: Patient is a 63-year-old with a history of COPD presenting for evaluation of shortness of air. Wheezing noted on exam. Patient already been given several neb treatments as well as Solu-Medrol from EMS. CBC, chemistry, EKG, respiratory swab and chest x-ray were obtained and reviewed without significant findings.Patient was given additional neb treatments here. Did have hypoxia to 87% on room air and is not normally on oxygen. Remains slightly tachypneic in appearance. Discussed with admitting hospitalist who admit for further management. EKG is sinus rhythm. Patient is already on Eliquis for history of A-fib Therefore I Doubt PE.No chest pain. Departure - Departure Disposition: 65 [facility] DC/Xfer Clinical Impression: COPD exacerbation, Hypoxia Condition: Good Discharge Date/Time: 10/27/23 15:10
[2023-10-27] MEDS: ALBUTEROL NEB 2.5 MG/3 ML INH STA (13:09)
[2023-10-27 13:38] LABS: B. PARAPERTUSSIS- RESP PCR PAN NOT DETECTED; B. PERTUSSIS- RESP PCR PANEL NOT DETECTED; C. PNEUMONIAE- RESP PCR PANEL NOT DETECTED; CORONAVIRUS 229E-RESP PCR NOT DETECTED; CORONAVIRUS HKU1-RESP PCR NOT DETECTED; CORONAVIRUS NL63-RESP PCR NOT DETECTED; CORONAVIRUS OC43-RESP PCR NOT DETECTED; HUMAN METAPNEUMOVIRUS NOT DETECTED; INFLUENZA A- RESP PCR PANEL NOT DETECTED; INFLUENZA B - RESP PCR PANEL NOT DETECTED; M. PNEUMONIAE- RESP PCR PANEL NOT DETECTED; PARAINFLUENZA VIRUS 1 NOT DETECTED; PARAINFLUENZA VIRUS 2 NOT DETECTED; PARAINFLUENZA VIRUS 3 NOT DETECTED; PARAINFLUENZA VIRUS 4 NOT DETECTED; RHINOVIRUS/ENTEROVIRUS NOT DETECTED; RSV- RESP PCR PANEL NOT DETECTED; SARS-CoV-2 -RESP PCR PANEL NOT DETECTED
[2023-10-27] MEDS ORDERED: ONDANSETRON 4 MG/2 ML VIAL IVP PRN (14:06)
[2023-10-27] MEDS: ACETAMINOPHEN 325 MG TABLET PO PRN (15:27)
[2023-10-27] MEDS ORDERED: IPRATROPIUM/ALBUTEROL 3 ML NEB INH PRN (16:30)
--- NOTE | 2023-10-27 16:37 | HISTORY & PHYSICAL EXAMINATION ---
Chief Complaint - Chief Complaint Chief Complaint: SOB History of Present Illness - Admitted From Admitted From:: ED - History Obtained From History obtained from: ED provider and the patient - History of Present Illness HPI Comment/Other: This is a 63-year-old female with history of hypertension, A-fib on Eliquis and COPD. She has been decreasing her cigarettes and trying to quit. The patient was last admitted here about 4 years ago for COPD exacerbation. She is not on home O2. The patient developed shortness of breath with wheezing 3 to 4 days ago and s tarted to increase use of her albuterol rescue inhaler. This did not work. She had clear sputum that did not change in color. She denies any sick contacts. She had no fever. She presented to the ER with worsening shortness of breath today and had O2 desaturation down to 87% on room air. She received IV steroids, DuoNebs and was put on supplemental O2. She continues to have very tight breath sounds and feel SOB at rest. Chest x-ray showed no active disease. Her respiratory PCR was negative for COVID and overall negative. The ED provider spoke to me about this patient to admit her for treating a COPD exacerbation causing hypoxia. History - Past Medical History Cardiovascular: reports: Hypertension, High cholesterol, Atrial fibrillation Respiratory: reports: COPD Neuro: reports: None Endocrine/Autoimmune: reports: None GI: reports: None EQUIPMENT SERVICE ASSOCIATE: reports: Other : reports: None HEENT: reports: None Psych: reports: None Musculoskeletal: reports: Osteoarthritis Derm: reports: None MRSA Hx?: No - Past Surgical History General: reports: Colonoscopy, Other Ortho: reports: Other /EQUIPMENT SERVICE ASSOCIATE: reports: section - Family & Social History Family History: Mother: , Father: Family History Comment/Other: She never really knew her father. Amaya did in his 60s of emphysema. He was a heavy smoker. Her mother from uterine cancer at age 78 also had HTN. 1 sister is completely healthy. 2 sons are completely healthy. No one has hypertension, cancer, heart attack, or stroke. Living arrangement: At home Living Situation: With spouse/s.o. Social History Notes: Smoker since the age of 16. Max cigarette use was 2 packs/day. Denies alcohol or drug issue. 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 Lives with her partner of 20 years. While she is used to him, and she tolerates him, he is not helpful. When she was last sick, she had syncope. and woke up on the floor. He walked over her, not sure what she was doing on the floor. She said that she passed out. He said "O okay ", then walked away from her.1 son lives in [place], one lives in [place]. The son who lives in [place] is her designated DURABLE POWER OF PROJECT EXECUTIVE. - Substance History Dependence: Experiences withdrawal or developed tolerances: Tobacco - POLST Patient has POLST: No POLST Status: Full Code Meds/Allgy - Home Medications Home Medications: Ambulatory Orders Medication Instructions Recorded Confirmed Albuterol Sulfate [Albuterol 1 puffs IH Q4HR PRN 08/01/20 03/23/22 Sulfate Hfa] Losartan Potassium [Cozaar] 100 mg PO DAILY 09/13/20 03/23/22 Ipratropium/Albuterol [Combivent 1 puffs INH QID PRN 10/15/20 03/23/22 Respimat] Apixaban [Eliquis] 5 mg PO BID 03/17/22 03/23/22 Atorvastatin [Lipitor] 10 mg PO DAILY 03/17/22 03/23/22 Budesonide [Pulmicort] 0.5 mg IH BID PRN 03/17/22 03/23/22 Budesonide/Formoterol Fumarate 2 puffs INH BID PRN 03/17/22 03/23/22 [Symbicort 160-4.5 Mcg Inhaler] Tiotropium [place] [Spiriva] 1 cap INH DAILY 03/17/22 03/23/22 cloNIDine [Catapres] 0.1 mg PO DAILY 03/17/22 03/23/22 diltiaZEM CD [Cardizem Cd] 240 mg PO DAILY 03/17/22 03/23/22 oxyCODONE [Roxicodone] 5 mg PO Q4-6H PRN #15 tablet 03/23/22 - Allergies Allergies/Adverse Reactions: Allergies Allergy/AdvReac Type Severity Reaction Status Date / Time No Known Drug Allergies Allergy Verified 10/27/23 10:46 Review of Systems - Respiratory Respiratory: reports: Cough, Sputum production, Wheezing, SOB at rest, SOB with exertion - All Other Systems All Other Systems: reports: Reviewed and negative Exam - Vital Signs Vital Signs: Vital Signs x48h Temp Pulse Pulse Resp BP BP Pulse Ox 10/27/23 16:09 100 158/92 H 10/27/23 15:39 36.7 C 104 H 18 164/104 H 94 10/27/23 15:22 10/27/23 15:08 95 18 144/86 H 94 10/27/23 14:00 104 H 22 150/98 H 96 10/27/23 13:11 100 20 10/27/23 12:04 98 18 154/98 H 92 10/27/23 12:03 92 10/27/23 12:02 87 L 10/27/23 11:42 98 18 10/27/23 10:56 94 10/27/23 10:42 98.0 C H 112 H 24 178/107 H 100 O2 Flow Rate 10/27/23 16:09 10/27/23 15:39 10/27/23 15:22 0 10/27/23 15:08 2 10/27/23 14:00 2 10/27/23 13:11 10/27/23 12:04 2 10/27/23 12:03 2 10/27/23 12:02 10/27/23 11:42 10/27/23 10:56 10/27/23 10:42 - Physical Exam General Appearance: positive: Mild distress (from tachypnea) Eyes Bilateral: positive: EOMI, No lid inflammation, Other (Face is flushed) ENT: positive: Other (On O2 via n.c., hoarse voice) Neck: positive: Nml inspection, No JVD Respiratory: positive: Wheezes (Poor air movement in all lung barrera, very "tight") Cardiovascular: positive: Regular rate & rhythm (Distant heart sounds due to COPD) Abdomen: positive: Non-tender, Nml bowel sounds, No distention Skin: positive: Warm, Dry Extremities: positive: Non-tender, No pedal edema Neurologic/Psychiatric: positive: Oriented x3, CN's nml (2-12), Motor nml Conclusion/Plan - Problem List (1) Acute respiratory failure with hypoxia Conclusion/Plan: From a COPD exacerbation Plan: Continue with supplemental O2, target saturation 88% or above Taper down as tolerated Treat the underlying COPD exacerbation (2) Acute exacerbation of COPD with asthma Conclusion/Plan: Chest x-ray has clear lung barrera. She makes clear sputum that did not change in description. Because we are having a warm summer and things are starting to blossom, possibly there was pollen that set her off Plan: Continue IV steroids Give IV Pulmicort nebulized Continue DuoNebs scheduled and as needed Start Montelukast Give Mucinex for expectoration Obtain sputum for culture and Gram stain. If Gram stain shows bacteria and WBC I will start empiric antibiotic (3) Paroxysmal A-fib Conclusion/Plan: Patient is on Eliquis. She is also on Cardizem which looks like it has her rate-controlled med She is currently in sinus rhythm Plan: Continue with her usual meds (4) HTN (hypertension) Conclusion/Plan: Plan: Await her reconciled med list and resume her BP meds (5) Tobacco use Conclusion/Plan: She is trying to quit. Plan: Will offer nicotine patch prn - Lab Results Fish Bones: 10/27/23 11:36 10/27/23 11:36 - Diagnostic Imaging Results Diagnostic Imaging Results: positive: Final report reviewed - Other Other Results/Comments: Attestation: The patient is expected to be hospitalized for greater than 2 midnights and is expected to be discharged or transferred to another facility within 96 hours: Yes.
[2023-10-27] MEDS: IBUPROFEN 600 MG TABLET PO PRN (17:10)
[2023-10-27] MEDS: SODIUM CHLORIDE FLUSH 0.9% 10 ML SYRINGE IVP SCH (17:10)
[2023-10-27] MEDS: FORMOTEROL FUMARATE NEB 20 MCG/2 ML INH SCH (19:00)
[2023-10-27] MEDS: IPRATROPIUM/ALBUTEROL 3 ML NEB INH SCH (19:00)
[2023-10-27] MEDS: ATORVASTATIN 10 MG TABLET PO SCH (21:05)
[2023-10-27] MEDS: APIXABAN 5 MG TABLET PO SCH (21:05)
[2023-10-27] MEDS: MONTELUKAST 10 MG TABLET PO SCH (21:05)
[2023-10-27] MEDS: methylPREDNISolone SUCCINATE 40 MG/ML VIAL IVP SCH (21:49)
[2023-10-27] MEDS: SODIUM CHLORIDE FLUSH 0.9% 10 ML SYRINGE IVP PRN (21:51)
[2023-10-28] MEDS: cloNIDine 0.1 MG TABLET PO SCH (08:34)
[2023-10-28] MEDS: diltiaZEM CD 240 MG CAPSULE PO SCH (08:34)
--- NOTE | 2023-10-28 13:58 | PROVIDER PROGRESS NOTE ---
Assessment/Plan - Problem List (1) Acute respiratory failure with hypoxia Assessment/Plan: Hypoxia is from a COPD exacerbation Hypoxia has improved, she is down to room air at rest but is still tachypneic wi th activity Plan: Continue with supplemental O2, target saturation 88% or above Cont to treat the underlying COPD exacerbation Anticipate discharge soon, possibly tomorrow (2) Acute exacerbation of COPD with asthma Conclusion/Plan: Chest x-ray had clear lung barrera. She makes clear sputum that did not change in description. Because we are having a warm summer and things are starting to blossom, possibly there was pollen that set her off. He had severe wheezing, tight lungs and diffuse rhonchi on admission. Today, she is tight but there is no more wheezing or rhonchi Plan: Continue IV steroids Cont IV Pulmicort nebulized Continue DuoNebs scheduled and as needed Cont Montelukast Give Mucinex for expectoration (3) Paroxysmal A-fib Conclusion/Plan: Patient is on Eliquis. She is also on Cardizem which looks like it has her rate-controlled med She is currently in sinus rhythm Plan: Continue with her usual meds (4) HTN (hypertension) Conclusion/Plan: BP today is 158/100 Plan: I will start her on Losartan (5) Tobacco use Conclusion/Plan: She is trying to quit. Plan: Will offer nicotine patch prn - Current Meds Current Meds: Current Medications Generic Name Dose Route Start Last Admin Trade Name Freq PRN Reason Stop Dose Admin Acetaminophen 650 mg 10/27/23 14:06 10/27/23 21:05 Acetaminophen 325 Mg Tablet PO 650 mg Q4HR PRN Administration Pain 1 to 4, or Fever Albuterol/Ipratropium 3 ml 10/27/23 19:00 10/28/23 11:39 Ipratropium/Albuterol 3 Ml Neb INH 3 ml RTQID ALLISON Administration Apixaban 5 mg 10/27/23 21:00 10/28/23 08:34 Apixaban 5 Mg Tablet PO 5 mg BID ALLISON Administration Atorvastatin Calcium 10 mg 10/27/23 21:00 10/27/23 21:05 Atorvastatin 10 Mg Tablet PO 10 mg QPM ALLISON Administration Clonidine HCl 0.1 mg 10/28/23 09:00 10/28/23 08:34 Clonidine 0.1 Mg Tablet PO 0.1 mg DAILY ALLISON Administration Diltiazem HCl 240 mg 10/28/23 09:00 10/28/23 08:34 Diltiazem Cd 240 Mg Capsule PO 240 mg DAILY ALLISON Administration Formoterol Fumarate 20 mcg 10/27/23 19:00 10/28/23 06:01 Formoterol Fumarate Neb 20 Mcg/2 Ml INH 20 mcg RTBID ALLISON Administration Ibuprofen 600 mg 10/27/23 16:31 10/28/23 13:46 Ibuprofen 600 Mg Tablet PO 600 mg Q6HR PRN Administration PAIN 5-7 Methylprednisolone 80 mg 10/27/23 22:00 10/28/23 13:44 Methylprednisolone Succinate 40 Mg/Ml Vial IVP 80 mg TID ALLISON Administration Montelukast Sodium 10 mg 10/27/23 21:00 10/27/23 21:05 Montelukast 10 Mg Tablet PO 10 mg QPM ALLISON Administration Sodium Chloride 10 ml 10/27/23 14:06 10/27/23 21:51 Sodium Chloride Flush 0.9% 10 Ml Syringe IVP 10 ml PRN PRN Administration NEEDED PER PROVIDER ORDERS Sodium Chloride 10 ml 10/27/23 17:00 10/28/23 08:35 Sodium Chloride Flush 0.9% 10 Ml Syringe IVP 10 ml 0100,0900,1700 ALLISON Administration - Lab Result Fish Bone Diagrams: 10/27/23 11:36 10/27/23 11:36 - Additional Planning My Orders: My Active Orders 10/27/23 14:06 Activity Orders [RC] Q2HR IO [RC] IOSHIFT Incentive Spirometry - RT [RC] .tid Initiate Bowel Care Protocol [RC] .protocol Initiate Bronchodialator Cheo [RC] .PROTOCOL Initiate Line Care Protocol [RC] QSHIFT Initiate Personal Care Protoco [RC] .protocol Oxygen Therapy [RC] .PRN Vital Signs [RC] 0800,1600,0000 Acetaminophen [Tylenol] 650 mg PO Q4HR PRN Ondansetron Inj [Zofran Inj] 4 mg IVP Q6HR PRN Sodium Chloride Flush 0.9% [Normal Saline Flush 0.9%] 10 ml IVP PRN PRN Code Status [OTHERS] Routine Condition of Patient [OTHERS] Routine DVT Prophylaxis [OTHERS] Routine 10/27/23 14:07 Daily Weight [RC] 0600 IV Insert [RC] .ONCE 10/27/23 16:30 Ipratropium/Albuterol [Duoneb] 3 ml INH Q4HR PRN 10/27/23 16:31 Nebulizer/MDI Tx. [RC] .bid/q4prn Resp Teach Nebulizer/MDI [RC] .ONCE Ibuprofen [Motrin] 600 mg PO Q6HR PRN 10/27/23 17:00 Sodium Chloride Flush 0.9% [Normal Saline Flush 0.9%] 10 ml IVP 0100,0900,1700 10/27/23 19:00 Formoterol Fumarate [Perforomist] 20 mcg INH RTBID Ipratropium/Albuterol [Duoneb] 3 ml INH RTQID 10/27/23 21:00 Apixaban [Eliquis] 5 mg PO BID Atorvastatin [Lipitor] 10 mg PO QPM Montelukast [Singulair] 10 mg PO QPM 10/27/23 22:00 methylPREDNISolone SUCCINATE [SOLU-Medrol (40MG VIAL)] 80 mg IVP TID 10/28/23 Breakfast DIET [Low Sodium Diet] [DIET] 10/28/23 09:00 cloNIDine [Catapres] 0.1 mg PO DAILY diltiaZEM CD [Cardizem Cd] 240 mg PO DAILY Subjective - Subjective Patient Reports: Feeling Better (Mucinex is helping the cough, albuterol nebulized is helping the wheezing) Objective Vital Signs: Vital Signs - 24 hr 10/27/23 10/27/23 10/27/23 14:00 15:08 15:22 Temperature Heart Rate 104 H 95 Heart Rate [ Brachial] Respiratory 22 18 Rate Blood Pressure 150/98 H 144/86 H Blood Pressure [Right Brachial artery] O2 Saturation 96 94 If not protocol 2 2 0 : Oxygen Flow, liters/minute 10/27/23 10/27/23 10/27/23 15:39 16:09 19:00 Temperature 36.7 C Heart Rate 96 Heart Rate [ 104 H 100 Brachial] Respiratory 18 18 Rate Blood Pressure Blood Pressure 164/104 H 158/92 H [Right Brachial artery] O2 Saturation 94 If not protocol 2 : Oxygen Flow, liters/minute 10/28/23 10/28/23 10/28/23 01:10 06:00 07:43 Temperature 37.1 C 37.1 C Heart Rate 93 Heart Rate [ 100 99 Brachial] Respiratory 18 18 17 Rate Blood Pressure Blood Pressure 147/95 H 154/98 H [Right Brachial artery] O2 Saturation 94 92 If not protocol 2 2 : Oxygen Flow, liters/minute 10/28/23 10/28/23 10/28/23 08:18 11:40 11:47 Temperature 36.5 C Heart Rate 96 Heart Rate [ Brachial] Respiratory 18 16 Rate Blood Pressure Blood Pressure [Right Brachial artery] O2 Saturation 96 94 If not protocol 2 : Oxygen Flow, liters/minute 10/28/23 12:47 Temperature 37.3 C Heart Rate Heart Rate [ 78 Brachial] Respiratory 18 Rate Blood Pressure Blood Pressure [Right Brachial artery] O2 Saturation 91 L If not protocol : Oxygen Flow, liters/minute Oxygen O2 Source Room air I&O (Last 24 Hrs): Intake and Output Totals x24h 10/26/23 10/27/23 10/28/23 23:59 23:59 23:59 Intake Total 1180 Balance 1180 General: Alert, Oriented x3 HEENT: Mucous membr. moist/pink, Other (Face is flushed) Neck: Supple, No JVD Neuro: Alert, Non Focal Cardiovascular: Regular rate, No murmurs Respiratory: Other (Tight lung sounds in all lung barrera but no more wheezes or rhonchi (right after DuoNeb treatment)) Abdomen: Soft Extremities: No edema, No tenderness/swelling - Results Results: Laboratory Results WBC 8.1 x10^3/uL (4.8-10.8) 10/27/23 11:36 RBC 3.91 10^6/uL (4.20-5.40) L 10/27/23 11:36 Hgb 13.2 g/dL (12.0-16.0) 10/27/23 11:36 Hct 39.4 % (37.0-47.0) 10/27/23 11:36 MCV 100.8 fL (81.0-99.0) H 10/27/23 11:36 MCH 33.8 pg (27.0-31.0) H 10/27/23 11:36 MCHC 33.5 g/dL (32.0-36.0) 10/27/23 11:36 RDW 12.6 % (12.0-15.0) 10/27/23 11:36 Plt Count 228 10^3/uL (130-450) 10/27/23 11:36 MPV 10.1 fL (7.9-10.8) 10/27/23 11:36 Neut # (Auto) 6.3 10^3/uL (1.5-6.6) 10/27/23 11:36 Lymph # (Auto) 0.9 10^3/uL (1.5-3.5) L 10/27/23 11:36 Ashley # (Auto) 0.4 10^3/uL (0.0-1.0) 10/27/23 11:36 Eos # (Auto) 0.4 10^3/uL (0.0-0.7) 10/27/23 11:36 Baso # (Auto) 0.1 10^3/uL (0.0-0.1) 10/27/23 11:36 Absolute Nucleated RBC 0.00 x10^3/uL 10/27/23 11:36 Nucleated RBC % 0.0 /100WBC 10/27/23 11:36 Sodium 135 mmol/L (135-145) 10/27/23 11:36 Potassium 3.5 mmol/L (3.5-4.5) 10/27/23 11:36 Chloride 99 mmol/L (101-111) L 10/27/23 11:36 Carbon Dioxide 25 mmol/L (21-32) 10/27/23 11:36 Anion Gap 11.0 (6-13) 10/27/23 11:36 BUN 14 mg/dL (6-20) 10/27/23 11:36 Creatinine 1.0 mg/dL (0.6-1.3) 10/27/23 11:36 Estimated GFR (MDRD) 56 (>89) L 10/27/23 11:36 Glucose 144 mg/dL (74-104) H 10/27/23 11:36 Calcium 9.8 mg/dL (8.5-10.3) 10/27/23 11:36 Total Bilirubin 0.9 mg/dL (0.2-1.0) 10/27/23 11:36 AST 61 IU/L (10-42) H 10/27/23 11:36 ALT 48 IU/L (10-60) 10/27/23 11:36 Alkaline Phosphatase 88 IU/L (42-121) 10/27/23 11:36 Total Protein 7.1 g/dL (6.4-8.9) 10/27/23 11:36 Albumin 4.3 g/dL (3.2-5.5) 10/27/23 11:36 Globulin 2.8 g/dL (2.1-4.2) 10/27/23 11:36 Albumin/Globulin Ratio 1.5 (1.0-2.2) 10/27/23 11:36 Nasal Adenovirus (PCR) NOT DETECTED 10/27/23 12:48 Nasal B. parapertussis DNA (PCR) NOT DETECTED 10/27/23 12:48 Nasal Coronavir 229E PCR NOT DETECTED 10/27/23 12:48 Nasal Coronavir HKU1 PCR NOT DETECTED 10/27/23 12:48 Nasal Coronavir NL63 PCR NOT DETECTED 10/27/23 12:48 Nasal Coronavir OC43 PCR NOT DETECTED 10/27/23 12:48 Nasal Enterovir/Rhinovir PCR NOT DETECTED 10/27/23 12:48 Nasal Influenza B PCR NOT DETECTED 10/27/23 12:48 Nasal Influenza A PCR NOT DETECTED 10/27/23 12:48 Nasal Parainfluen 1 PCR NOT DETECTED 10/27/23 12:48 Nasal Parainfluen 2 PCR NOT DETECTED 10/27/23 12:48 Nasal Parainfluen 3 PCR NOT DETECTED 10/27/23 12:48 Nasal Parainfluen 4 PCR NOT DETECTED 10/27/23 12:48 Nasal RSV (PCR) NOT DETECTED 10/27/23 12:48 Nasal B.pertussis DNA PCR NOT DETECTED 10/27/23 12:48 Nasal C.pneumoniae (PCR) NOT DETECTED 10/27/23 12:48 [place] Human Metapneumo PCR NOT DETECTED 10/27/23 12:48 Nasal M.pneumoniae (PCR) NOT DETECTED 10/27/23 12:48 Nasal SARS-CoV-2 (PCR) NOT DETECTED 10/27/23 12:48 - Procedures Procedures: Procedures INSPECTION OF LOWER INTESTINAL TRACT, ENDO (04/19/16)
[2023-10-28] MEDS: LOSARTAN 50 MG TABLET PO SCH (14:57)
--- NOTE | 2023-10-28 15:08 | PHARMACY PROGRESS NOTE ---
- Best Possible Medication History Admit Date and Time: 10/27/23 1406 Processed by: Pharmacy Medication History completed: Yes Patient Interview: Completed Secondary Source(s): Insurance records (PER PT INTERVIEW AND MED LIST AND INSURANCE RECORDS) As the person ultimately responsible for medication therapy, providers are able to order a medication from an existing home medication list in [facility] via the "Reconcile Routine" prior to Confirmation of that medication by underwriting support specialist. Such practice is discouraged except when the physician, in their clinical judgment, deems that a medical need exists for a medication without regard to previous use.
[2023-10-28 15:50] VITALS: O2SAT 92
[2023-10-29 07:55] VITALS: BP 150/97
--- NOTE | 2023-10-29 10:35 | Discharge Plan ---
Discharge Plan Problem Reviewed?: Yes Disposition: Home, Self Care Condition: Fair Prescriptions: Ipratropium/Albuterol [Duoneb] 3 ml INH Q4HR PRN #10 ea PRN Reason: Wheezing methylPREDNISolone [Medrol] 4 - 16 mg PO 0800 #10 tablet Montelukast [Singulair] 10 mg PO QPM #30 tab Tiotropium [place] [Spiriva Handihaler] 1 cap INH DAILY #30 cap Budesonide/Formoterol Fumarate [Symbicort 160-4.5 Mcg Inhaler] 2 puffs INH BID #1 ea Diet: Regular Activity Restrictions: Activity as Tolerated Shower Restrictions: No Driving Restrictions: No Health Concerns: You were hospitalized to treat low oxygen levels caused by a COPD exacerbation. You needed nebulized bronchodilators, steroids and supplemental oxygen. Your oxygen needs have decreased down to room air. We tested to see if you need a new order for home oxygen and you do not. You are being discharged home today. I ordered fresh prescriptions for your DuoNeb nebulized mist inhaler to use as needed, Spiriva to use daily on schedule, Symbicort to use twice a day on schedule, new Singulair tablets to take every night, and a steroid prescription to taper down over the next 4 days. The prescriptions were all electronically sent to [facility]. You may resume all your other pre- hospital medications. You should have a follow-up visit with your primary care provider in the next 1 to 2 weeks. You qualify to attend pulmonary rehab here on the ground floor. Pulmonary rehab helps strengthen your lungs. Your provider would have to order this. Plan of Treatment: As above. Care Goals: Improvement in symptoms and stabilization are the goals. Assessment: The patient understands and is agreeable with the plan. Follow-Up Care: [facility] - Pulmonary No Smoking: If you smoke, Please STOP! Call for help. Follow-up with: Ruth Ann Anna ARNP [Primary Care Provider] -
--- NOTE | 2023-10-29 12:33 | DISCHARGE SUMMARY ---
Discharge Summary Admit Date: 10/27/23 Discharge Date: 10/29/23 Discharging Provider: Dr Judith De La Fuente Primary Care Provider: JONATHAN Anna Condition at Discharge: Fair Discharge Disposition: 01 Home, Self Care - HPI History of Present Illness: This is a 63-year-old female with history of hypertension, A-fib on Eliquis and COPD. She has been decreasing her cigarettes and trying to quit. The patient was last admitted here about 4 years ago for COPD exacerbation. She is not on home O2. The patient developed shortness of breath with wheezing 3 to 4 days ago and started to increase use of her albuterol rescue inhaler. This did not work. She had clear sputum that did not change in color. She denies any sick contacts. She had no fever. She presented to the ER with worsening shortness of breath today and had O2 desaturation down to 87% on room air. She received IV steroids, DuoNebs and was put on supplemental O2. She continues to have very tight breath sounds and feel SOB at rest. Chest x-ray showed no active disease. Her respiratory PCR was negative for COVID and overall negative. The ED provider spoke to me about this patient to admit her for treating a COPD exacerbation causing hypoxia. - HOSPITAL COURSE Hospital Course: (1) Acute respiratory failure with hypoxia Hypoxia was from her COPD exacerbation. This improved as her COPD exacerbation improved, and she did not need home O2 ordered at time of discharge. (2) Acute exacerbation of COPD with asthma Chest x-ray was clear. She made sputum and had severe wheezing, tight lungs and diffuse rhonchi on admission. She was treated with IV steroids, Pulmicort nebulized, DuoNebs scheduled and prn, Montelukast and Mucinex and improved. At discharge, I ordered fresh prescriptions for DuoNeb nebulized mist inhaler to use as needed, Spiriva to use daily on schedule, Symbicort to use twice a day on schedule, new Singulair tablets to take every night, and a Medrol dose dez. (3) Paroxysmal A-fib Patient is on Eliquis and is also on Cardizem which we continued. (4) HTN (hypertension) She was on her BP meds while here. (5) Tobacco use She is trying to quit. - ALLERGIES Allergies/Adverse Reactions: Allergies Allergy/AdvReac Type Severity Reaction Status Date / Time No Known Drug Allergies Allergy Verified 10/27/23 10:46 - MEDICATIONS Home Medications: Ambulatory Orders Medication Instructions Recorded Confirmed Albuterol Sulfate [Albuterol 1 puffs IH Q4HR PRN 08/01/20 10/28/23 Sulfate Hfa] Losartan Potassium [Cozaar] 100 mg PO DAILY 09/13/20 10/28/23 Apixaban [Eliquis] 5 mg PO BID 03/17/22 10/28/23 Atorvastatin [Lipitor] 10 mg PO DAILY 03/17/22 10/28/23 cloNIDine [Catapres] 0.1 mg PO BID 03/17/22 10/28/23 diltiaZEM CD [Cardizem Cd] 1 cap PO DAILY 10/28/23 10/28/23 Budesonide/Formoterol Fumarate 2 puffs INH BID #1 ea 10/29/23 [Symbicort 160-4.5 Mcg Inhaler] Ipratropium/Albuterol [Duoneb] 3 ml INH Q4HR PRN #10 ea 10/29/23 Montelukast [Singulair] 10 mg PO QPM #30 tab 10/29/23 Tiotropium [place] [Spiriva 1 cap INH DAILY #30 cap 10/29/23 Handihaler] methylPREDNISolone [Medrol] 4 - 16 mg PO 0800 #10 tablet 10/29/23 - PHYSICAL EXAM AT DISCHARGE General Appearance: positive: No acute distress, Alert Eyes Bilateral: positive: Normal inspection, EOMI ENT: positive: ENT inspection nml, No signs of dehydration Neck: positive: Nml inspection, No JVD Respiratory: positive: Breath sounds nml Cardiovascular: positive: Regular rate & rhythm, No murmur Abdomen: positive: Non-tender, Nml bowel sounds, No distention Skin: positive: Warm, Dry Extremities: positive: Non-tender, No pedal edema Neurologic/Psychiatric: positive: Oriented x3, CN's nml (2-12), Motor nml - LABS Result Diagrams: 10/27/23 11:36 10/27/23 11:36 - DIAGNOSTIC IMAGING Diagnostic Imaging Results: Final report reviewed - FOLLOW UP Follow Up: See PCP for a hospital F/U visit. - TIME SPENT Time Spent in Discharge (Minutes): 40
== END 2023-10-29 13:20 | disposition home or self-care (01) | DRG 189 ==
LOC: EDUNIT# → ED 10:36 → MS2 14:06
PROVIDERS: ADMIT Internal Medicine; ATTEND Internal Medicine
DX: J96.01 Acute respiratory failure with hypoxia (principal); J44.1 Chronic obstructive pulmonary disease with (acute) exacerbation; I48.0 Paroxysmal atrial fibrillation; Z79.01 Long term (current) use of anticoagulants; I10 Essential (primary) hypertension; F17.210 Nicotine dependence, cigarettes, uncomplicated; Z11.52 Encounter for screening for COVID-19; E78.00 Pure hypercholesterolemia, unspecified
CPT/HCPCS: 36415; 71045; 80053; 85025; 87633; 93005; 94640; 94664; 94761; 99284; 99285; A9270

== ENCOUNTER 2023-11-02 09:17 | Outpatient (CLI) | payer MEDICAID ==
--- NOTE | 2023-11-02 10:50 | CT Report ---
PROCEDURE: Lung Cancer Screen INDICATIONS: SCREENING FOR LUNG CA TECHNIQUE: A CT scan of the chest was performed. Intravenous contrast media was not administered. Images were re corded and evaluated at appropriate window settings. Reformats: axial MIP of the chest, coronal and s agittal. For radiation dose reduction, the following was used: automated exposure control, adjustment of mA and/or kV according to patient size. COMPARISON: 10/25/2022 FINDINGS: Image quality: Excellent. Prior cancer history: Unknown Lungs and pleura: No pleural effusions. No pneumothorax. No new suspicious or enlarging pulmonary no dules which require follow up. Mediastinum: Heart size is normal. No pericardial effusion. No large vessel abnormality. No mediastin al adenopathy by size criteria. Stable appearance of mild coronary calcifications. Scattered atheros clerotic calcifications of the thoracic aorta. Chest wall and lower neck: Thyroid is unremarkable. No axillary or supraclavicular adenopathy by size . Bones: No aggressive osseous abnormality. Upper Abdomen: Unremarkable. IMPRESSION: No suspicious pulmonary nodules. No acute cardiopulmonary abnormalities. Lung RAD: 1 - Negative. Recommendation: Continue annual screening in 12 Months with LDCT Reviewed by: Flavio Obrien MD on 11/02/2023 10:49 AM PST Approved by: Flavio Obrien MD on 11/02/2023 10:49 AM PST Station ID: [id number]
== END 2023-11-02 09:18 | disposition home or self-care (01) ==
LOC: DI 09:17
PROVIDERS: ATTEND Nurse Practitioner Acute Care
DX: Z12.2 Encounter for screening for malignant neoplasm of respiratory organs (principal)

== ENCOUNTER 2024-06-10 15:01 | Outpatient (CLI) | payer MEDICARE, MEDICAID ==
--- NOTE | 2024-06-11 09:45 | Mammography Report ---
BILATERAL DIGITAL SCREENING MAMMOGRAM 3D/2D: 06/10/2024 CLINICAL: Routine screening. Family history of breast cancer. Comparison is made to exams dated: 06/10/2024 mammogram, 06/07/2023 mammogram, 11/09/2021 mammogram, an d 02/02/2018 mammogram - [facility]. The breasts are heterogeneously dense, which may obscure small masses (category c / 51-75% glandular tissue). There is a biopsy clip in the right breast. No significant masses, calcifications, or other findings are seen in either breast. There has been no significant interval change. IMPRESSION: NEGATIVE There is no mammographic evidence of malignancy. A 1 year screening mammogram is recommended. Based on the Tyrer Cuzick model (a risk assessment model) the patient's lifetime risk is 8.6% and her 10 year risk is 4.1%. According to the ACR, ACS, and NCCN guidelines, an annual breast MRI exam rosaline g with mammogram is recommended if the patient's lifetime risk is 20% or greater. This exam was interpreted at Station ID: [id number]. NOTE: For mammograms, a report in lay terms will be sent to the patient. Approximately 15% of breast malignancies will not be visualized mammographically. In the management of a palpable breast mass, a negative mammogram must not discourage biopsy of a clinically suspicious lesion. Electronically Signed By: Gustabo delvalle/jada:06/11/2024 09:02:25 letter sent: No_Letter ACR BI-RADS Category 1: Negative PARENCHYMAL PATTERN: (D) - The breast(s) demonstrate(s) heterogeneously dense fibroglandular aden gunn. BI-RADS CATEGORY: (1) - 1 RECOMMENDATION: (ANNUAL) - Recommend routine annual screening mammography. [id number] 1 year screening LATERALITY: (B)
== END 2024-06-10 15:02 | disposition home or self-care (01) ==
LOC: DI.S 15:01
PROVIDERS: ATTEND Nurse Practitioner Acute Care
DX: Z12.31 Encounter for screening mammogram for malignant neoplasm of breast (principal); R92.333 Mammographic heterogeneous density, bilateral breasts; Z80.3 Family history of malignant neoplasm of breast

== ENCOUNTER 2025-05-30 10:30 | Observation (INO) ==
--- NOTE | 2025-05-30 10:35 | ED Physician Documentation ---
History of Present Illness Stated complaint Stated Complaint: DIFF BREATHING Chief complaint Chief Complaint: Resp History obtained from History obtained from: Patient and EMS Additonal information Additional information: 65-year-old woman with history of COPD, tobacco abuse in remission, A-fib on Eliquis was admitted to [facility] for about 3 days mid last month for COPD exacerbation. Worse since last night with clear productive sputum and shortness of breath. Paramedics found her in respiratory distress with sats on room air of 91% after home DuoNeb. She received Solu-Medrol on the way here. Has been at times tachycardic on the way here. Meds/Allgy Home Medications Ambulatory Orders Medication Instructions Recorded Confirmed albuterol sulfate 90 mcg/actuation 1 puff IH Q4HR PRN Wheezing 08/01/20 10/28/23 aerosol inhaler losartan 100 mg tablet (Cozaar) 100 mg PO DAILY 10/28/23 apixaban 5 mg tablet (Eliquis) 5 mg PO BID 03/17/22 atorvastatin 10 mg tablet 10 mg PO DAILY 03/17/2210/19 clonidine HCl 0.1 mg tablet 0.1 mg PO BID 03/17/2207/11 diltiazem HCl 240 mg 1 cap PO DAILY 10/28/2310/19 capsule,extended release 24 hr budesonide-formoterol HFA 160 2 puff inhalation BID #1 ea 10/29/23 mcg-4.5 mcg/actuation aerosol inhaler (Symbicort) methylprednisolone 4 mg tablets in 4 - 16 mg (1 - 4 x 4 mg) PO 0800 10/29/23 a dose pack #10 tabs montelukast 10 mg tablet 10 mg PO QPM #30 tabs ipratropium 0.5 mg-albuterol 3 mg See Rx Instructions .Route 07/30/24 (2.5 mg base)/3 mL nebulization .COMPLEX #90 mL soln diltiazem HCl 240 mg capsule,24 240 mg PO QDAY 5 hr,extended release (Tiazac) Spiriva with HandiHaler 18 mcg and 1 cap inhalation QD AY #90 caps 11/21/24 inhalation capsules (tiotropium bromide) Allergies Allergies Allergy/AdvReac Type Severity Reaction Status Date / Time lisinopril Allergy Intermediate swelling Verified 05/30/25 10:45 [facility] Active Problems All Active Problems (Updated 05/30/25 @ 12:09 by Sidney Cooper MD) Hyperlipidemia (Acute) Impaired glucose tolerance (Acute) Nicotine dependence (Acute) Encounter for preventative adult health care exam with abnormal findings (Acute) Pulmonary HTN (Acute) Paroxysmal atrial fibrillation with RVR (Acute) Low TSH level (Acute) COPD (chronic obstructive pulmonary disease) (Chronic) Dermatitis (Acute) Degenerative joint disease of left knee (Acute) Pulse visible in abdominal aorta (Acute) Reactive airway disease (Acute) 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) Tobacco use (Acute) Paroxysmal A-fib (Acute) New onset a-fib (Acute) Acute exacerbation of COPD with asthma (Acute) Headache (Acute) Hyponatremia (Acute) Edema of both ankles (Acute) Hypokalemia (Acute) Cough (Acute) Shortness of breath (Acute) Tachycardia (Acute) Non-sustained ventricular tachycardia (Acute) Acute respiratory failure with hypoxia (Acute) Anemia (Acute) V-tach (Acute) HTN (hypertension) (Acute) Atrial fibrillation with RVR (Acute) Prerenal azotemia (Acute) COPD exacerbation (Acute) HTN (hypertension) (Acute) Current smoker (Acute) Finger sprain (Acute) Hypoxia (Acute) Dyspnea (Acute) Orthopnea (Acute) Hypokalemia (Acute) Hypomagnesemia (Acute) Hypophosphatemia (Acute) History of hypertension (Acute) Social History Social History If you are a former smoker, when did you quit? (Date/Year): 10/13/20 Number of Years Smoked: 40 How many cigarettes a day do you smoke? (20 cigarettes=1 Pk): 3 Do you dip or chew tobacco?: No Do you vape?: No Patient requests smoking cessation consult: No Initiate information on smoking cessation: No Living arrangement: At home Living Condition: With spouse/s.o. Level: Independent Do you feel safe in your home environment?: Yes History of physical, verbal, emotional, or financial abuse?: No Frequency: Occasional POLST Patient has POLST: No Exam Exam Vital Signs: Vital Signs x48h Temp Pulse Resp BP Pulse Ox O2 Flow Rate 05/30/25 12:05 120 H 24 86 L 05/30/25 11:57 132 H 16 137/84 H 89 L 05/30/25 11:52 116 H 17 142/96 H 91 L 2 05/30/25 11:47 131 H 23 152/102 H 86 L 05/30/25 11:42 130 H 18 134/101 H 87 L 05/30/25 11:37 132 H 17 144/98 H 88 L 05/30/25 11:37 127 H 21 144/98 H 88 L 05/30/25 11:32 122 H 18 151/102 H 89 L 05/30/25 11:27 124 H 21 136/100 H 92 05/30/25 11:22 127 H 19 142/90 H 94 05/30/25 11:14 124 H 20 169/115 H 99 05/30/25 11:14 123 H 19 169/115 H 99 05/30/25 11:10 128 H 18 144/98 H 99 6 05/30/25 11:08 126 H 22 144/98 H 99 05/30/25 11:05 119 H 20 139/98 H 100 05/30/25 11:03 133 H 18 05/30/25 11:00 131 H 22 156/109 H 96 05/30/25 10:33 37.2 C 125 H 40 H 178/116 H 100 15 Constitutional normal general appearance She has mildly labored breathing and is speaking in full but short sentences, not paragraphs. Respiratory abnormal respiratory effort Severely diminished throughout. Cardiovascular Tachycardic with frequent extrasystoles, PACs on the monitor. Extremities No pedal edema or calf tenderness. Neurology GCS 15 Results Vitals Vitals: Vital Signs - 24 hr 05/30/25 10:33 05/30/25 11:00 05/30/25 11:03 Temperature 37.2 C Temperature Source Temporal Artery Scan Pulse Rate 125 H 131 H 133 H Respiratory Rate 40 H 22 18 Blood Pressure 178/116 H 156/109 H O2 Saturation 100 96 O2 Source Non-rebreather mask Room air Room air If not protocol: Oxygen Flow, liters/minute 15 Pain Intensity 0 05/30/25 11:05 05/30/25 11:08 05/30/25 11:10 Temperature Temperature Source Pulse Rate 119 H 126 H 128 H Respiratory Rate 20 22 18 Blood Pressure 139/98 H 144/98 H 144/98 H O2 Saturation 100 99 99 O2 Source neb neb If not protocol: Oxygen Flow, liters/minute 6 Pain Intensity 05/30/25 11:14 05/30/25 11:14 05/30/25 11:22 Temperature Temperature Source Pulse Rate 123 H 124 H 127 H Respiratory Rate 19 20 19 Blood Pressure 169/115 H 169/115 H 142/90 H O2 Saturation 99 99 94 O2 Source If not protocol: Oxygen Flow, liters/minute Pain Intensity 05/30/25 11:27 05/30/25 11:32 05/30/25 11:37 Temperature Temperature Source Pulse Rate 124 H 122 H Respiratory Rate 21 18 Blood Pressure 136/100 H 151/102 H O2 Saturation 92 89 L O2 Source If not protocol: Oxygen Flow, liters/minute Pain Intensity 8 05/30/25 11:37 05/30/25 11:37 05/30/25 11:42 Temperature Temperature Source Pulse Rate 127 H 132 H 130 H Respiratory Rate 21 17 18 Blood Pressure 144/98 H 144/98 H 134/101 H O2 Saturation 88 L 88 L 87 L O2 Source Room air Room air If not protocol: Oxygen Flow, liters/minute Pain Intensity 05/30/25 11:47 05/30/25 11:52 05/30/25 11:57 Temperature Temperature Source Pulse Rate 131 H 116 H 132 H Respiratory Rate 23 17 16 Blood Pressure 152/102 H 142/96 H 137/84 H O2 Saturation 86 L 91 L 89 L O2 Source Room air Nasal cannula Room air If not protocol: Oxygen Flow, liters/minute 2 Pain Intensity 05/30/25 12:05 Temperature Temperature Source Pulse Rate 120 H Respiratory Rate 24 Blood Pressure O2 Saturation 86 L O2 Source Room air If not protocol: Oxygen Flow, liters/minute Pain Intensity Oxygen O2 Source Room air EKG (time done) 1035: EKG releavant findings:: EKG personally interpreted by author of this note. Relevant findings are: Sinus tachycardia with PACs, rate of 126. Mild ST depression anteriorly. Labs Labs: Laboratory Tests 05/30/25 10:43 WBC 7.0 RBC 3.89 L Hgb 12.6 Hct 38.2 MCV 98.2 MCH 32.4 H MCHC 33.0 RDW 13.6 Plt Count 205 MPV 10.6 Neut # (Auto) 3.7 Lymph # (Auto) 1.8 Harrison # (Auto) 0.9 Eos # (Auto) 0.4 Baso # (Auto) 0.1 Absolute Nucleated RBC 0.00 Nucleated RBC % 0.0 VBG pH 7.374 VBG pCO2 45.3 VBG pO2 65.2 H VBG HCO3 26.7 VBG Total CO2 28.1 VBG O2 Saturation 89.0 H VBG Base Excess 1.3 Sodium 138 Potassium 3.4 L Chloride 100 L Carbon Dioxide 28 Anion Gap 10.0 BUN 13 Creatinine 1.0 Estimated GFR (MDRD) 55 L Glucose 130 H Calcium 10.4 H Magnesium 1.5 L Total Bilirubin 0.5 AST 28 ALT 24 Alkaline Phosphatase 70 Total Protein 6.9 Albumin 4.5 Globulin 2.4 Albumin/Globulin Ratio 1.9 Procalcitonin Immunoas 0.10 Nasal Adenovirus (PCR) NOT DETECTED Nasal B. parapertussis DNA (PCR) NOT DETECTED Nasal Coronavir 229E PCR NOT DETECTED Nasal Coronavir HKU1 PCR NOT DETECTED Nasal Coronavir NL63 PCR NOT DETECTED Nasal Coronavir OC43 PCR NOT DETECTED Nasal Enterovir/Rhinovir PCR NOT DETECTED Nasal Influenza B PCR NOT DETECTED Nasal Influenza A PCR NOT DETECTED Nasal Parainfluen 1 PCR NOT DETECTED Nasal Parainfluen 2 PCR NOT DETECTED Nasal Parainfluen 3 PCR NOT DETECTED Nasal Parainfluen 4 PCR NOT DETECTED Nasal RSV (PCR) NOT DETECTED Nasal B.pertussis DNA PCR NOT DETECTED Nasal C.pneumoniae (PCR) NOT DETECTED [place] Human Metapneumo PCR NOT DETECTED Nasal M.pneumoniae (PCR) NOT DETECTED Nasal SARS-CoV-2 (PCR) NOT DETECTED PD Medical Decision Making ED course ED course: She presents with shortness of breath. Given her breath sounds this is most likely exacerbation of her COPD. PE is unlikely given lack of leg symptoms and chronic anticoagulation. She has no chest pain. No history of heart failure. Workup demonstrates a clear chest x-ray, unremarkable CBC, normal venous blood gas, mild chronic hyperglycemia and CKD on CMP with hypomagnesemia which I will replete as it may help with her breathing as well. Here in the department she received 10 mg continuous albuterol with improvement in her symptomatology but she remained tachypneic and had some episodes of A-fib with RVR with a rate of about 180 on the monitor. She was given divided doses of diltiazem. After that she was mostly in a sinus tachycardia with a rate of about 120. Still having occasional bouts of rapid A-fib, but improved. She did require oxygen with sats of 86 or so on room air. Spoke with Dr. Escobar for admission at 12:09 PM. Critical Care Critical Care Provided: Yes Time(min): 36 Time Includes: Direct patient care, Review records, Reassess patient, Document care, Coordinate care and Medical consult Data interpretation: Labs and Pulse ox Procedures excluded from critical care time: EKG Discharge Plan Discharge Patient Disposition: 65 [facility] DC/Xfer Condition: Serious Clinical Impression: Acute exacerbation of COPD with asthma, Atrial fibrillation with RVR, Acute respiratory failure with hypoxia Prescriptions: No Action ipratropium-albuterol 0.5 mg-3 mg(2.5 mg base)/3 mL solution for nebulization See Rx Instructions .ROUTE .COMPLEX Qty: 90 0RF Dose Instruction: 3 ML INHALATIONS EVERY FOUR HOURS NEEDED FOR WHEEZING Rx Instructions: 3 ML INHALATIONS EVERY FOUR HOURS NEEDED FOR WHEEZING diltiazem HCl [Tiazac] 240 mg capsule,extended release 24hr 240 mg PO QDAY tiotropium bromide [Spiriva with HandiHaler] 18 mcg capsule, w/inhalation device 1 cap inhalation QDAY Qty: 90 1RF albuterol sulfate 8.5 GM HFA aerosol inhaler 1 puff IH Q4HR PRN (Reason: Wheezing) losartan [Cozaar] 100 MG tablet 100 mg PO DAILY clonidine HCl 0.1 MG tablet 0.1 mg PO BID Patient Comments: Take 1 tablet by mouth every morning atorvastatin 10 MG tablet 10 mg PO DAILY apixaban [Eliquis] 5 MG tablet 5 mg PO BID Patient Comments: TAKE ONE TABLET BY MOUTH TWICE DAILY diltiazem HCl 240 MG capsule,extended release 24hr 1 cap PO DAILY montelukast 10 MG tablet 10 mg PO QPM Qty: 30 0RF methylprednisolone 4 MG tablets,dose pack 4 - 16 mg PO 0800 Qty: 10 0RF Rx Instructions: 4 tabs on 10/30/23, 3 tabs the next day, 2 tabs the next day, 1 tab the next day, then stop budesonide-formoterol [Symbicort] 10.2 GM HFA aerosol inhaler 2 puff inhalation BID Qty: 1 0RF Print Language: Serbian
[2025-05-30 10:50] LABS: HCT - HEMATOCRIT 38.2 % (37.0-47.0); HGB - HEMOGLOBIN 12.6 g/dL (12.0-16.0); MEAN PLATELET VOLUME 10.6 fL (7.9-10.8); NRBC ABSOLUTE COUNT (AUTO) 0.00 x10^3/uL; NUCLEATED RED BLOOD CELLS AUTO 0.0 /100WBC; PLT - PLATELET COUNT 205 10^3/uL (130-450); RED CELL DISTRIBUTION WIDTH 13.6 % (12.0-15.0)
[2025-05-30 10:52] LABS: VBG BASE EXCESS 1.3 mmol/L (-2 - +2); VBG PCO2 45.3 mmHg (41-51); VBG PH 7.374 (7.31-7.41); VBG PO2 65.2 mmHg (25-47); VBG TOTAL CO2 28.1 mmol/L (24-29)
--- NOTE | 2025-05-30 10:55 | XRAY Report ---
PROCEDURE: XR Chest 1V INDICATIONS: dyspnea TECHNIQUE: One view of the chest was acquired. COMPARISON: Chest radiograph 10/27/2023. FINDINGS: Surgical changes and devices: None. Lungs and pleura: No pleural effusions or pneumothorax. No consolidation. Mediastinum: Mediastinal contours appear normal. Heart size is normal. Bones and chest wall: No suspicious bony lesions. Overlying soft tissues appear unremarkable. IMPRESSION: No acute cardiopulmonary process. Reviewed by: Chris Bacon MD on 05/30/2025 10:54 AM PDT Approved by: Chris Bacon MD on 05/30/2025 10:54 AM PDT Station ID: [id number]
[2025-05-30] MEDS: diltiaZEM INJ 5 MG/ML VIAL IVP STA ×2 (10:57→11:19)
[2025-05-30] MEDS: CONCENTRATED ALBUTEROL NEB 2.5 MG/0.5 ML INH ONE (10:58)
[2025-05-30] MEDS: SODIUM CHLORIDE INHALATION 3 ML NEB INH ONE (10:59)
[2025-05-30] MEDS: ALBUTEROL NEB 2.5 MG/3 ML INH STA (10:59)
[2025-05-30 11:13] LABS: ALT ALANINE AMINOTRANSFERASE 24.0 IU/L (10-60); AST ASPARTATE AMINOTRANSFERASE 28.0 IU/L (10-42); BUN - BLOOD UREA NITROGEN 13.0 mg/dL (6-20); CARBON DIOXIDE - CO2 28.0 mmol/L (21-32); CREATININE 1.0 mg/dL (0.6-1.3); GFR - MDRD 55.0 (>89)
[2025-05-30] MEDS: MAGNESIUM SULFATE 2 GRAM 2 GM/50 ML BAG IV ONE (11:29)
[2025-05-30] MEDS: ACETAMINOPHEN 500 MG TABLET PO STA (11:37)
[2025-05-30 11:41] LABS: B. PARAPERTUSSIS- RESP PCR PAN NOT DETECTED; B. PERTUSSIS- RESP PCR PANEL NOT DETECTED; C. PNEUMONIAE- RESP PCR PANEL NOT DETECTED; CORONAVIRUS 229E-RESP PCR NOT DETECTED; CORONAVIRUS HKU1-RESP PCR NOT DETECTED; CORONAVIRUS NL63-RESP PCR NOT DETECTED; CORONAVIRUS OC43-RESP PCR NOT DETECTED; HUMAN METAPNEUMOVIRUS NOT DETECTED; INFLUENZA A- RESP PCR PANEL NOT DETECTED; INFLUENZA B - RESP PCR PANEL NOT DETECTED; M. PNEUMONIAE- RESP PCR PANEL NOT DETECTED; PARAINFLUENZA VIRUS 1 NOT DETECTED; PARAINFLUENZA VIRUS 2 NOT DETECTED; PARAINFLUENZA VIRUS 4 NOT DETECTED; RHINOVIRUS/ENTEROVIRUS NOT DETECTED; RSV- RESP PCR PANEL NOT DETECTED; SARS-CoV-2 -RESP PCR PANEL NOT DETECTED
[2025-05-30] MEDS: POTASSIUM CHLORIDE 20 MEQ TABLET PO STA (12:35)
--- NOTE | 2025-05-30 14:31 | PHARMACY PROGRESS NOTE ---
Best Possible Medication History Admit Date and Time: Home Medications Medication Instructions Recorded Confirmed Type albuterol sulfate 90 mcg/actuation 1 puff IH Q4HR PRN Wheezing 08/01/20 05/30/25 History aerosol inhaler losartan 100 mg tablet (Cozaar) 100 mg PO DAILY 05/30/25 History apixaban 5 mg tablet (Eliquis) 5 mg PO BID 03/17/22 History atorvastatin 10 mg tablet 10 mg PO DAILY 03/17/2205/19 History budesonide-formoterol HFA 160 2 puff inhalation BID #1 ea 10/29/23 05/30/25 Rx mcg-4.5 mcg/actuation aerosol inhaler (Symbicort) montelukast 10 mg tablet 10 mg PO QPM #30 tabs 05/30/25 Rx ipratropium 0.5 mg-albuterol 3 mg See Rx Instructions .Route 07/30/24 05/30/25 Rx (2.5 mg base)/3 mL nebulization .COMPLEX #90 mL soln diltiazem HCl 240 mg capsule,24 240 mg PO QDAY 5 05/30/25 History hr,extended release (Tiazac) Spiriva with HandiHaler 18 mcg and 1 cap inhalation QD AY #90 caps 11/21/24 05/30/25 Rx inhalation capsules (tiotropium bromide) folic acid 1 mg tablet 1 mg PO DAILY 05/30/2505/30 History hydrochlorothiazide 12.5 mg capsule 12.5 mg PO DAILY 0 05/30/25 05/30/25 History Processed by: Pharmacy Medications reviewed in ED?: Yes Medication History completed: Yes Patient Interview: Completed Secondary Source(s): Pharmacy records and Insurance records [facility] Statement: As the person ultimately responsible for medication therapy, providers are able to order a medication from an existing home medication list in [facility] via the "Reconcile Routine" prior to Confirmation of that medication by collection support specialist. Such practice is discouraged except when the physician, in their clinical judgment, deems that a medical need exists for a medication without regard to previous use.
[2025-05-30] MEDS: LACTATED RINGERS 1,000 ML IV ONE (15:07)
--- NOTE | 2025-05-30 15:23 | HISTORY & PHYSICAL EXAMINATION ---
Chief Complaint Chief Complaint Chief Complaint: Dyspnea History of Present Illness Admitted From Admitted From:: Home with significant other History of Present Illness HPI Comment/Other: 65-year-old female with previous history of extensive tobacco abuse, A-fib on Eliquis, who reports having exacerbations of her COPD about every month now. She was seen at [facility] last month. She reports difficulty breathing worsening since last night with wheezing, and productive cough. Denies fever, chills, chest pain, abdominal/bladder abnormality, peripheral edema. She received IV Solu-Medrol and route to the ED. Also reports tachycardia In the ER, she was given multiple doses of extended albuterol, with some improvement in her respiratory symptoms. She had runs of A-fib RVR as high as 180, so she received 2 different IV boluses of diltiazem 10 mg. She was hypoxic, requiring 3 L O2. Respiratory viral panel was checked and found to be negative. CXR clear. Hospitalist was contacted for observation for COPD exacerbation with hypoxia Meds/Allgy Home Medications Ambulatory Orders Medication Instructions Recorded Confirmed albuterol sulfate 90 mcg/actuation 1 puff IH Q4HR PRN Wheezing 08/01/20 05/30/25 aerosol inhaler losartan 100 mg tablet (Cozaar) 100 mg PO DAILY 05/30/25 apixaban 5 mg tablet (Eliquis) 5 mg PO BID 03/17/22 atorvastatin 10 mg tablet 10 mg PO DAILY 03/17/2205/19 budesonide-formoterol HFA 160 2 puff inhalation BID #1 ea 10/29/23 05/30/25 mcg-4.5 mcg/actuation aerosol inhaler (Symbicort) montelukast 10 mg tablet 10 mg PO QPM #30 tabs 05/30/25 ipratropium 0.5 mg-albuterol 3 mg See Rx Instructions .Route 07/30/24 05/30/25 (2.5 mg base)/3 mL nebulization .COMPLEX #90 mL soln diltiazem HCl 240 mg capsule,24 240 mg PO QDAY 11/07/ 5 05/30/25 hr,extended release (Tiazac) Spiriva with HandiHaler 18 mcg and 1 cap inhalation QD AY #90 caps 11/21/24 05/30/25 inhalation capsules (tiotropium bromide) folic acid 1 mg tablet 1 mg PO DAILY 05/30/2505/30 hydrochlorothiazide 12.5 mg capsule 12.5 mg PO DAILY 0 05/30/25 05/30/25 Allergies Allergies Allergy/AdvReac Type Severity Reaction Status Date / Time lisinopril Allergy Intermediate swelling Verified 05/30/25 10:45 [facility] Active Problems All Active Problems (Updated 05/30/25 @ 12:09 by Sidney Cooper MD) Hyperlipidemia (Acute) Impaired glucose tolerance (Acute) Nicotine dependence (Acute) Encounter for preventative adult health care exam with abnormal findings (Acute) Pulmonary HTN (Acute) Paroxysmal atrial fibrillation with RVR (Acute) Low TSH level (Acute) COPD (chronic obstructive pulmonary disease) (Chronic) Dermatitis (Acute) Degenerative joint disease of left knee (Acute) Pulse visible in abdominal aorta (Acute) Reactive airway disease (Acute) 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) Tobacco use (Acute) Paroxysmal A-fib (Acute) New onset a-fib (Acute) Acute exacerbation of COPD with asthma (Acute) Headache (Acute) Hyponatremia (Acute) Edema of both ankles (Acute) Hypokalemia (Acute) Cough (Acute) Shortness of breath (Acute) Tachycardia (Acute) Non-sustained ventricular tachycardia (Acute) Acute respiratory failure with hypoxia (Acute) Anemia (Acute) V-tach (Acute) HTN (hypertension) (Acute) Atrial fibrillation with RVR (Acute) Prerenal azotemia (Acute) COPD exacerbation (Acute) HTN (hypertension) (Acute) Current smoker (Acute) Finger sprain (Acute) Hypoxia (Acute) Dyspnea (Acute) Orthopnea (Acute) Hypokalemia (Acute) Hypomagnesemia (Acute) Hypophosphatemia (Acute) History of hypertension (Acute) Social History Social History If you are a former smoker, when did you quit? (Date/Year): 10/13/20 Number of Years Smoked: 40 How many cigarettes a day do you smoke? (20 cigarettes=1 Pk): 3 Do you dip or chew tobacco?: No Do you vape?: No Patient requests smoking cessation consult: No Initiate information on smoking cessation: No Living arrangement: At home Living Condition: With spouse/s.o. Level: Independent Do you feel safe in your home environment?: Yes History of physical, verbal, emotional, or financial abuse?: No Frequency: Occasional POLST Patient has POLST: No Review of Systems Status of ROS: 10 or more systems reviewed and unremarkable except as noted in history and below Constitutional Denies: Fever or Chills Cardiovascular Reports: shortness of breath with exertion; Denies: Irregular heart rate, chest pain or palpitations Respiratory Reports: Shortness of breath, Cough, Sputum production and Wheezing Gastrointestinal Denies: Abdominal pain Allergic/Immunologic Reports: Wheezing Exam Exam Vital Signs: Vital Signs x48h Temp Pulse Resp BP Pulse Ox O2 Flow Rate 05/30/25 14:03 116 H 20 142/97 H 95 3 05/30/25 13:33 116 H 15 142/88 H 95 3 05/30/25 13:03 116 H 20 156/82 H 95 3 05/30/25 13:03 114 H 16 156/82 H 94 3 05/30/25 12:33 114 H 16 157/98 H 96 3 05/30/25 12:11 116 H 16 96 3 05/30/25 12:05 120 H 24 86 L 05/30/25 12:02 117 H 21 143/89 H 96 3 05/30/25 11:57 132 H 16 137/84 H 89 L 05/30/25 11:52 116 H 17 142/96 H 91 L 2 05/30/25 11:47 131 H 23 152/102 H 86 L 05/30/25 11:42 130 H 18 134/101 H 87 L 05/30/25 11:37 132 H 17 144/98 H 88 L 05/30/25 11:37 127 H 21 144/98 H 88 L 05/30/25 11:32 122 H 18 151/102 H 89 L 05/30/25 11:27 124 H 21 136/100 H 92 05/30/25 11:22 127 H 19 142/90 H 94 05/30/25 11:14 124 H 20 169/115 H 99 05/30/25 11:14 123 H 19 169/115 H 99 05/30/25 11:10 128 H 18 144/98 H 99 6 05/30/25 11:08 126 H 22 144/98 H 99 05/30/25 11:05 119 H 20 139/98 H 100 05/30/25 11:03 133 H 18 05/30/25 11:00 131 H 22 156/109 H 96 05/30/25 10:33 37.2 C 125 H 40 H 178/116 H 100 15 Constitutional normal general appearance and no apparent distress HENMT normocephalic Eyes PERRL Neck/C-Spine visual inspection normal Respiratory breath sounds equal bilaterally Diminished breath sounds Cardiovascular Tachycardic, irregular Gastrointestinal abdomen normal to inspection and abdomen soft to palpation Extremities normal to inspection Neurology GCS 15 Psychiatry oriented x3 Skin skin color normal Conclusion/Plan Problem List (1) COPD (chronic obstructive pulmonary disease): Plan: COPD with acute exacerbation given productive cough and dyspnea No infectious symptoms Chest x-ray, RVP clear Received Solu-Medrol and route Prednisone 40 mg p.o. daily starting tomorrow Xopenex neb as needed given her tachycardia I have added Pulmicort She has an appointment with a horticultural nursery assistant next week Declined palliative care referral Guaifenesin 1200 mg p.o. twice daily (2) Paroxysmal atrial fibrillation with RVR: Plan: Her heart rate is maintaining 110s to 120s now that she has received the 2 pushes of diltiazem and her electrolytes are being repleted She takes 240 mg extended release Cardizem at home, I have restarted this I believe her RVR is due to her respiratory insufficiency She is possibly also mildly dehydrated, so I am starting 1 L LR bolus followed by drip at 100 Continue home dose Eliquis Plan to replete electrolytes to maintain potassium greater than 4, magnesium greater than 2 BMP, mag in a.m. Plan Place in observation Full code She names her boyfriend is her surrogate decision maker Lab Results Lab results reviewed: Yes 05/30/25 10:43 05/30/25 10:43 Diagnostic Imaging Results Diagnostic Imaging Results: positive Final report reviewed Core Measures Anticipated LOS I expect patient to be DC'd or transferred within 96 hours.: Yes DVT/VTE - Prophylaxis VTE/DVT Prophylaxis med ordered at admit?: Yes
[2025-05-30] MEDS ORDERED: ONDANSETRON 4 MG/2 ML VIAL IVP PRN (15:45)
[2025-05-30] MEDS ORDERED: SODIUM CHLORIDE FLUSH 0.9% 10 ML SYRINGE IVP PRN (15:45)
[2025-05-30] MEDS ORDERED: ONDANSETRON ODT 4 MG TABLET TL PRN (15:45)
[2025-05-30] MEDS ORDERED: PROCHLORPERAZINE 10 MG/2 ML VIAL IVP PRN (15:45)
[2025-05-30] MEDS: ACETAMINOPHEN 325 MG TABLET PO PRN (16:16)
[2025-05-30] MEDS: SODIUM CHLORIDE FLUSH 0.9% 10 ML SYRINGE IVP SCH (16:17)
[2025-05-30] MEDS: LACTATED RINGERS 1,000 ML IV SCH (16:17)
[2025-05-30] MEDS: LEVALBUTEROL 1.25 MG/3 ML NEB INH PRN (16:42)
[2025-05-30] MEDS: IBUPROFEN 400 MG TABLET PO PRN (18:03)
[2025-05-30] MEDS ORDERED: IPRATROPIUM 0.2 MG/ML NEB INH SCH ×2 (19:00)
[2025-05-30] MEDS: IPRATROPIUM 0.2 MG/ML NEB INH SCH (19:54)
[2025-05-30] MEDS: BUDESONIDE 0.5 MG/2 ML NEB INH SCH (19:54)
[2025-05-30] MEDS: FORMOTEROL FUMARATE NEB 20 MCG/2 ML INH SCH (19:54)
[2025-05-30] MEDS: MONTELUKAST 10 MG TABLET PO SCH (21:04)
[2025-05-30] MEDS: APIXABAN 5 MG TABLET PO SCH (21:05)
[2025-05-30 22:12] LABS: BUN - BLOOD UREA NITROGEN 17.0 mg/dL (6-20); CARBON DIOXIDE - CO2 25.0 mmol/L (21-32); CREATININE 1.0 mg/dL (0.6-1.3); GFR - MDRD 55.0 (>89)
[2025-05-31] MEDS: oxyCODONE 5 MG TABLET PO SCH (00:40)
[2025-05-31 05:35] LABS: HCT - HEMATOCRIT 33.0 % (37.0-47.0); HGB - HEMOGLOBIN 10.7 g/dL (12.0-16.0); MEAN PLATELET VOLUME 10.8 fL (7.9-10.8); NRBC ABSOLUTE COUNT (AUTO) 0.00 x10^3/uL; NUCLEATED RED BLOOD CELLS AUTO 0.0 /100WBC; PLT - PLATELET COUNT 171 10^3/uL (130-450); RED CELL DISTRIBUTION WIDTH 13.7 % (12.0-15.0)
[2025-05-31 05:51] LABS: BUN - BLOOD UREA NITROGEN 18.0 mg/dL (6-20); CARBON DIOXIDE - CO2 24.0 mmol/L (21-32); CREATININE 0.9 mg/dL (0.6-1.3); GFR - MDRD 63.0 (>89)
[2025-05-31] MEDS: LOSARTAN 50 MG TABLET PO SCH (08:55)
[2025-05-31] MEDS: FOLIC ACID 1 MG TABLET PO SCH (08:56)
[2025-05-31] MEDS: ATORVASTATIN 10 MG TABLET PO SCH (08:56)
--- NOTE | 2025-05-31 11:28 | Discharge Summary ---
Discharge Summary Admit Date: 05/30/25 Discharge Date: 05/31/25 Discharging Provider: Glenn Patel Primary Care Provider: Daina Mcfarlane Code Status: Attempt Resuscitation DIAGNOSES Admission Diagnoses: COPD exacerbation Atrial fibrillation with RVR Discharge Diagnoses with Status of Each Condition: COPD exacerbationon room air, discharging on prednisone Atrial fibrillation with RVRRVR due to respiratory strain and dehydration. Rate controlled now HPI History of Present Illness: 65-year-old female with previous history of extensive tobacco abuse, A-fib on Eliquis, who reports having exacerbations of her COPD about every month now. She was seen at [facility] last month. She reports difficulty breathing worsening since last night with wheezing, and productive cough. Denies fever, chills, chest pain, abdominal/bladder abnormality, peripheral edema. She received IV Solu-Medrol and route to the ED. Also reports tachycardia In the ER, she was given multiple doses of extended albuterol, with some improvement in her respiratory symptoms. She had runs of A-fib RVR as high as 180, so she received 2 different IV boluses of diltiazem 10 mg. She was hypoxic, requiring 3 L O2. Respiratory viral panel was checked and found to be negative. CXR clear. Hospitalist was contacted for observation for COPD exacerbation with hypoxia HOSPITAL COURSE Hospital Course: Patient was held in observation overnight and had significant improvement in her respiratory symptoms. She already has a appointment scheduled with pulmonology in the next week, she has been encouraged to keep this appointment. I am discharging her on a short course of prednisone, I have also encouraged her to follow-up with her PCP. ALLERGIES Allergies Allergy/AdvReac Type Severity Reaction Status Date / Time lisinopril Allergy Intermediate swelling Verified 05/30/25 10:45 MEDICATIONS Ambulatory Orders Medication Instructions Recorded Confirmed albuterol sulfate 90 mcg/actuation 1 puff IH Q4HR PRN Wheezing 08/01/20 05/30/25 aerosol inhaler losartan 100 mg tablet (Cozaar) 100 mg PO DAILY 05/30/25 apixaban 5 mg tablet (Eliquis) 5 mg PO BID 03/17/22 atorvastatin 10 mg tablet 10 mg PO DAILY 03/17/2205/19 budesonide-formoterol HFA 160 2 puff inhalation BID #1 ea 10/29/23 05/30/25 mcg-4.5 mcg/actuation aerosol inhaler (Symbicort) montelukast 10 mg tablet 10 mg PO QPM #30 tabs 05/30/25 ipratropium 0.5 mg-albuterol 3 mg See Rx Instructions .Route 07/30/24 05/30/25 (2.5 mg base)/3 mL nebulization .COMPLEX #90 mL soln diltiazem HCl 240 mg capsule,24 240 mg PO QDAY 5 05/30/25 hr,extended release (Tiazac) Spiriva with HandiHaler 18 mcg and 1 cap inhalation QD AY #90 caps 11/21/24 05/30/25 inhalation capsules (tiotropium bromide) folic acid 1 mg tablet 1 mg PO DAILY 05/30/2505/30 hydrochlorothiazide 12.5 mg capsule 12.5 mg PO DAILY 0 05/30/25 05/30/25 prednisone 20 mg tablet 40 mg (2 x 20 mg) PO DAILYWM 4 05/31/25 days #8 tabs PHYSICAL EXAM AT DISCHARGE Vital Signs: Vital Signs x48h Temp Pulse Resp BP Pulse Ox 05/31/25 13:35 36.8 C 87 18 140/89 H 94 05/31/25 07:38 36.7 C 92 18 157/99 H 92 General Appearance: positive No acute distress and Alert Eyes Bilateral: positive Normal inspection ENT: positive ENT inspection nml Neck: positive Nml inspection Respiratory: positive Chest non-tender Cardiovascular: positive Irregularly irregular Peripheral Pulses: positive 2+ Abdomen: positive Non-tender Back: positive Nml inspection Skin: positive Color nml Extremities: positive Non-tender Neurologic/Psychiatric: positive Oriented x3 LABS 05/31/25 05:15 05/31/25 05:15 FOLLOW UP Follow Up: With PCP, pulmonology TIME SPENT Time Spent in Discharge (Minutes): 39 Discharge Plan Discharge Patient Disposition: 01 Home, Self Care Condition: Serious Medically Cleared Date:: 05/31/25 Prescriptions: New prednisone 20 mg Tablet 40 mg PO DAILYWM 4 Days Qty: 8 0RF Continued ipratropium-albuterol 0.5 mg-3 mg(2.5 mg base)/3 mL solution for nebulization See Rx Instructions .ROUTE .COMPLEX Qty: 90 0RF Dose Instruction: 3 ML INHALATIONS EVERY FOUR HOURS NEEDED FOR WHEEZING Rx Instructions: 3 ML INHALATIONS EVERY FOUR HOURS NEEDED FOR WHEEZING diltiazem HCl [Tiazac] 240 mg capsule,extended release 24hr 240 mg PO QDAY tiotropium bromide [Spiriva with HandiHaler] 18 mcg capsule, w/inhalation device 1 cap inhalation QDAY Qty: 90 1RF albuterol sulfate 8.5 GM HFA aerosol inhaler 1 puff IH Q4HR PRN (Reason: Wheezing) losartan [Cozaar] 100 MG tablet 100 mg PO DAILY atorvastatin 10 MG tablet 10 mg PO DAILY Eliquis 5 MG tablet 5 mg PO BID Patient Comments: TAKE ONE TABLET BY MOUTH TWICE DAILY montelukast 10 MG tablet 10 mg PO QPM Qty: 30 0RF budesonide-formoterol [Symbicort] 10.2 GM HFA aerosol inhaler 2 puff inhalation BID Qty: 1 0RF hydrochlorothiazide 12.5 mg capsule 12.5 mg PO DAILY folic acid 1 mg tablet 1 mg PO DAILY Diet: Regular Interventions: Discharge Last Done: 05/31/25 13:53 Discharge Checklist - Nursing Last Done: 05/31/25 13:55 Discharge Vital Signs (30 Minutes) Last Done: 05/31/25 13:35 Health Concerns: You came into the hospital with difficulty breathing. You were found to be in exacerbation of your COPD. You were held in observation while we started you on high-dose steroids. You are now on room air, so you are stable to discharge. I would like for you to continue a course of steroids for another 4 days. I would like for you to take these as directed until the bottle is empty. Please keep your follow-up appointment with pulmonology. I would also like for you to follow-up with primary care. If you continue to feel chest congestion, I would recommend an [id number] mucolytic such as Mucinex to help with this. Please notify healthcare provider if you develop fever, chills, chest pain, or if your symptoms worsen Print Language: Yoruba Patient Instructions: COPD: Using Inhalers Stand Alone Forms: PCP List Vitals documented within 30 minutes of discharge?: Yes (See DC VS)
[2025-05-31 14:08] VITALS: BP 140/89; TEMP 98.2; O2SAT 94
== END 2025-05-31 13:47 | disposition home or self-care (01) ==
LOC: ED 10:30 → MS2 10:30
PROVIDERS: ADMIT Nurse Practitioner Acute Care; ATTEND Nurse Practitioner Acute Care
DX: J44.1 Chronic obstructive pulmonary disease with (acute) exacerbation; I48.0 Paroxysmal atrial fibrillation; R73.9 Hyperglycemia, unspecified; E83.42 Hypomagnesemia; Z79.01 Long term (current) use of anticoagulants; N18.9 Chronic kidney disease, unspecified; R00.0 Tachycardia, unspecified; J96.01 Acute respiratory failure with hypoxia; Z87.891 Personal history of nicotine dependence